=== PATIENT | female | born 1960 | race Caucasian/White ===

== ENCOUNTER 2017-01-04 15:40 | Inpatient (IN) | payer OTHER ==
[~2017-01-04] VITALS: Ht 157.5 cm; Wt 102.5 kg
[~2017-01-04 15:40] MED LIST: AMLO5TAB4 PO; ASPI-535 PO; CEPH500C PO; CHLO25TA13 PO; DESL5TAB20 PO; FAMO20TA18 PO; FER325 PO; HYDR-3498 PO; INSU100C SC; LANT3I SC; METF500T4 PO; METO-448 PO; SENN-53 PO; SERT50TA6 PO; SIMV40TA2 PO; SYN112 PO; TRAZ50TA18 PO
--- NOTE | 2017-01-04 17:43 | ERA ---
ER Documentation Chief Complaint Date/Time DATE: 01/04/17 TIME: 17:43 Chief Complaint SENT BY PMD FOR ADMISSION FOR LEFT FOOT CELLULITIS. S/P ANKLE SURGERY HPI The patient is a 56-year-old female, presenting to the ER because of left ankle , left foot pain and swollen for 1 day. She was seen by the protective service specialist Dr. Abdalla who took left ankle and left foot x-ray and sent her to the ER. She complains of subjective fever, denies chills, neck pain, chest pain, dyspnea, abdominal pain, vomiting, dysuria, diarrhea. She does not smoke nor drink Past medical history: Diabetes mellitus, peripheral artery disease, peripheral neuropathy, hypertension, left Charcot foot, CKD Past surgical history: Cholecystectomy, left foot/ ankle reconstruction in August 19, 2017 ROS All systems reviewed and are negative except as per history of present illness. Medications Home Meds Active Scripts Metoprolol Tartrate* (Lopressor*) 25 Mg Tab, 25 MG PO BID for 30 Days, TAB 1 Refill Prov:RILEY CUTLER MD 06/22/16 Reported Medications Lovastatin* (Lovastatin*) Unknown Strength Tablet, MG PO HS, TAB 01/04/17 Chlorthalidone* (Chlorthalidone*) 25 Mg Tablet, 25 MG PO DAILY, TAB 08/19/16 Insulin Lispro (Humalog) 100 U/Ml Cartridge, 16 UNITS SC WITH MEALS, EA 06/12/16 Trazodone Hcl* (Trazodone Hcl*) 50 Mg Tablet, 50 MG PO QHS, #30 TAB 05/11/16 Levothyroxine Sodium* (Levothyroxine Sodium*) 112 Mcg Tablet, 112 MCG PO AC BREAKFAST, TAB 05/09/15 Insulin Glargine* (Lantus*) 100 Unit/Ml Soln, 44 UNIT SC HS, EA 05/09/15 Metformin* (Glucophage*) 500 Mg Tab, 500 MG PO BID 03/25/11 Discontinued Reported Medications Sertraline Hcl* (Sertraline Hcl*) 50 Mg Tablet, 50 MG PO DAILY, #30 TAB 08/19/16 Famotidine* (Famotidine*) 20 Mg Tablet, 20 MG PO DAILY, #30 TAB 08/19/16 Sertraline Hcl* (Sertraline Hcl*) 50 Mg Tablet, 50 MG PO DAILY, #30 TAB 05/11/16 Simvastatin* (Zocor*) 40 Mg Tablet, 40 MG PO QHS, #30 TAB 05/11/16 Chlorthalidone* (Chlorthalidone*) 25 Mg Tablet, 25 MG PO DAILY, TAB 11/26/15 Discontinued Scripts Hydrocodone Bit-Acetaminophen (Hydrocodone Bit-APAP) 5-325MG Tablet, 1 TAB PO Q4 Y for MODERATE PAIN LEVEL 4-6, #30 TAB Prov:ALICE STAPLES 08/20/16 Sennosides* (Senna Lax*) 8.6 Mg Tablet, 1 TAB PO Q12H Y for CONSTIPATION, #30 TAB Prov:REGIDORALICE 08/20/16 Cephalexin* (Cephalexin*) 500 Mg Capsule, 500 MG PO Q8, #21 CAP Prov:ALICE STAPLES 08/20/16 Amlodipine Besylate* (Norvasc*) 5 Mg Tablet, 5 MG PO DAILY for 30 Days, TAB 1 Refill Prov:RILEY CUTLER MD 06/22/16 Aspirin Ec (Aspir 81) 81 Mg Tablet.dr, 81 MG PO DAILY, #30 TAB Prov:ALICE STAPLES 05/13/16 Desloratadine (Clarinex) 5 Mg Tablet, 5 MG PO DAILY, #30 TAB Prov:PARTH PERSAUD 02/20/16 Ferrous Sulfate* (Ferrous Sulfate*) 325 Mg Tabec, 325 MG PO BID, #30 TAB Prov:GEORGI SOLORIO 10/10/15 Allergies Allergies: Coded Allergies: No Known Drug Allergy (Verified Allergy, Mild, 01/04/17) PMhx/Soc History of Surgery: Yes (LEFT ANKLE) Anesthesia Reaction: No Hx Neurological Disorder: No Hx Respiratory Disorders: No Hx Cardiac Disorders: Yes (HYPERLIPIDEMIA, HYPERTENSION) Hx Psychiatric Problems: Yes (DEPRESSION) Hx Miscellaneous Medical Probl: No Hx Alcohol Use: No Hx Substance Use: No Hx Tobacco Use: No Physical Exam Vitals Vital Signs Date Time Temp Pulse Resp B/P Pulse Ox O2 Delivery O2 Flow Rate FiO2 01/04/17 19:31 98.4 83 19 161/75 100 Room Air 01/04/17 16:32 97.9 80 20 124/58 97 Physical Exam Const: No acute distress. Head: Atraumatic. Eyes: Normal Conjunctiva. ENT: Normal External Ears, Nose and Mouth. Neck: Full range of motion. No meningismus. Resp: Clear to auscultation bilaterally. Cardio: Regular rate and rhythm, no murmurs. Abd: Soft, non distended, normal bowel sounds, non tender. Skin: No petechiae or rashes. Back: No midline or flank tenderness. Ext: Left ankle and left foot edematous, warm to touch, no calf tenderness Neur: Awake and alert. No focal deficit Psych: Normal Mood and Affect. Result Diagram: 01/04/17182001/04/171820 Results 24 hrs Laboratory Tests Test 01/04/17 18:21 White Blood Count 12.610^3/ul Red Blood Count 4.2510^6/ul Hemoglobin 11.1g/dl Hematocrit 35.1% Mean Corpuscular Volume 82.6fl Mean Corpuscular Hemoglobin 26.1pg Mean Corpuscular Hemoglobin Concent 31.6g/dl Red Cell Distribution Width 14.6% Platelet Count 31766^3/UL Mean Platelet Volume 9.2fl Neutrophils % 65.4% Lymphocytes % 19.3% Monocytes % 9.5% Eosinophils % 4.8% Basophils % 0.6% Nucleated Red Blood Cells % 0.0/100WBC Neutrophils # 8.210^3/ul Lymphocytes # 2.410^3/ul Monocytes # 1.210^3/ul Eosinophils # 0.610^3/ul Basophils # 0.110^3/ul Nucleated Red Blood Cells # 0.010^3/ul Erythrocyte Sedimentation Rate 123mm/Hr Prothrombin Time 13.4Sec Prothrombin Time Ratio 1.0 INR International Normalized Ratio 1.02 Activated Partial Thromboplast Time 35.2Sec Sodium Level 137mmol/L Potassium Level 4.4mmol/L Chloride Level 99mmol/L Carbon Dioxide Level 23mmol/L Anion Gap 19 Blood Urea Nitrogen 39mg/dl Creatinine 1.64mg/dl Glucose Level 216mg/dl Lactic Acid Level 1.8mmol/L Calcium Level 9.2mg/dl Total Bilirubin 0.1mg/dl Direct Bilirubin 0.00mg/dl Indirect Bilirubin 0.1mg/dl Aspartate Amino Transf (AST/SGOT) 14IU/L Alanine Aminotransferase (ALT/SGPT) 19IU/L Alkaline Phosphatase 173IU/L Troponin I < 0.012ng/ml Total Protein 7.6g/dl Albumin 3.4g/dl Globulin 4.20g/dl Albumin/Globulin Ratio 0.80 Current Medications Medications (Trade) Dose Ordered Sig/Nafisa Route PRN Reason Start Time Stop Time Status Last Admin Dose Admin Vancomycin HCl 250 ml @ 125 mls/hr ONCE IVPB 01/04/17 19:00 01/04/17 20:59 Piperacillin Sod/ Tazobactam Sod (Zosyn 3.375gm/ 100 ml (Pmx)) 100 ml @ 200 mls/hr ONCE ONCE IVPB 01/04/17 19:00 01/04/17 19:29 DC 01/04/17 19:19 Morphine Sulfate (morphine) 2 mg ONCE ONCE IV 01/04/17 19:30 01/04/17 19:31 DC 01/04/17 19:28 Ondansetron HCl 4 mg 4 mg ONCE STAT IV 01/04/17 19:08 01/04/17 19:11 DC 01/04/17 19:27 Piperacillin Sod/ Tazobactam Sod (Zosyn 2.25gm/ 50ml (Pmx)) 50 ml @ 100 mls/hr ONCE ONCE IVPB 01/04/17 19:30 01/04/17 19:59 Procedures/[place] [id number] Radiology Main Line: [phone] DIAGNOSTIC IMAGING REPORT Patient: TOR MCGRATH : 1960 Age: 56 Sex: F MR #: [id number] DOS: 01/04/17 [facility] Ordering MD: JOSE ARMANDO ELLISON MD Location: E/R Room/Bed: PROCEDURE: CT of the left ankle without contrast CLINICAL INDICATION: Lower extremity pain TECHNIQUE: CT scan of the left ankle was performed. No IV contrast was administered. Coronal and sagittal reformatted images were obtained from the axial source images. images. The calculated radiation dose measures 1594.63 mGy centimeters. The CTDI measures 63.33 mGy. Images were reviewed on a high- resolution PACS workstation. One or more of the following dose reduction techniques were used: - Automated exposure control. - Adjustment of the mA and/or kV according to patient size . - Use of iterative reconstruction technique. Images were reviewed on a high-resolution PACS workstation COMPARISON: Interval priors most recent radiograph from 01/04/2017 FINDINGS: Osseous structures: The patient has undergone attempted tibiotalar and subtalar joint arthrodesis with an intramedullary distal tibia erma extending to the calcaneus and through the talus. There has been prior distal fibular resection as well. There are two proximal in a distal interlocking screw with an additional oblique cannulated screw of the talus and calcaneus from anterior-posterior direction. There is no evidence for solid osseous bridging across the arthrodesis site. There is marked sclerosis and small foci of air noted at the lateral talar fragment, suspicious for necrosis. The distal end of the tibial erma extends beyond the plantar cortex of the calcaneus. There are is either neuropathic changes or post-traumatic changes at the midfoot chronic widening of the Lisfranc joint. There is partial fusion between the first metatarsal and middle cuneiform. Soft tissues: There is distension of the tibiotalar joint capsule and a small foci of air seen on the axial series image 55. IMPRESSION: 1. No evidence for solid osseous bridging at the tibiotalar or subtalar joints. 2. Marked sclerosis and fragmentation of the talar remnant with small foci of air. 3. Distension of the hind foot joint capsule. Infection cannot be entirely excluded on the basis of CT alone. 4. Advanced neuropathic changes at the midfoot. RPTAT: PP .Nate Warner MD, MD Date Time Electronically viewed and signed by .Nate Warner MD, MD on 01/04/2017 19:25 .d/ CC: JOSE ARMANDO ELLISON MD [place] [id number] Radiology Main Line: [phone] DIAGNOSTIC IMAGING REPORT Patient: OTR MCGRATH : 1960 Age: 56 Sex: F [id number]: 01/04/17 1752 Ordering MD: JOSE ARMANDO ELLISON MD Location: E/R Room/Bed: PROCEDURE: XR Chest. CLINICAL INDICATION: Chest pain. TECHNIQUE: Single frontal chest x-ray. COMPARISON: 05/11/2016 FINDINGS: The cardiomediastinal silhouette is unremarkable. There is no congestive heart failure.. No focal infiltrate is seen. There is no pleural effusion. There is no pneumothorax. The osseous structures are unremarkable. IMPRESSION: 1. No active disease. RPTAT: HMVK .Jose Armando Valdes MD, Date Time Electronically viewed and signed by .Jose Armando Valdes MD, on 01/04/2017 19:03 .K/ CC: JOSE ARMANDO ELLISON MD :EKG: Read by emergency physician Rate/Rhythm: Normal Sinus Rhythm 77 beats/min QRS, ST, T-waves: No ST elevation, no T inversion Impression: Normal EKG MEDICAL MAKING DECISION: The patient is a 56-year-old female, presenting to the ER because of acute left foot and left ankle cellulitis. The differential diagnoses considered include but are not limited to cellulitis, abscess, internal derangement, osteomyelitis. She was treated with vancomycin IV, Zosyn IV, morphine 2 mg IV for pain, Zofran 4 mg IV for nausea with good response Departure Diagnosis: Primary Impression: Cellulitis of foot, left Additional Impression: Cellulitis of left ankle Condition: Stable Comments I discussed the findings with the patient. I discussed the patient with the on- call hospitalist Dr. Cutler who was made aware of the lab, the treatment, the patient condition. The patient is admitted to medical surgery bed at 7pm JOSE ARMANDO ELLISON MD January 04, 2017 17:43
[2017-01-04] MEDS ORDERED: LOVA20TA PO (18:08)
[2017-01-04 18:33] LABS: ADD SCAN DIFF NO
[2017-01-04 18:38] LABS: BASOPHIL # 0.1 10^3/ul (0.0-0.1); BASOPHILS % 0.6 % (0.0-2.0); EOSINOPHILS # 0.6 10^3/ul (0.0-0.5); EOSINOPHILS % 4.8 % (0.0-7.0); HEMATOCRIT 35.1 % (37.0-47.0); HEMOGLOBIN 11.1 g/dl (12.0-16.0); LYMPHOCYTES # 2.4 10^3/ul (0.8-2.9); LYMPHOCYTES % 19.3 % (15.0-51.0); MEAN CORPUSCULAR HEMOGLOBIN 26.1 pg (29.0-33.0); MEAN CORPUSCULAR HGB CONC 31.6 g/dl (32.0-37.0); MEAN CORPUSCULAR VOLUME 82.6 fl (82.0-101.0); MEAN PLATELET VOLUME 9.2 fl (7.4-10.4); MONOCYTE # 1.2 10^3/ul (0.3-0.9); MONOCYTES % 9.5 % (0.0-11.0); NEUTROPHIL # 8.2 10^3/ul (1.6-7.5); NEUTROPHILS % 65.4 % (39.0-77.0); PLATELET COUNT 591 10^3/UL (140-415); RED BLOOD COUNT 4.25 10^6/ul (4.20-5.40); RED CELL DISTRIBUTION WIDTH 14.6 % (11.5-14.5); WHITE BLOOD COUNT 12.6 10^3/ul (4.8-10.8)
[2017-01-04] MEDS ORDERED: PIPER-TAZO 3.375 GM IV (PMX) 100 ML IVPB ONE (19:00)
[2017-01-04] MEDS ORDERED: VANCOMYCIN 1 GM (PMX) 250 ML IVPB SCH (19:00)
[2017-01-04 19:02] LABS: INR 1.02; PROTIME 13.4 Sec (12.2-14.2)
[2017-01-04 19:03] LABS: PARTIAL THROMBOPLASTIN TIME 35.2 Sec (25.0-35.0)
--- NOTE | 2017-01-04 19:03 | RADRPT ---
PROCEDURE: XR Chest. CLINICAL INDICATION: Chest pain. TECHNIQUE: Single frontal chest x-ray. COMPARISON: 05/11/2016 FINDINGS: The cardiomediastinal silhouette is unremarkable. There is no congestive heart failure.. No focal i nfiltrate is seen. There is no pleural effusion. There is no pneumothorax. The osseous structures are unremarkable. IMPRESSION: 1. No active disease. RPTAT: HMVK .Jose Armando Valdes MD, MD Date Time Electronically viewed and signed by .Jose Armando Valdes MD, on 01/04/2017 19:03 .K/
[2017-01-04 19:06] LABS: ALBUMIN 3.4 g/dl (3.3-4.9); CHLORIDE 99 mmol/L (97-110); POTASSIUM 4.4 mmol/L (3.5-5.1); SODIUM 137 mmol/L (135-144)
[2017-01-04 19:08] LABS: ANION GAP 19 (8-16); ASPARTATE AMINO TRANSFERASE 14 IU/L (15-46); BILIRUBIN,INDIRECT 0.1 mg/dl (0-1.1); BILIRUBIN,TOTAL 0.1 mg/dl (0.2-1.3); CARBON DIOXIDE 23 mmol/L (21-31); CREATININE 1.64 mg/dl (0.44-1.00)
[2017-01-04] MEDS ORDERED: ONDANSETRON 4 MG INJ IV STA ×2 (19:08→20:22)
[2017-01-04 19:09] LABS: ALANINE AMINOTRANSFERASE 19 IU/L (13-69); ALKALINE PHOSPHATASE 173 IU/L (42-121); BLOOD UREA NITROGEN 39 mg/dl (7-20); GLUCOSE 216 mg/dl (70-220); TOTAL PROTEIN 7.6 g/dl (6.1-8.1)
[2017-01-04 19:10] LABS: CALCIUM 9.2 mg/dl (8.4-10.2)
[2017-01-04 19:20] LABS: TROPONIN-I < 0.012 ng/ml (0.00-0.12)
--- NOTE | 2017-01-04 19:26 | RADRPT ---
PROCEDURE: CT of the left ankle without contrast CLINICAL INDICATION: Lower extremity pain TECHNIQUE: CT scan of the left ankle was performed. No IV contrast was administered. Coronal and sagittal reformatted images were obtained from the axial source images. images. The calculated radi ation dose measures 1594.63 mGy centimeters. The CTDI measures 63.33 mGy. Images were reviewed on a high-resolution PACS workstation. One or more of the following dose reduction techniques were used: - Automated exposure control. - Adjustment of the mA and/or kV according to patient size . - Use of iterative reconstruction technique. Images were reviewed on a high-resolution PACS workstation COMPARISON: Interval priors most recent radiograph from 01/04/2017 FINDINGS: Osseous structures: The patient has undergone attempted tibiotalar and subtalar joint arthrodesis with an intramedullary distal tibia erma extending to the calcaneus and through the talus. There has been prior distal fib ular resection as well. There are two proximal in a distal interlocking screw with an additional ob lique cannulated screw of the talus and calcaneus from anterior-posterior direction. There is no carrie dence for solid osseous bridging across the arthrodesis site. There is marked sclerosis and small f oci of air noted at the lateral talar fragment, suspicious for necrosis. The distal end of the tibi al erma extends beyond the plantar cortex of the calcaneus. There are is either neuropathic changes or post-traumatic changes at the midfoot chronic widening of the Lisfranc joint. There is partial f usion between the first metatarsal and middle cuneiform. Soft tissues: There is distension of the tibiotalar joint capsule and a small foci of air seen on the axial series image 55. IMPRESSION: 1. No evidence for solid osseous bridging at the tibiotalar or subtalar joints. 2. Marked sclerosis and fragmentation of the talar remnant with small foci of air. 3. Distension of the hind foot joint capsule. Infection cannot be entirely excluded on the basis o f CT alone. 4. Advanced neuropathic changes at the midfoot. RPTAT: PP .Nate Warner MD, MD Date Time Electronically viewed and signed by .Nate Warner MD, MD on 01/04/2017 19:25 .d/
[2017-01-04] MEDS ORDERED: PIPER-TAZO 2.25 GM (PMX) 50 ML IVPB ONE (19:30)
[2017-01-04] MEDS ORDERED: morphine 2 MG INJ IV ONE (19:30)
[2017-01-04 19:31] VITALS: TEMP 98.4
[2017-01-04] MEDS ORDERED: morphine 4 MG/ML VIAL IV STA (20:22)
[2017-01-04 21:34] VITALS: BP 131/63; RESP 18
[2017-01-04 21:47] VITALS: Ht 157.5 cm; Wt 102.5 kg
[2017-01-04] MEDS ORDERED: ONDANSETRON 4 MG INJ IV PRN (23:00)
[2017-01-04] MEDS ORDERED: GLUCOSE GEL 15 GRAM TUBE BUCCAL PRN (23:45)
[2017-01-04] MEDS ORDERED: GLUCAGON 1 MG INJ IM PRN (23:45)
[2017-01-04] MEDS ORDERED: GLUCOSE GEL 15 GRAM TUBE PO PRN ×2 (23:45)
[2017-01-04] MEDS ORDERED: DEXTROSE 50% 50 ML SYRINGE IV PRN ×2 (23:45)
[2017-01-05] MEDS ORDERED: ACCU-CHEK XX SCH (02:00)
[2017-01-05] MEDS: ACCU-CHEK XX SCH (02:00)
[2017-01-05] MEDS: LEVOTHYROXINE 112 MCG TAB PO SCH (05:28)
[2017-01-05 05:48] LABS: ADD SCAN DIFF NO
[2017-01-05 05:52] LABS: BASOPHIL # 0.1 10^3/ul (0.0-0.1); BASOPHILS % 0.5 % (0.0-2.0); EOSINOPHILS # 0.5 10^3/ul (0.0-0.5); EOSINOPHILS % 4.8 % (0.0-7.0); HEMOGLOBIN 10.3 g/dl (12.0-16.0); LYMPHOCYTES # 0.8 10^3/ul (0.8-2.9); LYMPHOCYTES % 7.3 % (15.0-51.0); MEAN CORPUSCULAR HEMOGLOBIN 25.8 pg (29.0-33.0); MEAN CORPUSCULAR HGB CONC 31.2 g/dl (32.0-37.0); MEAN CORPUSCULAR VOLUME 82.7 fl (82.0-101.0); MEAN PLATELET VOLUME 9.6 fl (7.4-10.4); MONOCYTES % 9.7 % (0.0-11.0); NEUTROPHIL # 8.1 10^3/ul (1.6-7.5); NEUTROPHILS % 77.3 % (39.0-77.0); PLATELET COUNT 531 10^3/UL (140-415); RED BLOOD COUNT 3.99 10^6/ul (4.20-5.40); RED CELL DISTRIBUTION WIDTH 14.6 % (11.5-14.5); WHITE BLOOD COUNT 10.5 10^3/ul (4.8-10.8)
[2017-01-05] MEDS ORDERED: CLINDAMYCIN 600 MG/D5W (PMX) 50 ML IVPB SCH (06:00)
[2017-01-05 06:29] LABS: ALBUMIN 3.1 g/dl (3.3-4.9); ALBUMIN/GLOBULIN RATIO 0.77; BILIRUBIN,INDIRECT 0.1 mg/dl (0-1.1); BILIRUBIN,TOTAL 0.1 mg/dl (0.2-1.3); CALCIUM 8.8 mg/dl (8.4-10.2); CHOL/HDL RATIO 4.6 RATIO; CREATININE 1.55 mg/dl (0.44-1.00); PHOSPHORUS 4.3 mg/dl (2.5-4.9); POTASSIUM 5.2 mmol/L (3.5-5.1); TOTAL PROTEIN 7.1 g/dl (6.1-8.1)
[2017-01-05] MEDS ORDERED: VANCOMYCIN IV PER PHARMACY XX SCH (06:30)
[2017-01-05 06:54] LABS: THYROID STIMULATING HORMONE 4.13 MIU/L (0.465-4.680)
--- NOTE | 2017-01-05 07:54 | HP ---
DATE OF ADMISSION: 01/04/2017 TIME SEEN: 2300 CHIEF COMPLAINT: Left foot/ankle pain. HISTORY OF PRESENT ILLNESS: The patient is a 56-year-old female with a history of hypertension, juan betes, dyslipidemia, chronic kidney disease, depression, and left Charcot ankle status post fusion u sing allograft. The patient presented to the ER with left ankle/foot pain. The patient had the eff usion of the left ankle using a bone allograft in July of last year. She had been placed on the cast which she said was removed a week ago. She had been experiencing pain over the past 3 days, a nd also noted swelling and redness in her left ankle and foot. The patient was seen by her podiatri st, Dr. Peacock, who sent the patient to the ER. The patient denied any chest pain, shortness of segundo ath, nausea, vomiting, fever, chills. In the ER, a left ankle CT without contrast was done which sh owed marked sclerosis and fragmentation of the color remnant with a small foci of air as well as dis tention of the hindfoot joint capsule, infection, not being able to be entirely exclude. Her initia l vitals were within normal limits, and her laboratory value shows a WBC of 12.6, hemoglobin 11.1, p latelet count 591, 100, BUN of 39, creatinine 1.64, and alkaline phosphatase 173, otherwise the rest of CBC and CMP are within acceptable range. REVIEW OF SYSTEMS: A 12-point review was performed, negative except as mentioned in HPI. PAST MEDICAL HISTORY: As per HPI. PAST SURGICAL HISTORY: As mentioned in HPI as well as cholecystectomy. SOCIAL HISTORY: Denies history of tobacco, alcohol, or illicit drug use. ALLERGIES: NO KNOWN DRUG ALLERGIES. HOME MEDICATIONS: 1. Lovastatin. 2. Lopressor. 3. Trazodone. 4. Chlorthalidone. 5. Insulin. 6. Synthroid. 7. Metformin. PHYSICAL EXAMINATION: VITAL SIGNS: Stable. GENERAL: The patient in mild distress due to pain on her left foot. HEENT: No obvious head deformity. Pupils react to light. Extraocular muscles intact. CARDIOVASCULAR: Regular rate and rhythm with no extra sounds. LUNGS: Clear. ABDOMEN: Soft, nontender, nondistended. Positive bowel sounds. EXTREMITIES: There is swelling of the left foot and left ankle with some erythema. The area is ten armin to palpation. LABORATORY: Pertinent positive results as mentioned in the HPI. IMAGING: CT of the left ankle/foot with results as mentioned in the HPI. Chest x-ray shows no acut e disease. IMPRESSION: 1. Left ankle cellulitis. 2. History of left Charcot ankle status post fusion using a bone allograft in July 2016. 3. History of hypertension. 4. History of diabetes. 5. History of dyslipidemia. 6. History of depression. 7. Chronic kidney disease. 8. Leukocytosis, likely secondary to cellulitis. PLAN: She will be placed on antibiotics. We will provide pain medication as needed. We will place an ID consult, and she will be seen in house by her non clinical advisor. We will continue her home medicati ons including her insulin with adjustments. Further workup and management per clinical course. Dictated By: RILEY MARTIN/COURTNEY Conf#: [id number] DID#: [id number]
[2017-01-05 07:56] VITALS: BP 152/65; RESP 20
[2017-01-05] MEDS: morphine 2 MG INJ IV PRN ×3 (07:57→19:47)
[2017-01-05] MEDS: INSULIN ASPART [NOVOLOG] 3 ML PEN SC SCH ×7 (08:05→20:55)
[2017-01-05] MEDS: CEFEPIME 1GM/50 ML (PMX) 50 ML IVPB SCH ×2 (08:38→20:35)
[2017-01-05] MEDS: METOPROLOL 25 MG TAB PO SCH ×2 (08:39→20:34)
[2017-01-05] MEDS: ENOXAPARIN 40 MG/0.4 ML SYG SC SCH (08:39)
[2017-01-05] MEDS ORDERED: INSULIN GLARGINE [LANtus] 3 ML PEN SC SCH ×2 (11:00→21:00)
[2017-01-05] MEDS ORDERED: VANCOMYCIN 1.5 GM in SOD CHLORIDE 0.9% 250 ML IVPB SCH (12:00)
--- NOTE | 2017-01-05 12:22 | PN ---
Date/Time of Note Date/Time of Note DATE: 01/05/17 TIME: 12:08 Assessment/Plan VTE Prophylaxis VTE Prophylaxis Intervention: LMWH Lines/Catheters IV [facility]ter [facility] (from [facility]): Peripheral IV Urinary Cath still in place: No Assessment/Plan Chief Complaint/Hosp Course Assessment and plan 1. Left ankle cellulitis. Continue on antibiotics. Podiatry to follow. ID consulted. 2. History of left Charcot ankle status post fusion using bone allograft in July 2016. Podiatry to follow. 3. Uncontrolled diabetes. A1c at 13. Will get upholsterer outside to follow. Will get pie filling mixer. Will adjust insulin regimen as needed 4. Essential hypertension. Continue antihypertensives and adjust as needed 5. Hyperlipidemia. stable at present. Will monitor. 6. Acute kidney injury. Start on IV hydration. Appears to be improving. Will monitor for now. Will get aircraft instrument repairer pending clinical course 7. Anemia. Will follow up on iron panel Disposition and plan: Podiatry/ID/upholsterer outside to follow. Insulin to be adjusted. Monitor glucose levels. Continue in-house monitoring. Continue antibiotics Discussed plan of care with Dr. Perez Problems: Subjective 24 Hr Interval Summary Free Text/Dictation Resting at this time he does report having some left foot pain. Exam/Review of Systems Vital Signs Vitals Vital Signs Date Time Temp Pulse Resp B/P Pulse Ox O2 Delivery O2 Flow Rate FiO2 01/05/17 07:56 99.2 90 20 152/65 95 01/04/17 21:00 Room Air Intake and Output 01/04/17 01/04/17 01/05/17 15:00 23:00 07:00 Intake Total 290 ml Balance 290 ml Exam Constitutional: alert, obese, oriented Head: normocephalic Eyes: nl conjunctiva Neck: supple Respiratory: normal air movement Cardiovascular: regular rate and rhythm Gastrointestinal: non-tender, soft Musculoskeletal: swelling (Edema seen left lower extremity around ankle and foot) Neurological: POWDER LINE REPAIRER II-XII intact, nl mental status Skin: other (Erythema seen lateral portion of left ankle) Results Result Diagram: 01/05/17 0455 01/05/17 0455 Results 24 hrs Laboratory Tests Test 01/04/17 18:21 01/04/17 19:55 01/05/17 04:55 01/05/17 07:52 White Blood Count 12.6 H 10.5 Red Blood Count 4.25 3.99 L Hemoglobin 11.1 L 10.3 L Hematocrit 35.1 L 33.0 L Mean Corpuscular Volume 82.6 82.7 Mean Corpuscular Hemoglobin 26.1 L 25.8 L Mean Corpuscular Hemoglobin Concent 31.6 L 31.2 L Red Cell Distribution Width 14.6 #H 14.6 H Platelet Count 591 H 531 H Mean Platelet Volume 9.2 9.6 Neutrophils % 65.4 77.3 H Lymphocytes % 19.3 7.3 L Monocytes % 9.5 9.7 Eosinophils % 4.8 4.8 Basophils % 0.6 0.5 Nucleated Red Blood Cells % 0.0 0.0 Neutrophils # 8.2 H 8.1 H Lymphocytes # 2.4 0.8 Monocytes # 1.2 H 1.0 H Eosinophils # 0.6 H 0.5 Basophils # 0.1 0.1 Nucleated Red Blood Cells # 0.0 0.0 Erythrocyte Sedimentation Rate 123 H Prothrombin Time 13.4 Prothrombin Time Ratio 1.0 INR International Normalized Ratio 1.02 Activated Partial Thromboplast Time 35.2 H Sodium Level 137 134 L Potassium Level 4.4 5.2 H Chloride Level 99 103 Carbon Dioxide Level 23 25 Anion Gap 19 H 11 # Blood Urea Nitrogen 39 H 38 H Creatinine 1.64 H 1.55 H Glucose Level 216 486 #*H Lactic Acid Level 1.8 0.8 Calcium Level 9.2 8.8 Total Bilirubin 0.1 L 0.1 L Direct Bilirubin 0.00 0.00 Indirect Bilirubin 0.1 0.1 Aspartate Amino Transf (AST/SGOT) 14 L 70 H Alanine Aminotransferase (ALT/SGPT) 19 63 Alkaline Phosphatase 173 H 437 #H Troponin I < 0.012 Total Protein 7.6 7.1 Albumin 3.4 3.1 L Globulin 4.20 H 4.00 H Albumin/Globulin Ratio 0.80 0.77 Hemoglobin A1c 13.0 H Phosphorus Level 4.3 Magnesium Level 2.0 Triglycerides Level 148 Cholesterol Level 139 LDL Cholesterol, Calculated 79 HDL Cholesterol 30 L Cholesterol/HDL Ratio 4.6 Thyroid Stimulating Hormone (TSH) 4.130 Bedside Glucose 432 *H Medications Medications Current Medications Acetaminophen (Tylenol Tab) 650 mg Q6H PRN PO PAIN AND OR ELEVATED TEMP; Start 01/04/17 at 23:00 Ondansetron HCl (Zofran Inj) 4 mg Q6H PRN IV NAUSEA AND/OR VOMITING; Start 01/04 at 23:00 Morphine Sulfate (morphine) 2 mg Q4H PRN IV PAIN Last administered on 07:57; Admin Dose 2 MG; Start 01/04/17 at 23:00 Enoxaparin Sodium (Lovenox) 40 mg DAILY SC Last administered on 01/05/17 08:39 ; Admin Dose 40 MG; Start 01/05/17 at 09:00 Metoprolol Tartrate (Lopressor) 25 mg BID PO Last administered on 01/05/17 08: 39; Admin Dose 25 MG; Start 01/05/17 at 09:00 Levothyroxine Sodium (Synthroid) 112 mcg DAILY@06 PO Last administered on 05:28; Admin Dose 112 MCG; Start 01/05/17 at 06:00 Trazodone HCl (Desyrel) 50 mg HS PO ; Start 01/05/17 at 21:00 Diagnostic Test (Pha) (Accu-Chek) 1 ea 02 XX ; Start 01/05/17 at 02:00 Miscellaneous Information 1 ea NOTE XX ; Start 01/04/17 at 23:45 Glucose (Glutose) 15 gm Q15M PRN PO DECREASED GLUCOSE; Start 01/04/17 at 23:45 Glucose (Glutose) 22.5 gm Q15M PRN PO DECREASED GLUCOSE; Start 01/04/17 at 23:45 Dextrose (D50w Syringe) 25 ml Q15M PRN IV DECREASED GLUCOSE; Start 01/04/17 at 23:45 Dextrose (D50w Syringe) 50 ml Q15M PRN IV DECREASED GLUCOSE; Start 01/04/17 at 23:45 Glucagon (Glucagen) 1 mg Q15M PRN IM DECREASED GLUCOSE; Start 01/04/17 at 23:45 Glucose 15 gm 15 gm Q15M PRN BUCCAL DECREASED GLUCOSE; Start 01/04/17 at 23:45 Cefepime HCl 50 ml @ 100 mls/hr Q12 IVPB Last administered on 01/05/17 08:38 ; Admin Dose 100 MLS/HR; Start 01/05/17 at 09:00 Vancomycin HCl/ Sodium Chloride (Vancocin/NS) 250 ml @ 83.333 mls/ hr Q24H IVPB Last administered on 01/05/17 12:05; Admin Dose 83.333 MLS/HR; Start 06/14 at 12:00 Insulin Glargine (Lantus) 44 unit QAM SC Last administered on 01/05/17 12:03; Admin Dose 44 UNIT; Start 01/05/17 at 11:00 ALICE STAPLES January 05, 2017 12:21
[2017-01-05] MEDS: SOD CHLORIDE 0.9% 1,000 ML IV SCH (15:21)
--- NOTE | 2017-01-05 16:42 | CONS ---
DATE OF ADMISSION: 01/04/2017 DATE OF CONSULTATION: 01/05/2017 INFECTIOUS DISEASE CONSULTATION REASON FOR CONSULTATION: Antibiotic management. HISTORY OF PRESENT ILLNESS: Penelope Huerta is a pleasant 56-year-old female followed by Dr. Peacock in the [facility]. Her past problems include: 1. Hypertension. 2. Diabetes. 3. Dyslipidemia. 4. Chronic renal disease. 5. Depression. 6. Left Charcot ankle status post fusion using allograft. Acutely, the patient presented to the emergency room with left ankle and foot pain. She had fusion of the left ankle using a bone allograft in July of last year. She had been placed into the benita t which she said was removed at least 5 days ago. She then experienced pain over the last 3 days pr ior to admission as well as significant swelling and redness of the left ankle and foot. She was se nt by Dr. Peacock to the emergency room. A CT scan without contrast showed marked sclerosis and frag mentation with a small foci of air as well as distention of the hindfoot joint capsule, infection no t being able to be entirely excluded. On admission, her white count was 12.6, H and H 11.1 and 35.1 , platelet count 591,000. On 01/05/2017, white count of 10.5. BUN and creatinine are 13 and 1.55. Blood sugar is 486, markedly elevated. Her AST is elevated at 70, alkaline phosphatase 437, BUN an d creatinine 7.1/3.1. Chest x-ray: No active disease. Lower extremity CT: No evidence of solid o sseous bridging at the tibiotalar or subtalar joints, marked sclerosis and fragmentation of the derrek r remnant with small foci of air, distention of the hindfoot capsule. Infection cannot be entirely excluded on the basis of CT alone. Advanced neuropathic changes at the mid foot. The patient was b egun on vancomycin and cefepime. Left ankle cellulitis status post fusion in July 2016. PAST MEDICAL HISTORY: Operations as outlined. FAMILY HISTORY: Noncontributory. SOCIAL HISTORY: She does not smoke, drink, or abuse drugs. ALLERGIES: NONE TO PENICILLIN, SULFA, OR FOODS. MEDICATIONS: Per chart. REVIEW OF SYSTEMS: As per HPI. PHYSICAL EXAMINATION: GENERAL: The patient is a well-developed, well-nourished, somewhat obese female who is alert, respo nsive, in no acute distress. VITAL SIGNS: Stable. She is afebrile. SKIN: Without generalized rash. HEENT: Within normal limits. NECK: Supple. LYMPH NODES: None palpable. LUNGS: Clear to P and A. HEART: Without murmur or gallop. ABDOMEN: Soft, nontender, without organosplenomegaly or masses. EXTREMITIES: Swelling of the left foot and left ankle with some erythema. There is also tenderness to palpation. RECTAL AND GENITAL: Deferred. NEUROLOGIC: No focal neurological abnormalities. IMPRESSION AND PLAN: The patient has left ankle cellulitis with Charcot joint. She may have osteom yelitis at this point. We will await Dr. Peacock for evaluation. I will dictate my findings to the hospitalist and to him. We will continue her on vancomycin and cefepime. Dictated By: HAN TURCIOS MD, JD/COURTNEY Conf#: [id number] DID#: [id number]
--- NOTE | 2017-01-05 19:11 | CONS ---
Date/Time of Note Date/Time of Note DATE: 01/05/17 TIME: 19:03 Assessment/Plan Assessment/Plan Problems: (1) Hyporeninemic hypoaldosteronism Status: Chronic Comment: This is interfered with some of her therapeutics in the past. As noted in prior admission the appropriate treatment here would be low-dose fludrocortisone in combination with JANE inhibitors so he may use the JANE inhibitors to protect her kidneys over the long haul. Therefore low-dose fludrocortisone with jane inhibitors 2. Protect the kidneys and keep the potassium normal. (2) Diabetes type 2, uncontrolled Status: Chronic Comment: Her diabetic control has been poor. Whether this is a reflection of the smoldering infection or the care she was receiving is not entirely clear. She had done well on a combination therapy and she can tolerate low-dose metformin in the setting. I will reinitiate that will use her insulin. Please note as infection is treated it is a extremely strong possibility that her dosages of insulin will be able to be reduced. As such watch for hypoglycemia Qualifiers: Qualified Code: E11.29 - Uncontrolled type 2 diabetes mellitus with microalbuminuria, with long-term current use of insulin (3) Charcot foot due to diabetes mellitus Status: Chronic Comment: As per [facility] Dr. Peacock (4) Diabetes mellitus with neuropathy Status: Chronic Comment: This is noted in the cause of the Charcot joint Qualifiers: Qualified Code: E11.40 - Type 2 diabetes mellitus with diabetic neuropathy, with long-term current use of insulin (5) Hypertension Status: Chronic Comment: Resume JANE inhibitor in this patient. Given that she also has diastolic dysfunction low-dose beta-tristian is appropriate Qualifiers: Qualified Code: I10 - Essential hypertension (6) Morbid obesity Status: Chronic Comment: Calorie restriction diet Qualifiers: Qualified Code: E66.01 - Morbid obesity due to excess calories (7) Hypothyroidism Status: Chronic Comment: Continue replacement dosage therapy Qualifiers: Qualified Code: E03.9 - Acquired hypothyroidism (8) Iron deficiency anemia Status: Chronic Comment: Recheck iron levels. Qualifiers: Qualified Code: D50.9 - Iron deficiency anemia, unspecified iron deficiency anemia type Consultation Date/Type/Reason Admit Date/Time January 04, 2017 at 19:32 Date of Consultation: January 05, 2017 Type of Consultation: Endocrinology Reason for Consultation Diabetes mellitus type 2 with poor control; hyporeninemic hypoaldosteronism; diabetic nephropathy stage II Referring Provider: YIN SALOMON Hx of Present Illness 56-year-old female with a history of a Charcot joint status post fixation and surgery last year with fusion. Her blood sugar control has not been ideal and she has been being managed by a family practitioner in the community. Patient reports she did complain about her sugar control however we are where we are. Constitutional: chills, febrile Eyes: no complaints ENT: no complaints Respiratory: no complaints Cardiovascular: no complaints Gastrointestinal: no complaints Genitourinary: no complaints Musculoskeletal: no complaints Skin: no complaints Neurologic: no complaints Past Medical History Diabetes mellitus type 2; diabetic nephropathy; hyporeninemic hypoaldosteronism ; hypertension; hyperlipidemia; diabetic peripheral neuropathy; Charcot joint; hypothyroidism; morbid obesity; history of iron deficiency anemia:; Dysthymia. Past Surgical History Status post fusion of the ankle Past Surgical Hx: cholecystectomy Family History Significant Family History: diabetes, hypertension Social History Alcohol Use: none Smoking Status: Never smoker Drug Use: none Exam/Review of Systems Vital Signs Vitals Vital Signs Date Time Temp Pulse Resp B/P Pulse Ox O2 Delivery O2 Flow Rate FiO2 01/05/17 07:56 99.2 90 20 152/65 95 01/04/17 21:00 Room Air Intake and Output 01/04/17 01/04/17 01/05/17 15:00 23:00 07:00 Intake Total 290 ml Balance 290 ml Exam Constitutional: alert, oriented Neck: non-tender, supple Respiratory: clear to auscultation, normal air movement Cardiovascular: nl pulses, regular rate and rhythm Gastrointestinal: nl liver, spleen, non-tender, soft Results Result Diagram: 01/05/17 0455 01/05/17 0455 Results 24 hrs Laboratory Tests Test 01/04/17 19:55 01/05/17 04:55 01/05/17 07:52 01/05/17 11:52 Lactic Acid Level 0.8 White Blood Count 10.5 Red Blood Count 3.99 L Hemoglobin 10.3 L Hematocrit 33.0 L Mean Corpuscular Volume 82.7 Mean Corpuscular Hemoglobin 25.8 L Mean Corpuscular Hemoglobin Concent 31.2 L Red Cell Distribution Width 14.6 H Platelet Count 531 H Mean Platelet Volume 9.6 Neutrophils % 77.3 H Lymphocytes % 7.3 L Monocytes % 9.7 Eosinophils % 4.8 Basophils % 0.5 Nucleated Red Blood Cells % 0.0 Neutrophils # 8.1 H Lymphocytes # 0.8 Monocytes # 1.0 H Eosinophils # 0.5 Basophils # 0.1 Nucleated Red Blood Cells # 0.0 Sodium Level 134 L Potassium Level 5.2 H Chloride Level 103 Carbon Dioxide Level 25 Anion Gap 11 # Blood Urea Nitrogen 38 H Creatinine 1.55 H Glucose Level 486 #*H Hemoglobin A1c 13.0 H Calcium Level 8.8 Phosphorus Level 4.3 Magnesium Level 2.0 Total Bilirubin 0.1 L Direct Bilirubin 0.00 Indirect Bilirubin 0.1 Aspartate Amino Transf (AST/SGOT) 70 H Alanine Aminotransferase (ALT/SGPT) 63 Alkaline Phosphatase 437 #H Total Protein 7.1 Albumin 3.1 L Globulin 4.00 H Albumin/Globulin Ratio 0.77 Triglycerides Level 148 Cholesterol Level 139 LDL Cholesterol, Calculated 79 HDL Cholesterol 30 L Cholesterol/HDL Ratio 4.6 Thyroid Stimulating Hormone (TSH) 4.130 Bedside Glucose 432 *H 332 H Test 01/05/17 17:23 Bedside Glucose 169 Medications Medications Current Medications Acetaminophen (Tylenol Tab) 650 mg Q6H PRN PO PAIN AND OR ELEVATED TEMP; Start 01/04/17 at 23:00 Ondansetron HCl (Zofran Inj) 4 mg Q6H PRN IV NAUSEA AND/OR VOMITING; Start 01/04 at 23:00 Morphine Sulfate (morphine) 2 mg Q4H PRN IV PAIN Last administered on 15:19; Admin Dose 2 MG; Start 01/04/17 at 23:00 Enoxaparin Sodium (Lovenox) 40 mg DAILY SC Last administered on 01/05/17 08:39 ; Admin Dose 40 MG; Start 01/05/17 at 09:00 Metoprolol Tartrate (Lopressor) 25 mg BID PO Last administered on 01/05/17 08: 39; Admin Dose 25 MG; Start 01/05/17 at 09:00 Levothyroxine Sodium (Synthroid) 112 mcg DAILY@06 PO Last administered on 05:28; Admin Dose 112 MCG; Start 01/05/17 at 06:00 Trazodone HCl (Desyrel) 50 mg HS PO ; Start 01/05/17 at 21:00 Diagnostic Test (Pha) (Accu-Chek) 1 ea 02 XX ; Start 01/05/17 at 02:00 Miscellaneous Information 1 ea NOTE XX ; Start 01/04/17 at 23:45 Glucose (Glutose) 15 gm Q15M PRN PO DECREASED GLUCOSE; Start 01/04/17 at 23:45 Glucose (Glutose) 22.5 gm Q15M PRN PO DECREASED GLUCOSE; Start 01/04/17 at 23:45 Dextrose (D50w Syringe) 25 ml Q15M PRN IV DECREASED GLUCOSE; Start 01/04/17 at 23:45 Dextrose (D50w Syringe) 50 ml Q15M PRN IV DECREASED GLUCOSE; Start 01/04/17 at 23:45 Glucagon (Glucagen) 1 mg Q15M PRN IM DECREASED GLUCOSE; Start 01/04/17 at 23:45 Glucose 15 gm 15 gm Q15M PRN BUCCAL DECREASED GLUCOSE; Start 01/04/17 at 23:45 Cefepime HCl 50 ml @ 100 mls/hr Q12 IVPB Last administered on 01/05/17 08:38 ; Admin Dose 100 MLS/HR; Start 01/05/17 at 09:00 Vancomycin HCl/ Sodium Chloride (Vancocin/NS) 250 ml @ 83.333 mls/ hr Q24H IVPB Last administered on 01/05/17 12:05; Admin Dose 83.333 MLS/HR; Start 06/14 at 12:00 Insulin Glargine 44 unit 44 unit QAM SC Last administered on 01/05/17 12:03; Admin Dose 44 UNIT; Start 01/05/17 at 11:00 Sodium Chloride (NS) 1,000 ml @ 75 mls/hr [id number] IV Last administered on 01/05 15:21; Admin Dose 75 MLS/HR; Start 01/05/17 at 12:30 JACE TURNER MD January 05, 2017 19:11
[2017-01-05 19:35] VITALS: BP 130/60; RESP 18
[2017-01-05 20:11] LABS: IRON 12 ug/dl (35-150)
[2017-01-05 20:21] LABS: TOTAL IRON BINDING CAPACITY 193 ug/dl (241-421)
[2017-01-05] MEDS: traZODone 50 MG TAB PO SCH (20:33)
[2017-01-05] MEDS: metFORMIN 500 MG TAB PO SCH (20:33)
[2017-01-05] MEDS: LISINOPRIL 10 MG TAB PO SCH (20:34)
[2017-01-05] MEDS: FLUDROCORTISONE 0.1 MG TAB PO SCH (20:35)
--- NOTE | 2017-01-05 23:06 | CONS ---
Date/Time of Note Date/Time of Note DATE: 01/05/17 TIME: 23:06 Assessment/Plan Assessment/Plan Problems: (1) Cellulitis of left ankle Status: Acute (2) Cellulitis of foot, left Status: Acute (3) Morbid obesity Status: Chronic Qualifiers: Qualified Code: E66.01 - Morbid obesity due to excess calories (4) Diabetes mellitus with neuropathy Status: Chronic Qualifiers: Qualified Code: E11.40 - Type 2 diabetes mellitus with diabetic neuropathy, with long-term current use of insulin (5) Charcot foot due to diabetes mellitus Status: Chronic Additional Assessment/Plan Continue IVAbx. No surgery recommended at this time. Will follow in house. Thank you again for involving me in the care of this patient. If you have any questions regarding this case, please feel free to contact me at pager: or reach me at mobile: [phone]. Consultation Date/Type/Reason Admit Date/Time January 04, 2017 at 19:32 Date of Consultation: January 05, 2017 Type of Consultation: Foot and ankle surgery Reason for Consultation Left lower extremity cellulitis Hx of Present Illness This is a 56-year-old female patient with multiple medical problems including diabetes mellitus, dyslipidemia, chronic kidney disease, depression, hypertension, left lower extremity Charcot including the left foot and ankle, status post left ankle Charcot reconstruction and fusion using intramedullary nailing and allogenic bone graft placement. Patient was seen in the outpatient prevention center for regular postoperative follow-up. She was found to have significant edema and erythema of the left ankle and lower leg. Decision was made to admit the patient to the hospital for IV antibiotics and further exploration of her ankle. Patient reports also increase in pain for the past few days. Patient denies fever, chills, nausea or vomiting. Denies trauma and reports no chest pain or shortness of breath. Constitutional: chills, febrile, No diaphoresis, No disoriented, No improved, No no complaints, No other, No poor po, No requiring IVF, No requiring O2 Eyes: no complaints, No discharge, No other, No pain, No redness, No visual change ENT: no complaints, No bleeding, No congestion, No discharge, No dysphagia, No other, No pain, No sore throat Respiratory: no complaints Cardiovascular: no complaints Gastrointestinal: no complaints, No blood, No constipation, No decreased appetite, No diarrhea, No flatus, No nausea, No other, No pain, No passing stool, No vomiting Genitourinary: no complaints, No bleeding, No discharge, No dysuria, No flank pain, No hematuria, No other Musculoskeletal: no complaints Skin: no complaints Neurologic: no complaints Lymphatic: No adenopathy, No lymphadema, No no complaints, No other, No tender nodes Past Medical History As per history of present illness. Past Surgical History As per history of present illness. Past Surgical Hx: cholecystectomy Social History As per history of present illness. Alcohol Use: none Smoking Status: Never smoker Drug Use: none Exam/Review of Systems Vital Signs Vitals Vital Signs Date Time Temp Pulse Resp B/P Pulse Ox O2 Delivery O2 Flow Rate FiO2 01/05/17 19:35 99.7 84 18 130/60 95 01/04/17 21:00 Room Air Intake and Output 01/04/17 01/04/17 01/05/17 15:00 23:00 07:00 Intake Total 290 ml Balance 290 ml Exam GENERAL APPEARANCE: This is a morbidly obese female patient in no acute distress laying supine in bed. Patient is on IV antibiotics currently VASCULAR EXAM: Dorsalis pedis and posterior tibial pulse not palpable on the left and weakly palpable on the right lower extremity. Delayed capillary filling time noted on exam. Improved temperature gradient noted on exam. Improved edema of the left lower leg noted since her admission to the hospital. No varicose veins noted on examination NEUROLOGICAL EXAM: Protective sensation is diminished to sharp, dull, vibratory and temperature stimuli bilaterally. Normal deep tendon reflexes noted. Negative Tinel sign on examination of bilateral lower extremity DERMATOLOGICAL EXAM: No open wound noted on both lower extremities. The erythema on the left ankle is decreasing since I saw her in the amputation prevention center and there is wrinkling sign noted in the left lower extremity MUSCULOSKELETAL EXAM: Charcot changes left ankle with possibly failed fusion of the ankle joint. There is significant motion present both in the sagittal and the transverse planes of the ankle on examination IMAGING: Reviewed in chart LABS: Reviewed in chart Results Result Diagram: 01/05/17 0455 01/05/17 0455 Results 24 hrs Laboratory Tests Test 01/05/17 04:55 01/05/17 07:52 01/05/17 11:52 01/05/17 17:23 White Blood Count 10.5 Red Blood Count 3.99 L Hemoglobin 10.3 L Hematocrit 33.0 L Mean Corpuscular Volume 82.7 Mean Corpuscular Hemoglobin 25.8 L Mean Corpuscular Hemoglobin Concent 31.2 L Red Cell Distribution Width 14.6 H Platelet Count 531 H Mean Platelet Volume 9.6 Neutrophils % 77.3 H Lymphocytes % 7.3 L Monocytes % 9.7 Eosinophils % 4.8 Basophils % 0.5 Nucleated Red Blood Cells % 0.0 Neutrophils # 8.1 H Lymphocytes # 0.8 Monocytes # 1.0 H Eosinophils # 0.5 Basophils # 0.1 Nucleated Red Blood Cells # 0.0 Sodium Level 134 L Potassium Level 5.2 H Chloride Level 103 Carbon Dioxide Level 25 Anion Gap 11 # Blood Urea Nitrogen 38 H Creatinine 1.55 H Glucose Level 486 #*H Hemoglobin A1c 13.0 H Calcium Level 8.8 Phosphorus Level 4.3 Magnesium Level 2.0 Total Bilirubin 0.1 L Direct Bilirubin 0.00 Indirect Bilirubin 0.1 Aspartate Amino Transf (AST/SGOT) 70 H Alanine Aminotransferase (ALT/SGPT) 63 Alkaline Phosphatase 437 #H Total Protein 7.1 Albumin 3.1 L Globulin 4.00 H Albumin/Globulin Ratio 0.77 Triglycerides Level 148 Cholesterol Level 139 LDL Cholesterol, Calculated 79 HDL Cholesterol 30 L Cholesterol/HDL Ratio 4.6 Thyroid Stimulating Hormone (TSH) 4.130 Bedside Glucose 432 *H 332 H 169 Test 01/05/17 19:35 01/05/17 20:36 Iron Level 12 L Total Iron Binding Capacity 193 L Percent Iron Saturation 6 L Ferritin 170.0 Bedside Glucose 181 Medications Medications Current Medications Acetaminophen (Tylenol Tab) 650 mg Q6H PRN PO PAIN AND OR ELEVATED TEMP; Start 01/04/17 at 23:00 Ondansetron HCl (Zofran Inj) 4 mg Q6H PRN IV NAUSEA AND/OR VOMITING; Start 01/04 at 23:00 Morphine Sulfate (morphine) 2 mg Q4H PRN IV PAIN Last administered on 19:47; Admin Dose 2 MG; Start 01/04/17 at 23:00 Enoxaparin Sodium (Lovenox) 40 mg DAILY SC Last administered on 01/05/17 08:39 ; Admin Dose 40 MG; Start 01/05/17 at 09:00 Metoprolol Tartrate (Lopressor) 25 mg BID PO Last administered on 01/05/17 20: 34; Admin Dose 25 MG; Start 01/05/17 at 09:00 Levothyroxine Sodium (Synthroid) 112 mcg DAILY@06 PO Last administered on 05:28; Admin Dose 112 MCG; Start 01/05/17 at 06:00 Trazodone HCl (Desyrel) 50 mg HS PO Last administered on 01/05/17 20:33; Admin Dose 50 MG; Start 01/05/17 at 21:00 Diagnostic Test (Pha) (Accu-Chek) 1 ea 02 XX ; Start 01/05/17 at 02:00 Miscellaneous Information 1 ea NOTE XX ; Start 01/04/17 at 23:45 Glucose (Glutose) 15 gm Q15M PRN PO DECREASED GLUCOSE; Start 01/04/17 at 23:45 Glucose (Glutose) 22.5 gm Q15M PRN PO DECREASED GLUCOSE; Start 01/04/17 at 23:45 Dextrose (D50w Syringe) 25 ml Q15M PRN IV DECREASED GLUCOSE; Start 01/04/17 at 23:45 Dextrose (D50w Syringe) 50 ml Q15M PRN IV DECREASED GLUCOSE; Start 01/04/17 at 23:45 Glucagon (Glucagen) 1 mg Q15M PRN IM DECREASED GLUCOSE; Start 01/04/17 at 23:45 Glucose 15 gm 15 gm Q15M PRN BUCCAL DECREASED GLUCOSE; Start 01/04/17 at 23:45 Cefepime HCl 50 ml @ 100 mls/hr Q12 IVPB Last administered on 01/05/17 20:35 ; Admin Dose 100 MLS/HR; Start 01/05/17 at 09:00 Vancomycin HCl 1.5 gm/Sodium Chloride 250 ml @ 83.333 mls/ hr Q24H IVPB Last administered on 01/05/17 12:05; Admin Dose 83.333 MLS/HR; Start 01/05/17 at 12: 00 Sodium Chloride (NS) 1,000 ml @ 75 mls/hr [id number] IV Last administered on 01/05 15:21; Admin Dose 75 MLS/HR; Start 01/05/17 at 12:30 Fludrocortisone Acetate (Florinef) 0.05 mg DAILY PO Last administered on 20:35; Admin Dose 0.05 MG; Start 01/05/17 at 21:00 Lisinopril (Zestril) 10 mg DAILY PO Last administered on 01/05/17 20:34; Admin Dose 10 MG; Start 01/05/17 at 19:00 Insulin Glargine (Lantus) 40 unit QAM SC ; Start 01/06/17 at 09:00 ELLA ORTIZ DPM January 05, 2017 23:06
[2017-01-06] MEDS: SOD CHLORIDE 0.9% 1,000 ML IV SCH ×2 (01:50→07:26)
[2017-01-06] MEDS: ACCU-CHEK XX SCH (02:00)
[2017-01-06] MEDS: LEVOTHYROXINE 112 MCG TAB PO SCH (05:50)
[2017-01-06] MEDS: morphine 2 MG INJ IV PRN ×3 (05:50→21:50)
[2017-01-06 06:10] LABS: ADD SCAN DIFF NO
[2017-01-06 06:14] LABS: BASOPHIL # 0.1 10^3/ul (0.0-0.1); BASOPHILS % 0.6 % (0.0-2.0); EOSINOPHILS # 0.5 10^3/ul (0.0-0.5); EOSINOPHILS % 5.3 % (0.0-7.0); HEMATOCRIT 29.6 % (37.0-47.0); HEMOGLOBIN 9.3 g/dl (12.0-16.0); LYMPHOCYTES # 1.2 10^3/ul (0.8-2.9); LYMPHOCYTES % 12.3 % (15.0-51.0); MEAN CORPUSCULAR HEMOGLOBIN 26.3 pg (29.0-33.0); MEAN CORPUSCULAR HGB CONC 31.4 g/dl (32.0-37.0); MEAN CORPUSCULAR VOLUME 83.6 fl (82.0-101.0); MEAN PLATELET VOLUME 9.5 fl (7.4-10.4); MONOCYTE # 1.4 10^3/ul (0.3-0.9); MONOCYTES % 13.9 % (0.0-11.0); NEUTROPHIL # 6.7 10^3/ul (1.6-7.5); NEUTROPHILS % 67.3 % (39.0-77.0); PLATELET COUNT 497 10^3/UL (140-415); RED BLOOD COUNT 3.54 10^6/ul (4.20-5.40); RED CELL DISTRIBUTION WIDTH 14.7 % (11.5-14.5); WHITE BLOOD COUNT 9.9 10^3/ul (4.8-10.8)
[2017-01-06 06:41] LABS: IRON 14 ug/dl (35-150)
[2017-01-06 06:48] LABS: POTASSIUM 4.7 mmol/L (3.5-5.1)
[2017-01-06 06:50] LABS: TOTAL IRON BINDING CAPACITY 193 ug/dl (241-421)
[2017-01-06 06:51] LABS: CREATININE 1.8 mg/dl (0.44-1.00)
[2017-01-06 06:52] LABS: CALCIUM 8.5 mg/dl (8.4-10.2)
[2017-01-06] MEDS: ACETAMINOPHEN 325 MG TAB PO PRN ×2 (07:26→21:06)
[2017-01-06 07:30] VITALS: BP 105/49; PULSE 78; RESP 15
[2017-01-06] MEDS: metFORMIN 500 MG TAB PO SCH (08:20)
[2017-01-06] MEDS: ENOXAPARIN 40 MG/0.4 ML SYG SC SCH (08:20)
[2017-01-06] MEDS: CEFEPIME 1GM/50 ML (PMX) 50 ML IVPB SCH ×2 (08:21→21:00)
[2017-01-06] MEDS: INSULIN ASPART [NOVOLOG] 3 ML PEN SC SCH ×7 (08:22→21:00)
[2017-01-06] MEDS: FLUDROCORTISONE 0.1 MG TAB PO SCH (10:21)
[2017-01-06] MEDS: INSULIN GLARGINE [LANtus] 3 ML PEN SC SCH (10:59)
[2017-01-06] MEDS: LISINOPRIL 10 MG TAB PO SCH (11:06)
[2017-01-06] MEDS: METOPROLOL 25 MG TAB PO SCH ×2 (11:06→21:02)
[2017-01-06] MEDS: FERROUS SULFATE (EC) 325 MG TAB PO SCH ×2 (12:20→21:02)
[2017-01-06] MEDS: VANCOMYCIN 1 GM in NS 250 ML IVPB SCH (12:20)
--- NOTE | 2017-01-06 13:57 | RADRPT ---
PROCEDURE: CT Brain without. CLINICAL INDICATION: Severe headache. TECHNIQUE: A CT of the brain was performed on multidetector high-resolution CT scanner utilizing a xial sections from the skull base through the vertex without contrast. The scan was reviewed in sof t tissue brain and high frequency resolution bone algorithm windows. Images were reviewed on a high -resolution PACS workstation. One or more the following does reduction techniques were utilized: Aut omated exposure control, adjustment of the mA/ or kV according to patient's size, or use of iterativ e reconstruction technique. The exam CTDI = 44.58 mGy and the DLP = 630.20 mGy-cm. COMPARISON: None available. FINDINGS: The ventricles and sulci are minimally prominent indicative of volume loss. There is no intracranial hemorrhage, mass effect or midline shift. No abnormal intra-axial or extra-axial fluid collections are seen. The leblanc/white matter differentiation is preserved. There are minimal scattered foci of hypoattenuation in the white matter, which are nonspecific in et iology but likely reflect chronic small vessel ischemic changes. There are minimal intracranial vas cular calcifications consistent with atherosclerosis. The visualized paranasal sinuses are essential ly clear. IMPRESSION: 1. No acute intracranial hemorrhage, transcortical infarction or mass effect. 2. Minimal intracranial atherosclerosis and chronic small vessel ischemic changes. 3. Minimal generalized cerebral volume loss. RPTAT: HH .Nelson Aleman MD, MD Date Time Electronically viewed and signed by .Nelson Aleman MD, MD on 01/06/2017 13:57 .N/
--- NOTE | 2017-01-06 13:59 | PN ---
DATE: 01/06/2017 INFECTIOUS DISEASE PROGRESS NOTE SUBJECTIVE: Patient is alert, feels good, looks comfortable, no fevers. Vital signs stable. VITAL SIGNS: T-max yesterday was 99.7. WBC 9.9, platelets 497, no shift, no bands. BUN 40, creati nine 1.80. MICROBIOLOGY: Blood culture growing gram-negative rods. ANTIMICROBIALS: The patient is on 1. IV vancomycin. 2. Cefepime. PHYSICAL EXAMINATION: GENERAL: Obese, well-developed, middle-aged woman who is alert, in no distress. HEENT: Head atraumatic, normocephalic. Sclerae anicteric. Buccal mucosa dry. NECK: Obese. CHEST: Rise symmetrical. Breath sounds clear. HEART: S1, S2. ABDOMEN: Soft, bowel tones present. EXTREMITIES: Left lower extremity swelling, deformity and edema. The patient has an ulcer wound on the back of the foot. ASSESSMENT: 1. Systemic inflammatory response syndrome. 2. Gram-negative erma bacteremia, likely secondary to left lower extremity decubitus. 3. Diabetes. 4. Left Charcot ankle status post fusion using allograft, rule out septic arthritis versus osteomye litis. 5. Obesity. PLAN: The patient remains stable. Podiatry on case. We will continue her on current antimicrobial s. Consider MRI of the foot unless there is contraindications, and await for final cultures. Dictated By: NUBIA MONTANEZ RADIO PROGRAM DIRECTOR for HAN PETERSEN/NTS Conf#: [id number] DID#: [id number]
--- NOTE | 2017-01-06 15:49 | PN ---
Date/Time of Note Date/Time of Note DATE: 01/06/17 TIME: 15:42 Assessment/Plan VTE Prophylaxis VTE Prophylaxis Intervention: LMWH Lines/Catheters IV C[facility]ter Type (from [facility]): Peripheral IV Urinary Cath still in place: No Assessment/Plan Chief Complaint/Hosp Course Assessment and plan 1. Left ankle cellulitis. Continue on antibiotics. Continue with ID recommendations. No plan for surgery at this time per podiatry. Await final cultures 2. History of left Charcot ankle status post fusion using bone allograft in July 2016. Podiatry following 3. Uncontrolled diabetes. A1c at 13. Continue insulin regimen per motor winder 4. Essential hypertension. Continue antihypertensives and adjust as needed 5. Hyperlipidemia. stable at present. Will monitor. 6. Acute kidney injury. Continue IV hydration. We'll get nephrology consultation 7. Anemia. With iron deficiency anemia. We'll provide with iron supplement 8. Reported cephalgia with right upper extremity weakness. CT scan of the head was negative for any acute intracranial findings. OT consulted Disposition and plan: Continue with antibiotics. Nephrology to follow for renal insufficiency. Continue inpatient monitoring Discussed plan of care with Dr. Perez Problems: Subjective 24 Hr Interval Summary Free Text/Dictation Reported having some right hand weakness. Denies any pain on left foot at this time. Still noted to be swollen Exam/Review of Systems Vital Signs Vitals Vital Signs Date Time Temp Pulse Resp B/P Pulse Ox O2 Delivery O2 Flow Rate FiO2 01/06/17 07:30 98.3 78 15 105/49 94 Room Air Intake and Output 01/05/17 01/05/17 01/06/17 15:00 23:00 07:00 Intake Total 50 ml 1980 ml 1100 ml Balance 50 ml 1980 ml 1100 ml Exam Constitutional: alert, obese, oriented Psych: nl mood/affect Head: normocephalic Neck: No jvd Respiratory: normal air movement Cardiovascular: regular rate and rhythm Gastrointestinal: non-tender, soft Extremities: edema (left lower extremity) Neurological: nl mental status, nl speech Skin: other (some erythema seen on the left lateral ankle) Results Result Diagram: 01/06/17 0525 01/06/17 0525 Results 24 hrs Laboratory Tests Test 01/05/17 17:23 01/05/17 19:35 01/05/17 20:36 01/06/17 02:49 Bedside Glucose 169 181 193 Iron Level 12 L Total Iron Binding Capacity 193 L Percent Iron Saturation 6 L Ferritin 170.0 Test 01/06/17 05:25 01/06/17 07:54 01/06/17 09:27 01/06/17 11:58 White Blood Count 9.9 Red Blood Count 3.54 L Hemoglobin 9.3 L Hematocrit 29.6 L Mean Corpuscular Volume 83.6 Mean Corpuscular Hemoglobin 26.3 L Mean Corpuscular Hemoglobin Concent 31.4 L Red Cell Distribution Width 14.7 H Platelet Count 497 H Mean Platelet Volume 9.5 Neutrophils % 67.3 Lymphocytes % 12.3 L Monocytes % 13.9 H Eosinophils % 5.3 Basophils % 0.6 Nucleated Red Blood Cells % 0.0 Neutrophils # 6.7 Lymphocytes # 1.2 Monocytes # 1.4 H Eosinophils # 0.5 Basophils # 0.1 Nucleated Red Blood Cells # 0.0 Sodium Level 134 L Potassium Level 4.7 Chloride Level 103 Carbon Dioxide Level 22 Anion Gap 14 Blood Urea Nitrogen 40 H Creatinine 1.80 H Glucose Level 217 # Calcium Level 8.5 Iron Level 14 L Total Iron Binding Capacity 193 L Percent Iron Saturation 7 L Bedside Glucose 269 H 298 H 205 Medications Medications Current Medications Acetaminophen (Tylenol Tab) 650 mg Q6H PRN PO PAIN AND OR ELEVATED TEMP Last administered on 01/06/17 07:26; Admin Dose 650 MG; Start 01/04/17 at 23:00 Ondansetron HCl (Zofran Inj) 4 mg Q6H PRN IV NAUSEA AND/OR VOMITING; Start 01/04 at 23:00 Morphine Sulfate (morphine) 2 mg Q4H PRN IV PAIN Last administered on 05:50; Admin Dose 2 MG; Start 01/04/17 at 23:00 Metoprolol Tartrate (Lopressor) 25 mg BID PO Last administered on 01/06/17 11: 06; Admin Dose 25 MG; Start 01/05/17 at 09:00 Levothyroxine Sodium (Synthroid) 112 mcg DAILY@06 PO Last administered on 05:50; Admin Dose 112 MCG; Start 01/05/17 at 06:00 Trazodone HCl (Desyrel) 50 mg HS PO Last administered on 01/05/17 20:33; Admin Dose 50 MG; Start 01/05/17 at 21:00 Diagnostic Test (Pha) (Accu-Chek) 1 ea 02 XX Last administered on 01/06/17 02: 00; Admin Dose 1 EA; Start 01/05/17 at 02:00 Miscellaneous Information 1 ea NOTE XX ; Start 01/04/17 at 23:45 Glucose (Glutose) 15 gm Q15M PRN PO DECREASED GLUCOSE; Start 01/04/17 at 23:45 Glucose (Glutose) 22.5 gm Q15M PRN PO DECREASED GLUCOSE; Start 01/04/17 at 23:45 Dextrose (D50w Syringe) 25 ml Q15M PRN IV DECREASED GLUCOSE; Start 01/04/17 at 23:45 Dextrose (D50w Syringe) 50 ml Q15M PRN IV DECREASED GLUCOSE; Start 01/04/17 at 23:45 Glucagon (Glucagen) 1 mg Q15M PRN IM DECREASED GLUCOSE; Start 01/04/17 at 23:45 Glucose 15 gm 15 gm Q15M PRN BUCCAL DECREASED GLUCOSE; Start 01/04/17 at 23:45 Cefepime HCl 50 ml @ 100 mls/hr Q12 IVPB Last administered on 01/06/17 08:21 ; Admin Dose 100 MLS/HR; Start 01/05/17 at 09:00 Sodium Chloride (NS) 1,000 ml @ 75 mls/hr [id number] IV Last administered on 01/06 07:26; Admin Dose 75 MLS/HR; Start 01/05/17 at 12:30 Fludrocortisone Acetate (Florinef) 0.05 mg DAILY PO Last administered on 10:21; Admin Dose 0.05 MG; Start 01/05/17 at 21:00 Lisinopril (Zestril) 10 mg DAILY PO Last administered on 01/06/17 11:06; Admin Dose 10 MG; Start 01/05/17 at 19:00 Insulin Glargine (Lantus) 40 unit QAM SC Last administered on 01/06/17 10:59; Admin Dose 40 UNIT; Start 01/06/17 at 09:00 Ferrous Sulfate (Ferrous Sulfate (Ec)) 325 mg TID PO Last administered on 12:20; Admin Dose 325 MG; Start 01/06/17 at 13:00 Docusate Sodium (Colace) 100 mg BID PO ; Start 01/06/17 at 21:00 Enoxaparin Sodium 30 mg 30 mg DAILY SC ; Start 01/07/17 at 09:00 Vancomycin HCl (Vancocin) 250 ml @ 125 mls/hr Q24H IVPB Last administered on t 12:20; Admin Dose 125 MLS/HR; Start 01/06/17 at 12:00 Miscellaneous Information (*Rx Drug Level Order Reminder*) 1 ONCE ONCE XX ; Start 01/07/17 at 11:00; Stop 01/07/17 at 11:01 ALICE STAPLES January 06, 2017 15:49
[2017-01-06 17:34] VITALS: BP 178/76; PULSE 83; RESP 18
--- NOTE | 2017-01-06 18:11 | CONS ---
Date/Time of Note Date/Time of Note DATE: 01/06/17 TIME: 18:07 Assessment/Plan Assessment/Plan Additional Assessment/Plan 56yo male with 1. Left ankle cellulitis. 2. Left Charcot ankle status post fusion using bone allograft in July 2016. 3. Diabetes Mellitus with Renal complication , CKD Stage III 4. Essential hypertension. 5. Hyperlipidemia. 6. Anemia.OLGA Consultation Date/Type/Reason Admit Date/Time January 04, 2017 at 19:32 Date of Consultation: January 06, 2017 Type of Consultation: Renal Reason for Consultation JOS, CKD Referring Provider: ALICE STAPLES Constitutional: chills, febrile Eyes: no complaints ENT: no complaints Respiratory: no complaints Cardiovascular: no complaints Gastrointestinal: no complaints Genitourinary: no complaints Musculoskeletal: no complaints Skin: no complaints Neurologic: no complaints Psychological: nl mood/affect Past Surgical History Past Surgical Hx: cholecystectomy Social History Alcohol Use: none Smoking Status: Never smoker Drug Use: none Exam/Review of Systems Vital Signs Vitals Vital Signs Date Time Temp Pulse Resp B/P Pulse Ox O2 Delivery O2 Flow Rate FiO2 01/06/17 17:34 99.3 83 18 178/76 96 01/06/17 07:30 Room Air Intake and Output 01/05/17 01/05/17 01/06/17 15:00 23:00 07:00 Intake Total 50 ml 1980 ml 1100 ml Balance 50 ml 1980 ml 1100 ml Results Result Diagram: 01/06/17 0525 01/06/17 0525 Results 24 hrs Laboratory Tests Test 01/05/17 19:35 01/05/17 20:36 01/06/17 02:49 01/06/17 05:25 Iron Level 12 L 14 L Total Iron Binding Capacity 193 L 193 L Percent Iron Saturation 6 L 7 L Ferritin 170.0 Bedside Glucose 181 193 White Blood Count 9.9 Red Blood Count 3.54 L Hemoglobin 9.3 L Hematocrit 29.6 L Mean Corpuscular Volume 83.6 Mean Corpuscular Hemoglobin 26.3 L Mean Corpuscular Hemoglobin Concent 31.4 L Red Cell Distribution Width 14.7 H Platelet Count 497 H Mean Platelet Volume 9.5 Neutrophils % 67.3 Lymphocytes % 12.3 L Monocytes % 13.9 H Eosinophils % 5.3 Basophils % 0.6 Nucleated Red Blood Cells % 0.0 Neutrophils # 6.7 Lymphocytes # 1.2 Monocytes # 1.4 H Eosinophils # 0.5 Basophils # 0.1 Nucleated Red Blood Cells # 0.0 Sodium Level 134 L Potassium Level 4.7 Chloride Level 103 Carbon Dioxide Level 22 Anion Gap 14 Blood Urea Nitrogen 40 H Creatinine 1.80 H Glucose Level 217 # Calcium Level 8.5 Test 01/06/17 07:54 01/06/17 09:27 01/06/17 11:58 01/06/17 16:51 Bedside Glucose 269 H 298 H 205 113 Medications Medications Current Medications Acetaminophen (Tylenol Tab) 650 mg Q6H PRN PO PAIN AND OR ELEVATED TEMP Last administered on 01/06/17 07:26; Admin Dose 650 MG; Start 01/04/17 at 23:00 Ondansetron HCl (Zofran Inj) 4 mg Q6H PRN IV NAUSEA AND/OR VOMITING; Start 01/04 at 23:00 Morphine Sulfate (morphine) 2 mg Q4H PRN IV PAIN Last administered on 17:47; Admin Dose 2 MG; Start 01/04/17 at 23:00 Metoprolol Tartrate (Lopressor) 25 mg BID PO Last administered on 01/06/17 11: 06; Admin Dose 25 MG; Start 01/05/17 at 09:00 Levothyroxine Sodium (Synthroid) 112 mcg DAILY@06 PO Last administered on 05:50; Admin Dose 112 MCG; Start 01/05/17 at 06:00 Trazodone HCl (Desyrel) 50 mg HS PO Last administered on 01/05/17 20:33; Admin Dose 50 MG; Start 01/05/17 at 21:00 Diagnostic Test (Pha) (Accu-Chek) 1 ea 02 XX Last administered on 01/06/17 02: 00; Admin Dose 1 EA; Start 01/05/17 at 02:00 Miscellaneous Information 1 ea NOTE XX ; Start 01/04/17 at 23:45 Glucose (Glutose) 15 gm Q15M PRN PO DECREASED GLUCOSE; Start 01/04/17 at 23:45 Glucose (Glutose) 22.5 gm Q15M PRN PO DECREASED GLUCOSE; Start 01/04/17 at 23:45 Dextrose (D50w Syringe) 25 ml Q15M PRN IV DECREASED GLUCOSE; Start 01/04/17 at 23:45 Dextrose (D50w Syringe) 50 ml Q15M PRN IV DECREASED GLUCOSE; Start 01/04/17 at 23:45 Glucagon (Glucagen) 1 mg Q15M PRN IM DECREASED GLUCOSE; Start 01/04/17 at 23:45 Glucose 15 gm 15 gm Q15M PRN BUCCAL DECREASED GLUCOSE; Start 01/04/17 at 23:45 Cefepime HCl 50 ml @ 100 mls/hr Q12 IVPB Last administered on 01/06/17 08:21 ; Admin Dose 100 MLS/HR; Start 01/05/17 at 09:00 Sodium Chloride (NS) 1,000 ml @ 75 mls/hr [id number] IV Last administered on 01/06 07:26; Admin Dose 75 MLS/HR; Start 01/05/17 at 12:30 Fludrocortisone Acetate (Florinef) 0.05 mg DAILY PO Last administered on 10:21; Admin Dose 0.05 MG; Start 01/05/17 at 21:00 Lisinopril (Zestril) 10 mg DAILY PO Last administered on 01/06/17 11:06; Admin Dose 10 MG; Start 01/05/17 at 19:00 Insulin Glargine (Lantus) 40 unit QAM SC Last administered on 01/06/17 10:59; Admin Dose 40 UNIT; Start 01/06/17 at 09:00 Ferrous Sulfate (Ferrous Sulfate (Ec)) 325 mg TID PO Last administered on 12:20; Admin Dose 325 MG; Start 01/06/17 at 13:00 Docusate Sodium (Colace) 100 mg BID PO ; Start 01/06/17 at 21:00 Enoxaparin Sodium 30 mg 30 mg DAILY SC ; Start 01/07/17 at 09:00 Vancomycin HCl (Vancocin) 250 ml @ 125 mls/hr Q24H IVPB Last administered on 12:20; Admin Dose 125 MLS/HR; Start 01/06/17 at 12:00 Miscellaneous Information (*Rx Drug Level Order Reminder*) 1 ONCE ONCE XX ; Start 01/07/17 at 11:00; Stop 01/07/17 at 11:01 Procedures Procedures PROCEDURE: XR Chest. CLINICAL INDICATION: Chest pain. TECHNIQUE: Single frontal chest x-ray. COMPARISON: 05/11/2016 FINDINGS: The cardiomediastinal silhouette is unremarkable. There is no congestive heart failure.. No focal infiltrate is seen. There is no pleural effusion. There is no pneumothorax. The osseous structures are unremarkable. IMPRESSION: 1. No active disease. RPTAT: HMVK .Jose Armando Valdes MD, Date Time Electronically viewed and signed by .Jose Armando Valdes MD, on 01/04/2017 19:03 PROCEDURE: Renal US. CLINICAL INDICATION: Acute kidney injury. TECHNIQUE: Multiple sonographic images of the kidneys and urinary bladder were obtained. The images were reviewed on a PACS workstation. COMPARISON: No prior studies are available for comparison. FINDINGS: The right kidney measures 11.1 x 5.2 x 4.8 cm. The left kidney measures 11.4 x 5.3 x 4.3 cm. There is no renal mass. There is no right hydronephrosis. There is mild left hydronephrosis. No obstructing lesion is visualized. There is no renal calculus. Renal parenchymal thickness is normal bilaterally. Echogenicity is normal bilaterally. The perirenal regions are normal with no fluid collection or mass. The urinary bladder is unremarkable. IMPRESSION: 1. Mild left hydronephrosis. 2. Otherwise normal renal ultrasound. RPTAT: QQ .Everett Turpin MD, Date Time Electronically viewed and signed by .Everett Turpin MD, on 01/06/2017 22:07 COLIN VELEZ MD January 06, 2017 18:11
[2017-01-06 20:39] VITALS: BP 179/81; RESP 18
[2017-01-06] MEDS: DOCUSATE SODIUM 100 MG CAP PO SCH (21:01)
[2017-01-06] MEDS: traZODone 50 MG TAB PO SCH (21:06)
[2017-01-06 21:44] VITALS: BP 129/63; PULSE 87; RESP 18
--- NOTE | 2017-01-06 22:07 | RADRPT ---
PROCEDURE: Renal US. CLINICAL INDICATION: Acute kidney injury. TECHNIQUE: Multiple sonographic images of the kidneys and urinary bladder were obtained. The imag es were reviewed on a PACS workstation. COMPARISON: No prior studies are available for comparison. FINDINGS: The right kidney measures 11.1 x 5.2 x 4.8 cm. The left kidney measures 11.4 x 5.3 x 4.3 cm. There is no renal mass. There is no right hydronephrosis. There is mild left hydronephrosis. No obstructing lesion is visu alized. There is no renal calculus. Renal parenchymal thickness is normal bilaterally. Echogenicity is normal bilaterally. The perirenal regions are normal with no fluid collection or mass. The urinary bladder is unremarkable. IMPRESSION: 1. Mild left hydronephrosis. 2. Otherwise normal renal ultrasound. RPTAT: QQ .Everett Turpin MD, Date Time Electronically viewed and signed by .Everett Turpin MD, on 01/06/2017 22:07 .R/
[2017-01-07] MEDS: ACCU-CHEK XX SCH (02:00)
[2017-01-07 03:38] LABS: ADD UMIC YES; URINE BILIRUBIN (Dip) NEGATIVE (NEGATIVE); URINE BLOOD (Dip) TRACE (NEGATIVE); URINE COLOR LT. YELLOW (YELLOW); URINE GLUCOSE (Dip) NEGATIVE (NEGATIVE); URINE KETONES (Dip) NEGATIVE (NEGATIVE); URINE LEUKOCYTE ESTERASE (Dip) NEGATIVE (NEGATIVE); URINE NITRITE (Dip) NEGATIVE (NEGATIVE); URINE TOTAL PROTEIN (Dip) 4+ (NEGATIVE); URINE UROBILINOGEN (Dip) 0.2 E.U./dL (0.1-1.0)
[2017-01-07 03:52] LABS: BACTERIA,URINE MODERATE; URINE RBCS 0-2 /HPF (0)
[2017-01-07 03:53] LABS: SQUAMOUS EPITHELIAL CELL,UR MODERATE
[2017-01-07] MEDS: LEVOTHYROXINE 112 MCG TAB PO SCH (05:43)
[2017-01-07 06:23] LABS: ADD SCAN DIFF NO
[2017-01-07 06:33] LABS: BASOPHIL # 0.1 10^3/ul (0.0-0.1); BASOPHILS % 0.6 % (0.0-2.0); EOSINOPHILS # 0.5 10^3/ul (0.0-0.5); HEMATOCRIT 29.2 % (37.0-47.0); HEMOGLOBIN 9.3 g/dl (12.0-16.0); LYMPHOCYTES # 1.4 10^3/ul (0.8-2.9); LYMPHOCYTES % 14.8 % (15.0-51.0); MEAN CORPUSCULAR HEMOGLOBIN 26.5 pg (29.0-33.0); MEAN CORPUSCULAR HGB CONC 31.8 g/dl (32.0-37.0); MEAN CORPUSCULAR VOLUME 83.2 fl (82.0-101.0); MEAN PLATELET VOLUME 9.5 fl (7.4-10.4); MONOCYTE # 1.4 10^3/ul (0.3-0.9); MONOCYTES % 14.4 % (0.0-11.0); NEUTROPHIL # 6.1 10^3/ul (1.6-7.5); NEUTROPHILS % 64.6 % (39.0-77.0); PLATELET COUNT 534 10^3/UL (140-415); RED BLOOD COUNT 3.51 10^6/ul (4.20-5.40); RED CELL DISTRIBUTION WIDTH 14.6 % (11.5-14.5); WHITE BLOOD COUNT 9.4 10^3/ul (4.8-10.8)
[2017-01-07 06:54] LABS: POTASSIUM 4.4 mmol/L (3.5-5.1)
[2017-01-07 06:57] LABS: CREATININE 1.56 mg/dl (0.44-1.00)
[2017-01-07 06:58] LABS: CALCIUM 8.8 mg/dl (8.4-10.2)
[2017-01-07 07:18] VITALS: BP 166/73; RESP 20
[2017-01-07] MEDS: INSULIN ASPART [NOVOLOG] 3 ML PEN SC SCH ×7 (08:15→20:29)
[2017-01-07 08:38] VITALS: BP 115/58; PULSE 81
[2017-01-07 08:58] VITALS: BP 118/56; PULSE 79; RESP 16
[2017-01-07] MEDS: DOCUSATE SODIUM 100 MG CAP PO SCH ×2 (08:59→20:17)
[2017-01-07] MEDS: FERROUS SULFATE (EC) 325 MG TAB PO SCH ×3 (08:59→20:16)
[2017-01-07] MEDS ORDERED: ENOXAPARIN 30 MG/0.3 ML SYG SC SCH (09:00)
[2017-01-07] MEDS: METOPROLOL 25 MG TAB PO SCH ×2 (09:00→20:16)
[2017-01-07] MEDS: FLUDROCORTISONE 0.1 MG TAB PO SCH (09:01)
--- NOTE | 2017-01-07 09:10 | CONS ---
DATE OF ADMISSION: 01/04/2017 DATE OF CONSULTATION: 01/06/2017 TYPE OF CONSULTATION: Vascular surgery consultation. Dear Doctors: HISTORY OF PRESENT ILLNESS: Ms. Huerta is a 56-year-old female known to our vascular surgery serv ice secondary to bilateral lower extremity atherosclerosis and longstanding history of left lower ex tremity Charcot foot in which she has undergone debridements and reconstruction secondary to her Celia rcot deformity. The patient has been recently admitted secondary to having a left lower extremity d iabetic foot infection and cellulitis and currently is on antibiotics. The patient has been seen by our vascular surgery service for vascular surveillance and has denied any recent lower extremity re st pain. The patient has gained weight secondary to her ambulatory limitations from her surgery and currently being managed with our medical colleagues. The patient, of note, has had a lower extremi ty angiogram in which we had identified patient having 1 tibial vessel that provides a runoff to her foot. She does have an anomaly where her peroneal artery becomes a dominant vessel toward her foot giving what seems to be identified as the dorsalis pedis artery. It seems that this is a dominant anterior communicating branch providing adequate perfusion to her foot. REVIEW OF SYSTEMS: A 12-point review performed and negative except what is mentioned in the HPI. PAST MEDICAL HISTORY: Entails morbid obesity, hypertension, diabetes, dyslipidemia, chronic kidney disease, stage III, depression, bilateral lower extremity peripheral neuropathy, left Charcot foot, bilateral lower extremity atherosclerosis, iron deficiency anemia, and hypothyroidism. PAST SURGICAL HISTORY: Cholecystectomy, multiple left lower extremity debridements, left lower extr emity ankle reconstruction for her Charcot foot. ALLERGIES: NO KNOWN DRUG ALLERGIES. PHYSICAL EXAMINATION: GENERAL: Alert and oriented x3, no apparent distress. HEENT: Normocephalic, atraumatic. PERRLA, EOMI. Mucosa moist. NECK: Supple. No carotid bruit. PULMONARY: Clear to auscultation bilaterally. No crackles. CARDIOVASCULAR: S1, S2 present. No murmurs. ABDOMEN: Soft, nontender, nondistended. Bowel sounds positive. Truncal obesity. RIGHT LOWER EXTREMITY: Palpable femoral pulse, faint pedal pulse. Motor, sensory intact. Capillar y refill 2 to 3 seconds. No surgical ulcers. LEFT LOWER EXTREMITY: Nonpalpable pedal pulse secondary to edema. Surgical scar is well healed. M otor, sensory intact. Cap refill 2 to 3 seconds. There is erythema extending from her forefoot all the way to her ankle area. She does have edema of about 2+. FAMILY HISTORY: Diabetes, hypertension, coronary artery disease. SOCIAL HISTORY: Denies tobacco, alcohol, or illicit drug use. ASSESSMENT AND PLAN: Bilateral lower extremity atherosclerosis with left lower extremity Charcot fo ot and diabetic foot infection. It seems that the patient has developed cellulitis of her left lowe r extremity. There may be some concern as the patient has had reconstruction of this segment of her ankle; however, from a vascular surgery standpoint, the patient has perfusion to her foot. She vidal s have 1 dominant vessel that is continuous from her peroneal artery in an anomaly to her foot throu gh a dominant anterior communicating branch. From our standpoint, we will continue with our vascula r surveillance and her progress through this process. We will plan to obtain lower extremity arterial studies to evaluate her progression of her infraingu inal disease. Vascular optimization (BP meds, diet, nutrition, exercise, sugar control, antiplatelet, and weight l oss). Discussed findings, plan, and management with the patient. She understands. Thank you for allowing us to partake in the care of your patient. Please call with any questions. Dictated By: SAUL REYNOSO/COURTNEY Conf#: [id number] DID#: [id number]
[2017-01-07] MEDS: INSULIN GLARGINE [LANtus] 3 ML PEN SC SCH (09:39)
[2017-01-07] MEDS: CEFEPIME 1GM/50 ML (PMX) 50 ML IVPB SCH (09:47)
[2017-01-07 10:29] VITALS: BP 131/66; PULSE 80
[2017-01-07] MEDS: VANCOMYCIN 1 GM in NS 250 ML IVPB SCH (13:31)
--- NOTE | 2017-01-07 14:08 | CONS ---
Date/Time of Note Date/Time of Note DATE: 01/07/17 TIME: 14:06 Assessment/Plan Assessment/Plan Chief Complaint/Hosp Course SUBJECTIVE: No acute events, no fevers MICROBIOLOGY: Blood culture growing PSA. ANTIMICROBIALS: The patient is on 1. IV vancomycin. 2. Cefepime. PHYSICAL EXAMINATION: GENERAL: Obese, well-developed, middle-aged woman who is alert, in no distress. HEENT: Head atraumatic, normocephalic. Sclerae anicteric. Buccal mucosa dry. NECK: Obese. CHEST: Rise symmetrical. Breath sounds clear. HEART: S1, S2. ABDOMEN: Soft, bowel tones present. EXTREMITIES: Left lower extremity swelling, deformity and edema. The patient has an ulcer wound on the back of the foot. ASSESSMENT: 1. Systemic inflammatory response syndrome. 2. Gram-negative erma bacteremia, likely secondary to left lower extremity decubitus. 3. Diabetes. 4. Left Charcot ankle status post fusion using allograft, rule out septic arthritis versus osteomyelitis. 5. Obesity. PLAN: Remains stable, will change Cefepime to Cipro, repeat bld cx, f/u podiatry and vascular rec-s [facility] staff Problems: Consultation Date/Type/Reason Admit Date/Time January 04, 2017 at 19:32 Initial Consult Date 01/06/17 Type of Consultation: ID Referring Provider: ALICE STAPLES Exam/Review of Systems Vital Signs Vitals Vital Signs Date Time Temp Pulse Resp B/P Pulse Ox O2 Delivery O2 Flow Rate FiO2 01/07/17 10:29 80 131/66 01/07/17 08:58 16 97 Room Air 01/07/17 07:18 98.5 Intake and Output 01/06/17 01/06/17 01/07/17 15:00 23:00 07:00 Intake Total 150 ml 2330 ml 440 ml Balance 150 ml 2330 ml 440 ml Results Result Diagram: 01/07/17 0518 01/07/17 0510 Results 24 hrs Laboratory Tests Test 01/06/17 16:51 01/06/17 21:08 01/07/17 02:10 01/07/17 05:10 Bedside Glucose 113 111 Urine Color LT. YELLOW Urine Clarity SL HAZY Urine pH 6.0 Urine Specific [place] 1.025 Urine Ketones NEGATIVE Urine Nitrite NEGATIVE Urine Bilirubin NEGATIVE Urine Urobilinogen 0.2 E.U./dL Urine Leukocyte Esterase NEGATIVE Urine Microscopic RBC 0-2 Urine Microscopic WBC 0-2 Urine Squamous Epithelial Cells MODERATE Urine Bacteria MODERATE Urine Granular Casts OCCASIONAL Urine Yeast FEW Urine Hemoglobin TRACE Urine Random Creatinine 86.15 Urine Random Sodium 65 Urine Glucose NEGATIVE Urine Total Protein 4+ H Sodium Level 135 Potassium Level 4.4 Chloride Level 104 Carbon Dioxide Level 22 Anion Gap 13 Blood Urea Nitrogen 37 H Creatinine 1.56 H Glucose Level 122 # Calcium Level 8.8 Test 01/07/17 05:18 01/07/17 07:54 01/07/17 09:17 01/07/17 11:20 White Blood Count 9.4 Red Blood Count 3.51 L Hemoglobin 9.3 L Hematocrit 29.2 L Mean Corpuscular Volume 83.2 Mean Corpuscular Hemoglobin 26.5 L Mean Corpuscular Hemoglobin Concent 31.8 L Red Cell Distribution Width 14.6 H Platelet Count 534 H Mean Platelet Volume 9.5 Neutrophils % 64.6 Lymphocytes % 14.8 L Monocytes % 14.4 H Eosinophils % 5.0 Basophils % 0.6 Nucleated Red Blood Cells % 0.0 Neutrophils # 6.1 Lymphocytes # 1.4 Monocytes # 1.4 H Eosinophils # 0.5 Basophils # 0.1 Nucleated Red Blood Cells # 0.0 Bedside Glucose 138 249 H Vancomycin Level Trough 13.7 Test 01/07/17 13:10 Bedside Glucose 178 Medications Medications Current Medications Acetaminophen (Tylenol Tab) 650 mg Q6H PRN PO PAIN AND OR ELEVATED TEMP Last administered on 01/06/17 21:06; Admin Dose 650 MG; Start 01/04/17 at 23:00 Ondansetron HCl (Zofran Inj) 4 mg Q6H PRN IV NAUSEA AND/OR VOMITING; Start 01/04 at 23:00 Morphine Sulfate (morphine) 2 mg Q4H PRN IV PAIN Last administered on 21:50; Admin Dose 2 MG; Start 01/04/17 at 23:00 Metoprolol Tartrate (Lopressor) 25 mg BID PO Last administered on 01/07/17 09: 00; Admin Dose 25 MG; Start 01/05/17 at 09:00 Levothyroxine Sodium (Synthroid) 112 mcg DAILY@06 PO Last administered on 05:43; Admin Dose 112 MCG; Start 01/05/17 at 06:00 Trazodone HCl (Desyrel) 50 mg HS PO Last administered on 01/06/17 21:06; Admin Dose 50 MG; Start 01/05/17 at 21:00 Diagnostic Test (Pha) (Accu-Chek) 1 ea 02 XX Last administered on 01/06/17 02: 00; Admin Dose 1 EA; Start 01/05/17 at 02:00 Miscellaneous Information 1 ea NOTE XX ; Start 01/04/17 at 23:45 Glucose (Glutose) 15 gm Q15M PRN PO DECREASED GLUCOSE; Start 01/04/17 at 23:45 Glucose (Glutose) 22.5 gm Q15M PRN PO DECREASED GLUCOSE; Start 01/04/17 at 23:45 Dextrose (D50w Syringe) 25 ml Q15M PRN IV DECREASED GLUCOSE; Start 01/04/17 at 23:45 Dextrose (D50w Syringe) 50 ml Q15M PRN IV DECREASED GLUCOSE; Start 01/04/17 at 23:45 Glucagon (Glucagen) 1 mg Q15M PRN IM DECREASED GLUCOSE; Start 01/04/17 at 23:45 Glucose 15 gm 15 gm Q15M PRN BUCCAL DECREASED GLUCOSE; Start 01/04/17 at 23:45 Cefepime HCl (Maxipime 1gm/50 ml (Pmx)) 50 ml @ 100 mls/hr Q12 IVPB Last administered on 01/07/17 09:47; Admin Dose 100 MLS/HR; Start 01/05/17 at 09:00 Fludrocortisone Acetate (Florinef) 0.05 mg DAILY PO Last administered on 09:01; Admin Dose 0.05 MG; Start 01/05/17 at 21:00 Insulin Glargine (Lantus) 40 unit QAM SC Last administered on 01/07/17 09:39; Admin Dose 40 UNIT; Start 01/06/17 at 09:00 Ferrous Sulfate (Ferrous Sulfate (Ec)) 325 mg TID PO Last administered on 13:28; Admin Dose 325 MG; Start 01/06/17 at 13:00 Docusate Sodium 100 mg 100 mg BID PO Last administered on 01/07/17 08:59; Admin Dose 100 MG; Start 01/06/17 at 21:00 Vancomycin HCl (Vancocin) 250 ml @ 125 mls/hr Q24H IVPB Last administered on 13:31; Admin Dose 125 MLS/HR; Start 01/06/17 at 12:00 Hydralazine HCl (Apresoline) 25 mg TID PO Last administered on 01/07/17 13:28 ; Admin Dose 25 MG; Start 01/06/17 at 21:00 Enoxaparin Sodium (Lovenox) 40 mg DAILY SC ; Start 01/08/17 at 09:00 NUBIA MONTANEZ NP January 07, 2017 14:08
--- NOTE | 2017-01-07 14:37 | RADRPT ---
PROCEDURE: US bilateral lower extremity arteries. CLINICAL INDICATION: Bilateral leg pain. Claudication that interferes significantly with the jennifer ent's lifestyle. TECHNIQUE: Multiple longitudinal and transverse images of the bilateral lower extremity arteries w ere obtained with leblanc scale, pulsed Doppler, and color Doppler imaging. COMPARISON: No prior studies are available for comparison. FINDINGS: Right VULCANIZING MACHINE OPERATOR:125 cm/sec PSFA:123 cm/sec MSFA:129 cm/sec DSFA:125 cm/sec POP:126 cm/sec DICTAPHONE TECHNICIAN:145 cm/sec DPA:87 cm/sec Left VULCANIZING MACHINE OPERATOR:131 cm/sec PSFA:143 cm/sec MSFA:162 cm/sec DSFA:148 cm/sec POP:204 cm/sec DICTAPHONE TECHNICIAN:144 cm/sec DPA:111 cm/sec The ankle-brachial indices are unobtainable due to calcified vessels. On the right side, there is normal triphasic flow throughout. On the left side, there is normal triphasic flow in the common femoral artery. Abnormal monophasic flow is present in the left superficial femoral artery and popliteal artery. There is monophasic f low in the left calf arteries. IMPRESSION: 1. Abnormal flow in the left superficial femoral artery, popliteal artery, and calf arteries which may indicate significant stenosis. 2. Unobtainable ankle brachial indices. 3. Otherwise unremarkable study. RPTAT: QQ .Everett Turpin MD, Date Time Electronically viewed and signed by .Everett Turpin MD, on 01/07/2017 14:37 .R/
--- NOTE | 2017-01-07 15:30 | CONS ---
Date/Time of Note Date/Time of Note DATE: 01/07/17 TIME: 15:29 Assessment/Plan Assessment/Plan Additional Assessment/Plan 56yo male with 1. Left ankle cellulitis. 2. Left Charcot ankle status post fusion using bone allograft in July 2016. 3. Diabetes Mellitus with Renal complication , CKD Stage III- stable 4. Essential hypertension. 5. Hyperlipidemia. 6. Anemia.OLGA Vanco level within normal Stable renal function, Non oliguric Cont to monitor electrolytes, volume status and renal function Cont to monitor Vanco levels. Consultation Date/Type/Reason Admit Date/Time January 04, 2017 at 19:32 Initial Consult Date 01/06/17 Type of Consultation: Renal Referring Provider: ALICE STAPLES Exam/Review of Systems Vital Signs Vitals Vital Signs Date Time Temp Pulse Resp B/P Pulse Ox O2 Delivery O2 Flow Rate FiO2 01/07/17 10:29 80 131/66 01/07/17 08:58 16 97 Room Air 01/07/17 07:18 98.5 Intake and Output 01/06/17 01/06/17 01/07/17 15:00 23:00 07:00 Intake Total 150 ml 2330 ml 440 ml Balance 150 ml 2330 ml 440 ml Exam Constitutional: No distress ENMT: mucosa pink and moist Neck: No jvd Respiratory: No diminished breath sounds, No labored breathing Cardiovascular: No regular rate and rhythm Gastrointestinal: non-tender, soft Neurological: No lethargic Skin: No diaphoresis Results Result Diagram: 01/07/17 0518 01/07/17 0510 Results 24 hrs Laboratory Tests Test 01/06/17 16:51 01/06/17 21:08 01/07/17 02:10 01/07/17 05:10 Bedside Glucose 113 111 Urine Color LT. YELLOW Urine Clarity SL HAZY Urine pH 6.0 Urine Specific [place] 1.025 Urine Ketones NEGATIVE Urine Nitrite NEGATIVE Urine Bilirubin NEGATIVE Urine Urobilinogen 0.2 E.U./dL Urine Leukocyte Esterase NEGATIVE Urine Microscopic RBC 0-2 Urine Microscopic WBC 0-2 Urine Squamous Epithelial Cells MODERATE Urine Bacteria MODERATE Urine Granular Casts OCCASIONAL Urine Yeast FEW Urine Hemoglobin TRACE Urine Random Creatinine 86.15 Urine Random Sodium 65 Urine Glucose NEGATIVE Urine Total Protein 4+ H Sodium Level 135 Potassium Level 4.4 Chloride Level 104 Carbon Dioxide Level 22 Anion Gap 13 Blood Urea Nitrogen 37 H Creatinine 1.56 H Glucose Level 122 # Calcium Level 8.8 Test 01/07/17 05:18 01/07/17 07:54 01/07/17 09:17 01/07/17 11:20 White Blood Count 9.4 Red Blood Count 3.51 L Hemoglobin 9.3 L Hematocrit 29.2 L Mean Corpuscular Volume 83.2 Mean Corpuscular Hemoglobin 26.5 L Mean Corpuscular Hemoglobin Concent 31.8 L Red Cell Distribution Width 14.6 H Platelet Count 534 H Mean Platelet Volume 9.5 Neutrophils % 64.6 Lymphocytes % 14.8 L Monocytes % 14.4 H Eosinophils % 5.0 Basophils % 0.6 Nucleated Red Blood Cells % 0.0 Neutrophils # 6.1 Lymphocytes # 1.4 Monocytes # 1.4 H Eosinophils # 0.5 Basophils # 0.1 Nucleated Red Blood Cells # 0.0 Bedside Glucose 138 249 H Vancomycin Level Trough 13.7 Test 01/07/17 13:10 Bedside Glucose 178 Medications Medications Current Medications Acetaminophen (Tylenol Tab) 650 mg Q6H PRN PO PAIN AND OR ELEVATED TEMP Last administered on 01/06/17 21:06; Admin Dose 650 MG; Start 01/04/17 at 23:00 Ondansetron HCl (Zofran Inj) 4 mg Q6H PRN IV NAUSEA AND/OR VOMITING; Start 01/04 at 23:00 Morphine Sulfate (morphine) 2 mg Q4H PRN IV PAIN Last administered on 21:50; Admin Dose 2 MG; Start 01/04/17 at 23:00 Metoprolol Tartrate (Lopressor) 25 mg BID PO Last administered on 01/07/17 09: 00; Admin Dose 25 MG; Start 01/05/17 at 09:00 Levothyroxine Sodium (Synthroid) 112 mcg DAILY@06 PO Last administered on 05:43; Admin Dose 112 MCG; Start 01/05/17 at 06:00 Trazodone HCl (Desyrel) 50 mg HS PO Last administered on 01/06/17 21:06; Admin Dose 50 MG; Start 01/05/17 at 21:00 Diagnostic Test (Pha) (Accu-Chek) 1 ea 02 XX Last administered on 01/06/17 02: 00; Admin Dose 1 EA; Start 01/05/17 at 02:00 Miscellaneous Information 1 ea NOTE XX ; Start 01/04/17 at 23:45 Glucose (Glutose) 15 gm Q15M PRN PO DECREASED GLUCOSE; Start 01/04/17 at 23:45 Glucose (Glutose) 22.5 gm Q15M PRN PO DECREASED GLUCOSE; Start 01/04/17 at 23:45 Dextrose (D50w Syringe) 25 ml Q15M PRN IV DECREASED GLUCOSE; Start 01/04/17 at 23:45 Dextrose (D50w Syringe) 50 ml Q15M PRN IV DECREASED GLUCOSE; Start 01/04/17 at 23:45 Glucagon (Glucagen) 1 mg Q15M PRN IM DECREASED GLUCOSE; Start 01/04/17 at 23:45 Glucose (Glutose) 15 gm Q15M PRN BUCCAL DECREASED GLUCOSE; Start 01/04/17 at 23: 45 Fludrocortisone Acetate (Florinef) 0.05 mg DAILY PO Last administered on 09:01; Admin Dose 0.05 MG; Start 01/05/17 at 21:00 Insulin Glargine (Lantus) 40 unit QAM SC Last administered on 01/07/17 09:39; Admin Dose 40 UNIT; Start 01/06/17 at 09:00 Ferrous Sulfate (Ferrous Sulfate (Ec)) 325 mg TID PO Last administered on 13:28; Admin Dose 325 MG; Start 01/06/17 at 13:00 Docusate Sodium 100 mg 100 mg BID PO Last administered on 01/07/17 08:59; Admin Dose 100 MG; Start 01/06/17 at 21:00 Vancomycin HCl (Vancocin) 250 ml @ 125 mls/hr Q24H IVPB Last administered on 13:31; Admin Dose 125 MLS/HR; Start 01/06/17 at 12:00 Hydralazine HCl (Apresoline) 25 mg TID PO Last administered on 01/07/17 13:28 ; Admin Dose 25 MG; Start 01/06/17 at 21:00 Enoxaparin Sodium (Lovenox) 40 mg DAILY SC ; Start 01/08/17 at 09:00 Ciprofloxacin (Cipro) 500 mg BID@06,18 PO ; Start 01/07/17 at 18:00 COLIN VELEZ MD January 07, 2017 15:30
--- NOTE | 2017-01-07 16:14 | PN ---
Date/Time of Note Date/Time of Note DATE: 01/07/17 TIME: 16:10 Assessment/Plan VTE Prophylaxis VTE Prophylaxis Intervention: LMWH Lines/Catheters IV [facility]ter Type (from [facility]): Peripheral IV Urinary Cath still in place: No Assessment/Plan Chief Complaint/Hosp Course Assessment and plan 1. Left ankle cellulitis. Continue on antibiotics. Continue with ID recommendations. No plan for surgery at this time per podiatry. blood cultures showed pseudomonas 2. History of left Charcot ankle status post fusion using bone allograft in July 2016. Podiatry following 3. Uncontrolled diabetes. A1c at 13. Continue insulin regimen per language interpreter. stable 4. Essential hypertension. Continue antihypertensives and adjust as needed 5. Hyperlipidemia. stable at present. Will monitor. 6. Acute kidney injury. Continue IV hydration. continue with nephro recs 7. Anemia. With iron deficiency anemia. continue iron supplement 8. Reported cephalgia with right upper extremity weakness. CT scan of the head was negative for any acute intracranial findings. Resolved at present 9.Bilateral lower extremity atherosclerosis. Patient did have arterial study done that showed normal flow in the left superficial femoral artery, popliteal artery home and Arteries which may indicate significant stenosis. Continue anticoagulation. Follow-up with vascular surgeon recommendations Disposition and plan: Continue with antibiotics. continue physical therapy. Follow-up with surgeon for bilateral lower extremity atherosclerosis Discussed plan of care with Dr. Perez Problems: Subjective 24 Hr Interval Summary Free Text/Dictation Still has pain on left foot. Denies any weakness and right upper extremity Exam/Review of Systems Vital Signs Vitals Vital Signs Date Time Temp Pulse Resp B/P Pulse Ox O2 Delivery O2 Flow Rate FiO2 01/07/17 10:29 80 131/66 01/07/17 08:58 16 97 Room Air 01/07/17 07:18 98.5 Intake and Output 01/06/17 01/06/17 01/07/17 15:00 23:00 07:00 Intake Total 150 ml 2330 ml 440 ml Balance 150 ml 2330 ml 440 ml Exam Constitutional: alert, obese, oriented Head: normocephalic Neck: non-tender, No jvd Respiratory: normal air movement Cardiovascular: regular rate and rhythm Gastrointestinal: non-tender, soft Musculoskeletal: swelling (left ankle) Neurological: nl mental status, nl speech Results Result Diagram: 01/07/17 0518 01/07/17 0510 Results 24 hrs Laboratory Tests Test 01/06/17 16:51 01/06/17 21:08 01/07/17 02:10 01/07/17 05:10 Bedside Glucose 113 111 Urine Color LT. YELLOW Urine Clarity SL HAZY Urine pH 6.0 Urine Specific [place] 1.025 Urine Ketones NEGATIVE Urine Nitrite NEGATIVE Urine Bilirubin NEGATIVE Urine Urobilinogen 0.2 E.U./dL Urine Leukocyte Esterase NEGATIVE Urine Microscopic RBC 0-2 Urine Microscopic WBC 0-2 Urine Squamous Epithelial Cells MODERATE Urine Bacteria MODERATE Urine Granular Casts OCCASIONAL Urine Yeast FEW Urine Hemoglobin TRACE Urine Random Creatinine 86.15 Urine Random Sodium 65 Urine Glucose NEGATIVE Urine Total Protein 4+ H Sodium Level 135 Potassium Level 4.4 Chloride Level 104 Carbon Dioxide Level 22 Anion Gap 13 Blood Urea Nitrogen 37 H Creatinine 1.56 H Glucose Level 122 # Calcium Level 8.8 Test 01/07/17 05:18 01/07/17 07:54 01/07/17 09:17 01/07/17 11:20 White Blood Count 9.4 Red Blood Count 3.51 L Hemoglobin 9.3 L Hematocrit 29.2 L Mean Corpuscular Volume 83.2 Mean Corpuscular Hemoglobin 26.5 L Mean Corpuscular Hemoglobin Concent 31.8 L Red Cell Distribution Width 14.6 H Platelet Count 534 H Mean Platelet Volume 9.5 Neutrophils % 64.6 Lymphocytes % 14.8 L Monocytes % 14.4 H Eosinophils % 5.0 Basophils % 0.6 Nucleated Red Blood Cells % 0.0 Neutrophils # 6.1 Lymphocytes # 1.4 Monocytes # 1.4 H Eosinophils # 0.5 Basophils # 0.1 Nucleated Red Blood Cells # 0.0 Bedside Glucose 138 249 H Vancomycin Level Trough 13.7 Test 01/07/17 13:10 Bedside Glucose 178 Medications Medications Current Medications Acetaminophen (Tylenol Tab) 650 mg Q6H PRN PO PAIN AND OR ELEVATED TEMP Last administered on 01/06/17 21:06; Admin Dose 650 MG; Start 01/04/17 at 23:00 Ondansetron HCl (Zofran Inj) 4 mg Q6H PRN IV NAUSEA AND/OR VOMITING; Start 01/04 at 23:00 Morphine Sulfate (morphine) 2 mg Q4H PRN IV PAIN Last administered on 21:50; Admin Dose 2 MG; Start 01/04/17 at 23:00 Metoprolol Tartrate (Lopressor) 25 mg BID PO Last administered on 01/07/17 09: 00; Admin Dose 25 MG; Start 01/05/17 at 09:00 Levothyroxine Sodium (Synthroid) 112 mcg DAILY@06 PO Last administered on 05:43; Admin Dose 112 MCG; Start 01/05/17 at 06:00 Trazodone HCl (Desyrel) 50 mg HS PO Last administered on 01/06/17 21:06; Admin Dose 50 MG; Start 01/05/17 at 21:00 Diagnostic Test (Pha) (Accu-Chek) 1 ea 02 XX Last administered on 01/06/17 02: 00; Admin Dose 1 EA; Start 01/05/17 at 02:00 Miscellaneous Information 1 ea NOTE XX ; Start 01/04/17 at 23:45 Glucose (Glutose) 15 gm Q15M PRN PO DECREASED GLUCOSE; Start 01/04/17 at 23:45 Glucose (Glutose) 22.5 gm Q15M PRN PO DECREASED GLUCOSE; Start 01/04/17 at 23:45 Dextrose (D50w Syringe) 25 ml Q15M PRN IV DECREASED GLUCOSE; Start 01/04/17 at 23:45 Dextrose (D50w Syringe) 50 ml Q15M PRN IV DECREASED GLUCOSE; Start 01/04/17 at 23:45 Glucagon (Glucagen) 1 mg Q15M PRN IM DECREASED GLUCOSE; Start 01/04/17 at 23:45 Glucose (Glutose) 15 gm Q15M PRN BUCCAL DECREASED GLUCOSE; Start 01/04/17 at 23: 45 Fludrocortisone Acetate (Florinef) 0.05 mg DAILY PO Last administered on 09:01; Admin Dose 0.05 MG; Start 01/05/17 at 21:00 Insulin Glargine (Lantus) 40 unit QAM SC Last administered on 01/07/17 09:39; Admin Dose 40 UNIT; Start 01/06/17 at 09:00 Ferrous Sulfate (Ferrous Sulfate (Ec)) 325 mg TID PO Last administered on 13:28; Admin Dose 325 MG; Start 01/06/17 at 13:00 Docusate Sodium 100 mg 100 mg BID PO Last administered on 01/07/17 08:59; Admin Dose 100 MG; Start 01/06/17 at 21:00 Vancomycin HCl (Vancocin) 250 ml @ 125 mls/hr Q24H IVPB Last administered on 13:31; Admin Dose 125 MLS/HR; Start 01/06/17 at 12:00 Hydralazine HCl (Apresoline) 25 mg TID PO Last administered on 01/07/17 13:28 ; Admin Dose 25 MG; Start 01/06/17 at 21:00 Enoxaparin Sodium (Lovenox) 40 mg DAILY SC ; Start 01/08/17 at 09:00 Ciprofloxacin (Cipro) 500 mg BID@06,18 PO ; Start 01/07/17 at 18:00 ALICE STAPLES January 07, 2017 16:14 ALICE STAPLES January 07, 2017 16:14
--- NOTE | 2017-01-07 17:35 | CONS ---
Date/Time of Note Date/Time of Note DATE: 01/07/17 TIME: 17:30 Assessment/Plan Assessment/Plan Problems: (1) Diabetes type 2, uncontrolled Status: Chronic Comment: Glucose levels improved on new insulin doses of lantus 40 units qhs and Novolog 13 qac. This is a 1:1 or 50:50 ratio of basal:bolus. Pt. w/ episode of post-prandial hyperglycemia this am. If this persists would move pt. more to bolus heavy regimen, decreasing lantus to 32 and increasing novolog to 16 but would only do that if glucose levels continue to be high post- prandially. Qualifiers: Diabetes mellitus complication status: with kidney complications Diabetes mellitus complication detail: with microalbuminuria Diabetes mellitus alf insulin use: with alf use Qualified Code: E11.29 - Uncontrolled type 2 diabetes mellitus with microalbuminuria, with long-term current use of insulin Consultation Date/Type/Reason Admit Date/Time January 04, 2017 at 19:32 Initial Consult Date 01/06/17 Type of Consultation: Endocrinology Reason for Consultation T2DM management Referring Provider: ALICE STAPLES 24 HR Interval Summary Constitutional: improved, no complaints Detailed Summary Respiratory: no complaints Cardiovascular: no complaints Gastrointestinal: no complaints Genitourinary: no complaints Musculoskeletal: no complaints Neurologic: no complaints Exam/Review of Systems Vital Signs Vitals VS - Last 72 Hours, by Label Date Time Temp Pulse Resp B/P Pulse Ox O2 Delivery O2 Flow Rate FiO2 01/07/17 10:29 80 131/66 01/07/17 08:58 79 16 118/56 97 Room Air 01/07/17 08:38 81 115/58 97 01/07/17 07:18 98.5 74 20 166/73 91 01/06/17 21:44 99.0 87 18 129/63 99 Room Air 01/06/17 20:39 99.4 101 18 179/81 99 01/06/17 17:34 99.3 83 18 178/76 96 01/06/17 07:30 98.3 78 15 105/49 94 Room Air 01/05/17 19:35 99.7 84 18 130/60 95 01/05/17 07:56 99.2 90 20 152/65 95 01/04/17 21:34 97.8 79 18 131/63 95 01/04/17 21:00 82 18 137/66 97 Room Air 01/04/17 19:31 98.4 83 19 161/75 100 Room Air Vital Signs Date Time Temp Pulse Resp B/P Pulse Ox O2 Delivery O2 Flow Rate FiO2 01/07/17 10:29 80 131/66 01/07/17 08:58 16 97 Room Air 01/07/17 07:18 98.5 Intake and Output 01/06/17 01/06/17 01/07/17 15:00 23:00 07:00 Intake Total 150 ml 2330 ml 440 ml Balance 150 ml 2330 ml 440 ml Exam Constitutional: alert, obese, oriented Psych: nl mood/affect, no complaints Respiratory: clear to auscultation, normal air movement Cardiovascular: regular rate and rhythm, No edema, No murmurs/extra sounds, No rub Gastrointestinal: bowel sounds, nl liver, spleen, non-tender, soft, No mass, No rebound or guarding Musculoskeletal: No nl extremities to inspection (L foot Charcot w/ redness and swelling lateral inferior portion) Extremities: No clubbing, No cyanosis, No edema Neurological: AIRLINE OPERATIONS AGENT II-XII intact, nl mental status, nl speech, nl strength Additional Comments Bedside Glucose - 72 Hours Test 01/05/17 07:52 01/05/17 11:52 01/05/17 17:23 01/05/17 20:36 Bedside Glucose 432mg/dL (70-220) *H 332mg/dL (70-220) H 169mg/dL (70-220) 181mg/dL (70-220) Test 01/06/17 02:49 01/06/17 07:54 01/06/17 09:27 01/06/17 11:58 Bedside Glucose 193mg/dL (70-220) 269mg/dL (70-220) H 298mg/dL (70-220) H 205mg/dL (70-220) Test 01/06/17 16:51 01/06/17 21:08 01/07/17 07:54 01/07/17 09:17 Bedside Glucose 113mg/dL (70-220) 111mg/dL (70-220) 138mg/dL (70-220) 249mg/dL (70-220) H Test 01/07/17 13:10 01/07/17 17:27 Bedside Glucose 178mg/dL (70-220) 168mg/dL (70-220) Results Result Diagram: 01/07/17 0518 01/07/17 0510 Results 24 hrs Laboratory Tests Test 01/06/17 21:08 01/07/17 02:10 01/07/17 05:10 01/07/17 05:18 Bedside Glucose 111 Urine Color LT. YELLOW Urine Clarity SL HAZY Urine pH 6.0 Urine Specific [place] 1.025 Urine Ketones NEGATIVE Urine Nitrite NEGATIVE Urine Bilirubin NEGATIVE Urine Urobilinogen 0.2 E.U./dL Urine Leukocyte Esterase NEGATIVE Urine Microscopic RBC 0-2 Urine Microscopic WBC 0-2 Urine Squamous Epithelial Cells MODERATE Urine Bacteria MODERATE Urine Granular Casts OCCASIONAL Urine Yeast FEW Urine Hemoglobin TRACE Urine Random Creatinine 86.15 Urine Random Sodium 65 Urine Glucose NEGATIVE Urine Total Protein 4+ H Sodium Level 135 Potassium Level 4.4 Chloride Level 104 Carbon Dioxide Level 22 Anion Gap 13 Blood Urea Nitrogen 37 H Creatinine 1.56 H Glucose Level 122 # Calcium Level 8.8 White Blood Count 9.4 Red Blood Count 3.51 L Hemoglobin 9.3 L Hematocrit 29.2 L Mean Corpuscular Volume 83.2 Mean Corpuscular Hemoglobin 26.5 L Mean Corpuscular Hemoglobin Concent 31.8 L Red Cell Distribution Width 14.6 H Platelet Count 534 H Mean Platelet Volume 9.5 Neutrophils % 64.6 Lymphocytes % 14.8 L Monocytes % 14.4 H Eosinophils % 5.0 Basophils % 0.6 Nucleated Red Blood Cells % 0.0 Neutrophils # 6.1 Lymphocytes # 1.4 Monocytes # 1.4 H Eosinophils # 0.5 Basophils # 0.1 Nucleated Red Blood Cells # 0.0 Test 01/07/17 07:54 01/07/17 09:17 01/07/17 11:20 01/07/17 13:10 Bedside Glucose 138 249 H 178 Vancomycin Level Trough 13.7 Test 01/07/17 17:27 Bedside Glucose 168 Medications Medications Current Medications Acetaminophen (Tylenol Tab) 650 mg Q6H PRN PO PAIN AND OR ELEVATED TEMP Last administered on 01/06/17t 21:06; Admin Dose 650 MG; Start 01/04/17 at 23:00 Ondansetron HCl (Zofran Inj) 4 mg Q6H PRN IV NAUSEA AND/OR VOMITING; Start 01/04 at 23:00 Morphine Sulfate (morphine) 2 mg Q4H PRN IV PAIN Last administered on 21:50; Admin Dose 2 MG; Start 01/04/17 at 23:00 Metoprolol Tartrate (Lopressor) 25 mg BID PO Last administered on 01/07/17 09: 00; Admin Dose 25 MG; Start 01/05/17 at 09:00 Levothyroxine Sodium (Synthroid) 112 mcg DAILY@06 PO Last administered on 05:43; Admin Dose 112 MCG; Start 01/05/17 at 06:00 Trazodone HCl (Desyrel) 50 mg HS PO Last administered on 01/06/17 21:06; Admin Dose 50 MG; Start 01/05/17 at 21:00 Diagnostic Test (Pha) (Accu-Chek) 1 ea 02 XX Last administered on 01/06/17 02: 00; Admin Dose 1 EA; Start 01/05/17 at 02:00 Miscellaneous Information 1 ea NOTE XX ; Start 01/04/17 at 23:45 Glucose (Glutose) 15 gm Q15M PRN PO DECREASED GLUCOSE; Start 01/04/17 at 23:45 Glucose (Glutose) 22.5 gm Q15M PRN PO DECREASED GLUCOSE; Start 01/04/17 at 23:45 Dextrose (D50w Syringe) 25 ml Q15M PRN IV DECREASED GLUCOSE; Start 01/04/17 at 23:45 Dextrose (D50w Syringe) 50 ml Q15M PRN IV DECREASED GLUCOSE; Start 01/04/17 at 23:45 Glucagon (Glucagen) 1 mg Q15M PRN IM DECREASED GLUCOSE; Start 01/04/17 at 23:45 Glucose (Glutose) 15 gm Q15M PRN BUCCAL DECREASED GLUCOSE; Start 01/04/17 at 23: 45 Fludrocortisone Acetate (Florinef) 0.05 mg DAILY PO Last administered on 09:01; Admin Dose 0.05 MG; Start 01/05/17 at 21:00 Insulin Glargine (Lantus) 40 unit QAM SC Last administered on 01/07/17 09:39; Admin Dose 40 UNIT; Start 01/06/17 at 09:00 Ferrous Sulfate (Ferrous Sulfate (Ec)) 325 mg TID PO Last administered on 13:28; Admin Dose 325 MG; Start 01/06/17 at 13:00 Docusate Sodium 100 mg 100 mg BID PO Last administered on 01/07/17 08:59; Admin Dose 100 MG; Start 01/06/17 at 21:00 Vancomycin HCl (Vancocin) 250 ml @ 125 mls/hr Q24H IVPB Last administered on 13:31; Admin Dose 125 MLS/HR; Start 01/06/17 at 12:00 Hydralazine HCl (Apresoline) 25 mg TID PO Last administered on 01/07/17 13:28 ; Admin Dose 25 MG; Start 01/06/17 at 21:00 Enoxaparin Sodium (Lovenox) 40 mg DAILY SC ; Start 01/08/17 at 09:00 Ciprofloxacin (Cipro) 500 mg BID@06,18 PO ; Start 01/07/17 at 18:00 GONZALO ARNOLD MD January 07, 2017 17:35
[2017-01-07] MEDS: metFORMIN 500 MG TAB PO SCH (17:52)
[2017-01-07] MEDS: CIPROFLOXACIN 500 MG TAB PO SCH (17:52)
[2017-01-07] MEDS: morphine 2 MG INJ IV PRN (20:10)
[2017-01-07] MEDS: traZODone 50 MG TAB PO SCH (20:16)
[2017-01-07 21:26] VITALS: BP 176/77; RESP 18
[2017-01-07 22:05] VITALS: BP 133/62; PULSE 84
[2017-01-08] MEDS: ACCU-CHEK XX SCH (02:21)
[2017-01-08 04:18] LABS: SCRET 1.56 mg/dl (0.44-1.00)
[2017-01-08] MEDS: LEVOTHYROXINE 112 MCG TAB PO SCH (05:43)
[2017-01-08] MEDS: CIPROFLOXACIN 500 MG TAB PO SCH ×2 (05:43→17:10)
[2017-01-08 06:35] LABS: ADD SCAN DIFF NO
[2017-01-08 06:49] LABS: BASOPHIL # 0.1 10^3/ul (0.0-0.1); BASOPHILS % 0.6 % (0.0-2.0); EOSINOPHILS # 0.4 10^3/ul (0.0-0.5); EOSINOPHILS % 4.3 % (0.0-7.0); HEMATOCRIT 28.7 % (37.0-47.0); HEMOGLOBIN 9.1 g/dl (12.0-16.0); LYMPHOCYTES # 1.9 10^3/ul (0.8-2.9); LYMPHOCYTES % 20.1 % (15.0-51.0); MEAN CORPUSCULAR HEMOGLOBIN 26.1 pg (29.0-33.0); MEAN CORPUSCULAR HGB CONC 31.7 g/dl (32.0-37.0); MEAN CORPUSCULAR VOLUME 82.5 fl (82.0-101.0); MEAN PLATELET VOLUME 9.6 fl (7.4-10.4); MONOCYTE # 1.4 10^3/ul (0.3-0.9); MONOCYTES % 14.7 % (0.0-11.0); NEUTROPHIL # 5.5 10^3/ul (1.6-7.5); NEUTROPHILS % 59.9 % (39.0-77.0); PLATELET COUNT 556 10^3/UL (140-415); RED BLOOD COUNT 3.48 10^6/ul (4.20-5.40); RED CELL DISTRIBUTION WIDTH 14.9 % (11.5-14.5); WHITE BLOOD COUNT 9.3 10^3/ul (4.8-10.8)
--- NOTE | 2017-01-08 06:56 | PN ---
Date/Time of Note Date/Time of Note DATE: 01/08/17 TIME: 06:51 Assessment/Plan Lines/Catheters IV Catheter Type (from [facility]): Peripheral IV Ramos in Place (from [facility]): No Assessment/Plan Problems: (1) Cellulitis of left ankle Status: Acute (2) Cellulitis of foot, left Status: Acute (3) Morbid obesity Status: Chronic Qualifiers: Obesity type: due to excess calories Qualified Code: E66.01 - Morbid obesity due to excess calories (4) Charcot foot due to diabetes mellitus Status: Chronic (5) Diabetes type 2, uncontrolled Status: Chronic Qualifiers: Diabetes mellitus complication status: with kidney complications Diabetes mellitus complication detail: with microalbuminuria Diabetes mellitus jail insulin use: with jail use Qualified Code: E11.29 - Uncontrolled type 2 diabetes mellitus with microalbuminuria, with long-term current use of insulin Assessment/Plan Continue IV antibiotics. Patient continues to have increased in warmth around the left ankle joint but it has improved since I saw her last. Patient will require surgical management in the near future which would be more reconstructive but not during this admission. Patient will be followed in- house. My recommendation is a PICC line with home IV antibiotics for the next 3 -6 weeks. Nonweightbearing left ankle. Subjective 24 Hr Interval Summary Patient was seen at bedside. Patient is in no acute distress. Patient reports no new adverse events. Patient denies fever, chills, nausea or vomiting. Patient reports minimum pain in the left ankle. Patient denies recent trauma. Patient does not report any new problems. Constitutional: no complaints Pain Control: well controlled Exam/Review of Systems Vital Signs Vitals Vital Signs Date Time Temp Pulse Resp B/P Pulse Ox O2 Delivery O2 Flow Rate FiO2 01/07/17 22:05 84 133/62 01/07/17 21:26 18 95 01/07/17 08:58 Room Air 01/07/17 07:18 98.5 Intake and Output 01/07/17 01/07/17 01/08/17 15:00 23:00 07:00 Intake Total 50 ml 1510 ml 120 ml Output Total 1500 ml 400 ml Balance 50 ml 10 ml -280 ml Exam Free Text/Dictation GENERAL APPEARANCE: This is a morbidly obese female patient in no acute distress laying supine in bed; patient is on IV antibiotics VASCULAR EXAM: Patient has a weakly palpable dorsalis pedis pulse on the left foot and +2 palpable dorsalis pedis and posterior tibial pulse of the right foot. Delayed capillary filling time noted on exam. Decreased temperature gradient noted on exam of the left lower extremity and normal temperature gradient on the right lower extremity. Edema continues in the left ankle area but reduced since yesterday. No varicose veins noted on examination NEUROLOGICAL EXAM: Protective sensation is diminished to sharp, dull, vibratory and temperature stimuli bilaterally. Normal deep tendon reflexes noted. Negative Tinel sign on examination of bilateral lower extremity DERMATOLOGICAL EXAM: No open wound noted on bilateral lower legs. Cellulitis is significantly decreased on the left lower extremity MUSCULOSKELETAL EXAM: Continues to have Charcot changes to the left foot and ankle with tenderness to deep palpation. Continues to have motion in the ankle joint; status post attempted fusion with bone graft and intramedullary nailing IMAGING: Reviewed in chart LABS: Reviewed in chart Results Result Diagram: 01/07/17 0518 01/07/17 0510 ELLA ORTIZ DPM January 08, 2017 06:56
[2017-01-08 07:15] LABS: CALCIUM 8.9 mg/dl (8.4-10.2); CREATININE 1.26 mg/dl (0.44-1.00); POTASSIUM 4.6 mmol/L (3.5-5.1)
[2017-01-08 07:43] VITALS: BP 124/65; RESP 18
[2017-01-08] MEDS: INSULIN GLARGINE [LANtus] 3 ML PEN SC SCH (08:16)
[2017-01-08] MEDS: INSULIN ASPART [NOVOLOG] 3 ML PEN SC SCH ×7 (08:17→21:20)
[2017-01-08] MEDS: DOCUSATE SODIUM 100 MG CAP PO SCH ×2 (08:18→21:00)
[2017-01-08] MEDS: ENOXAPARIN 40 MG/0.4 ML SYG SC SCH (08:18)
[2017-01-08] MEDS: FERROUS SULFATE (EC) 325 MG TAB PO SCH ×3 (08:18→21:13)
[2017-01-08] MEDS: metFORMIN 500 MG TAB PO SCH ×2 (08:19→17:10)
[2017-01-08] MEDS: METOPROLOL 25 MG TAB PO SCH ×2 (08:20→21:14)
[2017-01-08] MEDS: FLUDROCORTISONE 0.1 MG TAB PO SCH (08:28)
[2017-01-08] MEDS: morphine 2 MG INJ IV PRN ×2 (08:29→18:07)
[2017-01-08] MEDS: VANCOMYCIN 1 GM in NS 250 ML IVPB SCH (12:18)
[2017-01-08 12:21] VITALS: BP 106/55; PULSE 68
[2017-01-08] MEDS: LINAGLIPTIN 5 MG TABLET PO SCH (15:14)
--- NOTE | 2017-01-08 15:30 | PN ---
Date/Time of Note Date/Time of Note DATE: 01/08/17 TIME: 15:27 Assessment/Plan VTE Prophylaxis VTE Prophylaxis Intervention: LMWH Lines/Catheters IV C[facility]ter Type (from [facility] Urinary Cath still in place: No Assessment/Plan Chief Complaint/Hosp Course Assessment and plan 1. Left ankle cellulitis. Continue on antibiotics. Continue with ID recommendations. No plan for surgery at this time per podiatry. blood cultures showed pseudomonas. cont current tx 2. History of left Charcot ankle status post fusion using bone allograft in July 2016. Podiatry following 3. Uncontrolled diabetes. A1c at 13. Continue insulin regimen per landfill attendant. stable 4. Essential hypertension. Continue antihypertensives and adjust as needed 5. Hyperlipidemia. stable at present. Will monitor. 6. Acute kidney injury. Continue IV hydration. continue with nephro recs . stable 7. Anemia. With iron deficiency anemia. continue iron supplement 8. Reported cephalgia with right upper extremity weakness. CT scan of the head was negative for any acute intracranial findings. Resolved at present 9.Bilateral lower extremity atherosclerosis. Patient did have arterial study done that showed normal flow in the left superficial femoral artery, popliteal artery home and Arteries which may indicate significant stenosis. Continue anticoagulation. Disposition and plan: Continue with antibiotics. continue physical therapy. abx regimen per ID consult. d/c when cleared by consultants and medically stable Discussed plan of care with Dr. Perez Problems: Subjective 24 Hr Interval Summary Free Text/Dictation comfortable at present. no reports of pain Exam/Review of Systems Vital Signs Vitals Vital Signs Date Time Temp Pulse Resp B/P Pulse Ox O2 Delivery O2 Flow Rate FiO2 01/08/17 12:21 68 106/55 01/08/17 07:43 98.6 18 98 01/07/17 08:58 Room Air Intake and Output 01/07/17 01/07/17 01/08/17 15:00 23:00 07:00 Intake Total 50 ml 1510 ml 120 ml Output Total 1500 ml 400 ml Balance 50 ml 10 ml -280 ml Exam Constitutional: alert, oriented Head: normocephalic Neck: No jvd Respiratory: clear to auscultation Cardiovascular: regular rate and rhythm Gastrointestinal: non-tender, soft Musculoskeletal: nl extremities to inspection Extremities: normal pulses Neurological: nl mental status, nl speech Results Result Diagram: 01/08/1743 01/08/1743 Results 24 hrs Laboratory Tests Test 01/07/17 17:27 01/07/17 20:19 01/08/17 02:00 01/08/17 02:20 Bedside Glucose 168 191 195 Urine Random Creatinine 37.25 Urine Total Volume 24 Hours 1500 Urine Creatinine Timed 24 Creatinine Clearance 24.9 L Test 01/08/17 05:43 01/08/17 07:55 01/08/17 12:01 White Blood Count 9.3 Red Blood Count 3.48 L Hemoglobin 9.1 L Hematocrit 28.7 L Mean Corpuscular Volume 82.5 Mean Corpuscular Hemoglobin 26.1 L Mean Corpuscular Hemoglobin Concent 31.7 L Red Cell Distribution Width 14.9 H Platelet Count 556 H Mean Platelet Volume 9.6 Neutrophils % 59.9 Lymphocytes % 20.1 Monocytes % 14.7 H Eosinophils % 4.3 Basophils % 0.6 Nucleated Red Blood Cells % 0.0 Neutrophils # 5.5 Lymphocytes # 1.9 Monocytes # 1.4 H Eosinophils # 0.4 Basophils # 0.1 Nucleated Red Blood Cells # 0.0 Sodium Level 135 Potassium Level 4.6 Chloride Level 106 Carbon Dioxide Level 23 Anion Gap 11 Blood Urea Nitrogen 30 H Creatinine 1.26 H Glucose Level 211 Calcium Level 8.9 Bedside Glucose 198 223 H Medications Medications Current Medications Acetaminophen (Tylenol Tab) 650 mg Q6H PRN PO PAIN AND OR ELEVATED TEMP Last administered on 01/06/17 21:06; Admin Dose 650 MG; Start 01/04/17 at 23:00 Ondansetron HCl (Zofran Inj) 4 mg Q6H PRN IV NAUSEA AND/OR VOMITING; Start 01/04 at 23:00 Morphine Sulfate (morphine) 2 mg Q4H PRN IV PAIN Last administered on 08:29; Admin Dose 2 MG; Start 01/04/17 at 23:00 Metoprolol Tartrate (Lopressor) 25 mg BID PO Last administered on 01/08/17 08: 20; Admin Dose 25 MG; Start 01/05/17 at 09:00 Levothyroxine Sodium (Synthroid) 112 mcg DAILY@06 PO Last administered on 05:43; Admin Dose 112 MCG; Start 01/05/17 at 06:00 Trazodone HCl (Desyrel) 50 mg HS PO Last administered on 01/07/17 20:16; Admin Dose 50 MG; Start 01/05/17 at 21:00 Diagnostic Test (Pha) (Accu-Chek) 1 ea 02 XX Last administered on 01/08/17 02: 21; Admin Dose 1 EA; Start 01/05/17 at 02:00 Miscellaneous Information 1 ea NOTE XX ; Start 01/04/17 at 23:45 Glucose (Glutose) 15 gm Q15M PRN PO DECREASED GLUCOSE; Start 01/04/17 at 23:45 Glucose (Glutose) 22.5 gm Q15M PRN PO DECREASED GLUCOSE; Start 01/04/17 at 23:45 Dextrose (D50w Syringe) 25 ml Q15M PRN IV DECREASED GLUCOSE; Start 01/04/17 at 23:45 Dextrose (D50w Syringe) 50 ml Q15M PRN IV DECREASED GLUCOSE; Start 01/04/17 at 23:45 Glucagon (Glucagen) 1 mg Q15M PRN IM DECREASED GLUCOSE; Start 01/04/17 at 23:45 Glucose (Glutose) 15 gm Q15M PRN BUCCAL DECREASED GLUCOSE; Start 01/04/17 at 23: 45 Fludrocortisone Acetate (Florinef) 0.05 mg DAILY PO Last administered on 08:28; Admin Dose 0.05 MG; Start 01/05/17 at 21:00 Ferrous Sulfate (Ferrous Sulfate (Ec)) 325 mg TID PO Last administered on 12:18; Admin Dose 325 MG; Start 01/06/17 at 13:00 Docusate Sodium 100 mg 100 mg BID PO Last administered on 01/08/17 08:18; Admin Dose 100 MG; Start 01/06/17 at 21:00 Vancomycin HCl (Vancocin) 250 ml @ 125 mls/hr Q24H IVPB Last administered on 12:18; Admin Dose 125 MLS/HR; Start 01/06/17 at 12:00 Hydralazine HCl (Apresoline) 25 mg TID PO Last administered on 01/08/17 08:20 ; Admin Dose 25 MG; Start 01/06/17 at 21:00 Enoxaparin Sodium (Lovenox) 40 mg DAILY SC Last administered on 01/08/17 08:18 ; Admin Dose 40 MG; Start 01/08/17 at 09:00 Ciprofloxacin (Cipro) 500 mg BID@,18 PO Last administered on 01/08/17 05:43 ; Admin Dose 500 MG; Start 01/07/17 at 18:00 Insulin Glargine (Lantus) 44 unit QAM SC ; Start 01/09/17 at 09:00 Linagliptin (Tradjenta) 5 mg DAILY PO Last administered on 01/08/17 15:14; Admin Dose 5 MG; Start 01/08/17 at 14:30 ALICE STAPLES January 08, 2017 15:30
--- NOTE | 2017-01-08 15:41 | CONS ---
Date/Time of Note Date/Time of Note DATE: 01/08/17 TIME: 15:41 Assessment/Plan Assessment/Plan Additional Assessment/Plan 56yo male with 1. Left ankle cellulitis. 2. Left Charcot ankle status post fusion using bone allograft in July 2016. 3. Diabetes Mellitus with Renal complication , CKD Stage III- stable 4. Essential hypertension. 5. Hyperlipidemia. 6. Anemia.OLGA Vanco level within normal Stable and improved renal function, Non oliguric Cont to monitor electrolytes, volume status and renal function Cont to monitor Vanco levels. Consultation Date/Type/Reason Admit Date/Time January 04, 2017 at 19:32 Initial Consult Date 01/06/17 Type of Consultation: Renal Referring Provider: ALICE STAPLES 24 HR Interval Summary Constitutional: No requiring O2 Exam/Review of Systems Vital Signs Vitals Vital Signs Date Time Temp Pulse Resp B/P Pulse Ox O2 Delivery O2 Flow Rate FiO2 01/08/17 12:21 68 106/55 01/08/17 07:43 98.6 18 98 01/07/17 08:58 Room Air Intake and Output 01/07/17 01/07/17 01/08/17 15:00 23:00 07:00 Intake Total 50 ml 1510 ml 120 ml Output Total 1500 ml 400 ml Balance 50 ml 10 ml -280 ml Exam Constitutional: No distress ENMT: mucosa pink and moist Respiratory: clear to auscultation Cardiovascular: edema (LLE), regular rate and rhythm Gastrointestinal: non-tender, soft Skin: No diaphoresis Results Result Diagram: 01/08/17 0543 01/08/17 0543 Results 24 hrs Laboratory Tests Test 01/07/17 17:27 01/07/17 20:19 01/08/17 02:00 01/08/17 02:20 Bedside Glucose 168 191 195 Urine Random Creatinine 37.25 Urine Total Volume 24 Hours 1500 Urine Creatinine Timed 24 Creatinine Clearance 24.9 L Test 01/08/17 05:43 01/08/17 07:55 01/08/17 12:01 White Blood Count 9.3 Red Blood Count 3.48 L Hemoglobin 9.1 L Hematocrit 28.7 L Mean Corpuscular Volume 82.5 Mean Corpuscular Hemoglobin 26.1 L Mean Corpuscular Hemoglobin Concent 31.7 L Red Cell Distribution Width 14.9 H Platelet Count 556 H Mean Platelet Volume 9.6 Neutrophils % 59.9 Lymphocytes % 20.1 Monocytes % 14.7 H Eosinophils % 4.3 Basophils % 0.6 Nucleated Red Blood Cells % 0.0 Neutrophils # 5.5 Lymphocytes # 1.9 Monocytes # 1.4 H Eosinophils # 0.4 Basophils # 0.1 Nucleated Red Blood Cells # 0.0 Sodium Level 135 Potassium Level 4.6 Chloride Level 106 Carbon Dioxide Level 23 Anion Gap 11 Blood Urea Nitrogen 30 H Creatinine 1.26 H Glucose Level 211 Calcium Level 8.9 Bedside Glucose 198 223 H Medications Medications Current Medications Acetaminophen (Tylenol Tab) 650 mg Q6H PRN PO PAIN AND OR ELEVATED TEMP Last administered on 01/06/17 21:06; Admin Dose 650 MG; Start 01/04/17 at 23:00 Ondansetron HCl (Zofran Inj) 4 mg Q6H PRN IV NAUSEA AND/OR VOMITING; Start 01/04 at 23:00 Morphine Sulfate (morphine) 2 mg Q4H PRN IV PAIN Last administered on 08:29; Admin Dose 2 MG; Start 01/04/17 at 23:00 Metoprolol Tartrate (Lopressor) 25 mg BID PO Last administered on 01/08/17 08: 20; Admin Dose 25 MG; Start 01/05/17 at 09:00 Levothyroxine Sodium (Synthroid) 112 mcg DAILY@06 PO Last administered on 05:43; Admin Dose 112 MCG; Start 01/05/17 at 06:00 Trazodone HCl (Desyrel) 50 mg HS PO Last administered on 01/07/17 20:16; Admin Dose 50 MG; Start 01/05/17 at 21:00 Diagnostic Test (Pha) (Accu-Chek) 1 ea 02 XX Last administered on 01/08/17 02: 21; Admin Dose 1 EA; Start 01/05/17 at 02:00 Miscellaneous Information 1 ea NOTE XX ; Start 01/04/17 at 23:45 Glucose (Glutose) 15 gm Q15M PRN PO DECREASED GLUCOSE; Start 01/04/17 at 23:45 Glucose (Glutose) 22.5 gm Q15M PRN PO DECREASED GLUCOSE; Start 01/04/17 at 23:45 Dextrose (D50w Syringe) 25 ml Q15M PRN IV DECREASED GLUCOSE; Start 01/04/17 at 23:45 Dextrose (D50w Syringe) 50 ml Q15M PRN IV DECREASED GLUCOSE; Start 01/04/17 at 23:45 Glucagon (Glucagen) 1 mg Q15M PRN IM DECREASED GLUCOSE; Start 01/04/17 at 23:45 Glucose (Glutose) 15 gm Q15M PRN BUCCAL DECREASED GLUCOSE; Start 01/04/17 at 23: 45 Fludrocortisone Acetate (Florinef) 0.05 mg DAILY PO Last administered on 08:28; Admin Dose 0.05 MG; Start 01/05/17 at 21:00 Ferrous Sulfate (Ferrous Sulfate (Ec)) 325 mg TID PO Last administered on 12:18; Admin Dose 325 MG; Start 01/06/17 at 13:00 Docusate Sodium 100 mg 100 mg BID PO Last administered on 01/08/17 08:18; Admin Dose 100 MG; Start 01/06/17 at 21:00 Vancomycin HCl (Vancocin) 250 ml @ 125 mls/hr Q24H IVPB Last administered on 12:18; Admin Dose 125 MLS/HR; Start 01/06/17 at 12:00 Hydralazine HCl (Apresoline) 25 mg TID PO Last administered on 01/08/17 08:20 ; Admin Dose 25 MG; Start 01/06/17 at 21:00 Enoxaparin Sodium (Lovenox) 40 mg DAILY SC Last administered on 01/08/17 08:18 ; Admin Dose 40 MG; Start 01/08/17 at 09:00 Ciprofloxacin (Cipro) 500 mg BID@06,18 PO Last administered on 01/08/17 05:43 ; Admin Dose 500 MG; Start 01/07/17 at 18:00 Insulin Glargine (Lantus) 44 unit QAM SC ; Start 01/09/17 at 09:00 Linagliptin (Tradjenta) 5 mg DAILY PO Last administered on 01/08/17 15:14; Admin Dose 5 MG; Start 01/08/17 at 14:30 COLIN VELEZ MD January 08, 2017 15:41
--- NOTE | 2017-01-08 16:02 | CONS ---
Date/Time of Note Date/Time of Note DATE: 01/08/17 TIME: 15:56 Consult Date/Type/Reason Admit Date/Time January 04, 2017 at 19:32 Initial Consult Date 01/05/17 Type of Consultation: Renal Ordering Provider: ALICE STAPLES Subjective NO complaints at this time. Objective Vital Signs Date Time Temp Pulse Resp B/P Pulse Ox O2 Delivery O2 Flow Rate FiO2 01/08/17 12:21 68 106/55 01/08/17 07:43 98.6 18 98 01/07/17 08:58 Room Air Intake and Output 01/07/17 01/07/17 01/08/17 15:00 23:00 07:00 Intake Total 50 ml 1510 ml 120 ml Output Total 1500 ml 400 ml Balance 50 ml 10 ml -280 ml Exam POC glucose reviewed. AA+Ox4 Neck Supple Cor RRR Chest CTA Abd Soft Ext Left foot deformity with swelling and erythema of the ankle Results/Medications Result Diagram: 01/08/17 0543 01/08/17 0543 Results 24 hrs Laboratory Tests Test 01/07/17 17:27 01/07/17 20:19 01/08/17 02:00 01/08/17 02:20 Bedside Glucose 168 191 195 Urine Random Creatinine 37.25 Urine Total Volume 24 Hours 1500 Urine Creatinine Timed 24 Creatinine Clearance 24.9 L Test 01/08/17 05:43 01/08/17 07:55 01/08/17 12:01 White Blood Count 9.3 Red Blood Count 3.48 L Hemoglobin 9.1 L Hematocrit 28.7 L Mean Corpuscular Volume 82.5 Mean Corpuscular Hemoglobin 26.1 L Mean Corpuscular Hemoglobin Concent 31.7 L Red Cell Distribution Width 14.9 H Platelet Count 556 H Mean Platelet Volume 9.6 Neutrophils % 59.9 Lymphocytes % 20.1 Monocytes % 14.7 H Eosinophils % 4.3 Basophils % 0.6 Nucleated Red Blood Cells % 0.0 Neutrophils # 5.5 Lymphocytes # 1.9 Monocytes # 1.4 H Eosinophils # 0.4 Basophils # 0.1 Nucleated Red Blood Cells # 0.0 Sodium Level 135 Potassium Level 4.6 Chloride Level 106 Carbon Dioxide Level 23 Anion Gap 11 Blood Urea Nitrogen 30 H Creatinine 1.26 H Glucose Level 211 Calcium Level 8.9 Bedside Glucose 198 223 H Medications Current Medications Acetaminophen (Tylenol Tab) 650 mg Q6H PRN PO PAIN AND OR ELEVATED TEMP Last administered on 01/06/17 21:06; Admin Dose 650 MG; Start 01/04/17 at 23:00 Ondansetron HCl (Zofran Inj) 4 mg Q6H PRN IV NAUSEA AND/OR VOMITING; Start 01/04 at 23:00 Morphine Sulfate (morphine) 2 mg Q4H PRN IV PAIN Last administered on 08:29; Admin Dose 2 MG; Start 01/04/17 at 23:00 Metoprolol Tartrate (Lopressor) 25 mg BID PO Last administered on 01/08/17 08: 20; Admin Dose 25 MG; Start 01/05/17 at 09:00 Levothyroxine Sodium (Synthroid) 112 mcg DAILY@06 PO Last administered on 05:43; Admin Dose 112 MCG; Start 01/05/17 at 06:00 Trazodone HCl (Desyrel) 50 mg HS PO Last administered on 01/07/17 20:16; Admin Dose 50 MG; Start 01/05/17 at 21:00 Diagnostic Test (Pha) (Accu-Chek) 1 ea 02 XX Last administered on 01/08/17 02: 21; Admin Dose 1 EA; Start 01/05/17 at 02:00 Miscellaneous Information 1 ea NOTE XX ; Start 01/04/17 at 23:45 Glucose (Glutose) 15 gm Q15M PRN PO DECREASED GLUCOSE; Start 01/04/17 at 23:45 Glucose (Glutose) 22.5 gm Q15M PRN PO DECREASED GLUCOSE; Start 01/04/17 at 23:45 Dextrose (D50w Syringe) 25 ml Q15M PRN IV DECREASED GLUCOSE; Start 01/04/17 at 23:45 Dextrose (D50w Syringe) 50 ml Q15M PRN IV DECREASED GLUCOSE; Start 01/04/17 at 23:45 Glucagon (Glucagen) 1 mg Q15M PRN IM DECREASED GLUCOSE; Start 01/04/17 at 23:45 Glucose (Glutose) 15 gm Q15M PRN BUCCAL DECREASED GLUCOSE; Start 01/04/17 at 23: 45 Fludrocortisone Acetate (Florinef) 0.05 mg DAILY PO Last administered on 08:28; Admin Dose 0.05 MG; Start 01/05/17 at 21:00 Ferrous Sulfate (Ferrous Sulfate (Ec)) 325 mg TID PO Last administered on 12:18; Admin Dose 325 MG; Start 01/06/17 at 13:00 Docusate Sodium 100 mg 100 mg BID PO Last administered on 01/08/17 08:18; Admin Dose 100 MG; Start 01/06/17 at 21:00 Vancomycin HCl (Vancocin) 250 ml @ 125 mls/hr Q24H IVPB Last administered on 12:18; Admin Dose 125 MLS/HR; Start 01/06/17 at 12:00 Hydralazine HCl (Apresoline) 25 mg TID PO Last administered on 01/08/17 08:20 ; Admin Dose 25 MG; Start 01/06/17 at 21:00 Enoxaparin Sodium (Lovenox) 40 mg DAILY SC Last administered on 01/08/17 08:18 ; Admin Dose 40 MG; Start 01/08/17 at 09:00 Ciprofloxacin (Cipro) 500 mg BID@06,18 PO Last administered on 01/08/17 05:43 ; Admin Dose 500 MG; Start 01/07/17 at 18:00 Insulin Glargine (Lantus) 44 unit QAM SC ; Start 01/09/17 at 09:00 Linagliptin (Tradjenta) 5 mg DAILY PO Last administered on 01/08/17 15:14; Admin Dose 5 MG; Start 01/08/17 at 14:30 Assessment/Plan Problems: (1) Diabetes type 2, uncontrolled (2) Charcot foot due to diabetes mellitus Additional Assessment/Plan Suboptimal glycemic control. Will increase both basal and prandial insulin doses and add ZANDER Babb MD January 08, 2017 16:02
--- NOTE | 2017-01-08 19:01 | CONS ---
Date/Time of Note Date/Time of Note DATE: 01/08/17 TIME: 18:57 Assessment/Plan Assessment/Plan Chief Complaint/Hosp Course SUBJECTIVE: No acute events, alert, feels good, no fevers MICROBIOLOGY: Blood culture growing PSA. ANTIMICROBIALS: The patient is on 1. IV vancomycin. 2. Cipro. PHYSICAL EXAMINATION: GENERAL: Obese, well-developed, middle-aged woman who is alert, in no distress. HEENT: Head atraumatic, normocephalic. Sclerae anicteric. Buccal mucosa dry. NECK: Obese. CHEST: Rise symmetrical. Breath sounds clear. HEART: S1, S2. ABDOMEN: Soft, bowel tones present. EXTREMITIES: Left lower extremity swelling, deformity and edema. The patient has an ulcer wound on the back of the foot. ASSESSMENT: 1. Systemic inflammatory response syndrome. 2. Gram-negative erma bacteremia, likely secondary to left lower extremity decubitus. 3. Diabetes. 4. Left Charcot ankle status post fusion using allograft, rule out septic arthritis versus osteomyelitis. 5. Obesity. PLAN: Remains stable, repeat bld cx negative, continue abx, consider MRI, f/u podiatry and vascular rec-s DW staff Problems: Consultation Date/Type/Reason Admit Date/Time January 04, 2017 at 19:32 Initial Consult Date 01/06/17 Type of Consultation: ID Referring Provider: ALICE STAPLES Exam/Review of Systems Vital Signs Vitals Vital Signs Date Time Temp Pulse Resp B/P Pulse Ox O2 Delivery O2 Flow Rate FiO2 01/08/17 12:21 68 106/55 01/08/17 07:43 98.6 18 98 01/07/17 08:58 Room Air Intake and Output 01/07/17 01/07/17 01/08/17 15:00 23:00 07:00 Intake Total 50 ml 1510 ml 120 ml Output Total 1500 ml 400 ml Balance 50 ml 10 ml -280 ml Results Result Diagram: 01/08/17 0543 01/08/17 0543 Results 24 hrs Laboratory Tests Test 01/07/17 20:19 01/08/17 02:00 01/08/17 02:20 01/08/17 05:43 Bedside Glucose 191 195 Urine Random Creatinine 37.25 Urine Total Volume 24 Hours 1500 Urine Creatinine Timed 24 Creatinine Clearance 24.9 L White Blood Count 9.3 Red Blood Count 3.48 L Hemoglobin 9.1 L Hematocrit 28.7 L Mean Corpuscular Volume 82.5 Mean Corpuscular Hemoglobin 26.1 L Mean Corpuscular Hemoglobin Concent 31.7 L Red Cell Distribution Width 14.9 H Platelet Count 556 H Mean Platelet Volume 9.6 Neutrophils % 59.9 Lymphocytes % 20.1 Monocytes % 14.7 H Eosinophils % 4.3 Basophils % 0.6 Nucleated Red Blood Cells % 0.0 Neutrophils # 5.5 Lymphocytes # 1.9 Monocytes # 1.4 H Eosinophils # 0.4 Basophils # 0.1 Nucleated Red Blood Cells # 0.0 Sodium Level 135 Potassium Level 4.6 Chloride Level 106 Carbon Dioxide Level 23 Anion Gap 11 Blood Urea Nitrogen 30 H Creatinine 1.26 H Glucose Level 211 Calcium Level 8.9 Test 01/08/17 07:55 01/08/17 12:01 01/08/17 17:07 Bedside Glucose 198 223 H 248 H Medications Medications Current Medications Acetaminophen (Tylenol Tab) 650 mg Q6H PRN PO PAIN AND OR ELEVATED TEMP Last administered on 01/06/17 21:06; Admin Dose 650 MG; Start 01/04/17 at 23:00 Ondansetron HCl (Zofran Inj) 4 mg Q6H PRN IV NAUSEA AND/OR VOMITING; Start 01/04 at 23:00 Morphine Sulfate (morphine) 2 mg Q4H PRN IV PAIN Last administered on 18:07; Admin Dose 2 MG; Start 01/04/17 at 23:00 Metoprolol Tartrate (Lopressor) 25 mg BID PO Last administered on 01/08/17 08: 20; Admin Dose 25 MG; Start 01/05/17 at 09:00 Levothyroxine Sodium (Synthroid) 112 mcg DAILY@06 PO Last administered on 05:43; Admin Dose 112 MCG; Start 01/05/17 at 06:00 Trazodone HCl (Desyrel) 50 mg HS PO Last administered on 01/07/17 20:16; Admin Dose 50 MG; Start 01/05/17 at 21:00 Diagnostic Test (Pha) (Accu-Chek) 1 ea 02 XX Last administered on 01/08/17 02: 21; Admin Dose 1 EA; Start 01/05/17 at 02:00 Miscellaneous Information 1 ea NOTE XX ; Start 01/04/17 at 23:45 Glucose (Glutose) 15 gm Q15M PRN PO DECREASED GLUCOSE; Start 01/04/17 at 23:45 Glucose (Glutose) 22.5 gm Q15M PRN PO DECREASED GLUCOSE; Start 01/04/17 at 23:45 Dextrose (D50w Syringe) 25 ml Q15M PRN IV DECREASED GLUCOSE; Start 01/04/17 at 23:45 Dextrose (D50w Syringe) 50 ml Q15M PRN IV DECREASED GLUCOSE; Start 01/04/17 at 23:45 Glucagon (Glucagen) 1 mg Q15M PRN IM DECREASED GLUCOSE; Start 01/04/17 at 23:45 Glucose (Glutose) 15 gm Q15M PRN BUCCAL DECREASED GLUCOSE; Start 01/04/17 at 23: 45 Fludrocortisone Acetate (Florinef) 0.05 mg DAILY PO Last administered on 08:28; Admin Dose 0.05 MG; Start 01/05/17 at 21:00 Ferrous Sulfate (Ferrous Sulfate (Ec)) 325 mg TID PO Last administered on 12:18; Admin Dose 325 MG; Start 01/06/17 at 13:00 Docusate Sodium 100 mg 100 mg BID PO Last administered on 01/08/17 08:18; Admin Dose 100 MG; Start 01/06/17 at 21:00 Vancomycin HCl (Vancocin) 250 ml @ 125 mls/hr Q24H IVPB Last administered on 12:18; Admin Dose 125 MLS/HR; Start 01/06/17 at 12:00 Hydralazine HCl (Apresoline) 25 mg TID PO Last administered on 01/08/17 08:20 ; Admin Dose 25 MG; Start 01/06/17 at 21:00 Enoxaparin Sodium (Lovenox) 40 mg DAILY SC Last administered on 01/08/17 08:18 ; Admin Dose 40 MG; Start 01/08/17 at 09:00 Ciprofloxacin (Cipro) 500 mg BID@,18 PO Last administered on 01/08/17 17:10 ; Admin Dose 500 MG; Start 01/07/17 at 18:00 Insulin Glargine (Lantus) 44 unit QAM SC ; Start 01/09/17 at 09:00 Linagliptin (Tradjenta) 5 mg DAILY PO Last administered on 01/08/17t 15:14; Admin Dose 5 MG; Start 01/08/17 at 14:30 NUBIA MONTANEZ NP January 08, 2017 19:01
[2017-01-08 20:00] VITALS: BP 175/79; PULSE 89; RESP 18
[2017-01-08] MEDS: traZODone 50 MG TAB PO SCH (21:13)
[2017-01-08 22:00] VITALS: BP 136/62; PULSE 88
[2017-01-08 23:41] VITALS: BP 135/66; PULSE 78
[2017-01-09] MEDS: ACCU-CHEK XX SCH (02:00)
[2017-01-09 05:29] LABS: ADD SCAN DIFF NO
[2017-01-09] MEDS: morphine 2 MG INJ IV PRN ×3 (05:38→20:43)
[2017-01-09] MEDS: LEVOTHYROXINE 112 MCG TAB PO SCH (05:38)
[2017-01-09] MEDS: CIPROFLOXACIN 500 MG TAB PO SCH ×2 (05:38→16:57)
[2017-01-09 05:46] LABS: BASOPHIL # 0.1 10^3/ul (0.0-0.1); BASOPHILS % 0.6 % (0.0-2.0); EOSINOPHILS # 0.5 10^3/ul (0.0-0.5); EOSINOPHILS % 5.3 % (0.0-7.0); HEMATOCRIT 28.8 % (37.0-47.0); HEMOGLOBIN 9.1 g/dl (12.0-16.0); LYMPHOCYTES % 19.4 % (15.0-51.0); MEAN CORPUSCULAR HEMOGLOBIN 26.1 pg (29.0-33.0); MEAN CORPUSCULAR HGB CONC 31.6 g/dl (32.0-37.0); MEAN CORPUSCULAR VOLUME 82.5 fl (82.0-101.0); MEAN PLATELET VOLUME 9.3 fl (7.4-10.4); MONOCYTE # 1.1 10^3/ul (0.3-0.9); MONOCYTES % 11.1 % (0.0-11.0); NEUTROPHIL # 6.4 10^3/ul (1.6-7.5); NEUTROPHILS % 63.1 % (39.0-77.0); PLATELET COUNT 579 10^3/UL (140-415); RED BLOOD COUNT 3.49 10^6/ul (4.20-5.40); RED CELL DISTRIBUTION WIDTH 14.9 % (11.5-14.5); WHITE BLOOD COUNT 10.1 10^3/ul (4.8-10.8)
[2017-01-09 06:13] LABS: POTASSIUM 4.9 mmol/L (3.5-5.1)
[2017-01-09 06:16] LABS: CREATININE 1.48 mg/dl (0.44-1.00)
[2017-01-09 06:17] LABS: CALCIUM 8.8 mg/dl (8.4-10.2)
[2017-01-09 07:40] VITALS: BP 138/63; RESP 16
[2017-01-09] MEDS: INSULIN ASPART [NOVOLOG] 3 ML PEN SC SCH ×7 (08:04→20:45)
[2017-01-09] MEDS: ENOXAPARIN 40 MG/0.4 ML SYG SC SCH (08:04)
[2017-01-09] MEDS: FERROUS SULFATE (EC) 325 MG TAB PO SCH ×3 (08:07→20:45)
[2017-01-09] MEDS: FLUDROCORTISONE 0.1 MG TAB PO SCH (08:07)
[2017-01-09] MEDS: DOCUSATE SODIUM 100 MG CAP PO SCH ×2 (08:08→20:43)
[2017-01-09] MEDS: METOPROLOL 25 MG TAB PO SCH ×2 (08:08→20:44)
[2017-01-09] MEDS: LINAGLIPTIN 5 MG TABLET PO SCH (08:08)
[2017-01-09] MEDS: metFORMIN 500 MG TAB PO SCH ×2 (08:08→16:57)
[2017-01-09] MEDS ORDERED: INSULIN GLARGINE [LANtus] 3 ML PEN SC SCH (09:00)
--- NOTE | 2017-01-09 09:25 | CONS ---
Date/Time of Note Date/Time of Note DATE: 01/09/17 TIME: 09:24 Assessment/Plan Assessment/Plan Additional Assessment/Plan 56yo male with 1. Left ankle cellulitis. 2. Left Charcot ankle status post fusion using bone allograft in July 2016. 3. Diabetes Mellitus with Renal complication , CKD Stage III- stable 4. Essential hypertension. 5. Hyperlipidemia. 6. Anemia.OLGA Overall renal function stable. Non oliguric Cont to monitor electrolytes, volume status and renal function Cont to monitor Vanco levels. BP well controlled. Consultation Date/Type/Reason Admit Date/Time January 04, 2017 at 19:32 Initial Consult Date 01/06/17 Type of Consultation: Renal Referring Provider: ALICE STAPLES 24 HR Interval Summary Constitutional: No requiring O2 Exam/Review of Systems Vital Signs Vitals Vital Signs Date Time Temp Pulse Resp B/P Pulse Ox O2 Delivery O2 Flow Rate FiO2 01/09/17 07:40 98.2 74 16 138/63 96 01/08/17 20:00 Room Air Intake and Output 01/08/17 01/08/17 01/09/17 15:00 23:00 07:00 Intake Total 720 ml 1130 ml 120 ml Output Total 500 ml 700 ml Balance 220 ml 430 ml 120 ml Exam Constitutional: No distress ENMT: mucosa pink and moist Neck: No jvd Respiratory: clear to auscultation Cardiovascular: edema, regular rate and rhythm Gastrointestinal: non-tender, soft Neurological: COMMISSIONS MANAGER II-XII intact, nl mental status Results Result Diagram: 01/09/17 0511 01/09/17 0511 Results 24 hrs Laboratory Tests Test 01/08/17 12:01 01/08/17 17:07 01/08/17 21:16 01/09/17 02:02 Bedside Glucose 223 H 248 H 186 179 Test 01/09/17 05:11 01/09/17 07:58 White Blood Count 10.1 Red Blood Count 3.49 L Hemoglobin 9.1 L Hematocrit 28.8 L Mean Corpuscular Volume 82.5 Mean Corpuscular Hemoglobin 26.1 L Mean Corpuscular Hemoglobin Concent 31.6 L Red Cell Distribution Width 14.9 H Platelet Count 579 H Mean Platelet Volume 9.3 Neutrophils % 63.1 Lymphocytes % 19.4 Monocytes % 11.1 H Eosinophils % 5.3 Basophils % 0.6 Nucleated Red Blood Cells % 0.0 Neutrophils # 6.4 Lymphocytes # 2.0 Monocytes # 1.1 H Eosinophils # 0.5 Basophils # 0.1 Nucleated Red Blood Cells # 0.0 Sodium Level 135 Potassium Level 4.9 Chloride Level 101 Carbon Dioxide Level 24 Anion Gap 15 Blood Urea Nitrogen 30 H Creatinine 1.48 H Glucose Level 203 Calcium Level 8.8 Bedside Glucose 238 H Medications Medications Current Medications Acetaminophen (Tylenol Tab) 650 mg Q6H PRN PO PAIN AND OR ELEVATED TEMP Last administered on 01/06/17 21:06; Admin Dose 650 MG; Start 01/04/17 at 23:00 Ondansetron HCl (Zofran Inj) 4 mg Q6H PRN IV NAUSEA AND/OR VOMITING; Start 01/04 at 23:00 Morphine Sulfate (morphine) 2 mg Q4H PRN IV PAIN Last administered on 05:38; Admin Dose 2 MG; Start 01/04/17 at 23:00 Metoprolol Tartrate (Lopressor) 25 mg BID PO Last administered on 01/09/17 08: 08; Admin Dose 25 MG; Start 01/05/17 at 09:00 Levothyroxine Sodium (Synthroid) 112 mcg DAILY@06 PO Last administered on 05:38; Admin Dose 112 MCG; Start 01/05/17 at 06:00 Trazodone HCl (Desyrel) 50 mg HS PO Last administered on 01/08/17 21:13; Admin Dose 50 MG; Start 01/05/17 at 21:00 Diagnostic Test (Pha) (Accu-Chek) 1 ea 02 XX Last administered on 01/09/17 02: 00; Admin Dose 1 EA; Start 01/05/17 at 02:00 Miscellaneous Information 1 ea NOTE XX ; Start 01/04/17 at 23:45 Glucose (Glutose) 15 gm Q15M PRN PO DECREASED GLUCOSE; Start 01/04/17 at 23:45 Glucose (Glutose) 22.5 gm Q15M PRN PO DECREASED GLUCOSE; Start 01/04/17 at 23:45 Dextrose (D50w Syringe) 25 ml Q15M PRN IV DECREASED GLUCOSE; Start 01/04/17 at 23:45 Dextrose (D50w Syringe) 50 ml Q15M PRN IV DECREASED GLUCOSE; Start 01/04/17 at 23:45 Glucagon (Glucagen) 1 mg Q15M PRN IM DECREASED GLUCOSE; Start 01/04/17 at 23:45 Glucose (Glutose) 15 gm Q15M PRN BUCCAL DECREASED GLUCOSE; Start 01/04/17 at 23: 45 Fludrocortisone Acetate (Florinef) 0.05 mg DAILY PO Last administered on 08:07; Admin Dose 0.05 MG; Start 01/05/17 at 21:00 Ferrous Sulfate (Ferrous Sulfate (Ec)) 325 mg TID PO Last administered on 08:07; Admin Dose 325 MG; Start 01/06/17 at 13:00 Docusate Sodium 100 mg 100 mg BID PO Last administered on 01/09/17 08:08; Admin Dose 100 MG; Start 01/06/17 at 21:00 Vancomycin HCl (Vancocin) 250 ml @ 125 mls/hr Q24H IVPB Last administered on 12:18; Admin Dose 125 MLS/HR; Start 01/06/17 at 12:00 Hydralazine HCl (Apresoline) 25 mg TID PO Last administered on 01/09/17 08:08 ; Admin Dose 25 MG; Start 01/06/17 at 21:00 Enoxaparin Sodium (Lovenox) 40 mg DAILY SC Last administered on 01/09/17 08:04 ; Admin Dose 40 MG; Start 01/08/17 at 09:00 Ciprofloxacin (Cipro) 500 mg BID@06,18 PO Last administered on 01/09/17 05:38 ; Admin Dose 500 MG; Start 01/07/17 at 18:00 Insulin Glargine (Lantus) 44 unit QAM SC Last administered on 01/09/17 08:05; Admin Dose 44 UNIT; Start 01/09/17 at 09:00 Linagliptin (Tradjenta) 5 mg DAILY PO Last administered on 01/09/17 08:08; Admin Dose 5 MG; Start 01/08/17 at 14:30 Miscellaneous Information (*Rx Drug Level Order Reminder*) VANCOMYCIN TROUGH AT 1100 ONCE ONCE XX ; Start 01/10/17 at 11:00; Stop 01/10/17 at 11:01 COLIN VELEZ MD January 09, 2017 09:25
[2017-01-09] MEDS: VANCOMYCIN 1 GM in NS 250 ML IVPB SCH (11:56)
--- NOTE | 2017-01-09 12:25 | PN ---
Date/Time of Note Date/Time of Note DATE: 01/09/17 TIME: 12:19 Assessment/Plan VTE Prophylaxis VTE Prophylaxis Intervention: LMWH Lines/Catheters IV C[facility]ter Type (from [facility] Saline Lock Urinary Cath still in place: No Assessment/Plan Chief Complaint/Hosp Course Assessment and plan 1. Left ankle cellulitis. Continue on antibiotics. Continue with ID recommendations. No plan for surgery at this time per podiatry. blood cultures showed pseudomonas. Discussed with ID consult, will check MRI of the left foot/ ankle 2. History of left Charcot ankle status post fusion using bone allograft in July 2016. Podiatry following 3. Uncontrolled diabetes. A1c at 13. Continue insulin regimen per development technologist. stable 4. Essential hypertension. Continue antihypertensives and adjust as needed 5. Hyperlipidemia. stable at present. Will monitor. 6. Acute kidney injury. Continue IV hydration. continue with nephro recs . stable 7. Anemia. With iron deficiency anemia. continue iron supplement 8. Reported cephalgia with right upper extremity weakness. CT scan of the head was negative for any acute intracranial findings. Resolved at present. Will monitor 9.Bilateral lower extremity atherosclerosis. Patient did have arterial study done that showed normal flow in the left superficial femoral artery, popliteal artery home and Arteries which may indicate significant stenosis. Continue anticoagulation. Disposition and plan: PICC line placement and antibiotic regimen per ID. Discussed with ID. Will check MRI of the left ankle/foot Discussed plan of care with Dr. Perez Problems: Subjective 24 Hr Interval Summary Free Text/Dictation Still reports having some pain on left lower extremity. Reports some difficulty with ambulation Exam/Review of Systems Vital Signs Vitals Vital Signs Date Time Temp Pulse Resp B/P Pulse Ox O2 Delivery O2 Flow Rate FiO2 01/09/17 07:40 98.2 74 16 138/63 96 01/08/17 20:00 Room Air Intake and Output 01/08/17 01/08/17 01/09/17 15:00 23:00 07:00 Intake Total 720 ml 1130 ml 120 ml Output Total 500 ml 700 ml Balance 220 ml 430 ml 120 ml Exam Constitutional: alert, obese, oriented Psych: nl mood/affect Head: normocephalic Neck: supple Respiratory: normal air movement Cardiovascular: regular rate and rhythm Gastrointestinal: soft Extremities: edema (left lower extremity) Neurological: TUB MENDER II-XII intact, nl mental status, nl speech Results Result Diagram: 01/09/17 0511 01/09/17 0511 Results 24 hrs Laboratory Tests Test 01/08/17 17:07 01/08/17 21:16 01/09/17 02:02 01/09/17 05:11 Bedside Glucose 248 H 186 179 White Blood Count 10.1 Red Blood Count 3.49 L Hemoglobin 9.1 L Hematocrit 28.8 L Mean Corpuscular Volume 82.5 Mean Corpuscular Hemoglobin 26.1 L Mean Corpuscular Hemoglobin Concent 31.6 L Red Cell Distribution Width 14.9 H Platelet Count 579 H Mean Platelet Volume 9.3 Neutrophils % 63.1 Lymphocytes % 19.4 Monocytes % 11.1 H Eosinophils % 5.3 Basophils % 0.6 Nucleated Red Blood Cells % 0.0 Neutrophils # 6.4 Lymphocytes # 2.0 Monocytes # 1.1 H Eosinophils # 0.5 Basophils # 0.1 Nucleated Red Blood Cells # 0.0 Sodium Level 135 Potassium Level 4.9 Chloride Level 101 Carbon Dioxide Level 24 Anion Gap 15 Blood Urea Nitrogen 30 H Creatinine 1.48 H Glucose Level 203 Calcium Level 8.8 Test 01/09/17 07:58 01/09/17 11:53 Bedside Glucose 238 H 202 Medications Medications Current Medications Acetaminophen (Tylenol Tab) 650 mg Q6H PRN PO PAIN AND OR ELEVATED TEMP Last administered on 01/06/17 21:06; Admin Dose 650 MG; Start 01/04/17 at 23:00 Ondansetron HCl (Zofran Inj) 4 mg Q6H PRN IV NAUSEA AND/OR VOMITING; Start 01/04 at 23:00 Morphine Sulfate (morphine) 2 mg Q4H PRN IV PAIN Last administered on 05:38; Admin Dose 2 MG; Start 01/04/17 at 23:00 Metoprolol Tartrate (Lopressor) 25 mg BID PO Last administered on 01/09/17 08: 08; Admin Dose 25 MG; Start 01/05/17 at 09:00 Levothyroxine Sodium (Synthroid) 112 mcg DAILY@06 PO Last administered on 05:38; Admin Dose 112 MCG; Start 01/05/17 at 06:00 Trazodone HCl (Desyrel) 50 mg HS PO Last administered on 5/13/17at 21:13; Admin Dose 50 MG; Start 01/05/17 at 21:00 Diagnostic Test (Pha) (Accu-Chek) 1 ea 02 XX Last administered on 01/09/17 02: 00; Admin Dose 1 EA; Start 01/05/17 at 02:00 Miscellaneous Information 1 ea NOTE XX ; Start 01/04/17 at 23:45 Glucose (Glutose) 15 gm Q15M PRN PO DECREASED GLUCOSE; Start 01/04/17 at 23:45 Glucose (Glutose) 22.5 gm Q15M PRN PO DECREASED GLUCOSE; Start 01/04/17 at 23:45 Dextrose (D50w Syringe) 25 ml Q15M PRN IV DECREASED GLUCOSE; Start 01/04/17 at 23:45 Dextrose (D50w Syringe) 50 ml Q15M PRN IV DECREASED GLUCOSE; Start 01/04/17 at 23:45 Glucagon (Glucagen) 1 mg Q15M PRN IM DECREASED GLUCOSE; Start 01/04/17 at 23:45 Glucose (Glutose) 15 gm Q15M PRN BUCCAL DECREASED GLUCOSE; Start 01/04/17 at 23: 45 Fludrocortisone Acetate (Florinef) 0.05 mg DAILY PO Last administered on 08:07; Admin Dose 0.05 MG; Start 01/05/17 at 21:00 Ferrous Sulfate (Ferrous Sulfate (Ec)) 325 mg TID PO Last administered on 11:59; Admin Dose 325 MG; Start 01/06/17 at 13:00 Docusate Sodium 100 mg 100 mg BID PO Last administered on 01/09/17 08:08; Admin Dose 100 MG; Start 01/06/17 at 21:00 Vancomycin HCl (Vancocin) 250 ml @ 125 mls/hr Q24H IVPB Last administered on 11:56; Admin Dose 125 MLS/HR; Start 01/06/17 at 12:00 Hydralazine HCl (Apresoline) 25 mg TID PO Last administered on 01/09/17 12:01 ; Admin Dose 25 MG; Start 01/06/17 at 21:00 Enoxaparin Sodium (Lovenox) 40 mg DAILY SC Last administered on 01/09/17 08:04 ; Admin Dose 40 MG; Start 01/08/17 at 09:00 Ciprofloxacin (Cipro) 500 mg BID@06,18 PO Last administered on 01/09/17 05:38 ; Admin Dose 500 MG; Start 01/07/17 at 18:00 Insulin Glargine (Lantus) 44 unit QAM SC Last administered on 01/09/17 08:05; Admin Dose 44 UNIT; Start 01/09/17 at 09:00 Linagliptin (Tradjenta) 5 mg DAILY PO Last administered on 01/09/17 08:08; Admin Dose 5 MG; Start 01/08/17 at 14:30 Miscellaneous Information (*Rx Drug Level Order Reminder*) VANCOMYCIN TROUGH AT 1100 ONCE ONCE XX ; Start 01/10/17 at 11:00; Stop 01/10/17 at 11:01 ALICE STAPLES January 09, 2017 12:25
--- NOTE | 2017-01-09 14:46 | PN ---
Date/Time of Note Date/Time of Note DATE: 01/09/17 TIME: 14:44 Assessment/Plan Lines/Catheters IV C[facility]ter Type (from [facility] Saline Lock Ramos in Place (from [facility]): No Assessment/Plan Chief Complaint/Hosp Course -Bilateral lower extremity atherosclerosis with left lower extremity Charcot foot and diabetic foot infection. It seems that the patient has developed cellulitis of her left lower extremity. There may be some concern as the patient has had reconstruction of this segment of her ankle; however, from a vascular surgery standpoint, the patient has perfusion to her foot. 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 From our standpoint, we will continue with our vascular surveillance and her progress through this process. She may need an angiogram should her infection not subside -Vascular optimization (BP meds, diet, nutrition, exercise, sugar control, antiplatelet, and weight loss). -Discussed findings, plan, and management with the patient. She understands. -Thank you for allowing us to partake in the care of your patient. Please call with any questions. Problems: Subjective 24 Hr Interval Summary no new vascular events overnight Exam/Review of Systems Vital Signs Vitals Vital Signs Date Time Temp Pulse Resp B/P Pulse Ox O2 Delivery O2 Flow Rate FiO2 01/09/17 07:40 98.2 74 16 138/63 96 01/08/17 20:00 Room Air Intake and Output 01/08/17 01/08/17 01/09/17 14:59 22:59 06:59 Intake Total 720 ml 1130 ml 120 ml Output Total 500 ml 700 ml Balance 220 ml 430 ml 120 ml Exam Free Text/Dictation GENERAL: Alert and oriented x3, PULMONARY: Clear to auscultation bilaterally. CARDIOVASCULAR: S1, S2 present. ABDOMEN: Soft, nontender, nondistended. Bowel sounds positive. Truncal obesity. RIGHT LOWER EXTREMITY: Palpable femoral pulse, faint pedal pulse. Motor, sensory intact. Capillary refill 2 to 3 seconds. No surgical ulcers. LEFT LOWER EXTREMITY: Palpable femoral pulse, Nonpalpable pedal pulse secondary to edema. Surgical scar is well healed. Motor, sensory intact. Cap refill 2 to 3 seconds. There is erythema extending from her forefoot all the way to her ankle area - improving Results Result Diagram: 01/09/17 0511 01/09/17 0511 SAUL HUNT MD January 09, 2017 14:46
--- NOTE | 2017-01-09 15:12 | CONS ---
Date/Time of Note Date/Time of Note DATE: 01/09/17 TIME: 15:11 Assessment/Plan Assessment/Plan Chief Complaint/Hosp Course SUBJECTIVE: No acute events, alert, feels good, no fevers MICROBIOLOGY: Blood culture growing PSA. ANTIMICROBIALS: The patient is on 1. IV vancomycin. 2. Cipro. PHYSICAL EXAMINATION: GENERAL: Obese, well-developed, middle-aged woman who is alert, in no distress. HEENT: Head atraumatic, normocephalic. Sclerae anicteric. Buccal mucosa dry. NECK: Obese. CHEST: Rise symmetrical. Breath sounds clear. HEART: S1, S2. ABDOMEN: Soft, bowel tones present. EXTREMITIES: Left lower extremity swelling, deformity and edema. The patient has an ulcer wound on the back of the foot. ASSESSMENT: 1. Systemic inflammatory response syndrome. 2. Gram-negative erma bacteremia, likely secondary to left lower extremity decubitus. 3. Diabetes. 4. Left Charcot ankle status post fusion using allograft, rule out septic arthritis versus osteomyelitis. 5. Obesity. PLAN: Remains stable, repeat bld cx negative, continue abx, pending MRI, f/u podiatry and vascular rec-s DW staff Problems: Consultation Date/Type/Reason Admit Date/Time January 04, 2017 at 19:32 Initial Consult Date 01/06/17 Type of Consultation: id Referring Provider: ALICE STAPLES Exam/Review of Systems Vital Signs Vitals Vital Signs Date Time Temp Pulse Resp B/P Pulse Ox O2 Delivery O2 Flow Rate FiO2 01/09/17 07:40 98.2 74 16 138/63 96 01/08/17 20:00 Room Air Intake and Output 01/08/17 01/08/17 01/09/17 15:00 23:00 07:00 Intake Total 720 ml 1130 ml 120 ml Output Total 500 ml 700 ml Balance 220 ml 430 ml 120 ml Results Result Diagram: 01/09/17 0511 01/09/17 0511 Results 24 hrs Laboratory Tests Test 01/08/17 17:07 01/08/17 21:16 01/09/17 02:02 01/09/17 05:11 Bedside Glucose 248 H 186 179 White Blood Count 10.1 Red Blood Count 3.49 L Hemoglobin 9.1 L Hematocrit 28.8 L Mean Corpuscular Volume 82.5 Mean Corpuscular Hemoglobin 26.1 L Mean Corpuscular Hemoglobin Concent 31.6 L Red Cell Distribution Width 14.9 H Platelet Count 579 H Mean Platelet Volume 9.3 Neutrophils % 63.1 Lymphocytes % 19.4 Monocytes % 11.1 H Eosinophils % 5.3 Basophils % 0.6 Nucleated Red Blood Cells % 0.0 Neutrophils # 6.4 Lymphocytes # 2.0 Monocytes # 1.1 H Eosinophils # 0.5 Basophils # 0.1 Nucleated Red Blood Cells # 0.0 Sodium Level 135 Potassium Level 4.9 Chloride Level 101 Carbon Dioxide Level 24 Anion Gap 15 Blood Urea Nitrogen 30 H Creatinine 1.48 H Glucose Level 203 Calcium Level 8.8 Test 01/09/17 07:58 01/09/17 11:53 Bedside Glucose 238 H 202 Medications Medications Current Medications Acetaminophen (Tylenol Tab) 650 mg Q6H PRN PO PAIN AND OR ELEVATED TEMP Last administered on 01/06/17 21:06; Admin Dose 650 MG; Start 01/04/17 at 23:00 Ondansetron HCl (Zofran Inj) 4 mg Q6H PRN IV NAUSEA AND/OR VOMITING; Start 01/04 at 23:00 Morphine Sulfate (morphine) 2 mg Q4H PRN IV PAIN Last administered on 05:38; Admin Dose 2 MG; Start 01/04/17 at 23:00 Metoprolol Tartrate (Lopressor) 25 mg BID PO Last administered on 01/09/17 08: 08; Admin Dose 25 MG; Start 01/05/17 at 09:00 Levothyroxine Sodium (Synthroid) 112 mcg DAILY@06 PO Last administered on 05:38; Admin Dose 112 MCG; Start 01/05/17 at 06:00 Trazodone HCl (Desyrel) 50 mg HS PO Last administered on 01/08/17 21:13; Admin Dose 50 MG; Start 01/05/17 at 21:00 Diagnostic Test (Pha) (Accu-Chek) 1 ea 02 XX Last administered on 01/09/17 02: 00; Admin Dose 1 EA; Start 01/05/17 at 02:00 Miscellaneous Information 1 ea NOTE XX ; Start 01/04/17 at 23:45 Glucose (Glutose) 15 gm Q15M PRN PO DECREASED GLUCOSE; Start 01/04/17 at 23:45 Glucose (Glutose) 22.5 gm Q15M PRN PO DECREASED GLUCOSE; Start 01/04/17 at 23:45 Dextrose (D50w Syringe) 25 ml Q15M PRN IV DECREASED GLUCOSE; Start 01/04/17 at 23:45 Dextrose (D50w Syringe) 50 ml Q15M PRN IV DECREASED GLUCOSE; Start 01/04/17 at 23:45 Glucagon (Glucagen) 1 mg Q15M PRN IM DECREASED GLUCOSE; Start 01/04/17 at 23:45 Glucose (Glutose) 15 gm Q15M PRN BUCCAL DECREASED GLUCOSE; Start 01/04/17 at 23: 45 Fludrocortisone Acetate (Florinef) 0.05 mg DAILY PO Last administered on 08:07; Admin Dose 0.05 MG; Start 01/05/17 at 21:00 Ferrous Sulfate (Ferrous Sulfate (Ec)) 325 mg TID PO Last administered on 11:59; Admin Dose 325 MG; Start 01/06/17 at 13:00 Docusate Sodium 100 mg 100 mg BID PO Last administered on 01/09/17 08:08; Admin Dose 100 MG; Start 01/06/17 at 21:00 Vancomycin HCl (Vancocin) 250 ml @ 125 mls/hr Q24H IVPB Last administered on 11:56; Admin Dose 125 MLS/HR; Start 01/06/17 at 12:00 Hydralazine HCl (Apresoline) 25 mg TID PO Last administered on 01/09/17 12:01 ; Admin Dose 25 MG; Start 01/06/17 at 21:00 Enoxaparin Sodium (Lovenox) 40 mg DAILY SC Last administered on 01/09/17 08:04 ; Admin Dose 40 MG; Start 01/08/17 at 09:00 Ciprofloxacin (Cipro) 500 mg BID@06,18 PO Last administered on 01/09/17 05:38 ; Admin Dose 500 MG; Start 01/07/17 at 18:00 Insulin Glargine (Lantus) 44 unit QAM SC Last administered on 01/09/17 08:05; Admin Dose 44 UNIT; Start 01/09/17 at 09:00 Linagliptin (Tradjenta) 5 mg DAILY PO Last administered on 01/09/17t 08:08; Admin Dose 5 MG; Start 01/08/17 at 14:30 Miscellaneous Information (*Rx Drug Level Order Reminder*) VANCOMYCIN TROUGH AT 1100 ONCE ONCE XX ; Start 01/10/17 at 11:00; Stop 01/10/17 at 11:01 NUBIA MONTANEZ NP January 09, 2017 15:12
--- NOTE | 2017-01-09 16:13 | CONS ---
Date/Time of Note Date/Time of Note DATE: 01/09/17 TIME: 16:12 Consult Date/Type/Reason Admit Date/Time January 04, 2017 at 19:32 Initial Consult Date 01/05/17 Type of Consultation: endocrine Ordering Provider: ALICE STAPLES Subjective Patient out of room for MRI scan Objective Vital Signs Date Time Temp Pulse Resp B/P Pulse Ox O2 Delivery O2 Flow Rate FiO2 01/09/17 07:40 98.2 74 16 138/63 96 01/08/17 20:00 Room Air Intake and Output 01/08/17 01/08/17 01/09/17 15:00 23:00 07:00 Intake Total 720 ml 1130 ml 120 ml Output Total 500 ml 700 ml Balance 220 ml 430 ml 120 ml Exam POC glucose reviewed Results/Medications Result Diagram: 01/09/17 0511 01/09/17 0511 Results 24 hrs Laboratory Tests Test 01/08/17 17:07 01/08/17 21:16 01/09/17 02:02 01/09/17 05:11 Bedside Glucose 248 H 186 179 White Blood Count 10.1 Red Blood Count 3.49 L Hemoglobin 9.1 L Hematocrit 28.8 L Mean Corpuscular Volume 82.5 Mean Corpuscular Hemoglobin 26.1 L Mean Corpuscular Hemoglobin Concent 31.6 L Red Cell Distribution Width 14.9 H Platelet Count 579 H Mean Platelet Volume 9.3 Neutrophils % 63.1 Lymphocytes % 19.4 Monocytes % 11.1 H Eosinophils % 5.3 Basophils % 0.6 Nucleated Red Blood Cells % 0.0 Neutrophils # 6.4 Lymphocytes # 2.0 Monocytes # 1.1 H Eosinophils # 0.5 Basophils # 0.1 Nucleated Red Blood Cells # 0.0 Sodium Level 135 Potassium Level 4.9 Chloride Level 101 Carbon Dioxide Level 24 Anion Gap 15 Blood Urea Nitrogen 30 H Creatinine 1.48 H Glucose Level 203 Calcium Level 8.8 Test 01/09/17 07:58 01/09/17 11:53 Bedside Glucose 238 H 202 Medications Current Medications Acetaminophen (Tylenol Tab) 650 mg Q6H PRN PO PAIN AND OR ELEVATED TEMP Last administered on 01/06/17t 21:06; Admin Dose 650 MG; Start 01/04/17 at 23:00 Ondansetron HCl (Zofran Inj) 4 mg Q6H PRN IV NAUSEA AND/OR VOMITING; Start 01/04 at 23:00 Morphine Sulfate (morphine) 2 mg Q4H PRN IV PAIN Last administered on 05:38; Admin Dose 2 MG; Start 01/04/17 at 23:00 Metoprolol Tartrate (Lopressor) 25 mg BID PO Last administered on 01/09/17 08: 08; Admin Dose 25 MG; Start 01/05/17 at 09:00 Levothyroxine Sodium (Synthroid) 112 mcg DAILY@06 PO Last administered on 05:38; Admin Dose 112 MCG; Start 01/05/17 at 06:00 Trazodone HCl (Desyrel) 50 mg HS PO Last administered on 01/08/17 21:13; Admin Dose 50 MG; Start 01/05/17 at 21:00 Diagnostic Test (Pha) (Accu-Chek) 1 ea 02 XX Last administered on 01/09/17 02: 00; Admin Dose 1 EA; Start 01/05/17 at 02:00 Miscellaneous Information 1 ea NOTE XX ; Start 01/04/17 at 23:45 Glucose (Glutose) 15 gm Q15M PRN PO DECREASED GLUCOSE; Start 01/04/17 at 23:45 Glucose (Glutose) 22.5 gm Q15M PRN PO DECREASED GLUCOSE; Start 01/04/17 at 23:45 Dextrose (D50w Syringe) 25 ml Q15M PRN IV DECREASED GLUCOSE; Start 01/04/17 at 23:45 Dextrose (D50w Syringe) 50 ml Q15M PRN IV DECREASED GLUCOSE; Start 01/04/17 at 23:45 Glucagon (Glucagen) 1 mg Q15M PRN IM DECREASED GLUCOSE; Start 01/04/17 at 23:45 Glucose (Glutose) 15 gm Q15M PRN BUCCAL DECREASED GLUCOSE; Start 01/04/17 at 23: 45 Fludrocortisone Acetate (Florinef) 0.05 mg DAILY PO Last administered on 08:07; Admin Dose 0.05 MG; Start 01/05/17 at 21:00 Ferrous Sulfate (Ferrous Sulfate (Ec)) 325 mg TID PO Last administered on 11:59; Admin Dose 325 MG; Start 01/06/17 at 13:00 Docusate Sodium 100 mg 100 mg BID PO Last administered on 01/09/17 08:08; Admin Dose 100 MG; Start 01/06/17 at 21:00 Vancomycin HCl (Vancocin) 250 ml @ 125 mls/hr Q24H IVPB Last administered on 11:56; Admin Dose 125 MLS/HR; Start 01/06/17 at 12:00 Hydralazine HCl (Apresoline) 25 mg TID PO Last administered on 01/09/17 12:01 ; Admin Dose 25 MG; Start 01/06/17 at 21:00 Enoxaparin Sodium (Lovenox) 40 mg DAILY SC Last administered on 01/09/17 08:04 ; Admin Dose 40 MG; Start 01/08/17 at 09:00 Ciprofloxacin (Cipro) 500 mg BID@06,18 PO Last administered on 01/09/17 05:38 ; Admin Dose 500 MG; Start 01/07/17 at 18:00 Linagliptin (Tradjenta) 5 mg DAILY PO Last administered on 01/09/17 08:08; Admin Dose 5 MG; Start 01/08/17 at 14:30 Miscellaneous Information (*Rx Drug Level Order Reminder*) VANCOMYCIN TROUGH AT 1100 ONCE ONCE XX ; Start 01/10/17 at 11:00; Stop 01/10/17 at 11:01 Insulin Glargine (Lantus) 48 unit QAM SC ; Start 01/10/17 at 09:00 Assessment/Plan Problems: (1) Diabetes type 2, uncontrolled (2) Charcot foot due to diabetes mellitus Additional Assessment/Plan Glucose still suboptimal. Will further increase basal insulin dose up to 48 units daily. ZANDER GODOY MD January 09, 2017 16:13
[2017-01-09] MEDS: traZODone 50 MG TAB PO SCH (20:43)
[2017-01-10] MEDS: ACCU-CHEK XX SCH (02:00)
[2017-01-10] MEDS: morphine 2 MG INJ IV PRN ×3 (02:38→20:15)
[2017-01-10] MEDS: ACETAMINOPHEN 325 MG TAB PO PRN (05:30)
[2017-01-10] MEDS: CIPROFLOXACIN 500 MG TAB PO SCH ×2 (05:30→17:49)
[2017-01-10] MEDS: LEVOTHYROXINE 112 MCG TAB PO SCH (05:30)
[2017-01-10 06:02] LABS: ADD SCAN DIFF NO
[2017-01-10 06:09] LABS: BASOPHIL # 0.1 10^3/ul (0.0-0.1); BASOPHILS % 0.6 % (0.0-2.0); EOSINOPHILS # 0.6 10^3/ul (0.0-0.5); EOSINOPHILS % 5.8 % (0.0-7.0); HEMATOCRIT 29.3 % (37.0-47.0); HEMOGLOBIN 9.4 g/dl (12.0-16.0); LYMPHOCYTES # 2.3 10^3/ul (0.8-2.9); LYMPHOCYTES % 22.6 % (15.0-51.0); MEAN CORPUSCULAR HEMOGLOBIN 26.6 pg (29.0-33.0); MEAN CORPUSCULAR HGB CONC 32.1 g/dl (32.0-37.0); MEAN PLATELET VOLUME 9.1 fl (7.4-10.4); MONOCYTES % 9.8 % (0.0-11.0); NEUTROPHIL # 6.1 10^3/ul (1.6-7.5); NEUTROPHILS % 60.5 % (39.0-77.0); PLATELET COUNT 650 10^3/UL (140-415); RED BLOOD COUNT 3.53 10^6/ul (4.20-5.40); RED CELL DISTRIBUTION WIDTH 14.9 % (11.5-14.5); WHITE BLOOD COUNT 10.1 10^3/ul (4.8-10.8)
[2017-01-10 06:40] LABS: POTASSIUM 4.7 mmol/L (3.5-5.1)
[2017-01-10 06:42] LABS: CREATININE 1.4 mg/dl (0.44-1.00)
[2017-01-10 06:43] LABS: CALCIUM 8.7 mg/dl (8.4-10.2)
[2017-01-10 07:45] VITALS: BP 98/57; RESP 16
[2017-01-10] MEDS: metFORMIN 500 MG TAB PO SCH ×2 (07:48→17:49)
[2017-01-10] MEDS: INSULIN ASPART [NOVOLOG] 3 ML PEN SC SCH ×6 (07:57→20:21)
[2017-01-10] MEDS: DOCUSATE SODIUM 100 MG CAP PO SCH ×2 (08:29→20:09)
[2017-01-10] MEDS: FERROUS SULFATE (EC) 325 MG TAB PO SCH ×3 (08:29→20:09)
[2017-01-10] MEDS: LINAGLIPTIN 5 MG TABLET PO SCH (08:30)
[2017-01-10] MEDS: FLUDROCORTISONE 0.1 MG TAB PO SCH (08:30)
[2017-01-10] MEDS: ENOXAPARIN 40 MG/0.4 ML SYG SC SCH (08:37)
[2017-01-10] MEDS: INSULIN GLARGINE [LANtus] 3 ML PEN SC SCH (08:37)
--- NOTE | 2017-01-10 08:41 | CONS ---
Date/Time of Note Date/Time of Note DATE: 01/10/17 TIME: 08:41 Assessment/Plan Assessment/Plan Additional Assessment/Plan 56yo male with 1. Left ankle cellulitis. 2. Left Charcot ankle status post fusion using bone allograft in July 2016. 3. Diabetes Mellitus with Renal complication , CKD Stage III- stable 4. Essential hypertension. 5. Hyperlipidemia. 6. Anemia.OLGA Overall renal function stable. Non oliguric Cont to monitor electrolytes, volume status and renal function Cont to monitor Vanco levels. BP well controlled. Consultation Date/Type/Reason Admit Date/Time January 04, 2017 at 19:32 Initial Consult Date 01/06/17 Type of Consultation: Renal Referring Provider: ALICE STAPLES 24 HR Interval Summary Free Text/Dictation NO new events reported Constitutional: No requiring O2 Exam/Review of Systems Vital Signs Vitals Vital Signs Date Time Temp Pulse Resp B/P Pulse Ox O2 Delivery O2 Flow Rate FiO2 01/10/17 07:45 98.1 72 16 98/57 96 01/08/17 20:00 Room Air Intake and Output 01/09/17 01/09/17 01/10/17 15:00 23:00 07:00 Intake Total 490 ml 2360 ml 360 ml Output Total 2900 ml Balance 490 ml -540 ml 360 ml Exam Constitutional: No distress ENMT: mucosa pink and moist Neck: No jvd Respiratory: clear to auscultation Cardiovascular: edema, regular rate and rhythm Gastrointestinal: non-tender, soft Neurological: GRADES 9 12 TUTOR II-XII intact, nl mental status, nl speech Results Result Diagram: 01/10/1752101/10/17 0522 Results 24 hrs Laboratory Tests Test 01/09/17 11:53 01/09/17 16:56 01/09/17 20:41 01/10/17 05:22 Bedside Glucose 202 105 111 White Blood Count 10.1 Red Blood Count 3.53 L Hemoglobin 9.4 L Hematocrit 29.3 L Mean Corpuscular Volume 83.0 Mean Corpuscular Hemoglobin 26.6 L Mean Corpuscular Hemoglobin Concent 32.1 Red Cell Distribution Width 14.9 H Platelet Count 650 H Mean Platelet Volume 9.1 Neutrophils % 60.5 Lymphocytes % 22.6 Monocytes % 9.8 Eosinophils % 5.8 Basophils % 0.6 Nucleated Red Blood Cells % 0.0 Neutrophils # 6.1 Lymphocytes # 2.3 Monocytes # 1.0 H Eosinophils # 0.6 H Basophils # 0.1 Nucleated Red Blood Cells # 0.0 Sodium Level 137 Potassium Level 4.7 Chloride Level 103 Carbon Dioxide Level 24 Anion Gap 15 Blood Urea Nitrogen 30 H Creatinine 1.40 H Glucose Level 114 # Calcium Level 8.7 Test 01/10/17 07:45 01/10/17 08:32 Bedside Glucose 170 169 Medications Medications Current Medications Acetaminophen (Tylenol Tab) 650 mg Q6H PRN PO PAIN AND OR ELEVATED TEMP Last administered on 01/10/17 05:30; Admin Dose 650 MG; Start 01/04/17 at 23:00 Ondansetron HCl (Zofran Inj) 4 mg Q6H PRN IV NAUSEA AND/OR VOMITING; Start 01/04 at 23:00 Morphine Sulfate (morphine) 2 mg Q4H PRN IV PAIN Last administered on 02:38; Admin Dose 2 MG; Start 01/04/17 at 23:00 Metoprolol Tartrate (Lopressor) 25 mg BID PO Last administered on 01/09/17 20: 44; Admin Dose 25 MG; Start 01/05/17 at 09:00 Levothyroxine Sodium (Synthroid) 112 mcg DAILY@06 PO Last administered on 05:30; Admin Dose 112 MCG; Start 01/05/17 at 06:00 Trazodone HCl (Desyrel) 50 mg HS PO Last administered on 01/09/17 20:43; Admin Dose 50 MG; Start 01/05/17 at 21:00 Diagnostic Test (Pha) (Accu-Chek) 1 ea 02 XX Last administered on 01/09/17 02: 00; Admin Dose 1 EA; Start 01/05/17 at 02:00 Miscellaneous Information 1 ea NOTE XX ; Start 01/04/17 at 23:45 Glucose (Glutose) 15 gm Q15M PRN PO DECREASED GLUCOSE; Start 01/04/17 at 23:45 Glucose (Glutose) 22.5 gm Q15M PRN PO DECREASED GLUCOSE; Start 01/04/17 at 23:45 Dextrose (D50w Syringe) 25 ml Q15M PRN IV DECREASED GLUCOSE; Start 01/04/17 at 23:45 Dextrose (D50w Syringe) 50 ml Q15M PRN IV DECREASED GLUCOSE; Start 01/04/17 at 23:45 Glucagon (Glucagen) 1 mg Q15M PRN IM DECREASED GLUCOSE; Start 01/04/17 at 23:45 Glucose (Glutose) 15 gm Q15M PRN BUCCAL DECREASED GLUCOSE; Start 01/04/17 at 23: 45 Fludrocortisone Acetate (Florinef) 0.05 mg DAILY PO Last administered on 08:30; Admin Dose 0.05 MG; Start 01/05/17 at 21:00 Ferrous Sulfate (Ferrous Sulfate (Ec)) 325 mg TID PO Last administered on 08:29; Admin Dose 325 MG; Start 01/06/17 at 13:00 Docusate Sodium 100 mg 100 mg BID PO Last administered on 01/10/17 08:29; Admin Dose 100 MG; Start 01/06/17 at 21:00 Vancomycin HCl (Vancocin) 250 ml @ 125 mls/hr Q24H IVPB Last administered on 11:56; Admin Dose 125 MLS/HR; Start 01/06/17 at 12:00 Hydralazine HCl (Apresoline) 25 mg TID PO Last administered on 01/10/17 08:30 ; Admin Dose 25 MG; Start 01/06/17 at 21:00 Enoxaparin Sodium (Lovenox) 40 mg DAILY SC Last administered on 01/10/17 08:37 ; Admin Dose 40 MG; Start 01/08/17 at 09:00 Ciprofloxacin (Cipro) 500 mg BID@06,18 PO Last administered on 01/10/17 05:30 ; Admin Dose 500 MG; Start 01/07/17 at 18:00 Linagliptin (Tradjenta) 5 mg DAILY PO Last administered on 01/10/17 08:30; Admin Dose 5 MG; Start 01/08/17 at 14:30 Miscellaneous Information (*Rx Drug Level Order Reminder*) VANCOMYCIN TROUGH AT 1100 ONCE ONCE XX ; Start 01/10/17 at 11:00; Stop 01/10/17 at 11:01 Insulin Glargine (Lantus) 48 unit QAM SC Last administered on 01/10/17 08:37; Admin Dose 48 UNIT; Start 01/10/17 at 09:00 COLIN VELEZ MD January 10, 2017 08:41
[2017-01-10] MEDS: METOPROLOL 25 MG TAB PO SCH ×2 (09:00→20:09)
--- NOTE | 2017-01-10 09:24 | RADRPT ---
PROCEDURE: MRI OF THE LEFT ANKLE. CLINICAL INDICATION: Possible osteomyelitis TECHNIQUE: Multiple MR pulse sequences in multiple planes were obtained. Images were interpreted on high-resolution PACS system. COMPARISON: CT from 01/04/2017 FINDINGS: There is fusion hardware noted at the hind foot across the tibiotalar and subtalar joints, with asso ciated susceptibility artifact. There is circumferential intermediate signal hyperintensity around t he tibial intramedullary erma, suspicious for loosening. There is a osseous fragment in the region of the talus seen on the axial sequence image 19 and sagit jeanette sequence image 8 demonstrating diffusely abnormal T1 bone marrow signal along with bone marrow e vern and small foci of low signal possibly air likely representing osteomyelitis versus necrotic bon e. There is distension of the tibiotalar and subtalar joint capsules with synovitis. Septic arthri tis is not excluded. There are extensive neuropathic changes seen at the visualized portions of the midfoot. There is fusion across the first metatarsal and middle cuneiform. Abnormal T1 bone marro w signal and edema is noted at the navicular bone, early osteomyelitis cannot be excluded. There is also evidence of prior distal fibular resection seen on the sagittal sequence image 7 with abnormal bone marrow edema and healing bone marrow signal infiltration suspicious for osteomyelitis. There is extensive subcutaneous edema noted about the hind foot. There is no evidence for tendon ru pture. IMPRESSION: 1. Status post tibiotalar and subtalar joint effusion with associated susceptibility artifact from the hardware. There is circumferential intermediate signal noted throughout the distal tibial intram edullary erma suggesting loosening. 2. Abnormal bone marrow signal noted at the medial talar fragment with foci of air along with all b one marrow signal at the distal resected fibula, most consistent with osteomyelitis. 3. Marked distension of the hind foot joint capsule, a septic arthritis cannot be excluded. RPTAT: PP .Nate Warner MD, MD Date Time Electronically viewed and signed by .Nate Warner MD, MD on 01/10/2017 09:23 .d/
--- NOTE | 2017-01-10 09:31 | RADRPT ---
PROCEDURE: MRI OF THE LEFT FOOT. CLINICAL INDICATION: Left foot and ankle surgery about 5 months ago. Possible infection TECHNIQUE: Multiple MR pulse sequences in multiple planes were obtained. Images were interpreted o n the high-resolution PACS system. COMPARISON: Multiple prior radiographs the most recent CT from 01/04/2017. FINDINGS: There are partially visualized, extensive neuropathic change is noted across the midfoot with fusion of the first metatarsal base and middle cuneiform. Healed post fracture deformity of the third met atarsal base. The bone marrow signal distal to the tarsal bones is otherwise normal without evidenc e of osteomyelitis at the forefoot. 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 The capsule distension of the midfoot is partially visualized. There is extensive plantar musculatu re edema and atrophy related to chronic denervation effect and likely neuropathic in nature. No evid ence for tendon rupture. Diffuse subcutaneous edema is noted at the dorsum of the foot. There is a subcutaneous defect over the fifth metatarsal versus skin fold seen on the coronal sequence image 2 1. No definite abnormal fluid collection is identified. IMPRESSION: 1. No evidence for osteomyelitis at the forefoot. 2. Partially visualized extensive neuropathic changes seen at the visualized tarsal bones and tarso metatarsal joints, as above. 3. Nonspecific diffuse subcutaneous edema at the forefoot without evidence of a drainable fluid col lection over the metatarsals or phalanges. RPTAT: VV .Nate Warner MD, MD Date Time Electronically viewed and signed by .Nate Warner MD, MD on 01/10/2017 09:30 .d/
--- NOTE | 2017-01-10 12:05 | PN ---
Date/Time of Note Date/Time of Note DATE: 01/10/17 TIME: 12:02 Assessment/Plan VTE Prophylaxis VTE Prophylaxis Intervention: LMWH Lines/Catheters IV C[facility]ter Type (from [facility] Saline [facility] Urinary Cath still in place: No Assessment/Plan Assessment/Plan 1. Left ankle cellulitis. Continue on antibiotics. Continue with ID recommendations. No plan for surgery at this time per podiatry. blood cultures showed pseudomonas. Discussed with ID consult, MRI showed changes c/w osteomyelitis 2. History of left Charcot ankle status post fusion using bone allograft in July 2016. Podiatry following 3. Uncontrolled diabetes. A1c at 13. Continue insulin regimen per invoice clerk. stable 4. Essential hypertension. Continue antihypertensives and adjust as needed 5. Hyperlipidemia. stable at present. Will monitor. 6. Acute kidney injury. Continue IV hydration. continue with nephro recs . stable 7. Anemia. With iron deficiency anemia. continue iron supplement 8. Reported cephalgia with right upper extremity weakness. CT scan of the head was negative for any acute intracranial findings. Resolved at present. Will monitor 9.Bilateral lower extremity atherosclerosis. Patient did have arterial study done that showed normal flow in the left superficial femoral artery, popliteal artery home and Arteries which may indicate significant stenosis. Continue anticoagulation. lovenox for DVT prophylaxis Disposition and plan: MRI foot showed OM but it showed loosening of intramedullary nail- will need Podiatry follow up Subjective 24 Hr Interval Summary Free Text/Dictation MRI c/w osteomyelitis but it showed loosening of intramedullary erma Exam/Review of Systems Vital Signs Vitals Vital Signs Date Time Temp Pulse Resp B/P Pulse Ox O2 Delivery O2 Flow Rate FiO2 01/10/17 07:45 98.1 72 16 98/57 96 01/08/17 20:00 Room Air Intake and Output 01/09/17 01/09/17 01/10/17 15:00 23:00 07:00 Intake Total 490 ml 2360 ml 360 ml Output Total 2900 ml Balance 490 ml -540 ml 360 ml Results Result Diagram: 01/10/1752101/10/17 05 Results 24 hrs Laboratory Tests Test 01/09/17 16:56 01/09/17 20:41 01/10/17 05:22 01/10/17 07:45 Bedside Glucose 105 111 170 White Blood Count 10.1 Red Blood Count 3.53 L Hemoglobin 9.4 L Hematocrit 29.3 L Mean Corpuscular Volume 83.0 Mean Corpuscular Hemoglobin 26.6 L Mean Corpuscular Hemoglobin Concent 32.1 Red Cell Distribution Width 14.9 H Platelet Count 650 H Mean Platelet Volume 9.1 Neutrophils % 60.5 Lymphocytes % 22.6 Monocytes % 9.8 Eosinophils % 5.8 Basophils % 0.6 Nucleated Red Blood Cells % 0.0 Neutrophils # 6.1 Lymphocytes # 2.3 Monocytes # 1.0 H Eosinophils # 0.6 H Basophils # 0.1 Nucleated Red Blood Cells # 0.0 Sodium Level 137 Potassium Level 4.7 Chloride Level 103 Carbon Dioxide Level 24 Anion Gap 15 Blood Urea Nitrogen 30 H Creatinine 1.40 H Glucose Level 114 # Calcium Level 8.7 Test 01/10/17 08:32 Bedside Glucose 169 Medications Medications Current Medications Acetaminophen (Tylenol Tab) 650 mg Q6H PRN PO PAIN AND OR ELEVATED TEMP Last administered on 01/10/17 05:30; Admin Dose 650 MG; Start 01/04/17 at 23:00 Ondansetron HCl (Zofran Inj) 4 mg Q6H PRN IV NAUSEA AND/OR VOMITING; Start 01/04 at 23:00 Morphine Sulfate (morphine) 2 mg Q4H PRN IV PAIN Last administered on 02:38; Admin Dose 2 MG; Start 01/04/17 at 23:00 Metoprolol Tartrate (Lopressor) 25 mg BID PO Last administered on 01/09/17 20: 44; Admin Dose 25 MG; Start 01/05/17 at 09:00 Levothyroxine Sodium (Synthroid) 112 mcg DAILY@06 PO Last administered on 05:30; Admin Dose 112 MCG; Start 01/05/17 at 06:00 Trazodone HCl (Desyrel) 50 mg HS PO Last administered on 01/09/17 20:43; Admin Dose 50 MG; Start 01/05/17 at 21:00 Diagnostic Test (Pha) (Accu-Chek) 1 ea 02 XX Last administered on 01/09/17 02: 00; Admin Dose 1 EA; Start 01/05/17 at 02:00 Miscellaneous Information 1 ea NOTE XX ; Start 01/04/17 at 23:45 Glucose (Glutose) 15 gm Q15M PRN PO DECREASED GLUCOSE; Start 01/04/17 at 23:45 Glucose (Glutose) 22.5 gm Q15M PRN PO DECREASED GLUCOSE; Start 01/04/17 at 23:45 Dextrose (D50w Syringe) 25 ml Q15M PRN IV DECREASED GLUCOSE; Start 01/04/17 at 23:45 Dextrose (D50w Syringe) 50 ml Q15M PRN IV DECREASED GLUCOSE; Start 01/04/17 at 23:45 Glucagon (Glucagen) 1 mg Q15M PRN IM DECREASED GLUCOSE; Start 01/04/17 at 23:45 Glucose (Glutose) 15 gm Q15M PRN BUCCAL DECREASED GLUCOSE; Start 01/04/17 at 23: 45 Fludrocortisone Acetate (Florinef) 0.05 mg DAILY PO Last administered on 08:30; Admin Dose 0.05 MG; Start 01/05/17 at 21:00 Ferrous Sulfate (Ferrous Sulfate (Ec)) 325 mg TID PO Last administered on 08:29; Admin Dose 325 MG; Start 01/06/17 at 13:00 Docusate Sodium 100 mg 100 mg BID PO Last administered on 01/10/17 08:29; Admin Dose 100 MG; Start 01/06/17 at 21:00 Vancomycin HCl (Vancocin) 250 ml @ 125 mls/hr Q24H IVPB Last administered on 11:56; Admin Dose 125 MLS/HR; Start 01/06/17 at 12:00 Hydralazine HCl (Apresoline) 25 mg TID PO Last administered on 01/10/17 08:30 ; Admin Dose 25 MG; Start 01/06/17 at 21:00 Enoxaparin Sodium (Lovenox) 40 mg DAILY SC Last administered on 01/10/17 08:37 ; Admin Dose 40 MG; Start 01/08/17 at 09:00 Ciprofloxacin (Cipro) 500 mg BID@06,18 PO Last administered on 01/10/17 05:30 ; Admin Dose 500 MG; Start 01/07/17 at 18:00 Linagliptin (Tradjenta) 5 mg DAILY PO Last administered on 01/10/17 08:30; Admin Dose 5 MG; Start 01/08/17 at 14:30 Insulin Glargine (Lantus) 48 unit QAM SC Last administered on 01/10/17t 08:37; Admin Dose 48 UNIT; Start 01/10/17 at 09:00 MARIANA KEENAN MD January 10, 2017 12:05
[2017-01-10] MEDS: VANCOMYCIN 1 GM in NS 250 ML IVPB SCH (12:13)
--- NOTE | 2017-01-10 13:14 | CONS ---
Date/Time of Note Date/Time of Note DATE: 01/10/17 TIME: 13:12 Assessment/Plan Assessment/Plan Chief Complaint/Hosp Course SUBJECTIVE: No acute events, alert, feels good, no fevers MICROBIOLOGY: Blood culture growing PSA. ANTIMICROBIALS: The patient is on 1. IV vancomycin. 2. Cipro. PHYSICAL EXAMINATION: GENERAL: Obese, well-developed, middle-aged woman who is alert, in no distress. HEENT: Head atraumatic, normocephalic. Sclerae anicteric. Buccal mucosa dry. NECK: Obese. CHEST: Rise symmetrical. Breath sounds clear. HEART: S1, S2. ABDOMEN: Soft, bowel tones present. EXTREMITIES: Left lower extremity swelling, deformity and edema. The patient has an ulcer wound on the back of the foot. ASSESSMENT: 1. Systemic inflammatory response syndrome. 2. Gram-negative erma bacteremia, likely secondary to infected left foot. 3. Diabetes. 4. Left Charcot ankle status post fusion using allograft, MRI + OM, ? septic arthritis, poss infected hardware 5. Obesity. 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 IV abx, f/u podiatry rec-s DW staff Problems: Consultation Date/Type/Reason Admit Date/Time January 04, 2017 at 19:32 Initial Consult Date 01/06/17 Type of Consultation: ID Referring Provider: ALICE STAPLES Exam/Review of Systems Vital Signs Vitals Vital Signs Date Time Temp Pulse Resp B/P Pulse Ox O2 Delivery O2 Flow Rate FiO2 01/10/17 07:45 98.1 72 16 98/57 96 01/08/17 20:00 Room Air Intake and Output 01/09/17 01/09/17 01/10/17 15:00 23:00 07:00 Intake Total 490 ml 2360 ml 360 ml Output Total 2900 ml Balance 490 ml -540 ml 360 ml Results Result Diagram: 01/10/17 0522 01/10/17521 Results 24 hrs Laboratory Tests Test 01/09/17 16:56 01/09/17 20:41 01/10/17 05:22 01/10/17 07:45 Bedside Glucose 105 111 170 White Blood Count 10.1 Red Blood Count 3.53 L Hemoglobin 9.4 L Hematocrit 29.3 L Mean Corpuscular Volume 83.0 Mean Corpuscular Hemoglobin 26.6 L Mean Corpuscular Hemoglobin Concent 32.1 Red Cell Distribution Width 14.9 H Platelet Count 650 H Mean Platelet Volume 9.1 Neutrophils % 60.5 Lymphocytes % 22.6 Monocytes % 9.8 Eosinophils % 5.8 Basophils % 0.6 Nucleated Red Blood Cells % 0.0 Neutrophils # 6.1 Lymphocytes # 2.3 Monocytes # 1.0 H Eosinophils # 0.6 H Basophils # 0.1 Nucleated Red Blood Cells # 0.0 Sodium Level 137 Potassium Level 4.7 Chloride Level 103 Carbon Dioxide Level 24 Anion Gap 15 Blood Urea Nitrogen 30 H Creatinine 1.40 H Glucose Level 114 # Calcium Level 8.7 Test 01/10/17 08:32 01/10/17 11:20 01/10/17 12:19 Bedside Glucose 169 131 Vancomycin Level Trough 12.7 Medications Medications Current Medications Acetaminophen (Tylenol Tab) 650 mg Q6H PRN PO PAIN AND OR ELEVATED TEMP Last administered on 01/10/17 05:30; Admin Dose 650 MG; Start 01/04/17 at 23:00 Ondansetron HCl (Zofran Inj) 4 mg Q6H PRN IV NAUSEA AND/OR VOMITING; Start 01/04 at 23:00 Morphine Sulfate (morphine) 2 mg Q4H PRN IV PAIN Last administered on 02:38; Admin Dose 2 MG; Start 01/04/17 at 23:00 Metoprolol Tartrate (Lopressor) 25 mg BID PO Last administered on 01/09/17 20: 44; Admin Dose 25 MG; Start 01/05/17 at 09:00 Levothyroxine Sodium (Synthroid) 112 mcg DAILY@06 PO Last administered on 05:30; Admin Dose 112 MCG; Start 01/05/17 at 06:00 Trazodone HCl (Desyrel) 50 mg HS PO Last administered on 01/09/17 20:43; Admin Dose 50 MG; Start 01/05/17 at 21:00 Diagnostic Test (Pha) (Accu-Chek) 1 ea 02 XX Last administered on 01/09/17 02: 00; Admin Dose 1 EA; Start 01/05/17 at 02:00 Miscellaneous Information 1 ea NOTE XX ; Start 01/04/17 at 23:45 Glucose (Glutose) 15 gm Q15M PRN PO DECREASED GLUCOSE; Start 01/04/17 at 23:45 Glucose (Glutose) 22.5 gm Q15M PRN PO DECREASED GLUCOSE; Start 01/04/17 at 23:45 Dextrose (D50w Syringe) 25 ml Q15M PRN IV DECREASED GLUCOSE; Start 01/04/17 at 23:45 Dextrose (D50w Syringe) 50 ml Q15M PRN IV DECREASED GLUCOSE; Start 01/04/17 at 23:45 Glucagon (Glucagen) 1 mg Q15M PRN IM DECREASED GLUCOSE; Start 01/04/17 at 23:45 Glucose (Glutose) 15 gm Q15M PRN BUCCAL DECREASED GLUCOSE; Start 01/04/17 at 23: 45 Fludrocortisone Acetate (Florinef) 0.05 mg DAILY PO Last administered on 08:30; Admin Dose 0.05 MG; Start 01/05/17 at 21:00 Ferrous Sulfate (Ferrous Sulfate (Ec)) 325 mg TID PO Last administered on 12:11; Admin Dose 325 MG; Start 01/06/17 at 13:00 Docusate Sodium 100 mg 100 mg BID PO Last administered on 01/10/17 08:29; Admin Dose 100 MG; Start 01/06/17 at 21:00 Vancomycin HCl (Vancocin) 250 ml @ 125 mls/hr Q24H IVPB Last administered on 12:13; Admin Dose 125 MLS/HR; Start 01/06/17 at 12:00; Stop 01/10/17 at 14:00 Hydralazine HCl (Apresoline) 25 mg TID PO Last administered on 01/10/17 12:12 ; Admin Dose 25 MG; Start 01/06/17 at 21:00 Enoxaparin Sodium (Lovenox) 40 mg DAILY SC Last administered on 01/10/17 08:37 ; Admin Dose 40 MG; Start 01/08/17 at 09:00 Ciprofloxacin (Cipro) 500 mg BID@06,18 PO Last administered on 01/10/17 05:30 ; Admin Dose 500 MG; Start 01/07/17 at 18:00 Linagliptin (Tradjenta) 5 mg DAILY PO Last administered on 01/10/17 08:30; Admin Dose 5 MG; Start 01/08/17 at 14:30 Insulin Glargine 48 unit 48 unit QAM SC Last administered on 01/10/17t 08:37; Admin Dose 48 UNIT; Start 01/10/17 at 09:00 Vancomycin HCl/ Sodium Chloride (Vancocin/NS) 250 ml @ 83.333 mls/ hr Q24H IVPB ; Start 01/11/17 at 12:00 NUBIA MONTANEZ NP January 10, 2017 13:14
--- NOTE | 2017-01-10 17:51 | CONS ---
Date/Time of Note Date/Time of Note DATE: 01/10/17 TIME: 17:45 Assessment/Plan Assessment/Plan Chief Complaint/Hosp Course 56-year-old female with a history of a Charcot joint status post fixation and surgery last year with fusion. Her blood sugar control has not been ideal and she has been being managed by a family practitioner in the community. Patient reports she did complain about her sugar control however we are where we are. Problems: (1) Hyporeninemic hypoaldosteronism Status: Chronic Comment: improved on treatment with low dose flourinef, continue (2) Diabetic nephropathy Status: Chronic Comment: stable, consider low dose JANE per renal Qualifiers: Diabetes mellitus type: type 2 Qualified Code: E11.21 - Diabetic nephropathy associated with type 2 diabetes mellitus (3) Diabetes type 2, uncontrolled Status: Chronic Comment: Much better control. Continue Qualifiers: Diabetes mellitus complication status: with kidney complications Diabetes mellitus complication detail: with microalbuminuria Diabetes mellitus half-way insulin use: with half-way use Qualified Code: E11.29 - Uncontrolled type 2 diabetes mellitus with microalbuminuria, with long-term current use of insulin Consultation Date/Type/Reason Admit Date/Time January 04, 2017 at 19:32 Initial Consult Date 01/05/17 Type of Consultation: Endocrinology Reason for Consultation DM2 with hyporeninemic hypoaldosteronism, CKD2, htn DPN Referring Provider: ALICE STAPLES 24 HR Interval Summary Constitutional: no complaints Exam/Review of Systems Vital Signs Vitals Vital Signs Date Time Temp Pulse Resp B/P Pulse Ox O2 Delivery O2 Flow Rate FiO2 01/10/17 07:45 98.1 72 16 98/57 96 01/08/17 20:00 Room Air Intake and Output 01/09/17 01/09/17 01/10/17 15:00 23:00 07:00 Intake Total 490 ml 2360 ml 360 ml Output Total 2900 ml Balance 490 ml -540 ml 360 ml Exam Constitutional: alert, oriented Respiratory: clear to auscultation, normal air movement Cardiovascular: nl pulses, regular rate and rhythm Results Result Diagram: 01/10/17 0522 01/10/17521 Results 24 hrs Laboratory Tests Test 01/09/17 20:41 01/10/17 05:22 01/10/17 07:45 01/10/17 08:32 Bedside Glucose 111 170 169 White Blood Count 10.1 Red Blood Count 3.53 L Hemoglobin 9.4 L Hematocrit 29.3 L Mean Corpuscular Volume 83.0 Mean Corpuscular Hemoglobin 26.6 L Mean Corpuscular Hemoglobin Concent 32.1 Red Cell Distribution Width 14.9 H Platelet Count 650 H Mean Platelet Volume 9.1 Neutrophils % 60.5 Lymphocytes % 22.6 Monocytes % 9.8 Eosinophils % 5.8 Basophils % 0.6 Nucleated Red Blood Cells % 0.0 Neutrophils # 6.1 Lymphocytes # 2.3 Monocytes # 1.0 H Eosinophils # 0.6 H Basophils # 0.1 Nucleated Red Blood Cells # 0.0 Sodium Level 137 Potassium Level 4.7 Chloride Level 103 Carbon Dioxide Level 24 Anion Gap 15 Blood Urea Nitrogen 30 H Creatinine 1.40 H Glucose Level 114 # Calcium Level 8.7 Test 01/10/17 11:20 01/10/17 12:19 01/10/17 16:49 01/10/17 17:05 Vancomycin Level Trough 12.7 Bedside Glucose 131 67 L 88 Medications Medications Current Medications Acetaminophen (Tylenol Tab) 650 mg Q6H PRN PO PAIN AND OR ELEVATED TEMP Last administered on 01/10/17 05:30; Admin Dose 650 MG; Start 01/04/17 at 23:00 Ondansetron HCl (Zofran Inj) 4 mg Q6H PRN IV NAUSEA AND/OR VOMITING; Start 01/04 at 23:00 Morphine Sulfate (morphine) 2 mg Q4H PRN IV PAIN Last administered on 16:01; Admin Dose 2 MG; Start 01/04/17 at 23:00 Metoprolol Tartrate (Lopressor) 25 mg BID PO Last administered on 01/09/17 20: 44; Admin Dose 25 MG; Start 01/05/17 at 09:00 Levothyroxine Sodium (Synthroid) 112 mcg DAILY@06 PO Last administered on 05:30; Admin Dose 112 MCG; Start 01/05/17 at 06:00 Trazodone HCl (Desyrel) 50 mg HS PO Last administered on 01/09/17 20:43; Admin Dose 50 MG; Start 01/05/17 at 21:00 Diagnostic Test (Pha) (Accu-Chek) 1 ea 02 XX Last administered on 01/09/17 02: 00; Admin Dose 1 EA; Start 01/05/17 at 02:00 Miscellaneous Information 1 ea NOTE XX ; Start 01/04/17 at 23:45 Glucose (Glutose) 15 gm Q15M PRN PO DECREASED GLUCOSE; Start 01/04/17 at 23:45 Glucose (Glutose) 22.5 gm Q15M PRN PO DECREASED GLUCOSE; Start 01/04/17 at 23:45 Dextrose (D50w Syringe) 25 ml Q15M PRN IV DECREASED GLUCOSE; Start 01/04/17 at 23:45 Dextrose (D50w Syringe) 50 ml Q15M PRN IV DECREASED GLUCOSE; Start 01/04/17 at 23:45 Glucagon (Glucagen) 1 mg Q15M PRN IM DECREASED GLUCOSE; Start 01/04/17 at 23:45 Glucose (Glutose) 15 gm Q15M PRN BUCCAL DECREASED GLUCOSE; Start 01/04/17 at 23: 45 Fludrocortisone Acetate (Florinef) 0.05 mg DAILY PO Last administered on 08:30; Admin Dose 0.05 MG; Start 01/05/17 at 21:00 Ferrous Sulfate (Ferrous Sulfate (Ec)) 325 mg TID PO Last administered on 12:11; Admin Dose 325 MG; Start 01/06/17 at 13:00 Docusate Sodium (Colace) 100 mg BID PO Last administered on 01/10/17 08:29; Admin Dose 100 MG; Start 01/06/17 at 21:00 Hydralazine HCl (Apresoline) 25 mg TID PO Last administered on 01/10/17 12:12 ; Admin Dose 25 MG; Start 01/06/17 at 21:00 Enoxaparin Sodium (Lovenox) 40 mg DAILY SC Last administered on 01/10/17 08:37 ; Admin Dose 40 MG; Start 01/08/17 at 09:00 Ciprofloxacin (Cipro) 500 mg BID@18 PO Last administered on 01/10/17 05:30 ; Admin Dose 500 MG; Start 01/07/17 at 18:00 Linagliptin (Tradjenta) 5 mg DAILY PO Last administered on 01/10/17 08:30; Admin Dose 5 MG; Start 01/08/17 at 14:30 Insulin Glargine 48 unit 48 unit QAM SC Last administered on 01/10/17t 08:37; Admin Dose 48 UNIT; Start 01/10/17 at 09:00 Vancomycin HCl/ Sodium Chloride (Vancocin/NS) 250 ml @ 83.333 mls/ hr Q24H IVPB ; Start 01/11/17 at 12:00 JACE TURNER MD January 10, 2017 17:51
[2017-01-10 19:24] VITALS: BP 177/66; RESP 20
[2017-01-10] MEDS: traZODone 50 MG TAB PO SCH (20:09)
[2017-01-10] MEDS ORDERED: hydrALAzine 20 MG INJ IV ONE (22:30)
[2017-01-10] MEDS: morphine 4 MG/ML VIAL IV PRN (22:55)
[2017-01-10 23:30] VITALS: BP 130/62; PULSE 85; RESP 16
[2017-01-11] MEDS: ACCU-CHEK XX SCH (02:08)
[2017-01-11] MEDS: LEVOTHYROXINE 112 MCG TAB PO SCH (06:16)
[2017-01-11] MEDS: CIPROFLOXACIN 500 MG TAB PO SCH ×2 (06:16→18:34)
[2017-01-11] MEDS: morphine 4 MG/ML VIAL IV PRN ×2 (06:17→16:33)
[2017-01-11 07:53] VITALS: BP 119/58; RESP 20
[2017-01-11] MEDS: DOCUSATE SODIUM 100 MG CAP PO SCH ×2 (08:21→20:51)
[2017-01-11] MEDS: FERROUS SULFATE (EC) 325 MG TAB PO SCH ×3 (08:22→20:51)
[2017-01-11] MEDS: metFORMIN 500 MG TAB PO SCH ×2 (08:22→18:34)
[2017-01-11] MEDS: LINAGLIPTIN 5 MG TABLET PO SCH (08:22)
[2017-01-11] MEDS: FLUDROCORTISONE 0.1 MG TAB PO SCH (08:22)
[2017-01-11] MEDS: METOPROLOL 25 MG TAB PO SCH ×2 (08:24→20:53)
[2017-01-11] MEDS: INSULIN ASPART [NOVOLOG] 3 ML PEN SC SCH ×7 (08:31→20:54)
[2017-01-11] MEDS: ENOXAPARIN 40 MG/0.4 ML SYG SC SCH (08:45)
[2017-01-11] MEDS: INSULIN GLARGINE [LANtus] 3 ML PEN SC SCH (08:46)
[2017-01-11] MEDS: VANCOMYCIN 1.25 GM in SOD CHLORIDE 0.9% 250 ML IVPB SCH (12:05)
--- NOTE | 2017-01-11 12:40 | CONS ---
Date/Time of Note Date/Time of Note DATE: 01/11/17 TIME: 12:39 Assessment/Plan Assessment/Plan Chief Complaint/Hosp Course SUBJECTIVE: No acute events, alert, feels good, no fevers MICROBIOLOGY: Blood culture growing PSA. ANTIMICROBIALS: The patient is on 1. IV vancomycin. 2. Cipro. PHYSICAL EXAMINATION: GENERAL: Obese, well-developed, middle-aged woman who is alert, in no distress. HEENT: Head atraumatic, normocephalic. Sclerae anicteric. Buccal mucosa dry. NECK: Obese. CHEST: Rise symmetrical. Breath sounds clear. HEART: S1, S2. ABDOMEN: Soft, bowel tones present. EXTREMITIES: Left lower extremity swelling, deformity and edema. The patient has an ulcer wound on the back of the foot. ASSESSMENT: 1. Systemic inflammatory response syndrome. 2. Gram-negative erma bacteremia, likely secondary to infected left foot. 3. Diabetes. 4. Left Charcot ankle status post fusion using allograft, MRI report + OM, ? septic arthritis, poss infected hardware 5. Obesity. PLAN: Remains stable, repeat bld cx negative, continue abx, will order PICC for halfway IV abx, f/u podiatry rec-s DW staff DW patient who agrees with the plan Problems: Consultation Date/Type/Reason Admit Date/Time January 04, 2017 at 19:32 Initial Consult Date 01/06/17 Type of Consultation: ID Referring Provider: ALICE STAPLES Exam/Review of Systems Vital Signs Vitals Vital Signs Date Time Temp Pulse Resp B/P Pulse Ox O2 Delivery O2 Flow Rate FiO2 01/11/17 07:53 97.6 75 20 119/58 99 01/10/17 23:30 Room Air Intake and Output 01/10/17 01/10/17 01/11/17 15:00 23:00 07:00 Intake Total 1650 ml 600 ml Balance 1650 ml 600 ml Results Result Diagram: 01/10/17 0522 01/10/17 0522 Results 24 hrs Laboratory Tests Test 01/10/17 16:49 01/10/17 17:05 01/10/17 17:47 01/10/17 18:19 Bedside Glucose 67 L 88 109 169 Test 01/10/17 20:07 01/11/17 02:03 01/11/17 08:13 01/11/17 12:03 Bedside Glucose 208 170 213 102 Medications Medications Current Medications Acetaminophen (Tylenol Tab) 650 mg Q6H PRN PO PAIN AND OR ELEVATED TEMP Last administered on 01/10/17 05:30; Admin Dose 650 MG; Start 01/04/17 at 23:00 Ondansetron HCl (Zofran Inj) 4 mg Q6H PRN IV NAUSEA AND/OR VOMITING; Start 01/04 at 23:00 Metoprolol Tartrate (Lopressor) 25 mg BID PO Last administered on 01/11/17 08: 24; Admin Dose 25 MG; Start 01/05/17 at 09:00 Levothyroxine Sodium (Synthroid) 112 mcg DAILY@06 PO Last administered on 06:16; Admin Dose 112 MCG; Start 01/05/17 at 06:00 Trazodone HCl (Desyrel) 50 mg HS PO Last administered on 01/10/17 20:09; Admin Dose 50 MG; Start 01/05/17 at 21:00 Diagnostic Test (Pha) (Accu-Chek) 1 ea 02 XX Last administered on 01/11/17 02: 08; Admin Dose 1 EA; Start 01/05/17 at 02:00 Miscellaneous Information 1 ea NOTE XX ; Start 01/04/17 at 23:45 Glucose (Glutose) 15 gm Q15M PRN PO DECREASED GLUCOSE; Start 01/04/17 at 23:45 Glucose (Glutose) 22.5 gm Q15M PRN PO DECREASED GLUCOSE; Start 01/04/17 at 23:45 Dextrose (D50w Syringe) 25 ml Q15M PRN IV DECREASED GLUCOSE; Start 01/04/17 at 23:45 Dextrose (D50w Syringe) 50 ml Q15M PRN IV DECREASED GLUCOSE; Start 01/04/17 at 23:45 Glucagon (Glucagen) 1 mg Q15M PRN IM DECREASED GLUCOSE; Start 01/04/17 at 23:45 Glucose (Glutose) 15 gm Q15M PRN BUCCAL DECREASED GLUCOSE; Start 01/04/17 at 23: 45 Fludrocortisone Acetate (Florinef) 0.05 mg DAILY PO Last administered on 08:22; Admin Dose 0.05 MG; Start 01/05/17 at 21:00 Ferrous Sulfate (Ferrous Sulfate (Ec)) 325 mg TID PO Last administered on 08:22; Admin Dose 325 MG; Start 01/06/17 at 13:00 Docusate Sodium (Colace) 100 mg BID PO Last administered on 01/11/17 08:21; Admin Dose 100 MG; Start 01/06/17 at 21:00 Hydralazine HCl (Apresoline) 25 mg TID PO Last administered on 01/11/17 08:24 ; Admin Dose 25 MG; Start 01/06/17 at 21:00 Enoxaparin Sodium (Lovenox) 40 mg DAILY SC Last administered on 01/11/17 08:45 ; Admin Dose 40 MG; Start 01/08/17 at 09:00 Ciprofloxacin (Cipro) 500 mg BID@06,18 PO Last administered on 01/11/17 06:16 ; Admin Dose 500 MG; Start 01/07/17 at 18:00 Linagliptin (Tradjenta) 5 mg DAILY PO Last administered on 01/11/17 08:22; Admin Dose 5 MG; Start 01/08/17 at 14:30 Insulin Glargine 48 unit 48 unit QAM SC Last administered on 01/11/17 08:46; Admin Dose 48 UNIT; Start 01/10/17 at 09:00 Vancomycin HCl/ Sodium Chloride (Vancocin/NS) 250 ml @ 83.333 mls/ hr Q24H IVPB Last administered on 01/11/17 12:05; Admin Dose 83.333 MLS/HR; Start at 12:00 Morphine Sulfate (morphine) 4 mg Q4H PRN IV PAIN Last administered on 06:17; Admin Dose 4 MG; Start 01/10/17 at 22:30 NUBIA MONTANEZ NP January 11, 2017 12:40
[2017-01-11] MEDS ORDERED: LIDOCAINE 1% (MPF) 5 ML VIAL SC ONE ×2 (13:00→17:30)
--- NOTE | 2017-01-11 13:10 | CONS ---
Date/Time of Note Date/Time of Note DATE: 01/11/17 TIME: 13:06 Assessment/Plan Assessment/Plan Chief Complaint/Hosp Course 56-year-old female with a history of a Charcot joint status post fixation and surgery last year with fusion. Her blood sugar control has not been ideal and she has been being managed by a family practitioner in the community. Patient reports she did complain about her sugar control however we are where we are. Problems: (1) Osteomyelitis of right ankle Status: Chronic Comment: Patient is on antibiotic therapy. Infectious disease and surgery are involved and will make determinations about the best course of treatment here. This chronic infection has had an effect on sugar control which were compensating for. Qualifiers: Osteomyelitis type: subacute Qualified Code: M86.271 - Subacute osteomyelitis of right ankle (2) Diabetes mellitus with neuropathy Status: Chronic Comment: Blood sugar control is doing well. Neuropathy has scars the Charcot foot. For now continue therapeutics as doing well. Qualifiers: Diabetes mellitus type: type 2 Diabetes mellitus residential insulin use: with middle or intermediate school principal use Qualified Code: E11.40 - Type 2 diabetes mellitus with diabetic neuropathy, with long-term current use of insulin (3) Iron deficiency anemia Status: Chronic Comment: Patient has a significant iron deficiency anemia we will give 1 more dose of IV iron. Qualifiers: Iron deficiency anemia type: unspecified iron deficiency Qualified Code: D50.9 - Iron deficiency anemia, unspecified iron deficiency anemia type (4) Hyporeninemic hypoaldosteronism Status: Chronic Comment: This density is led to some alterations in therapeutics. We will continue the fludrocortisone at 0.1 mg a day. This will avoid the hyperkalemia when using very low-dose JANE inhibitors which are necessary for renal protection. (5) Diabetic nephropathy Status: Chronic Comment: Resume very low-dose JANE inhibitors for renal protection. Follow potassium while on fludrocortisone to deal with the hyporeninemic hypoaldosteronism Qualifiers: Diabetes mellitus type: type 2 Qualified Code: E11.21 - Diabetic nephropathy associated with type 2 diabetes mellitus (6) Hypothyroidism Status: Chronic Comment: On replacement therapy and stable Qualifiers: Hypothyroidism type: acquired Qualified Code: E03.9 - Acquired hypothyroidism (7) Morbid obesity Status: Chronic Comment: Calorie restriction diet. With the duration of this admission she has lost weight Qualifiers: Obesity type: due to excess calories Qualified Code: E66.01 - Morbid obesity due to excess calories (8) Hypertension Status: Chronic Comment: Well-controlled on current regimen. Qualifiers: Hypertension type: essential hypertension Qualified Code: I10 - Essential hypertension (9) UTI (urinary tract infection) Status: Acute Comment: Treated Qualifiers: Urinary tract infection type: acute cystitis Hematuria presence: without hematuria Qualified Code: N30.00 - Acute cystitis without hematuria Consultation Date/Type/Reason Admit Date/Time January 04, 2017 at 19:32 Initial Consult Date 01/05/17 Type of Consultation: Endocrinology Reason for Consultation Diabetes mellitus type 2 on insulin-based regimen; chronic kidney disease stage II; hyporeninemic hypoaldosteronism; hypertension; hyperlipidemia; Charcot joint with osteomyelitis Referring Provider: ALICE STAPLES 24 HR Interval Summary Free Text/Dictation Patient reports that this time she is feeling relatively well. Constitutional: no complaints Detailed Summary Respiratory: no complaints Cardiovascular: no complaints Gastrointestinal: no complaints Exam/Review of Systems Vital Signs Vitals Vital Signs Date Time Temp Pulse Resp B/P Pulse Ox O2 Delivery O2 Flow Rate FiO2 01/11/17 07:53 97.6 75 20 119/58 99 01/10/17 23:30 Room Air Intake and Output 01/10/17 01/10/17 01/11/17 15:00 23:00 07:00 Intake Total 1650 ml 600 ml Balance 1650 ml 600 ml Exam Constitutional: alert, oriented Neck: non-tender, supple Respiratory: clear to auscultation, normal air movement Cardiovascular: nl pulses, regular rate and rhythm Gastrointestinal: nl liver, spleen, non-tender, soft Results Result Diagram: 01/10/17 0522 01/10/17 0522 Results 24 hrs Laboratory Tests Test 01/10/17 16:49 01/10/17 17:05 01/10/17 17:47 01/10/17 18:19 Bedside Glucose 67 L 88 109 169 Test 01/10/17 20:07 01/11/17 02:03 01/11/17 08:13 01/11/17 12:03 Bedside Glucose 208 170 213 102 Medications Medications Current Medications Acetaminophen (Tylenol Tab) 650 mg Q6H PRN PO PAIN AND OR ELEVATED TEMP Last administered on 01/10/17t 05:30; Admin Dose 650 MG; Start 01/04/17 at 23:00 Ondansetron HCl (Zofran Inj) 4 mg Q6H PRN IV NAUSEA AND/OR VOMITING; Start 01/04 at 23:00 Metoprolol Tartrate (Lopressor) 25 mg BID PO Last administered on 01/11/17 08: 24; Admin Dose 25 MG; Start 01/05/17 at 09:00 Levothyroxine Sodium (Synthroid) 112 mcg DAILY@06 PO Last administered on 06:16; Admin Dose 112 MCG; Start 01/05/17 at 06:00 Trazodone HCl (Desyrel) 50 mg HS PO Last administered on 01/10/17 20:09; Admin Dose 50 MG; Start 01/05/17 at 21:00 Diagnostic Test (Pha) (Accu-Chek) 1 ea 02 XX Last administered on 01/11/17 02: 08; Admin Dose 1 EA; Start 01/05/17 at 02:00 Miscellaneous Information 1 ea NOTE XX ; Start 01/04/17 at 23:45 Glucose (Glutose) 15 gm Q15M PRN PO DECREASED GLUCOSE; Start 01/04/17 at 23:45 Glucose (Glutose) 22.5 gm Q15M PRN PO DECREASED GLUCOSE; Start 01/04/17 at 23:45 Dextrose (D50w Syringe) 25 ml Q15M PRN IV DECREASED GLUCOSE; Start 01/04/17 at 23:45 Dextrose (D50w Syringe) 50 ml Q15M PRN IV DECREASED GLUCOSE; Start 01/04/17 at 23:45 Glucagon (Glucagen) 1 mg Q15M PRN IM DECREASED GLUCOSE; Start 01/04/17 at 23:45 Glucose (Glutose) 15 gm Q15M PRN BUCCAL DECREASED GLUCOSE; Start 01/04/17 at 23: 45 Ferrous Sulfate (Ferrous Sulfate (Ec)) 325 mg TID PO Last administered on 08:22; Admin Dose 325 MG; Start 01/06/17 at 13:00 Docusate Sodium (Colace) 100 mg BID PO Last administered on 01/11/17 08:21; Admin Dose 100 MG; Start 01/06/17 at 21:00 Enoxaparin Sodium (Lovenox) 40 mg DAILY SC Last administered on 01/11/17 08:45 ; Admin Dose 40 MG; Start 01/08/17 at 09:00 Ciprofloxacin (Cipro) 500 mg BID@06,18 PO Last administered on 01/11/17 06:16 ; Admin Dose 500 MG; Start 01/07/17 at 18:00 Linagliptin (Tradjenta) 5 mg DAILY PO Last administered on 01/11/17 08:22; Admin Dose 5 MG; Start 01/08/17 at 14:30 Insulin Glargine 48 unit 48 unit QAM SC Last administered on 01/11/17 08:46; Admin Dose 48 UNIT; Start 01/10/17 at 09:00 Vancomycin HCl/ Sodium Chloride (Vancocin/NS) 250 ml @ 83.333 mls/ hr Q24H IVPB Last administered on 01/11/17 12:05; Admin Dose 83.333 MLS/HR; Start at 12:00 Morphine Sulfate (morphine) 4 mg Q4H PRN IV PAIN Last administered on 06:17; Admin Dose 4 MG; Start 01/10/17 at 22:30 Fludrocortisone Acetate (Florinef) 0.1 mg DAILY PO ; Start 01/12/17 at 09:00; Status UNV Hydralazine HCl 25 mg 25 mg BID PO ; Start 01/11/17 at 21:00; Status UNV Ferric Sodium Gluconate Complex/ Sodium Chloride (Ferrlecit/NS) 110 ml @ 100 mls/hr ONCE ONCE IVPB ; Start 01/11/17 at 13:30; Stop 01/11/17 at 14:35; Status UNV Lisinopril 5 mg 5 mg DAILY PO ; Start 01/11/17 at 13:30; Status UNV Lactated Ringer's (Lr) 500 ml @ 500 mls/hr Q1H ONCE IV ; Start 01/11/17 at 13: 30; Stop 01/11/17 at 14:29; Status UNV JACE TURNER MD January 11, 2017 13:10
[2017-01-11] MEDS ORDERED: LACTATED RINGER'S 500 ML IV ONE (13:30)
[2017-01-11] MEDS ORDERED: SOD FERRIC GLUC COMPLX 125 MG in SOD CHLORIDE 0.9% 100 ML IVPB ONE (15:00)
--- NOTE | 2017-01-11 16:17 | CONS ---
Date/Time of Note Date/Time of Note DATE: 01/11/17 TIME: 16:16 Assessment/Plan Assessment/Plan Additional Assessment/Plan 56yo male with 1. Left ankle cellulitis. 2. Left Charcot ankle status post fusion using bone allograft in July 2016. 3. Diabetes Mellitus with Renal complication , CKD Stage III- stable 4. Essential hypertension. 5. Hyperlipidemia. 6. Anemia.OLGA Overall renal function stable. Non oliguric Cont to monitor electrolytes, volume status and renal function Cont to monitor Vanco levels. BP well controlled. Consultation Date/Type/Reason Admit Date/Time January 04, 2017 at 19:32 Initial Consult Date 01/06/17 Type of Consultation: Renal Referring Provider: ALICE STAPLES 24 HR Interval Summary Free Text/Dictation No new complaints Constitutional: No requiring O2 Exam/Review of Systems Vital Signs Vitals Vital Signs Date Time Temp Pulse Resp B/P Pulse Ox O2 Delivery O2 Flow Rate FiO2 01/11/17 07:53 97.6 75 20 119/58 99 01/10/17 23:30 Room Air Intake and Output 01/10/17 01/10/17 01/11/17 15:00 23:00 07:00 Intake Total 1650 ml 600 ml Balance 1650 ml 600 ml Exam Constitutional: No distress ENMT: mucosa pink and moist Respiratory: No diminished breath sounds, No labored breathing Gastrointestinal: soft Neurological: nl mental status, No lethargic Results Result Diagram: 01/10/1752101/10/17521 Results 24 hrs Laboratory Tests Test 01/10/17 16:49 01/10/17 17:05 01/10/17 17:47 01/10/17 18:19 Bedside Glucose 67 L 88 109 169 Test 01/10/17 20:07 01/11/17 02:03 01/11/17 08:13 01/11/17 12:03 Bedside Glucose 208 170 213 102 Medications Medications Current Medications Acetaminophen (Tylenol Tab) 650 mg Q6H PRN PO PAIN AND OR ELEVATED TEMP Last administered on 01/10/17t 05:30; Admin Dose 650 MG; Start 01/04/17 at 23:00 Ondansetron HCl (Zofran Inj) 4 mg Q6H PRN IV NAUSEA AND/OR VOMITING; Start 01/04 at 23:00 Metoprolol Tartrate (Lopressor) 25 mg BID PO Last administered on 01/11/17 08: 24; Admin Dose 25 MG; Start 01/05/17 at 09:00 Levothyroxine Sodium (Synthroid) 112 mcg DAILY@06 PO Last administered on 06:16; Admin Dose 112 MCG; Start 01/05/17 at 06:00 Trazodone HCl (Desyrel) 50 mg HS PO Last administered on 01/10/17 20:09; Admin Dose 50 MG; Start 01/05/17 at 21:00 Diagnostic Test (Pha) (Accu-Chek) 1 ea 02 XX Last administered on 01/11/17 02: 08; Admin Dose 1 EA; Start 01/05/17 at 02:00 Miscellaneous Information 1 ea NOTE XX ; Start 01/04/17 at 23:45 Glucose (Glutose) 15 gm Q15M PRN PO DECREASED GLUCOSE; Start 01/04/17 at 23:45 Glucose (Glutose) 22.5 gm Q15M PRN PO DECREASED GLUCOSE; Start 01/04/17 at 23:45 Dextrose (D50w Syringe) 25 ml Q15M PRN IV DECREASED GLUCOSE; Start 01/04/17 at 23:45 Dextrose (D50w Syringe) 50 ml Q15M PRN IV DECREASED GLUCOSE; Start 01/04/17 at 23:45 Glucagon (Glucagen) 1 mg Q15M PRN IM DECREASED GLUCOSE; Start 01/04/17 at 23:45 Glucose (Glutose) 15 gm Q15M PRN BUCCAL DECREASED GLUCOSE; Start 01/04/17 at 23: 45 Ferrous Sulfate (Ferrous Sulfate (Ec)) 325 mg TID PO Last administered on 08:22; Admin Dose 325 MG; Start 01/06/17 at 13:00 Docusate Sodium (Colace) 100 mg BID PO Last administered on 01/11/17 08:21; Admin Dose 100 MG; Start 01/06/17 at 21:00 Enoxaparin Sodium (Lovenox) 40 mg DAILY SC Last administered on 01/11/17 08:45 ; Admin Dose 40 MG; Start 01/08/17 at 09:00 Ciprofloxacin (Cipro) 500 mg BID@,18 PO Last administered on 01/11/17 06:16 ; Admin Dose 500 MG; Start 01/07/17 at 18:00 Linagliptin (Tradjenta) 5 mg DAILY PO Last administered on 01/11/17 08:22; Admin Dose 5 MG; Start 01/08/17 at 14:30 Insulin Glargine 48 unit 48 unit QAM SC Last administered on 01/11/17 08:46; Admin Dose 48 UNIT; Start 01/10/17 at 09:00 Vancomycin HCl/ Sodium Chloride (Vancocin/NS) 250 ml @ 83.333 mls/ hr Q24H IVPB Last administered on 01/11/17 12:05; Admin Dose 83.333 MLS/HR; Start at 12:00 Morphine Sulfate (morphine) 4 mg Q4H PRN IV PAIN Last administered on 06:17; Admin Dose 4 MG; Start 01/10/17 at 22:30 Fludrocortisone Acetate (Florinef) 0.1 mg DAILY PO ; Start 01/12/17 at 09:00 Hydralazine HCl (Apresoline) 25 mg BID PO ; Start 01/11/17 at 21:00 Lisinopril (Zestril) 5 mg DAILY PO ; Start 01/11/17 at 13:30 COLIN VELEZ MD January 11, 2017 16:17
[2017-01-11] MEDS: LISINOPRIL 5 MG TAB PO SCH (16:30)
--- NOTE | 2017-01-11 16:37 | PN ---
Date/Time of Note Date/Time of Note DATE: 01/11/17 TIME: 16:35 Assessment/Plan VTE Prophylaxis VTE Prophylaxis Intervention: LMWH Lines/Catheters IV [facility] Saline Lock Urinary Cath still in place: No Assessment/Plan Assessment/Plan 1. Left ankle cellulitis. Continue on antibiotics. Continue with ID recommendations. No plan for surgery at this time per podiatry. blood cultures showed pseudomonas. Discussed with ID consult, MRI showed changes c/w osteomyelitis 2. History of left Charcot ankle status post fusion using bone allograft in July 2016. Podiatry following 3. Uncontrolled diabetes. A1c at 13. Continue insulin regimen per assurance specialist. stable 4. Essential hypertension. Continue antihypertensives and adjust as needed 5. Hyperlipidemia. stable at present. Will monitor. 6. Acute kidney injury. Continue IV hydration. continue with nephro recs . stable 7. Anemia. With iron deficiency anemia. continue iron supplement 8. Reported cephalgia with right upper extremity weakness. CT scan of the head was negative for any acute intracranial findings. Resolved at present. Will monitor 9.Bilateral lower extremity atherosclerosis. Patient did have arterial study done that showed normal flow in the left superficial femoral artery, popliteal artery home and Arteries which may indicate significant stenosis. Continue anticoagulation. lovenox for DVT prophylaxis Disposition and plan: MRI foot showed OM but it showed loosening of intramedullary nail- will need Podiatry follow up, plan for home health with IV abx Subjective 24 Hr Interval Summary Free Text/Dictation no acute events, Bp stable Exam/Review of Systems Vital Signs Vitals Vital Signs Date Time Temp Pulse Resp B/P Pulse Ox O2 Delivery O2 Flow Rate FiO2 01/11/17 07:53 97.6 75 20 119/58 99 01/10/17 23:30 Room Air Intake and Output 01/10/17 01/10/17 01/11/17 15:00 23:00 07:00 Intake Total 1650 ml 600 ml Balance 1650 ml 600 ml Exam GENERAL: Obese, well-developed, middle-aged woman who is alert, in no distress. HEENT: Head atraumatic, normocephalic. Sclerae anicteric. Buccal mucosa dry. NECK: Obese. CHEST: Rise symmetrical. Breath sounds clear. HEART: S1, S2. ABDOMEN: Soft, bowel tones present. EXTREMITIES: Left lower extremity swelling, deformity and edema. The patient has an ulcer wound on the back of the foot. Results Result Diagram: 01/10/17 0501/10/17 05 Results 24 hrs Laboratory Tests Test 01/10/17 16:49 01/10/17 17:05 01/10/17 17:47 01/10/17 18:19 Bedside Glucose 67 L 88 109 169 Test 01/10/17 20:07 01/11/17 02:03 01/11/17 08:13 01/11/17 12:03 Bedside Glucose 208 170 213 102 Medications Medications Current Medications Acetaminophen (Tylenol Tab) 650 mg Q6H PRN PO PAIN AND OR ELEVATED TEMP Last administered on 01/10/17 05:30; Admin Dose 650 MG; Start 01/04/17 at 23:00 Ondansetron HCl (Zofran Inj) 4 mg Q6H PRN IV NAUSEA AND/OR VOMITING; Start 01/04 at 23:00 Metoprolol Tartrate (Lopressor) 25 mg BID PO Last administered on 01/11/17 08: 24; Admin Dose 25 MG; Start 01/05/17 at 09:00 Levothyroxine Sodium (Synthroid) 112 mcg DAILY@06 PO Last administered on 06:16; Admin Dose 112 MCG; Start 01/05/17 at 06:00 Trazodone HCl (Desyrel) 50 mg HS PO Last administered on 01/10/17 20:09; Admin Dose 50 MG; Start 01/05/17 at 21:00 Diagnostic Test (Pha) (Accu-Chek) 1 ea 02 XX Last administered on 01/11/17 02: 08; Admin Dose 1 EA; Start 01/05/17 at 02:00 Miscellaneous Information 1 ea NOTE XX ; Start 01/04/17 at 23:45 Glucose (Glutose) 15 gm Q15M PRN PO DECREASED GLUCOSE; Start 01/04/17 at 23:45 Glucose (Glutose) 22.5 gm Q15M PRN PO DECREASED GLUCOSE; Start 01/04/17 at 23:45 Dextrose (D50w Syringe) 25 ml Q15M PRN IV DECREASED GLUCOSE; Start 01/04/17 at 23:45 Dextrose (D50w Syringe) 50 ml Q15M PRN IV DECREASED GLUCOSE; Start 01/04/17 at 23:45 Glucagon (Glucagen) 1 mg Q15M PRN IM DECREASED GLUCOSE; Start 01/04/17 at 23:45 Glucose (Glutose) 15 gm Q15M PRN BUCCAL DECREASED GLUCOSE; Start 01/04/17 at 23: 45 Ferrous Sulfate (Ferrous Sulfate (Ec)) 325 mg TID PO Last administered on 16:29; Admin Dose 325 MG; Start 01/06/17 at 13:00 Docusate Sodium (Colace) 100 mg BID PO Last administered on 01/11/17 08:21; Admin Dose 100 MG; Start 01/06/17 at 21:00 Enoxaparin Sodium (Lovenox) 40 mg DAILY SC Last administered on 01/11/17 08:45 ; Admin Dose 40 MG; Start 01/08/17 at 09:00 Ciprofloxacin (Cipro) 500 mg BID@06,18 PO Last administered on 01/11/17 06:16 ; Admin Dose 500 MG; Start 01/07/17 at 18:00 Linagliptin (Tradjenta) 5 mg DAILY PO Last administered on 01/11/17 08:22; Admin Dose 5 MG; Start 01/08/17 at 14:30 Insulin Glargine 48 unit 48 unit QAM SC Last administered on 01/11/17 08:46; Admin Dose 48 UNIT; Start 01/10/17 at 09:00 Vancomycin HCl/ Sodium Chloride (Vancocin/NS) 250 ml @ 83.333 mls/ hr Q24H IVPB Last administered on 01/11/17 12:05; Admin Dose 83.333 MLS/HR; Start at 12:00 Morphine Sulfate (morphine) 4 mg Q4H PRN IV PAIN Last administered on 16:33; Admin Dose 4 MG; Start 01/10/17 at 22:30 Fludrocortisone Acetate (Florinef) 0.1 mg DAILY PO ; Start 01/12/17 at 09:00 Hydralazine HCl (Apresoline) 25 mg BID PO ; Start 01/11/17 at 21:00 Lisinopril (Zestril) 5 mg DAILY PO Last administered on 01/11/17 16:30; Admin Dose 5 MG; Start 01/11/17 at 13:30 MARIANA KEENAN MD January 11, 2017 16:37
[2017-01-11 16:40] VITALS: BP 187/78; RESP 18
--- NOTE | 2017-01-11 19:38 | RADRPT ---
PROCEDURE: US guidance for PICC line CLINICAL INDICATION: PICC line placement TECHNIQUE: Multiple real-time images were acquired of the patient's arm utilizing a high resolutio n transducer. This was performed by the PICC line nurse for venous access. COMPARISON: None FINDINGS: Ultrasound guidance for PICC line placement. IMPRESSION: Ultrasound guidance for PICC line placement. RPTAT: AA .Luiz Antony MD, MD Date Time Electronically viewed and signed by .Luiz Antony MD, on 01/11/2017 19:38 .S/
[2017-01-11 20:30] VITALS: BP 131/63; RESP 19
[2017-01-11] MEDS: traZODone 50 MG TAB PO SCH (20:52)
[2017-01-12] MEDS: ACCU-CHEK XX SCH (01:14)
--- NOTE | 2017-01-12 02:00 | RADRPT ---
PROCEDURE: Portable chest x-ray. CLINICAL INDICATION: PICC placement. TECHNIQUE: Portable AP view of the chest. COMPARISON: 05/11/2016. FINDINGS: A left upper extremity PICC terminates at the superior cavoatrial junction. No pulmonary edema or co nolidation is identified. The cardiac silhouette is magnified. No pleural effusion is seen. There is no pneumothorax. IMPRESSION: 1. Left PICC tip at the superior cavoatrial junction. RPTAT: HTAR .Isaiah Foss MD, MD Date Time Electronically viewed and signed by .Isaiah Foss MD, on 01/12/2017 02:00 .R/
[2017-01-12] MEDS: CIPROFLOXACIN 500 MG TAB PO SCH ×2 (05:35→17:39)
[2017-01-12] MEDS: LEVOTHYROXINE 112 MCG TAB PO SCH (05:35)
[2017-01-12 06:17] LABS: ADD SCAN DIFF NO
[2017-01-12 06:26] LABS: BASOPHIL # 0.1 10^3/ul (0.0-0.1); BASOPHILS % 0.6 % (0.0-2.0); EOSINOPHILS # 0.5 10^3/ul (0.0-0.5); HEMATOCRIT 29.1 % (37.0-47.0); HEMOGLOBIN 9.1 g/dl (12.0-16.0); LYMPHOCYTES % 18.4 % (15.0-51.0); MEAN CORPUSCULAR HEMOGLOBIN 26.2 pg (29.0-33.0); MEAN CORPUSCULAR HGB CONC 31.3 g/dl (32.0-37.0); MEAN CORPUSCULAR VOLUME 83.9 fl (82.0-101.0); MONOCYTE # 0.9 10^3/ul (0.3-0.9); MONOCYTES % 8.3 % (0.0-11.0); NEUTROPHIL # 7.1 10^3/ul (1.6-7.5); NEUTROPHILS % 66.8 % (39.0-77.0); PLATELET COUNT 740 10^3/UL (140-415); RED BLOOD COUNT 3.47 10^6/ul (4.20-5.40); RED CELL DISTRIBUTION WIDTH 15.1 % (11.5-14.5); WHITE BLOOD COUNT 10.6 10^3/ul (4.8-10.8)
[2017-01-12 06:51] LABS: ALBUMIN 2.7 g/dl (3.3-4.9); POTASSIUM 4.7 mmol/L (3.5-5.1)
[2017-01-12 06:54] LABS: ALBUMIN/GLOBULIN RATIO 0.64; CALCIUM 8.6 mg/dl (8.4-10.2); CREATININE 1.23 mg/dl (0.44-1.00); TOTAL PROTEIN 6.9 g/dl (6.1-8.1)
[2017-01-12 07:43] VITALS: BP 139/62; RESP 20
[2017-01-12] MEDS: metFORMIN 500 MG TAB PO SCH ×2 (08:08→17:39)
[2017-01-12] MEDS: FERROUS SULFATE (EC) 325 MG TAB PO SCH ×3 (08:11→21:18)
[2017-01-12] MEDS: DOCUSATE SODIUM 100 MG CAP PO SCH ×2 (08:11→21:18)
[2017-01-12] MEDS: FLUDROCORTISONE 0.1 MG TAB PO SCH (08:12)
[2017-01-12] MEDS: METOPROLOL 25 MG TAB PO SCH ×2 (08:13→21:18)
[2017-01-12] MEDS: INSULIN ASPART [NOVOLOG] 3 ML PEN SC SCH ×7 (08:15→21:00)
[2017-01-12] MEDS: ENOXAPARIN 40 MG/0.4 ML SYG SC SCH (08:18)
[2017-01-12] MEDS: LINAGLIPTIN 5 MG TABLET PO SCH (08:19)
[2017-01-12] MEDS: LISINOPRIL 5 MG TAB PO SCH (08:19)
[2017-01-12] MEDS: INSULIN GLARGINE [LANtus] 3 ML PEN SC SCH (08:23)
--- NOTE | 2017-01-12 08:48 | CONS ---
Date/Time of Note Date/Time of Note DATE: 01/12/17 TIME: 08:47 Assessment/Plan Assessment/Plan Additional Assessment/Plan 56yo male with 1. Left ankle cellulitis. 2. Left Charcot ankle status post fusion using bone allograft in July 2016. 3. Diabetes Mellitus with Renal complication , CKD Stage III- stable 4. Essential hypertension. 5. Hyperlipidemia. 6. Anemia.OLGA Overall renal function stable. Non oliguric Cont to monitor electrolytes, volume status and renal function Cont to monitor Vanco levels. S/p IV Iron, On oral Iron BP well controlled. No new recommendations at this time. Consultation Date/Type/Reason Admit Date/Time January 04, 2017 at 19:32 Initial Consult Date 01/06/17 Type of Consultation: Renal Referring Provider: ALICE STAPLES 24 HR Interval Summary Free Text/Dictation No new complaints Exam/Review of Systems Vital Signs Vitals Vital Signs Date Time Temp Pulse Resp B/P Pulse Ox O2 Delivery O2 Flow Rate FiO2 01/12/17 07:43 99.2 83 20 139/62 98 01/10/17 23:30 Room Air Intake and Output 01/11/17 01/11/17 01/12/17 15:00 23:00 07:00 Intake Total 250 ml 1930 ml 720 ml Output Total 0 ml Balance 250 ml 1930 ml 720 ml Exam Constitutional: No distress ENMT: mucosa pink and moist Cardiovascular: No jugular venous distention (JVD) Gastrointestinal: non-tender, soft, No rebound or guarding Neurological: SUPERVISOR FILM PROCESSING II-XII intact, nl mental status, No lethargic Results Result Diagram: 01/12/17 0525 01/12/17 0525 Results 24 hrs Laboratory Tests Test 01/11/17 12:03 01/11/17 18:28 01/11/17 20:47 01/12/17 05:25 Bedside Glucose 102 117 71 White Blood Count 10.6 Red Blood Count 3.47 L Hemoglobin 9.1 L Hematocrit 29.1 L Mean Corpuscular Volume 83.9 Mean Corpuscular Hemoglobin 26.2 L Mean Corpuscular Hemoglobin Concent 31.3 L Red Cell Distribution Width 15.1 H Platelet Count 740 H Mean Platelet Volume 9.0 Neutrophils % 66.8 Lymphocytes % 18.4 Monocytes % 8.3 Eosinophils % 5.0 Basophils % 0.6 Nucleated Red Blood Cells % 0.0 Neutrophils # 7.1 Lymphocytes # 2.0 Monocytes # 0.9 Eosinophils # 0.5 Basophils # 0.1 Nucleated Red Blood Cells # 0.0 Sodium Level 139 Potassium Level 4.7 Chloride Level 106 Carbon Dioxide Level 23 Anion Gap 15 Blood Urea Nitrogen 25 H Creatinine 1.23 H Glucose Level 138 Calcium Level 8.6 Total Bilirubin 0.0 L Direct Bilirubin 0.00 Indirect Bilirubin 0.0 Aspartate Amino Transf (AST/SGOT) 27 Alanine Aminotransferase (ALT/SGPT) 34 Alkaline Phosphatase 356 H Total Protein 6.9 Albumin 2.7 L Globulin 4.20 H Albumin/Globulin Ratio 0.64 Test 01/12/17 07:48 01/12/17 08:01 Lab Scanned Report REFERENCE LAB Bedside Glucose 163 Medications Medications Current Medications Acetaminophen (Tylenol Tab) 650 mg Q6H PRN PO PAIN AND OR ELEVATED TEMP Last administered on 01/10/17 05:30; Admin Dose 650 MG; Start 01/04/17 at 23:00 Ondansetron HCl (Zofran Inj) 4 mg Q6H PRN IV NAUSEA AND/OR VOMITING; Start 01/04 at 23:00 Metoprolol Tartrate (Lopressor) 25 mg BID PO Last administered on 01/12/17 08: 13; Admin Dose 25 MG; Start 01/05/17 at 09:00 Levothyroxine Sodium (Synthroid) 112 mcg DAILY@06 PO Last administered on 05:35; Admin Dose 112 MCG; Start 01/05/17 at 06:00 Trazodone HCl (Desyrel) 50 mg HS PO Last administered on 01/11/17 20:52; Admin Dose 50 MG; Start 01/05/17 at 21:00 Diagnostic Test (Pha) (Accu-Chek) 1 ea 02 XX Last administered on 01/11/17 02: 08; Admin Dose 1 EA; Start 01/05/17 at 02:00 Miscellaneous Information 1 ea NOTE XX ; Start 01/04/17 at 23:45 Glucose (Glutose) 15 gm Q15M PRN PO DECREASED GLUCOSE; Start 01/04/17 at 23:45 Glucose (Glutose) 22.5 gm Q15M PRN PO DECREASED GLUCOSE; Start 01/04/17 at 23:45 Dextrose (D50w Syringe) 25 ml Q15M PRN IV DECREASED GLUCOSE; Start 01/04/17 at 23:45 Dextrose (D50w Syringe) 50 ml Q15M PRN IV DECREASED GLUCOSE; Start 01/04/17 at 23:45 Glucagon (Glucagen) 1 mg Q15M PRN IM DECREASED GLUCOSE; Start 01/04/17 at 23:45 Glucose (Glutose) 15 gm Q15M PRN BUCCAL DECREASED GLUCOSE; Start 01/04/17 at 23: 45 Ferrous Sulfate (Ferrous Sulfate (Ec)) 325 mg TID PO Last administered on 08:11; Admin Dose 325 MG; Start 01/06/17 at 13:00 Docusate Sodium (Colace) 100 mg BID PO Last administered on 01/12/17 08:11; Admin Dose 100 MG; Start 01/06/17 at 21:00 Enoxaparin Sodium (Lovenox) 40 mg DAILY SC Last administered on 01/12/17 08:18 ; Admin Dose 40 MG; Start 01/08/17 at 09:00 Ciprofloxacin (Cipro) 500 mg BID@18 PO Last administered on 01/12/17 05:35 ; Admin Dose 500 MG; Start 01/07/17 at 18:00 Linagliptin (Tradjenta) 5 mg DAILY PO Last administered on 01/12/17 08:19; Admin Dose 5 MG; Start 01/08/17 at 14:30 Insulin Glargine 48 unit 48 unit QAM SC Last administered on 01/12/17 08:23; Admin Dose 48 UNIT; Start 01/10/17 at 09:00 Vancomycin HCl/ Sodium Chloride (Vancocin/NS) 250 ml @ 83.333 mls/ hr Q24H IVPB Last administered on 01/11/17 12:05; Admin Dose 83.333 MLS/HR; Start at 12:00 Morphine Sulfate (morphine) 4 mg Q4H PRN IV PAIN Last administered on 16:33; Admin Dose 4 MG; Start 01/10/17 at 22:30 Fludrocortisone Acetate (Florinef) 0.1 mg DAILY PO Last administered on 08:12; Admin Dose 0.1 MG; Start 01/12/17 at 09:00 Hydralazine HCl (Apresoline) 25 mg BID PO Last administered on 01/12/17 08:11 ; Admin Dose 25 MG; Start 01/11/17 at 21:00 Lisinopril (Zestril) 5 mg DAILY PO Last administered on 01/12/17 08:19; Admin Dose 5 MG; Start 01/11/17 at 13:30 IV Flush (NS 10 ml) 10 ml PRN PRN IV IV PROTOCOL; Start 01/11/17 at 18:30 COLIN VELEZ MD January 12, 2017 08:48
[2017-01-12] MEDS: VANCOMYCIN 1.25 GM in SOD CHLORIDE 0.9% 250 ML IVPB SCH (12:08)
--- NOTE | 2017-01-12 12:55 | CONS ---
Date/Time of Note Date/Time of Note DATE: 01/12/17 TIME: 12:52 Assessment/Plan Assessment/Plan Chief Complaint/Hosp Course 56-year-old female with a history of a Charcot joint status post fixation and surgery last year with fusion. Her blood sugar control has not been ideal and she has been being managed by a family practitioner in the community. Patient reports she did complain about her sugar control however we are where we are. Problems: (1) Hyporeninemic hypoaldosteronism Status: Chronic Comment: Well-controlled and compensated on fludrocortisone (2) Diabetes mellitus with neuropathy Status: Chronic Comment: Blood sugar control is excellent on the current regimen. Qualifiers: Diabetes mellitus type: type 2 Diabetes mellitus skilled nursing insulin use: with intermediate school teacher use Qualified Code: E11.40 - Type 2 diabetes mellitus with diabetic neuropathy, with long-term current use of insulin (3) Osteomyelitis of right ankle Status: Chronic Comment: Decisions regarding duration of treatment ultimate treatments as per infectious disease and Dr. Peacock Qualifiers: Osteomyelitis type: subacute Qualified Code: M86.271 - Subacute osteomyelitis of right ankle (4) Hypothyroidism Status: Chronic Comment: Stable on replacement therapy Qualifiers: Hypothyroidism type: acquired Qualified Code: E03.9 - Acquired hypothyroidism (5) Diabetic nephropathy Status: Chronic Comment: She is tolerating the usage of the JANE inhibitor in the setting. His lisinopril 10 mg with a fludrocortisone to avoid the hyperkalemia. This would allow decrease in dosage of the other medications. I would continue the metoprolol low-dose Qualifiers: Diabetes mellitus type: type 2 Qualified Code: E11.21 - Diabetic nephropathy associated with type 2 diabetes mellitus (6) Iron deficiency anemia Status: Chronic Comment: This is coming along nicely. The ultimate cause of this still needs to be investigated in this 56-year-old woman Qualifiers: Iron deficiency anemia type: unspecified iron deficiency Qualified Code: D50.9 - Iron deficiency anemia, unspecified iron deficiency anemia type (7) Charcot foot due to diabetes mellitus Status: Chronic Comment: As above and per APC (8) Hypertension Status: Chronic Comment: Well-controlled Qualifiers: Hypertension type: essential hypertension Qualified Code: I10 - Essential hypertension (9) Morbid obesity Status: Chronic Comment: Calorie restriction diet Qualifiers: Obesity type: due to excess calories Qualified Code: E66.01 - Morbid obesity due to excess calories Consultation Date/Type/Reason Admit Date/Time January 04, 2017 at 19:32 Initial Consult Date 01/05/17 Type of Consultation: Endocrinology Reason for Consultation Diabetes mellitus type 2 with complications of nephropathy and chronic kidney disease; acute kidney injury; iron deficiency anemia; hypertension; hyperlipidemia; peripheral neuropathy; Charcot joint with osteomyelitis Referring Provider: ALICE STAPLES 24 HR Interval Summary Constitutional: no complaints (No fevers chills or sweats) Exam/Review of Systems Vital Signs Vitals Vital Signs Date Time Temp Pulse Resp B/P Pulse Ox O2 Delivery O2 Flow Rate FiO2 01/12/17 07:43 99.2 83 20 139/62 98 01/10/17 23:30 Room Air Intake and Output 01/11/17 01/11/17 01/12/17 15:00 23:00 07:00 Intake Total 250 ml 1930 ml 720 ml Output Total 0 ml Balance 250 ml 1930 ml 720 ml Exam Constitutional: alert, oriented Neck: non-tender, supple Respiratory: clear to auscultation, normal air movement Cardiovascular: nl pulses, regular rate and rhythm Results Result Diagram: 01/12/17 0525 01/12/17 0525 Results 24 hrs Laboratory Tests Test 01/11/17 18:28 01/11/17 20:47 01/12/17 05:25 01/12/17 07:48 Bedside Glucose 117 71 White Blood Count 10.6 Red Blood Count 3.47 L Hemoglobin 9.1 L Hematocrit 29.1 L Mean Corpuscular Volume 83.9 Mean Corpuscular Hemoglobin 26.2 L Mean Corpuscular Hemoglobin Concent 31.3 L Red Cell Distribution Width 15.1 H Platelet Count 740 H Mean Platelet Volume 9.0 Neutrophils % 66.8 Lymphocytes % 18.4 Monocytes % 8.3 Eosinophils % 5.0 Basophils % 0.6 Nucleated Red Blood Cells % 0.0 Neutrophils # 7.1 Lymphocytes # 2.0 Monocytes # 0.9 Eosinophils # 0.5 Basophils # 0.1 Nucleated Red Blood Cells # 0.0 Erythrocyte Sedimentation Rate 135 H Sodium Level 139 Potassium Level 4.7 Chloride Level 106 Carbon Dioxide Level 23 Anion Gap 15 Blood Urea Nitrogen 25 H Creatinine 1.23 H Glucose Level 138 Calcium Level 8.6 Total Bilirubin 0.0 L Direct Bilirubin 0.00 Indirect Bilirubin 0.0 Aspartate Amino Transf (AST/SGOT) 27 Alanine Aminotransferase (ALT/SGPT) 34 Alkaline Phosphatase 356 H Total Protein 6.9 Albumin 2.7 L Globulin 4.20 H Albumin/Globulin Ratio 0.64 Lab Scanned Report REFERENCE LAB Test 01/12/17 08:01 01/12/17 12:12 Bedside Glucose 163 173 Medications Medications Current Medications Acetaminophen (Tylenol Tab) 650 mg Q6H PRN PO PAIN AND OR ELEVATED TEMP Last administered on 01/10/17 05:30; Admin Dose 650 MG; Start 01/04/17 at 23:00 Ondansetron HCl (Zofran Inj) 4 mg Q6H PRN IV NAUSEA AND/OR VOMITING; Start 01/04 at 23:00 Metoprolol Tartrate (Lopressor) 25 mg BID PO Last administered on 01/12/17 08: 13; Admin Dose 25 MG; Start 01/05/17 at 09:00 Levothyroxine Sodium (Synthroid) 112 mcg DAILY@06 PO Last administered on 05:35; Admin Dose 112 MCG; Start 01/05/17 at 06:00 Trazodone HCl (Desyrel) 50 mg HS PO Last administered on 01/11/17 20:52; Admin Dose 50 MG; Start 01/05/17 at 21:00 Diagnostic Test (Pha) (Accu-Chek) 1 ea 02 XX Last administered on 01/11/17 02: 08; Admin Dose 1 EA; Start 01/05/17 at 02:00 Miscellaneous Information 1 ea NOTE XX ; Start 01/04/17 at 23:45 Glucose (Glutose) 15 gm Q15M PRN PO DECREASED GLUCOSE; Start 01/04/17 at 23:45 Glucose (Glutose) 22.5 gm Q15M PRN PO DECREASED GLUCOSE; Start 01/04/17 at 23:45 Dextrose (D50w Syringe) 25 ml Q15M PRN IV DECREASED GLUCOSE; Start 01/04/17 at 23:45 Dextrose (D50w Syringe) 50 ml Q15M PRN IV DECREASED GLUCOSE; Start 01/04/17 at 23:45 Glucagon (Glucagen) 1 mg Q15M PRN IM DECREASED GLUCOSE; Start 01/04/17 at 23:45 Glucose (Glutose) 15 gm Q15M PRN BUCCAL DECREASED GLUCOSE; Start 01/04/17 at 23: 45 Ferrous Sulfate (Ferrous Sulfate (Ec)) 325 mg TID PO Last administered on 12:18; Admin Dose 325 MG; Start 01/06/17 at 13:00 Docusate Sodium (Colace) 100 mg BID PO Last administered on 01/12/17 08:11; Admin Dose 100 MG; Start 01/06/17 at 21:00 Enoxaparin Sodium (Lovenox) 40 mg DAILY SC Last administered on 01/12/17 08:18 ; Admin Dose 40 MG; Start 01/08/17 at 09:00 Ciprofloxacin (Cipro) 500 mg BID@,18 PO Last administered on 01/12/17 05:35 ; Admin Dose 500 MG; Start 01/07/17 at 18:00 Linagliptin (Tradjenta) 5 mg DAILY PO Last administered on 01/12/17 08:19; Admin Dose 5 MG; Start 01/08/17 at 14:30 Insulin Glargine 48 unit 48 unit QAM SC Last administered on 01/12/17 08:23; Admin Dose 48 UNIT; Start 01/10/17 at 09:00 Vancomycin HCl/ Sodium Chloride (Vancocin/NS) 250 ml @ 83.333 mls/ hr Q24H IVPB Last administered on 01/12/17 12:08; Admin Dose 83.333 MLS/HR; Start at 12:00 Morphine Sulfate (morphine) 4 mg Q4H PRN IV PAIN Last administered on 16:33; Admin Dose 4 MG; Start 01/10/17 at 22:30 Fludrocortisone Acetate (Florinef) 0.1 mg DAILY PO Last administered on 08:12; Admin Dose 0.1 MG; Start 01/12/17 at 09:00 Hydralazine HCl (Apresoline) 25 mg BID PO Last administered on 01/12/17 08:11 ; Admin Dose 25 MG; Start 01/11/17 at 21:00 Lisinopril (Zestril) 5 mg DAILY PO Last administered on 01/12/17 08:19; Admin Dose 5 MG; Start 01/11/17 at 13:30 IV Flush 10 ml 10 ml PRN PRN IV IV PROTOCOL; Start 01/11/17 at 18:30 Ferric Sodium Gluconate Complex/ Sodium Chloride (Ferrlecit/NS) 110 ml @ 100 mls/hr ONCE ONCE IVPB ; Start 01/12/17 at 14:30; Stop 01/12/17 at 15:35 JACE TURNER MD January 12, 2017 12:55
[2017-01-12] MEDS ORDERED: LACTATED RINGER'S 500 ML IV ONE (13:00)
[2017-01-12] MEDS: morphine 4 MG/ML VIAL IV PRN (13:46)
--- NOTE | 2017-01-12 14:08 | CONS ---
Date/Time of Note Date/Time of Note DATE: 01/12/17 TIME: 14:07 Assessment/Plan Assessment/Plan Chief Complaint/Hosp Course SUBJECTIVE: No acute events, alert, feels good, no fevers MICROBIOLOGY: Blood culture growing PSA. ANTIMICROBIALS: The patient is on 1. IV vancomycin. 2. Cipro. PHYSICAL EXAMINATION: GENERAL: Obese, well-developed, middle-aged woman who is alert, in no distress. HEENT: Head atraumatic, normocephalic. Sclerae anicteric. Buccal mucosa dry. NECK: Obese. CHEST: Rise symmetrical. Breath sounds clear. HEART: S1, S2. ABDOMEN: Soft, bowel tones present. EXTREMITIES: Left lower extremity swelling, deformity and edema. The patient has an ulcer wound on the back of the foot. ASSESSMENT: 1. Systemic inflammatory response syndrome. 2. Gram-negative erma bacteremia, likely secondary to infected left foot. 3. Diabetes. 4. Left Charcot ankle status post fusion using allograft, MRI report + OM, ? septic arthritis, poss infected hardware 5. Obesity. PLAN: Remains stable, pending PICC, will need to be on current abx for 6-8 weeks , f/u podiatry rec-s [facility] staff Problems: Consultation Date/Type/Reason Admit Date/Time January 04, 2017 at 19:32 Initial Consult Date 01/06/17 Type of Consultation: ID Referring Provider: [employer] Exam/Review of Systems Vital Signs Vitals Vital Signs Date Time Temp Pulse Resp B/P Pulse Ox O2 Delivery O2 Flow Rate FiO2 01/12/17 07:43 99.2 83 20 139/62 98 01/10/17 23:30 Room Air Intake and Output 01/11/17 01/11/17 01/12/17 14:59 22:59 06:59 Intake Total 2180 ml 720 ml Output Total 0 ml Balance 2180 ml 720 ml Results Result Diagram: 01/12/17 0525 01/12/17 0525 Results 24 hrs Laboratory Tests Test 01/11/17 18:28 01/11/17 20:47 01/12/17 05:25 01/12/17 07:48 Bedside Glucose 117 71 White Blood Count 10.6 Red Blood Count 3.47 L Hemoglobin 9.1 L Hematocrit 29.1 L Mean Corpuscular Volume 83.9 Mean Corpuscular Hemoglobin 26.2 L Mean Corpuscular Hemoglobin Concent 31.3 L Red Cell Distribution Width 15.1 H Platelet Count 740 H Mean Platelet Volume 9.0 Neutrophils % 66.8 Lymphocytes % 18.4 Monocytes % 8.3 Eosinophils % 5.0 Basophils % 0.6 Nucleated Red Blood Cells % 0.0 Neutrophils # 7.1 Lymphocytes # 2.0 Monocytes # 0.9 Eosinophils # 0.5 Basophils # 0.1 Nucleated Red Blood Cells # 0.0 Erythrocyte Sedimentation Rate 135 H Sodium Level 139 Potassium Level 4.7 Chloride Level 106 Carbon Dioxide Level 23 Anion Gap 15 Blood Urea Nitrogen 25 H Creatinine 1.23 H Glucose Level 138 Calcium Level 8.6 Total Bilirubin 0.0 L Direct Bilirubin 0.00 Indirect Bilirubin 0.0 Aspartate Amino Transf (AST/SGOT) 27 Alanine Aminotransferase (ALT/SGPT) 34 Alkaline Phosphatase 356 H Total Protein 6.9 Albumin 2.7 L Globulin 4.20 H Albumin/Globulin Ratio 0.64 Vitamin D 1,25-Dihydroxy < 12.8 L Lab Scanned Report REFERENCE LAB Test 01/12/17 08:01 01/12/17 12:12 Bedside Glucose 163 173 Medications Medications Current Medications Acetaminophen (Tylenol Tab) 650 mg Q6H PRN PO PAIN AND OR ELEVATED TEMP Last administered on 01/10/17 05:30; Admin Dose 650 MG; Start 01/04/17 at 23:00 Ondansetron HCl (Zofran Inj) 4 mg Q6H PRN IV NAUSEA AND/OR VOMITING; Start 01/04 at 23:00 Metoprolol Tartrate (Lopressor) 25 mg BID PO Last administered on 01/12/17 08: 13; Admin Dose 25 MG; Start 01/05/17 at 09:00 Levothyroxine Sodium (Synthroid) 112 mcg DAILY@06 PO Last administered on 05:35; Admin Dose 112 MCG; Start 01/05/17 at 06:00 Trazodone HCl (Desyrel) 50 mg HS PO Last administered on 01/11/17 20:52; Admin Dose 50 MG; Start 01/05/17 at 21:00 Diagnostic Test (Pha) (Accu-Chek) 1 ea 02 XX Last administered on 01/11/17 02: 08; Admin Dose 1 EA; Start 01/05/17 at 02:00 Miscellaneous Information 1 ea NOTE XX ; Start 01/04/17 at 23:45 Glucose (Glutose) 15 gm Q15M PRN PO DECREASED GLUCOSE; Start 01/04/17 at 23:45 Glucose (Glutose) 22.5 gm Q15M PRN PO DECREASED GLUCOSE; Start 01/04/17 at 23:45 Dextrose (D50w Syringe) 25 ml Q15M PRN IV DECREASED GLUCOSE; Start 01/04/17 at 23:45 Dextrose (D50w Syringe) 50 ml Q15M PRN IV DECREASED GLUCOSE; Start 01/04/17 at 23:45 Glucagon (Glucagen) 1 mg Q15M PRN IM DECREASED GLUCOSE; Start 01/04/17 at 23:45 Glucose (Glutose) 15 gm Q15M PRN BUCCAL DECREASED GLUCOSE; Start 01/04/17 at 23: 45 Ferrous Sulfate (Ferrous Sulfate (Ec)) 325 mg TID PO Last administered on 12:18; Admin Dose 325 MG; Start 01/06/17 at 13:00; Stop 02/20/17 at 12:59 Docusate Sodium (Colace) 100 mg BID PO Last administered on 01/12/17 08:11; Admin Dose 100 MG; Start 01/06/17 at 21:00 Enoxaparin Sodium (Lovenox) 40 mg DAILY SC Last administered on 01/12/17 08:18 ; Admin Dose 40 MG; Start 01/08/17 at 09:00 Ciprofloxacin (Cipro) 500 mg BID@06,18 PO Last administered on 01/12/17 05:35 ; Admin Dose 500 MG; Start 01/07/17 at 18:00 Linagliptin (Tradjenta) 5 mg DAILY PO Last administered on 01/12/17 08:19; Admin Dose 5 MG; Start 01/08/17 at 14:30 Insulin Glargine 48 unit 48 unit QAM SC Last administered on 01/12/17 08:23; Admin Dose 48 UNIT; Start 01/10/17 at 09:00 Vancomycin HCl/ Sodium Chloride (Vancocin/NS) 250 ml @ 83.333 mls/ hr Q24H IVPB Last administered on 01/12/17 12:08; Admin Dose 83.333 MLS/HR; Start at 12:00 Morphine Sulfate (morphine) 4 mg Q4H PRN IV PAIN Last administered on 13:46; Admin Dose 4 MG; Start 01/10/17 at 22:30 Fludrocortisone Acetate (Florinef) 0.1 mg DAILY PO Last administered on 08:12; Admin Dose 0.1 MG; Start 01/12/17 at 09:00 Hydralazine HCl (Apresoline) 25 mg BID PO Last administered on 01/12/17 08:11 ; Admin Dose 25 MG; Start 01/11/17 at 21:00 IV Flush 10 ml 10 ml PRN PRN IV IV PROTOCOL; Start 01/11/17 at 18:30 Ferric Sodium Gluconate Complex/ Sodium Chloride (Ferrlecit/NS) 110 ml @ 100 mls/hr ONCE ONCE IVPB ; Start 01/12/17 at 14:30; Stop 01/12/17 at 15:35 Lisinopril (Zestril) 10 mg DAILY PO ; Start 01/13/17 at 09:00 NUBIA MONTANEZ NP January 12, 2017 14:08
[2017-01-12] MEDS ORDERED: SOD FERRIC GLUC COMPLX 125 MG in SOD CHLORIDE 0.9% 100 ML IVPB ONE (14:30)
--- NOTE | 2017-01-12 19:57 | PN ---
Date/Time of Note Date/Time of Note DATE: 01/12/17 TIME: 19:55 Assessment/Plan VTE Prophylaxis VTE Prophylaxis Intervention: LMWH Lines/Catheters IV Catheter Type (from Nrs): PICC Line Central line still needed: Yes (IV abx for osteomyelitis ) Urinary Cath still in place: No Assessment/Plan Assessment/Plan 1. Left ankle cellulitis. Continue on antibiotics. Continue with ID recommendations. No plan for surgery at this time per podiatry. blood cultures showed pseudomonas. Discussed with ID consult, MRI showed changes c/w osteomyelitis 2. History of left Charcot ankle status post fusion using bone allograft in July 2016. Podiatry following 3. Uncontrolled diabetes. A1c at 13. Continue insulin regimen per tail trimmer. stable 4. Essential hypertension. Continue antihypertensives and adjust as needed 5. Hyperlipidemia. stable at present. Will monitor. 6. Acute kidney injury. Continue IV hydration. continue with nephro recs . stable 7. Anemia. With iron deficiency anemia. continue iron supplement 8. Reported cephalgia with right upper extremity weakness. CT scan of the head was negative for any acute intracranial findings. Resolved at present. Will monitor 9.Bilateral lower extremity atherosclerosis. Patient did have arterial study done that showed normal flow in the left superficial femoral artery, popliteal artery home and Arteries which may indicate significant stenosis. Continue anticoagulation. lovenox for DVT prophylaxis Disposition and plan: MRI foot showed OM but it showed loosening of intramedullary nail- as per podiatry non weightberaring and IV abx with home health on discharge Exam/Review of Systems Vital Signs Vitals Vital Signs Date Time Temp Pulse Resp B/P Pulse Ox O2 Delivery O2 Flow Rate FiO2 01/12/17 07:43 99.2 83 20 139/62 98 01/10/17 23:30 Room Air Intake and Output 01/11/17 01/11/17 01/12/17 14:59 22:59 06:59 Intake Total 2180 ml 720 ml Output Total 0 ml Balance 2180 ml 720 ml Exam GENERAL: Obese, well-developed, middle-aged woman who is alert, in no distress. HEENT: Head atraumatic, normocephalic. Sclerae anicteric. Buccal mucosa dry. NECK: Obese. CHEST: Rise symmetrical. Breath sounds clear. HEART: S1, S2. ABDOMEN: Soft, bowel tones present. EXTREMITIES: Left lower extremity swelling, deformity and edema. The patient has an ulcer wound on the back of the foot. Results Result Diagram: 01/12/1725 01/12/17 0525 Results 24 hrs Laboratory Tests Test 01/11/17 20:47 01/12/17 05:25 01/12/17 07:48 01/12/17 08:01 Bedside Glucose 71 163 White Blood Count 10.6 Red Blood Count 3.47 L Hemoglobin 9.1 L Hematocrit 29.1 L Mean Corpuscular Volume 83.9 Mean Corpuscular Hemoglobin 26.2 L Mean Corpuscular Hemoglobin Concent 31.3 L Red Cell Distribution Width 15.1 H Platelet Count 740 H Mean Platelet Volume 9.0 Neutrophils % 66.8 Lymphocytes % 18.4 Monocytes % 8.3 Eosinophils % 5.0 Basophils % 0.6 Nucleated Red Blood Cells % 0.0 Neutrophils # 7.1 Lymphocytes # 2.0 Monocytes # 0.9 Eosinophils # 0.5 Basophils # 0.1 Nucleated Red Blood Cells # 0.0 Erythrocyte Sedimentation Rate 135 H Sodium Level 139 Potassium Level 4.7 Chloride Level 106 Carbon Dioxide Level 23 Anion Gap 15 Blood Urea Nitrogen 25 H Creatinine 1.23 H Glucose Level 138 Calcium Level 8.6 Total Bilirubin 0.0 L Direct Bilirubin 0.00 Indirect Bilirubin 0.0 Aspartate Amino Transf (AST/SGOT) 27 Alanine Aminotransferase (ALT/SGPT) 34 Alkaline Phosphatase 356 H Total Protein 6.9 Albumin 2.7 L Globulin 4.20 H Albumin/Globulin Ratio 0.64 Vitamin D 1,25-Dihydroxy < 12.8 L Lab Scanned Report REFERENCE LAB Test 01/12/17 12:12 01/12/17 12:35 01/12/17 14:24 01/12/17 14:53 Bedside Glucose 173 61 L 100 Hepatitis B Surface Antigen NEGATIVE Hepatitis C Antibody NEGATIVE Test 01/12/17 15:33 01/12/17 17:38 Bedside Glucose 125 157 Medications Medications Current Medications Acetaminophen (Tylenol Tab) 650 mg Q6H PRN PO PAIN AND OR ELEVATED TEMP Last administered on 01/10/17t 05:30; Admin Dose 650 MG; Start 01/04/17 at 23:00 Ondansetron HCl (Zofran Inj) 4 mg Q6H PRN IV NAUSEA AND/OR VOMITING; Start 01/04 at 23:00 Metoprolol Tartrate (Lopressor) 25 mg BID PO Last administered on 01/12/17 08: 13; Admin Dose 25 MG; Start 01/05/17 at 09:00 Levothyroxine Sodium (Synthroid) 112 mcg DAILY@06 PO Last administered on 05:35; Admin Dose 112 MCG; Start 01/05/17 at 06:00 Trazodone HCl (Desyrel) 50 mg HS PO Last administered on 01/11/17 20:52; Admin Dose 50 MG; Start 01/05/17 at 21:00 Diagnostic Test (Pha) (Accu-Chek) 1 ea 02 XX Last administered on 01/11/17 02: 08; Admin Dose 1 EA; Start 01/05/17 at 02:00 Miscellaneous Information 1 ea NOTE XX ; Start 01/04/17 at 23:45 Glucose (Glutose) 15 gm Q15M PRN PO DECREASED GLUCOSE; Start 01/04/17 at 23:45 Glucose (Glutose) 22.5 gm Q15M PRN PO DECREASED GLUCOSE; Start 01/04/17 at 23:45 Dextrose (D50w Syringe) 25 ml Q15M PRN IV DECREASED GLUCOSE; Start 01/04/17 at 23:45 Dextrose (D50w Syringe) 50 ml Q15M PRN IV DECREASED GLUCOSE; Start 01/04/17 at 23:45 Glucagon (Glucagen) 1 mg Q15M PRN IM DECREASED GLUCOSE; Start 01/04/17 at 23:45 Glucose (Glutose) 15 gm Q15M PRN BUCCAL DECREASED GLUCOSE; Start 01/04/17 at 23: 45 Ferrous Sulfate (Ferrous Sulfate (Ec)) 325 mg TID PO Last administered on 12:18; Admin Dose 325 MG; Start 01/06/17 at 13:00; Stop 02/20/17 at 12:59 Docusate Sodium (Colace) 100 mg BID PO Last administered on 01/12/17 08:11; Admin Dose 100 MG; Start 01/06/17 at 21:00 Enoxaparin Sodium (Lovenox) 40 mg DAILY SC Last administered on 01/12/17 08:18 ; Admin Dose 40 MG; Start 01/08/17 at 09:00 Ciprofloxacin (Cipro) 500 mg BID@,18 PO Last administered on 5/17/17at 17:39 ; Admin Dose 500 MG; Start 01/07/17 at 18:00 Linagliptin (Tradjenta) 5 mg DAILY PO Last administered on 01/12/17 08:19; Admin Dose 5 MG; Start 01/08/17 at 14:30 Insulin Glargine 48 unit 48 unit QAM SC Last administered on 01/12/17 08:23; Admin Dose 48 UNIT; Start 01/10/17 at 09:00 Vancomycin HCl/ Sodium Chloride (Vancocin/NS) 250 ml @ 83.333 mls/ hr Q24H IVPB Last administered on 01/12/17 12:08; Admin Dose 83.333 MLS/HR; Start at 12:00 Morphine Sulfate (morphine) 4 mg Q4H PRN IV PAIN Last administered on 13:46; Admin Dose 4 MG; Start 01/10/17 at 22:30 Fludrocortisone Acetate (Florinef) 0.1 mg DAILY PO Last administered on 08:12; Admin Dose 0.1 MG; Start 01/12/17 at 09:00 Hydralazine HCl (Apresoline) 25 mg BID PO Last administered on 01/12/17 08:11 ; Admin Dose 25 MG; Start 01/11/17 at 21:00 IV Flush (NS 10 ml) 10 ml PRN PRN IV IV PROTOCOL; Start 01/11/17 at 18:30 Lisinopril (Zestril) 10 mg DAILY PO ; Start 01/13/17 at 09:00 MARIANA KEENAN MD January 12, 2017 19:57
[2017-01-12 20:13] VITALS: BP 150/68; RESP 18
[2017-01-12] MEDS: traZODone 50 MG TAB PO SCH (21:19)
--- NOTE | 2017-01-12 21:35 | PN ---
Date/Time of Note Date/Time of Note DATE: 01/12/17 TIME: 21:31 Assessment/Plan Lines/Catheters IV Catheter Type (from Nrs): PICC Line Ramos in Place (from Nrs): No Assessment/Plan Problems: (1) Charcot foot due to diabetes mellitus Status: Chronic (2) Cellulitis of left ankle Status: Acute (3) Cellulitis of foot, left Status: Acute (4) Diabetes mellitus with neuropathy Status: Chronic Qualifiers: Diabetes mellitus type: type 2 Diabetes mellitus fpc insulin use: with long term acute care registered nurse use Qualified Code: E11.40 - Type 2 diabetes mellitus with diabetic neuropathy, with long-term current use of insulin (5) Morbid obesity Status: Chronic Qualifiers: Obesity type: due to excess calories Qualified Code: E66.01 - Morbid obesity due to excess calories Assessment/Plan Although patient has been on IV antibiotics and is responding well to the erythema that was present around the ankle joint, she continues to have swelling of the ankle joint and nonunion of her left ankle fusion site. Patient 's peripheral vascular status on the left lower extremity is severely compromised with only 1 vessel runoff into the foot which is located anteriorly and dorsally on the foot. Patient's condition is severe and she most likely will require removal of hardware with application of external fixation device in order to facilitate healing of her ankle. If her ankle joint is not fused properly, she will require reconstructive surgery. If reconstructive surgery fails, she may require a below-knee amputation. I would like her to continue IV antibiotics for the next 4-6 weeks at home. Patient is to remain nonweightbearing on the left lower extremity. Patient may be discharged home as per foot and ankle surgery. Patient will be followed up at the clinic in [facility] (amputation prevention center). Prior authorization to be obtained for her follow-up visit. Subjective 24 Hr Interval Summary Patient was seen and examined at bedside. She has received her PICC line. Patient denies any pain in her left ankle. Reports she has received her IV antibiotics today. Denies chest pain and shortness of breath. Reports continued swelling of her left ankle. Constitutional: no complaints Pain Control: well controlled Exam/Review of Systems Vital Signs Vitals Vital Signs Date Time Temp Pulse Resp B/P Pulse Ox O2 Delivery O2 Flow Rate FiO2 01/12/17 20:13 98.2 96 18 150/68 98 01/10/17 23:30 Room Air Intake and Output 01/11/17 01/11/17 01/12/17 15:00 23:00 07:00 Intake Total 250 ml 1930 ml 720 ml Output Total 0 ml Balance 250 ml 1930 ml 720 ml Exam Free Text/Dictation Patient is morbidly obese laying supine in bed in no acute distress. PICC line is present on the left upper arm. Left lower leg swelling continues specially around the ankle joint. There is motion noted at the ankle joint with crepitus. The ankle is warm to touch but there is no more erythema noted. There is no active open wound and no drainage or malodor. Patient has a week perforating peroneal pulse at the anterior ankle with no palpable pulse of the posterior tibial artery or dorsalis pedis artery. Labs and imaging reviewed. Results Result Diagram: 01/12/17 0525 01/12/17 0525 ELLA ORTIZ DPM January 12, 2017 21:35
[2017-01-13] MEDS: ACCU-CHEK XX SCH (02:00)
[2017-01-13] MEDS: CIPROFLOXACIN 500 MG TAB PO SCH ×2 (05:17→17:47)
[2017-01-13] MEDS: LEVOTHYROXINE 112 MCG TAB PO SCH (05:17)
[2017-01-13 05:37] LABS: ADD SCAN DIFF NO
[2017-01-13 05:43] LABS: BASOPHIL # 0.1 10^3/ul (0.0-0.1); BASOPHILS % 0.5 % (0.0-2.0); EOSINOPHILS # 0.6 10^3/ul (0.0-0.5); HEMATOCRIT 28.7 % (37.0-47.0); HEMOGLOBIN 8.9 g/dl (12.0-16.0); LYMPHOCYTES # 1.8 10^3/ul (0.8-2.9); LYMPHOCYTES % 15.7 % (15.0-51.0); MEAN CORPUSCULAR HEMOGLOBIN 25.9 pg (29.0-33.0); MEAN CORPUSCULAR VOLUME 83.7 fl (82.0-101.0); MEAN PLATELET VOLUME 8.7 fl (7.4-10.4); MONOCYTES % 8.3 % (0.0-11.0); NEUTROPHIL # 8.1 10^3/ul (1.6-7.5); NEUTROPHILS % 69.4 % (39.0-77.0); RED BLOOD COUNT 3.43 10^6/ul (4.20-5.40); RED CELL DISTRIBUTION WIDTH 14.8 % (11.5-14.5); WHITE BLOOD COUNT 11.6 10^3/ul (4.8-10.8)
[2017-01-13 05:50] LABS: PLATELET COUNT 683 10^3/UL (140-415)
[2017-01-13 06:03] LABS: MAGNESIUM 1.7 mg/dl (1.7-2.5); PHOSPHORUS 4.4 mg/dl (2.5-4.9)
[2017-01-13 06:07] LABS: POTASSIUM 4.6 mmol/L (3.5-5.1)
[2017-01-13 06:09] LABS: CREATININE 1.22 mg/dl (0.44-1.00)
[2017-01-13 06:10] LABS: CALCIUM 8.5 mg/dl (8.4-10.2)
[2017-01-13 07:59] VITALS: BP 155/67; RESP 16
[2017-01-13] MEDS: LINAGLIPTIN 5 MG TABLET PO SCH (08:06)
[2017-01-13] MEDS: FERROUS SULFATE (EC) 325 MG TAB PO SCH ×2 (08:06→12:24)
[2017-01-13] MEDS: DOCUSATE SODIUM 100 MG CAP PO SCH (08:06)
[2017-01-13] MEDS: metFORMIN 500 MG TAB PO SCH ×2 (08:07→17:47)
[2017-01-13] MEDS: METOPROLOL 25 MG TAB PO SCH (08:07)
[2017-01-13] MEDS: FLUDROCORTISONE 0.1 MG TAB PO SCH (08:08)
[2017-01-13] MEDS: morphine 4 MG/ML VIAL IV PRN (08:10)
[2017-01-13] MEDS: INSULIN ASPART [NOVOLOG] 3 ML PEN SC SCH ×6 (08:18→17:44)
[2017-01-13] MEDS: ENOXAPARIN 40 MG/0.4 ML SYG SC SCH (08:18)
[2017-01-13] MEDS ORDERED: LISINOPRIL 10 MG TAB PO SCH (09:00)
[2017-01-13] MEDS: INSULIN GLARGINE [LANtus] 3 ML PEN SC SCH (09:10)
[2017-01-13] MEDS: ACETAMINOPHEN 325 MG TAB PO PRN (10:32)
--- NOTE | 2017-01-13 11:50 | PN ---
Date/Time of Note Date/Time of Note DATE: 01/13/17 TIME: 11:47 Assessment/Plan VTE Prophylaxis VTE Prophylaxis Intervention: LMWH Lines/Catheters IV Catheter Type (from Nrs): PICC Line Central line still needed: Yes (long term care social worker IV abx for osteomyelitis ) Urinary Cath still in place: No Assessment/Plan Assessment/Plan 1. Left ankle cellulitis. Continue on antibiotics. Continue with ID recommendations. No plan for surgery at this time per podiatry. blood cultures showed pseudomonas. Discussed with ID consult, MRI showed changes c/w osteomyelitis 2. History of left Charcot ankle status post fusion using bone allograft in July 2016. Podiatry following 3. Uncontrolled diabetes. A1c at 13. Continue insulin regimen per radio technician. stable 4. Essential hypertension. Continue antihypertensives and adjust as needed 5. Hyperlipidemia. stable at present. Will monitor. 6. Acute kidney injury. Continue IV hydration. continue with nephro recs . stable 7. Anemia. With iron deficiency anemia. continue iron supplement 8. Reported cephalgia with right upper extremity weakness. CT scan of the head was negative for any acute intracranial findings. Resolved at present. Will monitor 9.Bilateral lower extremity atherosclerosis. Patient did have arterial study done that showed normal flow in the left superficial femoral artery, popliteal artery home and Arteries which may indicate significant stenosis. Continue anticoagulation. lovenox for DVT prophylaxis Disposition and plan: MRI foot showed OM but it showed loosening of intramedullary nail- s/p Podiatry follow up, recommended to get 6-8 weeks of IV abx, Need [facility] follow up with then will decide about Surgical intervention or not Subjective 24 Hr Interval Summary Free Text/Dictation doing better, s/p Podiatry follow up, recommended to get 6-8 weeks of IV abx, Need [facility] follow up with Exam/Review of Systems Vital Signs Vitals Vital Signs Date Time Temp Pulse Resp B/P Pulse Ox O2 Delivery O2 Flow Rate FiO2 01/13/17 07:59 98.2 76 16 155/67 96 01/12/17 20:00 Room Air Intake and Output 01/12/17 01/12/17 01/13/17 15:00 23:00 07:00 Intake Total 2082 ml 460 ml Balance 2082 ml 460 ml Exam GENERAL: Obese, well-developed, middle-aged woman who is alert, in no distress. HEENT: Head atraumatic, normocephalic. Sclerae anicteric. Buccal mucosa dry. NECK: Obese. CHEST: Rise symmetrical. Breath sounds clear. HEART: S1, S2. ABDOMEN: Soft, bowel tones present. EXTREMITIES: Left lower extremity swelling, deformity and edema. The patient has an ulcer wound on the back of the foot. Results Result Diagram: 01/13/17 0515 01/13/17 0515 Results 24 hrs Laboratory Tests Test 01/12/17 12:12 01/12/17 12:35 01/12/17 14:24 01/12/17 14:53 Bedside Glucose 173 61 L 100 Hepatitis B Surface Antigen NEGATIVE Hepatitis C Antibody NEGATIVE Test 01/12/17 15:33 01/12/17 17:38 01/12/17 21:17 01/13/17 05:15 Bedside Glucose 125 157 141 White Blood Count 11.6 H Red Blood Count 3.43 L Hemoglobin 8.9 L Hematocrit 28.7 L Mean Corpuscular Volume 83.7 Mean Corpuscular Hemoglobin 25.9 L Mean Corpuscular Hemoglobin Concent 31.0 L Red Cell Distribution Width 14.8 H Platelet Count 683 H Mean Platelet Volume 8.7 Neutrophils % 69.4 Lymphocytes % 15.7 Monocytes % 8.3 Eosinophils % 5.0 Basophils % 0.5 Nucleated Red Blood Cells % 0.0 Neutrophils # 8.1 H Lymphocytes # 1.8 Monocytes # 1.0 H Eosinophils # 0.6 H Basophils # 0.1 Nucleated Red Blood Cells # 0.0 Sodium Level 138 Potassium Level 4.6 Chloride Level 105 Carbon Dioxide Level 24 Anion Gap 14 Blood Urea Nitrogen 22 H Creatinine 1.22 H Glucose Level 190 Calcium Level 8.5 Phosphorus Level 4.4 Magnesium Level 1.7 Test 01/13/17 08:04 01/13/17 09:08 Bedside Glucose 213 216 Medications Medications Current Medications Acetaminophen (Tylenol Tab) 650 mg Q6H PRN PO PAIN AND OR ELEVATED TEMP Last administered on 01/13/17t 10:32; Admin Dose 650 MG; Start 01/04/17 at 23:00 Ondansetron HCl (Zofran Inj) 4 mg Q6H PRN IV NAUSEA AND/OR VOMITING; Start 01/04 at 23:00 Metoprolol Tartrate (Lopressor) 25 mg BID PO Last administered on 01/13/17 08: 07; Admin Dose 25 MG; Start 01/05/17 at 09:00 Levothyroxine Sodium (Synthroid) 112 mcg DAILY@06 PO Last administered on 05:17; Admin Dose 112 MCG; Start 01/05/17 at 06:00 Trazodone HCl (Desyrel) 50 mg HS PO Last administered on 01/12/17 21:19; Admin Dose 50 MG; Start 01/05/17 at 21:00 Diagnostic Test (Pha) (Accu-Chek) 1 ea 02 XX Last administered on 01/11/17 02: 08; Admin Dose 1 EA; Start 01/05/17 at 02:00 Miscellaneous Information 1 ea NOTE XX ; Start 01/04/17 at 23:45 Glucose (Glutose) 15 gm Q15M PRN PO DECREASED GLUCOSE; Start 01/04/17 at 23:45 Glucose (Glutose) 22.5 gm Q15M PRN PO DECREASED GLUCOSE; Start 01/04/17 at 23:45 Dextrose (D50w Syringe) 25 ml Q15M PRN IV DECREASED GLUCOSE; Start 01/04/17 at 23:45 Dextrose (D50w Syringe) 50 ml Q15M PRN IV DECREASED GLUCOSE; Start 01/04/17 at 23:45 Glucagon (Glucagen) 1 mg Q15M PRN IM DECREASED GLUCOSE; Start 01/04/17 at 23:45 Glucose (Glutose) 15 gm Q15M PRN BUCCAL DECREASED GLUCOSE; Start 01/04/17 at 23: 45 Ferrous Sulfate (Ferrous Sulfate (Ec)) 325 mg TID PO Last administered on 08:06; Admin Dose 325 MG; Start 01/06/17 at 13:00; Stop 02/20/17 at 12:59 Docusate Sodium (Colace) 100 mg BID PO Last administered on 01/13/17 08:06; Admin Dose 100 MG; Start 01/06/17 at 21:00 Enoxaparin Sodium (Lovenox) 40 mg DAILY SC Last administered on 01/13/17 08:18 ; Admin Dose 40 MG; Start 01/08/17 at 09:00 Ciprofloxacin (Cipro) 500 mg BID@18 PO Last administered on 01/13/17 05:17 ; Admin Dose 500 MG; Start 01/07/17 at 18:00 Linagliptin (Tradjenta) 5 mg DAILY PO Last administered on 01/13/17 08:06; Admin Dose 5 MG; Start 01/08/17 at 14:30 Insulin Glargine 48 unit 48 unit QAM SC Last administered on 01/13/17 09:10; Admin Dose 48 UNIT; Start 01/10/17 at 09:00 Vancomycin HCl/ Sodium Chloride (Vancocin/NS) 250 ml @ 83.333 mls/ hr Q24H IVPB Last administered on 01/12/17 12:08; Admin Dose 83.333 MLS/HR; Start at 12:00 Morphine Sulfate (morphine) 4 mg Q4H PRN IV PAIN Last administered on 08:10; Admin Dose 4 MG; Start 01/10/17 at 22:30 Fludrocortisone Acetate (Florinef) 0.1 mg DAILY PO Last administered on 08:08; Admin Dose 0.1 MG; Start 01/12/17 at 09:00 Hydralazine HCl (Apresoline) 25 mg BID PO Last administered on 01/13/17 08:08 ; Admin Dose 25 MG; Start 01/11/17 at 21:00 IV Flush (NS 10 ml) 10 ml PRN PRN IV IV PROTOCOL; Start 01/11/17 at 18:30 Lisinopril (Zestril) 10 mg DAILY PO Last administered on 01/13/17 08:07; Admin Dose 10 MG; Start 01/13/17 at 09:00 MARIANA KEENAN MD January 13, 2017 11:50
--- NOTE | 2017-01-13 11:54 | PDOCDIS ---
Discharge Instructions CONDITION Patient Condition: Good HOME CARE INSTRUCTIONS: Special Diet: 1800 jackie ADA ACTIVITY: Activity Restrictions: Slowly Increase Activity Rest between Activity Avoid heavy lifting Avoid Heavy Housework Keep Limb Elevated Weight Bearing (non weightbearing on RLE until follow up with ) FOLLOW UP/APPOINTMENTS Appointments follow up with her own PMD through HMO insurance in 1-2 week after discharge. Follow up with ID in 4 weeks after discharge, follow up with Dr.Babak Peacock in [facility] as outpatient in 2-3 weeks after discahrge MARIANA KEENAN MD January 13, 2017 11:54
[2017-01-13] MEDS: VANCOMYCIN 1.25 GM in SOD CHLORIDE 0.9% 250 ML IVPB SCH (12:11)
[2017-01-13] MEDS ORDERED: LINA5TAB PO (12:15)
[2017-01-13] MEDS ORDERED: METF500T4 PO (12:15)
[2017-01-13] MEDS ORDERED: CIPR500T4 PO (12:15)
[2017-01-13] MEDS ORDERED: HYDR-906 PO (12:15)
--- NOTE | 2017-01-13 13:40 | CONS ---
Date/Time of Note Date/Time of Note DATE: 01/13/17 TIME: 13:40 Assessment/Plan Assessment/Plan Chief Complaint/Hosp Course SUBJECTIVE: No acute events, alert, feels good, no fevers MICROBIOLOGY: Blood culture growing PSA. ANTIMICROBIALS: The patient is on 1. IV vancomycin. 2. Cipro. PHYSICAL EXAMINATION: GENERAL: Obese, well-developed, middle-aged woman who is alert, in no distress. HEENT: Head atraumatic, normocephalic. Sclerae anicteric. Buccal mucosa dry. NECK: Obese. CHEST: Rise symmetrical. Breath sounds clear. HEART: S1, S2. ABDOMEN: Soft, bowel tones present. EXTREMITIES: Left lower extremity swelling, deformity and edema. The patient has an ulcer wound on the back of the foot. ASSESSMENT: 1. Systemic inflammatory response syndrome. 2. Gram-negative erma bacteremia, likely secondary to infected left foot. 3. Diabetes. 4. Left Charcot ankle status post fusion using allograft, MRI report + OM, ? septic arthritis, infected hardware 5. Obesity. PLAN: Remains stable, will need to be on current abx for 6-8 weeks, podiatry rec -s noted [facility] staff Problems: Consultation Date/Type/Reason Admit Date/Time January 04, 2017 at 19:32 Initial Consult Date 01/06/17 Type of Consultation: ID Referring Provider: ALICE STAPLES Exam/Review of Systems Vital Signs Vitals Vital Signs Date Time Temp Pulse Resp B/P Pulse Ox O2 Delivery O2 Flow Rate FiO2 01/13/17 07:59 98.2 76 16 155/67 96 01/12/17 20:00 Room Air Intake and Output 01/12/17 01/12/17 01/13/17 14:59 22:59 06:59 Intake Total 2082 ml 460 ml Balance 2082 ml 460 ml Results Result Diagram: 01/13/17 0515 01/13/17 0515 Results 24 hrs Laboratory Tests Test 01/12/17 14:24 01/12/17 14:53 01/12/17 15:33 01/12/17 17:38 Bedside Glucose 61 L 100 125 157 Test 01/12/17 21:17 01/13/17 05:15 01/13/17 08:04 01/13/17 09:08 Bedside Glucose 141 213 216 White Blood Count 11.6 H Red Blood Count 3.43 L Hemoglobin 8.9 L Hematocrit 28.7 L Mean Corpuscular Volume 83.7 Mean Corpuscular Hemoglobin 25.9 L Mean Corpuscular Hemoglobin Concent 31.0 L Red Cell Distribution Width 14.8 H Platelet Count 683 H Mean Platelet Volume 8.7 Neutrophils % 69.4 Lymphocytes % 15.7 Monocytes % 8.3 Eosinophils % 5.0 Basophils % 0.5 Nucleated Red Blood Cells % 0.0 Neutrophils # 8.1 H Lymphocytes # 1.8 Monocytes # 1.0 H Eosinophils # 0.6 H Basophils # 0.1 Nucleated Red Blood Cells # 0.0 Sodium Level 138 Potassium Level 4.6 Chloride Level 105 Carbon Dioxide Level 24 Anion Gap 14 Blood Urea Nitrogen 22 H Creatinine 1.22 H Glucose Level 190 Calcium Level 8.5 Phosphorus Level 4.4 Magnesium Level 1.7 Test 01/13/17 12:07 Bedside Glucose 189 Medications Medications Current Medications Acetaminophen (Tylenol Tab) 650 mg Q6H PRN PO PAIN AND OR ELEVATED TEMP Last administered on 01/13/17 10:32; Admin Dose 650 MG; Start 01/04/17 at 23:00 Ondansetron HCl (Zofran Inj) 4 mg Q6H PRN IV NAUSEA AND/OR VOMITING; Start 01/04 at 23:00 Metoprolol Tartrate (Lopressor) 25 mg BID PO Last administered on 01/13/17 08: 07; Admin Dose 25 MG; Start 01/05/17 at 09:00 Levothyroxine Sodium (Synthroid) 112 mcg DAILY@06 PO Last administered on 05:17; Admin Dose 112 MCG; Start 01/05/17 at 06:00 Trazodone HCl (Desyrel) 50 mg HS PO Last administered on 01/12/17 21:19; Admin Dose 50 MG; Start 01/05/17 at 21:00 Diagnostic Test (Pha) (Accu-Chek) 1 ea 02 XX Last administered on 01/11/17 02: 08; Admin Dose 1 EA; Start 01/05/17 at 02:00 Miscellaneous Information 1 ea NOTE XX ; Start 01/04/17 at 23:45 Glucose (Glutose) 15 gm Q15M PRN PO DECREASED GLUCOSE; Start 01/04/17 at 23:45 Glucose (Glutose) 22.5 gm Q15M PRN PO DECREASED GLUCOSE; Start 01/04/17 at 23:45 Dextrose (D50w Syringe) 25 ml Q15M PRN IV DECREASED GLUCOSE; Start 01/04/17 at 23:45 Dextrose (D50w Syringe) 50 ml Q15M PRN IV DECREASED GLUCOSE; Start 01/04/17 at 23:45 Glucagon (Glucagen) 1 mg Q15M PRN IM DECREASED GLUCOSE; Start 01/04/17 at 23:45 Glucose (Glutose) 15 gm Q15M PRN BUCCAL DECREASED GLUCOSE; Start 01/04/17 at 23: 45 Ferrous Sulfate (Ferrous Sulfate (Ec)) 325 mg TID PO Last administered on 12:24; Admin Dose 325 MG; Start 01/06/17 at 13:00; Stop 02/20/17 at 12:59 Docusate Sodium (Colace) 100 mg BID PO Last administered on 01/13/17 08:06; Admin Dose 100 MG; Start 01/06/17 at 21:00 Enoxaparin Sodium (Lovenox) 40 mg DAILY SC Last administered on 01/13/17 08:18 ; Admin Dose 40 MG; Start 01/08/17 at 09:00 Ciprofloxacin (Cipro) 500 mg BID@,18 PO Last administered on 01/13/17 05:17 ; Admin Dose 500 MG; Start 01/07/17 at 18:00 Linagliptin (Tradjenta) 5 mg DAILY PO Last administered on 01/13/17 08:06; Admin Dose 5 MG; Start 01/08/17 at 14:30 Insulin Glargine 48 unit 48 unit QAM SC Last administered on 01/13/17 09:10; Admin Dose 48 UNIT; Start 01/10/17 at 09:00 Vancomycin HCl/ Sodium Chloride (Vancocin/NS) 250 ml @ 83.333 mls/ hr Q24H IVPB Last administered on 01/13/17 12:11; Admin Dose 83.333 MLS/HR; Start at 12:00 Morphine Sulfate (morphine) 4 mg Q4H PRN IV PAIN Last administered on 08:10; Admin Dose 4 MG; Start 01/10/17 at 22:30 Fludrocortisone Acetate (Florinef) 0.1 mg DAILY PO Last administered on 08:08; Admin Dose 0.1 MG; Start 01/12/17 at 09:00 Hydralazine HCl (Apresoline) 25 mg BID PO Last administered on 01/13/17 08:08 ; Admin Dose 25 MG; Start 01/11/17 at 21:00 IV Flush (NS 10 ml) 10 ml PRN PRN IV IV PROTOCOL; Start 01/11/17 at 18:30 Lisinopril (Zestril) 10 mg DAILY PO Last administered on 01/13/17 08:07; Admin Dose 10 MG; Start 01/13/17 at 09:00 NUBIA MONTANEZ NP January 13, 2017 13:40
--- NOTE | 2017-01-13 17:28 | CONS ---
Date/Time of Note Date/Time of Note DATE: 01/13/17 TIME: 17:28 Consultation Date/Type/Reason Admit Date/Time January 04, 2017 at 19:32 Initial Consult Date 01/06/17 Type of Consultation: Renal Referring Provider: ALICE STAPLES Exam/Review of Systems Vital Signs Vitals Vital Signs Date Time Temp Pulse Resp B/P Pulse Ox O2 Delivery O2 Flow Rate FiO2 01/13/17 07:59 98.2 76 16 155/67 96 01/12/17 20:00 Room Air Intake and Output 01/12/17 01/12/17 01/13/17 15:00 23:00 07:00 Intake Total 2082 ml 460 ml Balance 2082 ml 460 ml Results Result Diagram: 01/13/1715 01/13/17 0515 Results 24 hrs Laboratory Tests Test 01/12/17 17:38 01/12/17 21:17 01/13/17 05:15 01/13/17 08:04 Bedside Glucose 157 141 213 White Blood Count 11.6 H Red Blood Count 3.43 L Hemoglobin 8.9 L Hematocrit 28.7 L Mean Corpuscular Volume 83.7 Mean Corpuscular Hemoglobin 25.9 L Mean Corpuscular Hemoglobin Concent 31.0 L Red Cell Distribution Width 14.8 H Platelet Count 683 H Mean Platelet Volume 8.7 Neutrophils % 69.4 Lymphocytes % 15.7 Monocytes % 8.3 Eosinophils % 5.0 Basophils % 0.5 Nucleated Red Blood Cells % 0.0 Neutrophils # 8.1 H Lymphocytes # 1.8 Monocytes # 1.0 H Eosinophils # 0.6 H Basophils # 0.1 Nucleated Red Blood Cells # 0.0 Sodium Level 138 Potassium Level 4.6 Chloride Level 105 Carbon Dioxide Level 24 Anion Gap 14 Blood Urea Nitrogen 22 H Creatinine 1.22 H Glucose Level 190 Calcium Level 8.5 Phosphorus Level 4.4 Magnesium Level 1.7 Test 01/13/17 09:08 01/13/17 12:07 01/13/17 14:35 01/13/17 14:58 Bedside Glucose 216 189 67 L 89 Test 01/13/17 15:31 01/13/17 15:58 Bedside Glucose 94 111 Medications Medications Current Medications Acetaminophen (Tylenol Tab) 650 mg Q6H PRN PO PAIN AND OR ELEVATED TEMP Last administered on 01/13/17t 10:32; Admin Dose 650 MG; Start 01/04/17 at 23:00 Ondansetron HCl (Zofran Inj) 4 mg Q6H PRN IV NAUSEA AND/OR VOMITING; Start 01/04 at 23:00 Metoprolol Tartrate (Lopressor) 25 mg BID PO Last administered on 01/13/17 08: 07; Admin Dose 25 MG; Start 01/05/17 at 09:00 Levothyroxine Sodium (Synthroid) 112 mcg DAILY@06 PO Last administered on 05:17; Admin Dose 112 MCG; Start 01/05/17 at 06:00 Trazodone HCl (Desyrel) 50 mg HS PO Last administered on 01/12/17 21:19; Admin Dose 50 MG; Start 01/05/17 at 21:00 Diagnostic Test (Pha) (Accu-Chek) 1 ea 02 XX Last administered on 01/11/17 02: 08; Admin Dose 1 EA; Start 01/05/17 at 02:00 Miscellaneous Information 1 ea NOTE XX ; Start 01/04/17 at 23:45 Glucose (Glutose) 15 gm Q15M PRN PO DECREASED GLUCOSE; Start 01/04/17 at 23:45 Glucose (Glutose) 22.5 gm Q15M PRN PO DECREASED GLUCOSE; Start 01/04/17 at 23:45 Dextrose (D50w Syringe) 25 ml Q15M PRN IV DECREASED GLUCOSE; Start 01/04/17 at 23:45 Dextrose (D50w Syringe) 50 ml Q15M PRN IV DECREASED GLUCOSE; Start 01/04/17 at 23:45 Glucagon (Glucagen) 1 mg Q15M PRN IM DECREASED GLUCOSE; Start 01/04/17 at 23:45 Glucose (Glutose) 15 gm Q15M PRN BUCCAL DECREASED GLUCOSE; Start 01/04/17 at 23: 45 Ferrous Sulfate (Ferrous Sulfate (Ec)) 325 mg TID PO Last administered on 12:24; Admin Dose 325 MG; Start 01/06/17 at 13:00; Stop 02/20/17 at 12:59 Docusate Sodium (Colace) 100 mg BID PO Last administered on 01/13/17 08:06; Admin Dose 100 MG; Start 01/06/17 at 21:00 Enoxaparin Sodium (Lovenox) 40 mg DAILY SC Last administered on 01/13/17 08:18 ; Admin Dose 40 MG; Start 01/08/17 at 09:00 Ciprofloxacin (Cipro) 500 mg BID@18 PO Last administered on 01/13/17 05:17 ; Admin Dose 500 MG; Start 01/07/17 at 18:00 Linagliptin (Tradjenta) 5 mg DAILY PO Last administered on 01/13/17 08:06; Admin Dose 5 MG; Start 01/08/17 at 14:30 Insulin Glargine 48 unit 48 unit QAM SC Last administered on 01/13/17 09:10; Admin Dose 48 UNIT; Start 01/10/17 at 09:00 Vancomycin HCl/ Sodium Chloride (Vancocin/NS) 250 ml @ 83.333 mls/ hr Q24H IVPB Last administered on 01/13/17 12:11; Admin Dose 83.333 MLS/HR; Start at 12:00 Morphine Sulfate (morphine) 4 mg Q4H PRN IV PAIN Last administered on 08:10; Admin Dose 4 MG; Start 01/10/17 at 22:30 Fludrocortisone Acetate (Florinef) 0.1 mg DAILY PO Last administered on 08:08; Admin Dose 0.1 MG; Start 01/12/17 at 09:00 Hydralazine HCl (Apresoline) 25 mg BID PO Last administered on 01/13/17 08:08 ; Admin Dose 25 MG; Start 01/11/17 at 21:00 IV Flush (NS 10 ml) 10 ml PRN PRN IV IV PROTOCOL; Start 01/11/17 at 18:30 Lisinopril (Zestril) 10 mg DAILY PO Last administered on 01/13/17 08:07; Admin Dose 10 MG; Start 01/13/17 at 09:00 COLIN VELEZ MD January 13, 2017 17:28
--- NOTE | 2017-01-13 17:47 | CONS ---
Date/Time of Note Date/Time of Note DATE: 01/13/17 TIME: 17:44 Assessment/Plan Assessment/Plan Chief Complaint/Hosp Course 56-year-old female with a history of a Charcot joint status post fixation and surgery last year with fusion. Her blood sugar control has not been ideal and she has been being managed by a family practitioner in the community. Patient reports she did complain about her sugar control however we are where we are. Problems: (1) Hyporeninemic hypoaldosteronism Status: Chronic Comment: It is my considered opinion is important this patient to be maintained on Florinef so we can use an JANE inhibitor to protect her kidneys. With this combination she is doing well and this is actually known and establish therapeutic protocol (2) Iron deficiency anemia Status: Chronic Comment: She is received iron and should continue for another 6 weeks. Her counts are improving nicely with therapy Qualifiers: Iron deficiency anemia type: unspecified iron deficiency Qualified Code: D50.9 - Iron deficiency anemia, unspecified iron deficiency anemia type (3) Diabetic nephropathy Status: Chronic Comment: She is tolerating the usage of the JANE inhibitor with control. Please note that her serum creatinine and BUN has steadily decreased over the course of the hospitalization Qualifiers: Diabetes mellitus type: type 2 Qualified Code: E11.21 - Diabetic nephropathy associated with type 2 diabetes mellitus (4) Hypothyroidism Status: Chronic Comment: Stable on replacement dosages Qualifiers: Hypothyroidism type: acquired Qualified Code: E03.9 - Acquired hypothyroidism (5) Morbid obesity Status: Chronic Comment: Calorie restriction diet has been effective. Please note that her medication needs have decreased significantly since admission she is essentially on slightly less insulin and enjoys very tight control as compared to the time of admission Qualifiers: Obesity type: due to excess calories Qualified Code: E66.01 - Morbid obesity due to excess calories (6) Hypertension Status: Chronic Comment: Adequate control Qualifiers: Hypertension type: essential hypertension Qualified Code: I10 - Essential hypertension (7) Diabetes mellitus with neuropathy Status: Chronic Comment: Her peripheral neuropathy with a Charcot joint remaining issues for with the infection. This is being managed by her primary team Qualifiers: Diabetes mellitus type: type 2 Diabetes mellitus fci insulin use: with fci use Qualified Code: E11.40 - Type 2 diabetes mellitus with diabetic neuropathy, with long-term current use of insulin Consultation Date/Type/Reason Admit Date/Time January 04, 2017 at 19:32 Initial Consult Date 01/05/17 Type of Consultation: Endocrinology Reason for Consultation Diabetes mellitus type 2 on combination therapy with oral agents and basal bolus insulin; chronic kidney disease stage II; hyporeninemic hypoaldosteronism ; peripheral neuropathy with Charcot foot; osteomyelitis of the ankle; Referring Provider: ALICE STAPLES 24 HR Interval Summary Constitutional: no complaints Exam/Review of Systems Vital Signs Vitals Vital Signs Date Time Temp Pulse Resp B/P Pulse Ox O2 Delivery O2 Flow Rate FiO2 01/13/17 07:59 98.2 76 16 155/67 96 01/12/17 20:00 Room Air Intake and Output 01/12/17 01/12/17 01/13/17 15:00 23:00 07:00 Intake Total 2082 ml 460 ml Balance 2082 ml 460 ml Exam Constitutional: alert, oriented Neck: non-tender, supple Respiratory: clear to auscultation, normal air movement Results Result Diagram: 01/13/17 0515 01/13/17 0515 Results 24 hrs Laboratory Tests Test 01/12/17 21:17 01/13/17 05:15 01/13/17 08:04 01/13/17 09:08 Bedside Glucose 141 213 216 White Blood Count 11.6 H Red Blood Count 3.43 L Hemoglobin 8.9 L Hematocrit 28.7 L Mean Corpuscular Volume 83.7 Mean Corpuscular Hemoglobin 25.9 L Mean Corpuscular Hemoglobin Concent 31.0 L Red Cell Distribution Width 14.8 H Platelet Count 683 H Mean Platelet Volume 8.7 Neutrophils % 69.4 Lymphocytes % 15.7 Monocytes % 8.3 Eosinophils % 5.0 Basophils % 0.5 Nucleated Red Blood Cells % 0.0 Neutrophils # 8.1 H Lymphocytes # 1.8 Monocytes # 1.0 H Eosinophils # 0.6 H Basophils # 0.1 Nucleated Red Blood Cells # 0.0 Sodium Level 138 Potassium Level 4.6 Chloride Level 105 Carbon Dioxide Level 24 Anion Gap 14 Blood Urea Nitrogen 22 H Creatinine 1.22 H Glucose Level 190 Calcium Level 8.5 Phosphorus Level 4.4 Magnesium Level 1.7 Test 01/13/17 12:07 01/13/17 14:35 01/13/17 14:58 01/13/17 15:31 Bedside Glucose 189 67 L 89 94 Test 01/13/17 15:58 01/13/17 17:29 Bedside Glucose 111 179 Medications Medications Current Medications Acetaminophen (Tylenol Tab) 650 mg Q6H PRN PO PAIN AND OR ELEVATED TEMP Last administered on 01/13/17 10:32; Admin Dose 650 MG; Start 01/04/17 at 23:00 Ondansetron HCl (Zofran Inj) 4 mg Q6H PRN IV NAUSEA AND/OR VOMITING; Start 01/04 at 23:00 Metoprolol Tartrate (Lopressor) 25 mg BID PO Last administered on 01/13/17 08: 07; Admin Dose 25 MG; Start 01/05/17 at 09:00 Levothyroxine Sodium (Synthroid) 112 mcg DAILY@06 PO Last administered on 05:17; Admin Dose 112 MCG; Start 01/05/17 at 06:00 Trazodone HCl (Desyrel) 50 mg HS PO Last administered on 01/12/17 21:19; Admin Dose 50 MG; Start 01/05/17 at 21:00 Diagnostic Test (Pha) (Accu-Chek) 1 ea 02 XX Last administered on 01/11/17 02: 08; Admin Dose 1 EA; Start 01/05/17 at 02:00 Miscellaneous Information 1 ea NOTE XX ; Start 01/04/17 at 23:45 Glucose (Glutose) 15 gm Q15M PRN PO DECREASED GLUCOSE; Start 01/04/17 at 23:45 Glucose (Glutose) 22.5 gm Q15M PRN PO DECREASED GLUCOSE; Start 01/04/17 at 23:45 Dextrose (D50w Syringe) 25 ml Q15M PRN IV DECREASED GLUCOSE; Start 01/04/17 at 23:45 Dextrose (D50w Syringe) 50 ml Q15M PRN IV DECREASED GLUCOSE; Start 01/04/17 at 23:45 Glucagon (Glucagen) 1 mg Q15M PRN IM DECREASED GLUCOSE; Start 01/04/17 at 23:45 Glucose (Glutose) 15 gm Q15M PRN BUCCAL DECREASED GLUCOSE; Start 01/04/17 at 23: 45 Ferrous Sulfate (Ferrous Sulfate (Ec)) 325 mg TID PO Last administered on 12:24; Admin Dose 325 MG; Start 01/06/17 at 13:00; Stop 02/20/17 at 12:59 Docusate Sodium (Colace) 100 mg BID PO Last administered on 01/13/17 08:06; Admin Dose 100 MG; Start 01/06/17 at 21:00 Enoxaparin Sodium (Lovenox) 40 mg DAILY SC Last administered on 01/13/17 08:18 ; Admin Dose 40 MG; Start 01/08/17 at 09:00 Ciprofloxacin (Cipro) 500 mg BID@18 PO Last administered on 01/13/17 05:17 ; Admin Dose 500 MG; Start 01/07/17 at 18:00 Linagliptin (Tradjenta) 5 mg DAILY PO Last administered on 01/13/17 08:06; Admin Dose 5 MG; Start 01/08/17 at 14:30 Insulin Glargine 48 unit 48 unit QAM SC Last administered on 01/13/17 09:10; Admin Dose 48 UNIT; Start 01/10/17 at 09:00 Vancomycin HCl/ Sodium Chloride (Vancocin/NS) 250 ml @ 83.333 mls/ hr Q24H IVPB Last administered on 01/13/17 12:11; Admin Dose 83.333 MLS/HR; Start at 12:00 Morphine Sulfate (morphine) 4 mg Q4H PRN IV PAIN Last administered on 08:10; Admin Dose 4 MG; Start 01/10/17 at 22:30 Fludrocortisone Acetate (Florinef) 0.1 mg DAILY PO Last administered on 08:08; Admin Dose 0.1 MG; Start 01/12/17 at 09:00 Hydralazine HCl (Apresoline) 25 mg BID PO Last administered on 01/13/17 08:08 ; Admin Dose 25 MG; Start 01/11/17 at 21:00 IV Flush (NS 10 ml) 10 ml PRN PRN IV IV PROTOCOL; Start 01/11/17 at 18:30 Lisinopril (Zestril) 10 mg DAILY PO Last administered on 01/13/17 08:07; Admin Dose 10 MG; Start 01/13/17 at 09:00 JACE TURNER MD January 13, 2017 17:47
== END 2017-01-13 18:45 | disposition home health service (06) | DRG 638 ==
LOC: E/R 15:40 → MS2 19:32
PROVIDERS: ADMIT Internal Medicine; ATTEND Internal Medicine
PROC: 02HV33Z Insertion of Infusion Device into Superior Vena Cava, Percutaneous Approach (ICD-10-PCS; principal; 2017-01-11)
DX: E11.628 Type 2 diabetes mellitus with other skin complications (principal); I12.0 Hypertensive chronic kidney disease with stage 5 chronic kidney disease or end stage renal disease; M86.172 Other acute osteomyelitis, left ankle and foot; N17.9 Acute kidney failure, unspecified; E11.29 Type 2 diabetes mellitus with other diabetic kidney complication; E27.49 Other adrenocortical insufficiency; L03.116 Cellulitis of left lower limb; N18.6 End stage renal disease; Z68.41 Body mass index [BMI] 40.0-44.9, adult; N30.00 Acute cystitis without hematuria; E11.69 Type 2 diabetes mellitus with other specified complication; L89.629 Pressure ulcer of left heel, unspecified stage; E11.51 Type 2 diabetes mellitus with diabetic peripheral angiopathy without gangrene; E11.65 Type 2 diabetes mellitus with hyperglycemia; Z99.2 Dependence on renal dialysis; F32.9 Major depressive disorder, single episode, unspecified; Z79.4 Long term (current) use of insulin; E66.01 Morbid (severe) obesity due to excess calories; D50.9 Iron deficiency anemia, unspecified; B96.5 Pseudomonas (aeruginosa) (mallei) (pseudomallei) as the cause of diseases classified elsewhere; E11.610 Type 2 diabetes mellitus with diabetic neuropathic arthropathy; R51 Headache; R53.1 Weakness
CPT/HCPCS: 36415; 36569; 70450; 71010; 73700; 73718; 73721; 76775; 76937; 80048; 80053; 80061; 80202; 81001; 81003; 82306; 82575; 82652; 82728; 82962; 83036; 83540; 83605; 83735; 84100; 84155; 84300; 84443; 84484; 85025; 85610; 85651; 85730; 86803; 87040; 87340; 93005; 93922; 96374; 96375; 96376; 97162; 97164; C1769; J0360; J0692; J1650; J1815; J2270; J2405; J2543; J2916; J3370; J7030; J7050; J7120

== ENCOUNTER 2017-02-01 20:40 | Inpatient (IN) | payer OTHER ==
[~2017-02-01] VITALS: Ht 154.9 cm; Wt 105.5 kg
[~2017-02-01 20:40] MED LIST changes: -AMLO5TAB4 PO; -ASPI-535 PO; -CEPH500C PO; +CIPR500T4 PO; -DESL5TAB20 PO; -FAMO20TA18 PO; -FER325 PO; -HYDR-3498 PO; +HYDR-906 PO; -INSU100C SC; +LINA5TAB PO; +LOVA20TA PO; -SENN-53 PO; -SERT50TA6 PO; -SIMV40TA2 PO
[2017-02-01 21:12] VITALS: Ht 154.9 cm; Wt 105.5 kg
[2017-02-01] MEDS ORDERED: morphine 4 MG/ML VIAL IV STA (23:08)
[2017-02-01] MEDS ORDERED: ONDANSETRON 4 MG INJ IV STA (23:08)
--- NOTE | 2017-02-01 23:27 | ERD ---
ER Documentation Chief Complaint Date/Time DATE: 02/01/17 TIME: 23:18 Chief Complaint Leet foot pain s/p joint replacement and infection HPI 66-year-old female presents here in emergency department for complaints of left ankle pain left foot pain, chronic pain, has history of joint replacement, and infection cellulitis of affected area which she is taking IV vancomycin. Patient sees Dr. Peacock, patient is supposed to see him again for another surgery for possible rejection of implant placed on the left ankle. She is here today since her pain is uncontrolled, throbbing pain 8/10 scale, is worse upon movement also noted some swelling of the area. She denies any numbness or tingling. Patient denies any fever or chills. ROS All systems reviewed and are negative except as per history of present illness. Medications Home Meds Active Scripts Hydrocodone/Acetaminophen ([place] 5-325 Tablet) 1 Each Tablet, 1 EACH PO Q6 Y for SEVERE PAIN LEVEL 7-10 for 30 Days, TAB Prov:MARIANA KEENAN MD 01/13/17 Linagliptin (TRADJENTA) 5 Mg Tablet, 5 MG PO DAILY, #90 TAB Prov:MARIANA KEENAN MD 01/13/17 Ciprofloxacin Hcl* (Ciprofloxacin Hcl*) 500 Mg Tablet, 500 MG PO BID@ for acute RLE osteomyelitis, #120 TAB Prov:MARIANA KEENAN MD 01/13/17 Metformin* (Glucophage*) 500 Mg Tab, 500 MG PO BID, #180 Prov:MARIANA KEENAN MD 01/13/17 Metoprolol Tartrate* (Lopressor*) 25 Mg Tab, 25 MG PO BID for 30 Days, TAB 1 Refill Prov:RILEY CUTLER MD 06/22/16 Reported Medications Lovastatin* (Lovastatin*) Unknown Strength Tablet, MG PO HS, TAB 01/04/17 Chlorthalidone* (Chlorthalidone*) 25 Mg Tablet, 25 MG PO DAILY, TAB 08/19/16 Trazodone Hcl* (Trazodone Hcl*) 50 Mg Tablet, 50 MG PO QHS, #30 TAB 05/11/16 Levothyroxine Sodium* (Levothyroxine Sodium*) 112 Mcg Tablet, 112 MCG PO AC BREAKFAST, TAB 05/09/15 Insulin Glargine* (Lantus*) 100 Unit/Ml Soln, 44 UNIT SC HS, EA 05/09/15 Allergies Allergies: Coded Allergies: No Known Drug Allergy (Verified Allergy, Mild, 01/04/17) PMhx/Soc Medical and Surgical Hx: pt denies Medical Hx, pt denies Surgical Hx History of Surgery: Yes (GALL BLADDER AND RIGHT FOOT SURGERY) Anesthesia Reaction: No Hx Neurological Disorder: No Hx Respiratory Disorders: No Hx Cardiac Disorders: No Hx Psychiatric Problems: No Hx Miscellaneous Medical Probl: Yes (DM, Charcot foot, s/p L ankle fusion, HTN) Hx Alcohol Use: No Hx Substance Use: No Hx Tobacco Use: No Smoking Status: Never smoker FmHx Family History: No coronary disease, No diabetes, No other Physical Exam Vitals Vital Signs Date Time Temp Pulse Resp B/P Pulse Ox O2 Delivery O2 Flow Rate FiO2 02/01/17 21:12 96.8 86 20 198/84 97 Physical Exam GENERAL: The patient is well developed and appropriate for usual state of health, in no apparent distress. CHEST: Clear to auscultation bilaterally. There are no rales, wheezes or rhonchi. HEART: Regular rate and rhythm. No murmurs, clicks, rubs or gallops. No S3 or S4. ABDOMEN: Soft, nontender and nondistended. Good bowel sounds. No rebound or guarding. No gross peritonitis. No gross organomegaly or masses. No Littlejohn sign or McBurney point tenderness. BACK: No midline or flank tenderness. EXTREMITIES: Noted swelling of the left ankle, lateral malleolus, with mild tenderness on palpation and erythema surrounding the area. Equal pulses bilaterally. Full range of motion of other joints of the body. Grossly neurovascularly intact. NEURO: Alert and oriented. Cranial nerves 2-12 intact. Motor strength in all 4 extremities with 5/5 strength. Sensation grossly intact. Normal speech and gait. SKIN: There is no apparent rash or petechia. The skin is warm and dry. HEMATOLOGIC AND LYMPHATIC: There is no evidence of excessive bruising or lymphedema. No gross cervical, axillary, or inguinal lymphadenopathy. Result Diagram: 02/01/17 6946 02/01/17 4296 Results 24 hrs Laboratory Tests Test 02/01/17 23:55 White Blood Count 8.710^3/ul Red Blood Count 3.6710^6/ul Hemoglobin 9.7g/dl Hematocrit 29.5% Mean Corpuscular Volume 80.4fl Mean Corpuscular Hemoglobin 26.4pg Mean Corpuscular Hemoglobin Concent 32.9g/dl Red Cell Distribution Width 14.8% Platelet Count 53923^3/UL Mean Platelet Volume 9.0fl Neutrophils % 57.4% Lymphocytes % 23.3% Monocytes % 11.9% Eosinophils % 6.1% Basophils % 0.8% Nucleated Red Blood Cells % 0.0/100WBC Neutrophils # 5.010^3/ul Lymphocytes # 2.010^3/ul Monocytes # 1.010^3/ul Eosinophils # 0.510^3/ul Basophils # 0.110^3/ul Nucleated Red Blood Cells # 0.010^3/ul Sodium Level 137mmol/L Potassium Level 4.5mmol/L Chloride Level 105mmol/L Carbon Dioxide Level 25mmol/L Anion Gap 12 Blood Urea Nitrogen 29mg/dl Creatinine 1.51mg/dl Glucose Level 153mg/dl Lactic Acid Level 1.2mmol/L Calcium Level 9.0mg/dl Total Bilirubin 0.0mg/dl Direct Bilirubin 0.00mg/dl Indirect Bilirubin 0.0mg/dl Aspartate Amino Transf (AST/SGOT) 20IU/L Alanine Aminotransferase (ALT/SGPT) 24IU/L Alkaline Phosphatase 163IU/L Total Protein 7.8g/dl Albumin 3.9g/dl Globulin 3.90g/dl Albumin/Globulin Ratio 1.00 Current Medications Medications (Trade) Dose Ordered Sig/Nafisa Route PRN Reason Start Time Stop Time Status Last Admin Dose Admin Morphine Sulfate (morphine) 4 mg ONCE STAT IV 02/01/17 23:08 02/01/17 23:10 DC 02/01/17 23:48 Ondansetron HCl (Zofran Inj) 4 mg ONCE STAT IV 02/01/17 23:08 02/01/17 23:10 DC 02/01/17 23:48 Patient was given medication for pain here in emergency department, after treatment, patient verbalized feeling much better. Patient's pain is improved. PROCEDURE: XR Left Ankle. CLINICAL INDICATION: Left ankle pain. TECHNIQUE: 3 views. Frontal, lateral, and oblique. COMPARISON: 01/04/2017. FINDINGS: As seen previously, there is a erma extending through the distal tibia, talus, calcaneus. Locking screws are present in the tibia, talus, calcaneus. Alignment is satisfactory and unchanged. There is no acute fracture. There is increased diffuse soft tissue swelling. There is diffuse osteopenia. There are extensive destructive changes throughout the hindfoot and midfoot consistent with Charcot foot. IMPRESSION: 1. Increased diffuse soft tissue swelling suggesting a cellulitis. 2. Postoperative changes. 3. Charcot foot. 4. Otherwise no significant change from 01/04/2017. RPTAT: HMVK .Jose Armando Valdes MD, MD Date Time Electronically viewed and signed by .Jose Armando Valdes MD, on 02/02/2017 01:28 .K/ CC: LINDA SORTO [employer] Procedures/MDM Patient continues to have cellulitis, failed outpatient IV treatment, and is to be further evaluation and admitted to the hospital. Discussed this case with attending physician, Dr. Vazquez, will facilitate patient's admission to the hospital. Patient is stable at this time, I discussed this case with the patient agrees with plan. Departure Diagnosis: Primary Impression: Cellulitis Site of cellulitis: extremity Site of cellulitis of extremity: lower extremity Laterality: left Qualified Code: L03.116 - Cellulitis of left lower extremity Condition: Fair LINDA SORTO NP Feb 01, 2017 23:27
[2017-02-02 00:14] LABS: ADD SCAN DIFF NO
[2017-02-02 00:16] LABS: BASOPHIL # 0.1 10^3/ul (0.0-0.1); BASOPHILS % 0.8 % (0.0-2.0); EOSINOPHILS # 0.5 10^3/ul (0.0-0.5); EOSINOPHILS % 6.1 % (0.0-7.0); HEMATOCRIT 29.5 % (37.0-47.0); HEMOGLOBIN 9.7 g/dl (12.0-16.0); LYMPHOCYTES % 23.3 % (15.0-51.0); MEAN CORPUSCULAR HEMOGLOBIN 26.4 pg (29.0-33.0); MEAN CORPUSCULAR HGB CONC 32.9 g/dl (32.0-37.0); MEAN CORPUSCULAR VOLUME 80.4 fl (82.0-101.0); MONOCYTES % 11.9 % (0.0-11.0); NEUTROPHILS % 57.4 % (39.0-77.0); PLATELET COUNT 509 10^3/UL (140-415); RED BLOOD COUNT 3.67 10^6/ul (4.20-5.40); RED CELL DISTRIBUTION WIDTH 14.8 % (11.5-14.5); WHITE BLOOD COUNT 8.7 10^3/ul (4.8-10.8)
[2017-02-02 00:45] LABS: ALBUMIN 3.9 g/dl (3.3-4.9); CREATININE 1.51 mg/dl (0.44-1.00); POTASSIUM 4.5 mmol/L (3.5-5.1); TOTAL PROTEIN 7.8 g/dl (6.1-8.1)
--- NOTE | 2017-02-02 01:28 | RADRPT ---
PROCEDURE: XR Left Ankle. CLINICAL INDICATION: Left ankle pain. TECHNIQUE: 3 views. Frontal, lateral, and oblique. COMPARISON: 01/04/2017. FINDINGS: As seen previously, there is a erma extending through the distal tibia, talus, calcaneus. Locking scr ews are present in the tibia, talus, calcaneus. Alignment is satisfactory and unchanged. There is no acute fracture. There is increased diffuse soft tissue swelling. There is diffuse osteopenia. There are extensive destructive changes throughout the hindfoot and mid foot consistent with Charcot foot. IMPRESSION: 1. Increased diffuse soft tissue swelling suggesting a cellulitis. 2. Postoperative changes. 3. Charcot foot. 4. Otherwise no significant change from 01/04/2017. RPTAT: HMVK .Jose Armando Valdes MD, Date Time Electronically viewed and signed by .Jose Armando Valdes MD, on 02/02/2017 01:28 .K/
[2017-02-02] MEDS ORDERED: ACETAMINOPHEN 325 MG TAB PO PRN (06:30)
[2017-02-02] MEDS ORDERED: NACL 0.9% 3 ML SYG IV SCH (06:30)
[2017-02-02] MEDS ORDERED: VANCOMYCIN IV PER PHARMACY XX SCH (06:30)
[2017-02-02] MEDS ORDERED: ONDANSETRON 4 MG INJ IV PRN (06:30)
[2017-02-02] MEDS ORDERED: hydrALAzine 20 MG INJ IV PRN (06:30)
[2017-02-02] MEDS ORDERED: HYDROCODONE/APAP (5/325) TAB PO PRN (06:30)
[2017-02-02] MEDS ORDERED: ALBUTEROL/IPRATROPIUM (NEB) 3 ML AMP HHN PRN (06:30)
--- NOTE | 2017-02-02 06:34 | HP ---
Date/Time of Note Date/Time of Note DATE: 02/02/17 TIME: 06:27 Assessment/Plan VTE Prophylaxis VTE Prophylaxis Intervention: heparin Assessment/Plan Assessment/Plan IMPRESSION 1. Left lower ext osteomyelitis. 2. History of left Charcot ankle status post fusion using bone allograft in July 2016. 3. Diabetes mellitus, poorly controlled. 4. Hypertensive Urgency 5. History of hyperlipidemia. 6. CKD 7. Iron deficiency anemia. 8. Bilateral lower extremity atherosclerosis. PLAN Pain mgmt cont vancomycin and cipro Cont home meds with adjustment as needed Notify previous consultants about pt's re-admission HPI/ROS Admit Date/Time Admit Date/Time Hx of Present Illness This is a 56-year-old female who has a past medical history of type 2 diabetes mellitus, history of Charcot foot, status post left ankle fusion, hypertension, history of cholecystectomy, and right foot surgery. The patient presented with left ankle pain. She was admitted here recently and was discharged on 01/19/17 for a left ankle cellulitis, was treated with broad spectrum antibiotic of Zosyn and vancomycin. She was evaluated by infectious disease service, Dr. Murdock, and patient had a workup done including the blood cultures, which grew pseudomonas. The patient also had MRI of her left ankle, which shows the changes consistent with osteomyelitis. Due to her previous history of left Charcot status post bone fusion using the bone allograft in July 2016, there was some concern about possible loosening of the hardware, so she had evaluation done by podiatry, Dr. Oren Peacock. Dr. Oren Peacock followed up the patient for a few times and recommended to continue the IV antibiotics. Her cellulitis was getting better, but there was concern about some infections of that bone allograft. As per Dr. Peacock, he recommended to continue 4 to 6 weeks of IV antibiotics and, if there is no improvement in the cellulitis and the wound, then he will consider as a future surgery plan. During this admission, she also had acute kidney injury secondary to prerenal azotemia for which she was evaluated by nephrology, Dr. Meyer, and also evaluated by endocrine consultation, Dr. Galvan, for her uncontrolled diabetes mellitus. She remained hemodynamically stable. She was set up for home health with IV antibiotics for which she had a PICC line placement during this hospitalization. She was discharged to home with home health for IV vancomycin and p.o. ciprofloxacin for a 2 month course. ER Course: Initial BP 198/84. Ankle xray showed the following 1. Increased diffuse soft tissue swelling suggesting a cellulitis. 2. Postoperative changes. 3. Charcot foot. 4. Otherwise no significant change from 01/04/2017. PMH/Family/Social Past Medical History 1. Left ankle cellulitis with MRI consistent with left foot osteomyelitis. 2. History of left Charcot ankle status post fusion using bone allograft in July 2016. 3. Diabetes mellitus, poorly controlled. 4. History of hypertension. 5. History of hyperlipidemia. 6. Acute kidney injury secondary to prerenal azotemia. 7. Iron deficiency anemia. 8. Bilateral lower extremity atherosclerosis. . Past Surgical History Past Surgical Hx: cholecystectomy Social History Smoking Status: Never smoker Exam/Review of Systems Vital Signs Vitals Vital Signs Date Time Temp Pulse Resp B/P Pulse Ox O2 Delivery O2 Flow Rate FiO2 02/02/17 04:27 97.9 84 18 155/61 99 Room Air Exam Constitutional: alert, oriented Head: atraumatic, normocephalic Eyes: EOMI, PERRL Neck: supple Respiratory: clear to auscultation, normal air movement Cardiovascular: nl pulses, regular rate and rhythm Gastrointestinal: non-tender, soft Musculoskeletal: other (left lateral maleolar swelling and tenderness) Labs Result Diagram: 02/01/17 2355 02/01/17 2355 Medications Medications Current Medications Ondansetron HCl (Zofran Inj) 4 mg Q6H PRN IV NAUSEA AND/OR VOMITING; Start 02/02 at 06:30; Status UNV Acetaminophen (Tylenol Tab) 650 mg Q6H PRN PO PAIN LEVEL 1-3 OR FEVER; Start at 06:30; Status UNV Morphine Sulfate (morphine) 5 mg Q4H PRN IV SEVERE PAIN LEVEL 7-10; Start at 06:30; Status UNV Enoxaparin Sodium (Lovenox) 40 mg DAILY SC ; Start 02/02/17 at 09:00; Status UNV Chlorthalidone (Hygroton) 25 mg DAILY PO ; Start 02/02/17 at 09:00; Status UNV Ciprofloxacin (Cipro) 500 mg BID@18 PO ; Start 02/02/17 at 18:00; Status UNV Acetaminophen/ Hydrocodone Bitart ([place] (5/325)) 1 tab Q6 PRN PO SEVERE PAIN LEVEL 7-10; Start 02/02/17 at 06:30; Status UNV Insulin Glargine (Lantus) 44 unit HS SC ; Start 02/02/17 at 21:00; Status UNV Linagliptin (Tradjenta) 5 mg DAILY PO ; Start 02/02/17 at 09:00; Status UNV Metformin HCl (Glucophage) 500 mg BID PO ; Start 02/02/17 at 09:00; Status UNV Metoprolol Tartrate (Lopressor) 25 mg BID PO ; Start 02/02/17 at 09:00; Status UNV Trazodone HCl (Desyrel) 50 mg QHS PO ; Start 02/02/17 at 21:00; Status UNV Hydralazine HCl (Apresoline) 10 mg Q4H PRN IV SBP > 160; Start 02/02/17 at 06:30 ; Status UNV RILEY CUTLER MD Feb 02, 2017 06:34
[2017-02-02] MEDS: CIPROFLOXACIN 500 MG TAB PO SCH ×2 (09:10→19:04)
[2017-02-02] MEDS: metFORMIN 500 MG TAB PO SCH ×2 (09:10→19:04)
[2017-02-02] MEDS: LEVOTHYROXINE 112 MCG TAB PO SCH (09:10)
[2017-02-02] MEDS: CHLORTHALIDONE 25 MG TAB PO SCH (09:11)
[2017-02-02] MEDS: ENOXAPARIN 40 MG/0.4 ML SYG SC SCH (09:11)
[2017-02-02] MEDS: LINAGLIPTIN 5 MG TABLET PO SCH (09:11)
[2017-02-02] MEDS: METOPROLOL 25 MG TAB PO SCH ×2 (09:11→20:05)
[2017-02-02] MEDS: VANCOMYCIN 1 GM in NS 250 ML IVPB SCH (12:12)
[2017-02-02 17:00] VITALS: TEMP 98.4
[2017-02-02] MEDS ORDERED: ALTEPLASE (CATHFLO) 2 MG INJ CATHETER ONE (17:30)
[2017-02-02 19:07] VITALS: BP 147/70; PULSE 78; RESP 20
[2017-02-02] MEDS: traZODone 50 MG TAB PO SCH (20:04)
[2017-02-02] MEDS: morphine 4 MG/ML VIAL IV PRN (20:04)
[2017-02-02] MEDS: INSULIN GLARGINE [LANtus] 3 ML PEN SC SCH (20:55)
[2017-02-02] MEDS ORDERED: GLUCOSE GEL 15 GRAM TUBE PO PRN ×2 (22:00)
[2017-02-02] MEDS ORDERED: GLUCAGON 1 MG INJ IM PRN (22:00)
[2017-02-02] MEDS ORDERED: GLUCOSE GEL 15 GRAM TUBE BUCCAL PRN (22:00)
[2017-02-02] MEDS ORDERED: INSULIN ASPART [NOVOLOG] 3 ML PEN SC SCH (22:00)
[2017-02-02] MEDS ORDERED: DEXTROSE 50% 50 ML SYRINGE IV PRN ×2 (22:00)
[2017-02-03] VITALS: BP 132/60; PULSE 71; RESP 20
[2017-02-03] MEDS: morphine 4 MG/ML VIAL IV PRN ×3 (01:42→22:59)
[2017-02-03] MEDS: ACCU-CHEK XX SCH (01:55)
[2017-02-03] MEDS ORDERED: ACCU-CHEK XX SCH (02:00)
[2017-02-03] MEDS: CIPROFLOXACIN 500 MG TAB PO SCH (04:57)
[2017-02-03 05:30] LABS: ADD SCAN DIFF NO
[2017-02-03 06:03] LABS: BASOPHILS % 0.4 % (0.0-2.0); EOSINOPHILS # 0.4 10^3/ul (0.0-0.5); EOSINOPHILS % 6.6 % (0.0-7.0); HEMATOCRIT 29.2 % (37.0-47.0); HEMOGLOBIN 9.3 g/dl (12.0-16.0); LYMPHOCYTES # 1.8 10^3/ul (0.8-2.9); LYMPHOCYTES % 27.1 % (15.0-51.0); MEAN CORPUSCULAR HEMOGLOBIN 26.3 pg (29.0-33.0); MEAN CORPUSCULAR HGB CONC 31.8 g/dl (32.0-37.0); MEAN CORPUSCULAR VOLUME 82.7 fl (82.0-101.0); MEAN PLATELET VOLUME 9.4 fl (7.4-10.4); MONOCYTE # 0.8 10^3/ul (0.3-0.9); MONOCYTES % 12.6 % (0.0-11.0); NEUTROPHIL # 3.5 10^3/ul (1.6-7.5); PLATELET COUNT 459 10^3/UL (140-415); RED BLOOD COUNT 3.53 10^6/ul (4.20-5.40); RED CELL DISTRIBUTION WIDTH 15.2 % (11.5-14.5); WHITE BLOOD COUNT 6.7 10^3/ul (4.8-10.8)
[2017-02-03 06:31] LABS: ALBUMIN 3.7 g/dl (3.3-4.9); ALBUMIN/GLOBULIN RATIO 1.12; CALCIUM 8.8 mg/dl (8.4-10.2); CREATININE 1.69 mg/dl (0.44-1.00); PHOSPHORUS 5.6 mg/dl (2.5-4.9)
[2017-02-03 07:47] VITALS: BP 138/63; RESP 16
[2017-02-03] MEDS: LINAGLIPTIN 5 MG TABLET PO SCH (08:05)
[2017-02-03] MEDS: LEVOTHYROXINE 112 MCG TAB PO SCH (08:05)
[2017-02-03] MEDS: metFORMIN 500 MG TAB PO SCH (08:05)
[2017-02-03] MEDS: METOPROLOL 25 MG TAB PO SCH ×2 (08:06→20:32)
[2017-02-03] MEDS: CHLORTHALIDONE 25 MG TAB PO SCH (08:06)
[2017-02-03] MEDS: INSULIN ASPART [NOVOLOG] 3 ML PEN SC SCH ×6 (08:09→20:38)
[2017-02-03] MEDS: ENOXAPARIN 40 MG/0.4 ML SYG SC SCH (08:11)
[2017-02-03] MEDS: VANCOMYCIN 1 GM in NS 250 ML IVPB SCH (12:15)
--- NOTE | 2017-02-03 13:54 | PN ---
Date/Time of Note Date/Time of Note DATE: 02/03/17 TIME: 13:41 Assessment/Plan VTE Prophylaxis VTE Prophylaxis Intervention: LMWH Lines/Catheters Urinary Cath still in place: No Assessment/Plan Chief Complaint/Hosp Course 1. Left lower ext osteomyelitis physical therapist center manager consult to arrange for continuation of IV antibiotics, per patient home health has stopped giving her antibiotics Continue vancomycin IV and Cipro p.o. Reconsult ID 2. History of left Charcot ankle status post fusion using bone allograft in July 2016 Reconsult podiatry 3. Diabetes mellitus, poorly controlled Start NovoLog with meals, continue Lantus Diabetes education consult appreciated 4. Hypertensive Urgency-resolved Continue beta-tristian, if patient's creatinine stable consider starting JANE 5. History of hyperlipidemia Started on statin 6. CKD Monitor 7. Anemia of chronic disease Monitor 8. Bilateral lower extremity atherosclerosis. Prophylaxis: Lovenox Problems: Subjective 24 Hr Interval Summary Musculoskeletal: bone/joint pain Exam/Review of Systems Vital Signs Vitals Vital Signs Date Time Temp Pulse Resp B/P Pulse Ox O2 Delivery O2 Flow Rate FiO2 02/03/17 07:47 97.5 75 16 138/63 98 02/03/17 00:00 Room Air Intake and Output 02/02/17 02/02/17 02/03/17 15:00 23:00 07:00 Intake Total 400 ml Balance 400 ml Exam Constitutional: alert, oriented Respiratory: clear to auscultation Cardiovascular: regular rate and rhythm Gastrointestinal: soft, No distended Musculoskeletal: No nl extremities to inspection Results Result Diagram: 02/03/17 0505 02/03/17 0505 Results 24 hrs Laboratory Tests Test 02/02/17 20:33 02/02/17 21:34 02/03/17 01:52 02/03/17 05:05 Bedside Glucose 352 H 338 H 369 H White Blood Count 6.7 # Red Blood Count 3.53 L Hemoglobin 9.3 L Hematocrit 29.2 L Mean Corpuscular Volume 82.7 Mean Corpuscular Hemoglobin 26.3 L Mean Corpuscular Hemoglobin Concent 31.8 L Red Cell Distribution Width 15.2 H Platelet Count 459 H Mean Platelet Volume 9.4 Neutrophils % 53.0 Lymphocytes % 27.1 Monocytes % 12.6 H Eosinophils % 6.6 Basophils % 0.4 Nucleated Red Blood Cells % 0.0 Neutrophils # 3.5 Lymphocytes # 1.8 Monocytes # 0.8 Eosinophils # 0.4 Basophils # 0.0 Nucleated Red Blood Cells # 0.0 Sodium Level 140 Potassium Level 5.0 Chloride Level 108 Carbon Dioxide Level 24 Anion Gap 13 Blood Urea Nitrogen 36 H Creatinine 1.69 H Glucose Level 243 H Calcium Level 8.8 Phosphorus Level 5.6 H Magnesium Level 2.0 Total Bilirubin 0.0 L Direct Bilirubin 0.00 Indirect Bilirubin 0.0 Aspartate Amino Transf (AST/SGOT) 18 Alanine Aminotransferase (ALT/SGPT) 26 Alkaline Phosphatase 135 H Total Protein 7.0 Albumin 3.7 Globulin 3.30 H Albumin/Globulin Ratio 1.12 Test 02/03/17 08:03 02/03/17 12:10 Bedside Glucose 286 H 269 H Medications Medications Current Medications Ondansetron HCl (Zofran Inj) 4 mg Q6H PRN IV NAUSEA AND/OR VOMITING; Start 02/02 at 06:30 Acetaminophen (Tylenol Tab) 650 mg Q6H PRN PO PAIN LEVEL 1-3 OR FEVER; Start at 06:30 Morphine Sulfate (morphine) 5 mg Q4H PRN IV SEVERE PAIN LEVEL 7-10 Last administered on 02/03/17 01:42; Admin Dose 5 MG; Start 02/02/17 at 06:30 Enoxaparin Sodium (Lovenox) 40 mg DAILY SC Last administered on 02/03/17 08:11 ; Admin Dose 40 MG; Start 02/02/17 at 09:00 Chlorthalidone (Hygroton) 25 mg DAILY PO Last administered on 02/03/17 08:06; Admin Dose 25 MG; Start 02/02/17 at 09:00 Acetaminophen/ Hydrocodone Bitart ([place] (5/325)) 1 tab Q6 PRN PO SEVERE PAIN LEVEL 7-10 Last administered on 02/02/17 21:38; Admin Dose 1 TAB; Start 02/02/17 at 06:30 Insulin Glargine (Lantus) 44 unit HS SC Last administered on 02/02/17 20:55; Admin Dose 44 UNIT; Start 02/02/17 at 21:00 Linagliptin (Tradjenta) 5 mg DAILY PO Last administered on 02/03/17 08:05; Admin Dose 5 MG; Start 02/02/17 at 09:00 Metoprolol Tartrate (Lopressor) 25 mg BID PO Last administered on 02/03/17 08: 06; Admin Dose 25 MG; Start 02/02/17 at 09:00 Trazodone HCl (Desyrel) 50 mg QHS PO Last administered on 02/02/17 20:04; Admin Dose 50 MG; Start 02/02/17 at 21:00 Hydralazine HCl 10 mg 10 mg Q4H PRN IV SBP > 160; Start 02/02/17 at 06:30 Vancomycin HCl (Vancocin) 250 ml @ 125 mls/hr Q24H IVPB Last administered on 12:15; Admin Dose 125 MLS/HR; Start 02/02/17 at 12:00 Diagnostic Test (Pha) (Accu-Chek) 1 ea 02 XX ; Start 02/03/17 at 02:00 Miscellaneous Information 1 ea NOTE XX ; Start 02/02/17 at 22:00 Glucose (Glutose) 15 gm Q15M PRN PO DECREASED GLUCOSE; Start 02/02/17 at 22:00 Glucose (Glutose) 22.5 gm Q15M PRN PO DECREASED GLUCOSE; Start 02/02/17 at 22:00 Dextrose (D50w Syringe) 25 ml Q15M PRN IV DECREASED GLUCOSE; Start 02/02/17 at 22:00 Dextrose (D50w Syringe) 50 ml Q15M PRN IV DECREASED GLUCOSE; Start 02/02/17 at 22:00 Glucagon (Glucagen) 1 mg Q15M PRN IM DECREASED GLUCOSE; Start 02/02/17 at 22:00 Glucose (Glutose) 15 gm Q15M PRN BUCCAL DECREASED GLUCOSE; Start 02/02/17 at 22: 00 Ciprofloxacin (Cipro) 500 mg DAILY@06 PO ; Start 02/04/17 at 06:00 YIN SALOMON Feb 03, 2017 13:53
[2017-02-03] MEDS ORDERED: CEFEPIME 1GM/50 ML (PMX) 50 ML IVPB SCH (18:00)
--- NOTE | 2017-02-03 18:29 | CONS ---
DATE OF ADMISSION: 02/02/2017 DATE OF CONSULTATION: 02/03/2017 TYPE OF CONSULTATION: Infectious Disease REASON FOR CONSULTATION: Antibiotic management. HISTORY OF PRESENT ILLNESS: Penelope Huerta is a 56-year-old female with numerous problem s who comes in with left lower extremity osteomyelitis. Her past problems include: 1. Adult-onset diabetes mellitus. 2. Charcot foot. 3. Status post left ankle fusion. 4. Hypertension. 5. History of cholecystectomy and right foot surgery. The patient presented with left ankle pain. She was admitted recently and discharged 01/19/2017 for left ankle cellulitis, which was treated with broad-spectrum antibiotics with vancomycin and Zosyn. She was seen by myself and the patient had a workup including blood cultures, which grew out Pseud omonas. She also had an MRI of her left ankle, which shows changes consistent with osteomyelitis. Due to her previous history of left Charcot ankle, status post fusion using bone allograft in 5 with some concern about possible loosening of the hardware, so she had evaluation done by Dr. Baba jacobo Peacock in podiatry. He recommended continuing IV antibiotics. There was some concern for infecti on of the bone allograft. Dr. Peacock recommending continuing 4 to 6 weeks of IV antibiotics and if there is no improvement in the cellulitis and wound, then he would consider future surgical plans. She also had acute kidney injury secondary to prerenal azotemia during that admission, was seen by Ander Meyer. She was also seen by Dr. Galvan for uncontrolled diabetes mellitus. She was set up for home health for IV antibiotics, for which she had a PICC line placed during this hospitalization. She w as discharged home with home health with IV vancomycin and oral Cipro for a 2-month course. An ankl e x-ray done in the emergency room showed increased diffuse soft tissue swelling suggesting cellulit is, postoperative changes of Charcot foot, otherwise no significant changes from 01/04/2017. PAST MEDICAL HISTORY: Left ankle cellulitis with MRI consistent with left foot osteomyelitis, histo ry of left Charcot ankle status post fusion, adult-onset diabetes mellitus, hypertension, renal insu fficiency, iron deficiency, bilateral lower extremity atherosclerosis, status post cholecystectomy. SOCIAL HISTORY: She does not smoke, drink or abuse drugs. ALLERGIES: NONE TO PENICILLIN, SULFA OR FOODS. MEDICATIONS: Per chart. REVIEW OF SYSTEMS: As per HPI. PHYSICAL EXAMINATION: GENERAL: The patient is a well-developed, well-nourished female, alert, responsive, in no acute dis tress. VITAL SIGNS: Stable. She is afebrile. SKIN: Without generalized rash. HEENT: Within normal limits. NECK: Supple. LYMPH NODES: None palpable. CHEST: Decreased breath sounds at the bases. HEART: Without murmur or gallop. ABDOMEN: Soft, nontender, without organosplenomegaly or masses. EXTREMITIES: Left lateral malleolar swelling and tenderness. RECTAL AND GENITAL: Deferred. NEUROLOGIC: No focal neurological abnormalities. ANCILLARY LABORATORY DATA: White count 8.7, H and H 9.7 and 29.5, platelet count 509,000. BUN and creatinine 29/1.5. IMPRESSION AND PLAN: Blood cultures are negative from 02/01/2017. She is currently on Cipro and va ncomycin which she was on, I believe at home. She should be reevaluated. The x-ray shows increased diffuse soft tissue swelling suggesting cellulitis, postoperative changes. I am going to switch he r from Cipro to cefepime. Her Pseudomonas aeruginosa was sensitive to everything, so I am going to put her on ertapenem or maybe meropenem. I will dictate my findings to the hospitalist. Dictated By: HAN TURCIOS MD, JD/COURTNEY Conf#: [id number] DID#: [id number]
[2017-02-03 19:25] VITALS: BP 169/72; RESP 18
[2017-02-03 20:30] VITALS: BP 132/61; PULSE 81; RESP 16
[2017-02-03] MEDS: traZODone 50 MG TAB PO SCH (20:33)
[2017-02-03] MEDS: INSULIN GLARGINE [LANtus] 3 ML PEN SC SCH (20:37)
[2017-02-03] MEDS ORDERED: ATORVASTATIN 20 MG TAB PO SCH (21:00)
--- NOTE | 2017-02-03 23:32 | CONS ---
Date/Time of Note Date/Time of Note DATE: 02/03/17 TIME: 23:26 Assessment/Plan Assessment/Plan Problems: (1) Peripheral vascular disease (2) Morbid obesity (3) Charcot's joint, left ankle and foot (4) Diabetes, polyneuropathy (5) Charcot foot due to diabetes mellitus Status: Chronic Additional Assessment/Plan Patient is scheduled for removal of IM nail and hardware of the left foot and ankle on Tuesday02-12-2017. No surgery is planned for this admission. Patient may continue IVAbx. Non weight bearing on the left foot and ankle to continue. Patient has compromised circulation of her left ankle and foot and has failed primary ankle fusion using allograft bone. Plan is for tibio- calcaneal fusion using external fixation. Her condition is severe and her prognosis is guarded. May d/c home and follow up as outpatient at [facility] clinic. Thank you again for involving me in the care of this patient. If you have any questions regarding this case, please feel free to contact me at pager: or reach me at mobile: [phone]. Consultation Date/Type/Reason Admit Date/Time Musculoskeletal: bone/joint pain Past Surgical History Past Surgical Hx: cholecystectomy Social History Smoking Status: Never smoker Exam/Review of Systems Vital Signs Vitals Vital Signs Date Time Temp Pulse Resp B/P Pulse Ox O2 Delivery O2 Flow Rate FiO2 02/03/17 20:30 98.2 81 16 132/61 98 Room Air Intake and Output 02/02/17 02/02/17 02/03/17 15:00 23:00 07:00 Intake Total 400 ml Balance 400 ml Results Result Diagram: 02/03/17 0505 02/03/17 0505 Results 24 hrs Laboratory Tests Test 02/03/17 01:52 02/03/17 05:05 02/03/17 08:03 02/03/17 12:10 Bedside Glucose 369 H 286 H 269 H White Blood Count 6.7 # Red Blood Count 3.53 L Hemoglobin 9.3 L Hematocrit 29.2 L Mean Corpuscular Volume 82.7 Mean Corpuscular Hemoglobin 26.3 L Mean Corpuscular Hemoglobin Concent 31.8 L Red Cell Distribution Width 15.2 H Platelet Count 459 H Mean Platelet Volume 9.4 Neutrophils % 53.0 Lymphocytes % 27.1 Monocytes % 12.6 H Eosinophils % 6.6 Basophils % 0.4 Nucleated Red Blood Cells % 0.0 Neutrophils # 3.5 Lymphocytes # 1.8 Monocytes # 0.8 Eosinophils # 0.4 Basophils # 0.0 Nucleated Red Blood Cells # 0.0 Sodium Level 140 Potassium Level 5.0 Chloride Level 108 Carbon Dioxide Level 24 Anion Gap 13 Blood Urea Nitrogen 36 H Creatinine 1.69 H Glucose Level 243 H Calcium Level 8.8 Phosphorus Level 5.6 H Magnesium Level 2.0 Total Bilirubin 0.0 L Direct Bilirubin 0.00 Indirect Bilirubin 0.0 Aspartate Amino Transf (AST/SGOT) 18 Alanine Aminotransferase (ALT/SGPT) 26 Alkaline Phosphatase 135 H Total Protein 7.0 Albumin 3.7 Globulin 3.30 H Albumin/Globulin Ratio 1.12 Test 02/03/17 17:21 02/03/17 20:34 Bedside Glucose 188 193 Medications Medications Current Medications Ondansetron HCl (Zofran Inj) 4 mg Q6H PRN IV NAUSEA AND/OR VOMITING; Start 02/02 at 06:30 Acetaminophen (Tylenol Tab) 650 mg Q6H PRN PO PAIN LEVEL 1-3 OR FEVER; Start at 06:30 Morphine Sulfate (morphine) 5 mg Q4H PRN IV SEVERE PAIN LEVEL 7-10 Last administered on 02/03/17 22:59; Admin Dose 5 MG; Start 02/02/17 at 06:30 Enoxaparin Sodium (Lovenox) 40 mg DAILY SC Last administered on 02/03/17 08:11 ; Admin Dose 40 MG; Start 02/02/17 at 09:00 Chlorthalidone (Hygroton) 25 mg DAILY PO Last administered on 02/03/17 08:06; Admin Dose 25 MG; Start 02/02/17 at 09:00 Acetaminophen/ Hydrocodone Bitart ([place] (5/325)) 1 tab Q6 PRN PO SEVERE PAIN LEVEL 7-10 Last administered on 02/02/17 21:38; Admin Dose 1 TAB; Start 02/02/17 at 06:30 Insulin Glargine (Lantus) 44 unit HS SC Last administered on 02/03/17 20:37; Admin Dose 44 UNIT; Start 02/02/17 at 21:00 Linagliptin (Tradjenta) 5 mg DAILY PO Last administered on 02/03/17 08:05; Admin Dose 5 MG; Start 02/02/17 at 09:00 Metoprolol Tartrate (Lopressor) 25 mg BID PO Last administered on 02/03/17 20: 32; Admin Dose 25 MG; Start 02/02/17 at 09:00 Trazodone HCl (Desyrel) 50 mg QHS PO Last administered on 02/03/17 20:33; Admin Dose 50 MG; Start 02/02/17 at 21:00 Hydralazine HCl 10 mg 10 mg Q4H PRN IV SBP > 160; Start 02/02/17 at 06:30 Vancomycin HCl (Vancocin) 250 ml @ 125 mls/hr Q24H IVPB Last administered on 12:15; Admin Dose 125 MLS/HR; Start 02/02/17 at 12:00 Diagnostic Test (Pha) (Accu-Chek) 1 ea 02 XX ; Start 02/03/17 at 02:00 Miscellaneous Information 1 ea NOTE XX ; Start 02/02/17 at 22:00 Glucose (Glutose) 15 gm Q15M PRN PO DECREASED GLUCOSE; Start 02/02/17 at 22:00 Glucose (Glutose) 22.5 gm Q15M PRN PO DECREASED GLUCOSE; Start 02/02/17 at 22:00 Dextrose (D50w Syringe) 25 ml Q15M PRN IV DECREASED GLUCOSE; Start 02/02/17 at 22:00 Dextrose (D50w Syringe) 50 ml Q15M PRN IV DECREASED GLUCOSE; Start 02/02/17 at 22:00 Glucagon (Glucagen) 1 mg Q15M PRN IM DECREASED GLUCOSE; Start 02/02/17 at 22:00 Glucose (Glutose) 15 gm Q15M PRN BUCCAL DECREASED GLUCOSE; Start 02/02/17 at 22: 00 Atorvastatin Calcium 20 mg 20 mg HS PO Last administered on 02/03/17 20:33; Admin Dose 20 MG; Start 02/03/17 at 21:00 Cefepime HCl (Maxipime 1gm/50 ml (Pmx)) 50 ml @ 100 mls/hr Q24H IVPB Last administered on 02/03/17 18:20; Admin Dose 100 MLS/HR; Start 02/03/17 at 18:00 Miscellaneous Information (*Rx Drug Level Order Reminder*) VANCO TROUGH @ 1, 100 ON... ONCE ONCE XX ; Start 02/04/17 at 11:00; Stop 02/04/17 at 11:01 ELLA ORTIZ DPM Feb 03, 2017 23:32
[2017-02-04] MEDS: ACCU-CHEK XX SCH (02:19)
[2017-02-04] MEDS ORDERED: CIPROFLOXACIN 500 MG TAB PO SCH (06:00)
[2017-02-04 06:03] LABS: ADD SCAN DIFF NO
[2017-02-04 06:17] LABS: BASOPHIL # 0.1 10^3/ul (0.0-0.1); BASOPHILS % 0.7 % (0.0-2.0); EOSINOPHILS # 0.5 10^3/ul (0.0-0.5); EOSINOPHILS % 5.6 % (0.0-7.0); HEMATOCRIT 28.9 % (37.0-47.0); HEMOGLOBIN 9.1 g/dl (12.0-16.0); LYMPHOCYTES # 1.6 10^3/ul (0.8-2.9); LYMPHOCYTES % 18.6 % (15.0-51.0); MEAN CORPUSCULAR HGB CONC 31.5 g/dl (32.0-37.0); MEAN CORPUSCULAR VOLUME 82.6 fl (82.0-101.0); MEAN PLATELET VOLUME 9.2 fl (7.4-10.4); MONOCYTES % 11.1 % (0.0-11.0); NEUTROPHIL # 5.6 10^3/ul (1.6-7.5); NEUTROPHILS % 63.7 % (39.0-77.0); PLATELET COUNT 464 10^3/UL (140-415); RED CELL DISTRIBUTION WIDTH 15.3 % (11.5-14.5); WHITE BLOOD COUNT 8.7 10^3/ul (4.8-10.8)
[2017-02-04 06:25] LABS: CALCIUM 9.2 mg/dl (8.4-10.2); CREATININE 1.5 mg/dl (0.44-1.00); POTASSIUM 5.3 mmol/L (3.5-5.1)
[2017-02-04 07:40] VITALS: BP 125/64; RESP 18
[2017-02-04] MEDS: INSULIN ASPART [NOVOLOG] 3 ML PEN SC SCH ×4 (08:19→12:26)
[2017-02-04] MEDS: LEVOTHYROXINE 112 MCG TAB PO SCH (08:30)
[2017-02-04] MEDS: metFORMIN 500 MG TAB PO SCH (08:31)
[2017-02-04] MEDS: METOPROLOL 25 MG TAB PO SCH (08:32)
[2017-02-04] MEDS: CHLORTHALIDONE 25 MG TAB PO SCH (08:32)
[2017-02-04] MEDS: LINAGLIPTIN 5 MG TABLET PO SCH (08:32)
[2017-02-04] MEDS: ENOXAPARIN 40 MG/0.4 ML SYG SC SCH (08:37)
[2017-02-04] MEDS ORDERED: NOVO3I SC (10:24)
--- NOTE | 2017-02-04 10:25 | PDOCDIS ---
Discharge Instructions CONDITION Patient Condition: Good HOME CARE INSTRUCTIONS: Special Diet: CARB CONTROLLED DIET ACTIVITY: Activity Restrictions: No Restrictions FOLLOW UP/APPOINTMENTS Appointments F/U WITH DR ORTIZ AT [facility] AND WITH YOUR HH AGENCY AND WITH YOUR PCP IN 1-2 WEEKS YIN SALOMON Feb 04, 2017 10:25
[2017-02-04] MEDS ORDERED: ALTEPLASE (CATHFLO) 2 MG INJ CATHETER PRN (12:00)
--- NOTE | 2017-02-04 13:37 | CONS ---
Date/Time of Note Date/Time of Note DATE: 02/04/17 TIME: 13:34 Assessment/Plan Assessment/Plan Chief Complaint/Hosp Course SUBJECTIVE: No acute events, alert, feels good, no fevers ANTIMICROBIALS: The patient is on 1. IV vancomycin. 2. Cefepime PHYSICAL EXAMINATION: GENERAL: Obese, well-developed, middle-aged woman who is alert, in no distress. HEENT: Head atraumatic, normocephalic. Sclerae anicteric. Buccal mucosa dry. NECK: Obese. CHEST: Rise symmetrical. Breath sounds clear. HEART: S1, S2. ABDOMEN: Soft, bowel tones present. EXTREMITIES: Left lower extremity swelling, deformity and edema. The patient has an ulcer wound on the back of the foot. ASSESSMENT: 1. Left Charcot deformity, infected hardware 2. Diabetes 3. Obesity. PLAN: Remains stable, continue on current abx, pending hardware removal on per podiatry, will keep on abx for 6 weeks after hardware removed, possibly longer. DW staff Problems: Consultation Date/Type/Reason Admit Date/Time Feb 02, 2017 at 03:18 Initial Consult Date Type of Consultation: id Exam/Review of Systems Vital Signs Vitals Vital Signs Date Time Temp Pulse Resp B/P Pulse Ox O2 Delivery O2 Flow Rate FiO2 02/04/17 07:40 98.4 73 18 125/64 99 02/03/17 20:30 Room Air Intake and Output 02/03/17 02/03/17 02/04/17 15:00 23:00 07:00 Intake Total 250 ml 1250 ml 400 ml Balance 250 ml 1250 ml 400 ml Results Result Diagram: 02/04/17 0542 02/04/17 0542 Results 24 hrs Laboratory Tests Test 02/03/17 17:21 02/03/17 20:34 02/04/17 02:18 02/04/17 05:42 Bedside Glucose 188 193 206 White Blood Count 8.7 # Red Blood Count 3.50 L Hemoglobin 9.1 L Hematocrit 28.9 L Mean Corpuscular Volume 82.6 Mean Corpuscular Hemoglobin 26.0 L Mean Corpuscular Hemoglobin Concent 31.5 L Red Cell Distribution Width 15.3 H Platelet Count 464 H Mean Platelet Volume 9.2 Neutrophils % 63.7 Lymphocytes % 18.6 Monocytes % 11.1 H Eosinophils % 5.6 Basophils % 0.7 Nucleated Red Blood Cells % 0.0 Neutrophils # 5.6 Lymphocytes # 1.6 Monocytes # 1.0 H Eosinophils # 0.5 Basophils # 0.1 Nucleated Red Blood Cells # 0.0 Sodium Level 138 Potassium Level 5.3 H Chloride Level 107 Carbon Dioxide Level 22 Anion Gap 14 Blood Urea Nitrogen 34 H Creatinine 1.50 H Glucose Level 228 H Calcium Level 9.2 Test 02/04/17 08:04 02/04/17 11:20 02/04/17 12:08 Bedside Glucose 243 H 241 H Vancomycin Level Trough 22.9 *H Medications Medications Current Medications Ondansetron HCl (Zofran Inj) 4 mg Q6H PRN IV NAUSEA AND/OR VOMITING; Start 02/02 at 06:30 Acetaminophen (Tylenol Tab) 650 mg Q6H PRN PO PAIN LEVEL 1-3 OR FEVER; Start at 06:30 Morphine Sulfate (morphine) 5 mg Q4H PRN IV SEVERE PAIN LEVEL 7-10 Last administered on 02/03/17 22:59; Admin Dose 5 MG; Start 02/02/17 at 06:30 Enoxaparin Sodium (Lovenox) 40 mg DAILY SC Last administered on 02/04/17 08:37 ; Admin Dose 40 MG; Start 02/02/17 at 09:00 Chlorthalidone (Hygroton) 25 mg DAILY PO Last administered on 02/04/17 08:32; Admin Dose 25 MG; Start 02/02/17 at 09:00 Acetaminophen/ Hydrocodone Bitart ([place] (5/325)) 1 tab Q6 PRN PO SEVERE PAIN LEVEL 7-10 Last administered on 02/02/17 21:38; Admin Dose 1 TAB; Start 02/02/17 at 06:30 Insulin Glargine (Lantus) 44 unit HS SC Last administered on 02/03/17 20:37; Admin Dose 44 UNIT; Start 02/02/17 at 21:00 Linagliptin (Tradjenta) 5 mg DAILY PO Last administered on 02/04/17 08:32; Admin Dose 5 MG; Start 02/02/17 at 09:00 Metoprolol Tartrate (Lopressor) 25 mg BID PO Last administered on 02/04/17 08: 32; Admin Dose 25 MG; Start 02/02/17 at 09:00 Trazodone HCl (Desyrel) 50 mg QHS PO Last administered on 02/03/17 20:33; Admin Dose 50 MG; Start 02/02/17 at 21:00 Hydralazine HCl (Apresoline) 10 mg Q4H PRN IV SBP > 160; Start 02/02/17 at 06:30 Diagnostic Test (Pha) (Accu-Chek) 1 ea 02 XX Last administered on 02/04/17 02: 19; Admin Dose 1 EA; Start 02/03/17 at 02:00 Miscellaneous Information 1 ea NOTE XX ; Start 02/02/17 at 22:00 Glucose (Glutose) 15 gm Q15M PRN PO DECREASED GLUCOSE; Start 02/02/17 at 22:00 Glucose (Glutose) 22.5 gm Q15M PRN PO DECREASED GLUCOSE; Start 02/02/17 at 22:00 Dextrose (D50w Syringe) 25 ml Q15M PRN IV DECREASED GLUCOSE; Start 02/02/17 at 22:00 Dextrose (D50w Syringe) 50 ml Q15M PRN IV DECREASED GLUCOSE; Start 02/02/17 at 22:00 Glucagon (Glucagen) 1 mg Q15M PRN IM DECREASED GLUCOSE; Start 02/02/17 at 22:00 Glucose (Glutose) 15 gm Q15M PRN BUCCAL DECREASED GLUCOSE; Start 02/02/17 at 22: 00 Atorvastatin Calcium 20 mg 20 mg HS PO Last administered on 02/03/17 20:33; Admin Dose 20 MG; Start 02/03/17 at 21:00 Cefepime HCl 50 ml @ 100 mls/hr Q24H IVPB Last administered on 02/03/17 18:20 ; Admin Dose 100 MLS/HR; Start 02/03/17 at 18:00 Vancomycin HCl/ Sodium Chloride (Vancocin/NS) 150 ml @ 75 mls/hr Q24H IVPB ; Start 02/05/17 at 01:00 NUBIA MONTANEZ NP Feb 04, 2017 13:37
[2017-02-04] MEDS: morphine 4 MG/ML VIAL IV PRN (14:17)
--- NOTE | 2017-02-04 16:59 | DS ---
DATE OF ADMISSION: 02/02/2017 DATE OF DISCHARGE: 02/04/2017 DISCHARGE DIAGNOSES: 1. Left lower extremity osteomyelitis. The patient to continue IV antibiotics via home health. Th is was arranged during recent hospitalization. 2. History of left foot Charcot ankle status post fusion. The patient is to follow up with podiatr y at [facility]. 3. Diabetes, poorly controlled. The patient advised the importance of compliance. 4. Hypertensive urgency, resolved. 5. History of dyslipidemia. 6. Chronic kidney disease, stable. 7. Anemia of chronic disease. 8. Bilateral lower extremity atherosclerosis, no inpatient interventions per vascular surgery. The patient to follow up with [facility]. HOSPITAL COURSE: The patient is a 56-year-old female with a history of poorly controlled diabetes, hypertension, dyslipidemia, history of Charcot foot, status post left ankle fusion. The patient has a history of left foot osteomyelitis. The patient was set up for IV antibiotics via home health [facility] approximately 2 weeks prior to this hospitalization. Patient comes in with a chief complaint of left ankle pain. The patient was seen by podiatry as well as ID so that patient can follow up with [facility] as an outpatient. Home health was told the patient is to continue antibiotics upon discharge. The patient was reportedly on vancomycin IV and Cipro p.o., which was arranged once again during [facility] hospitalization. Vascular surgery also stated that there are no requirements for any inpatient i nterventions. The patient is to follow up with [facility] as an outpatient. On the day of discharge, the patient's vitals, labs and exam were stable. She had no acute complaints and questions answered. CONDITION ON DISCHARGE: Stable. DISPOSITION: To home with home health for IV antibiotics. MEDICATIONS: Patient continue usual home medications. FOLLOWUP: The patient is to follow up with her PCP in 1 to 2 weeks and with [facility] and ____ follow u p with home health. Greater than 30 minutes was spent coordinating discharge of this patient. Dictated By: YIN SALOMON MD BS/NTS Conf#: [id number] DID#: [id number]
[2017-02-05] MEDS ORDERED: VANCOMYCIN 750 MG in SOD CHLORIDE 0.9% 150 ML IVPB SCH (01:00)
== END 2017-02-04 15:45 | disposition home health service (06) | DRG 638 ==
LOC: FTE 20:40 → MS2 02-02 03:18
PROVIDERS: ADMIT Internal Medicine; ATTEND Internal Medicine
DX: E11.69 Type 2 diabetes mellitus with other specified complication (principal); M86.8X7 Other osteomyelitis, ankle and foot; N17.9 Acute kidney failure, unspecified; E11.22 Type 2 diabetes mellitus with diabetic chronic kidney disease; L03.116 Cellulitis of left lower limb; E11.42 Type 2 diabetes mellitus with diabetic polyneuropathy; Z68.41 Body mass index [BMI] 40.0-44.9, adult; E11.65 Type 2 diabetes mellitus with hyperglycemia; I16.0 Hypertensive urgency; E78.5 Hyperlipidemia, unspecified; I12.9 Hypertensive chronic kidney disease with stage 1 through stage 4 chronic kidney disease, or unspecified chronic kidney disease; N18.9 Chronic kidney disease, unspecified; D50.9 Iron deficiency anemia, unspecified; Z98.1 Arthrodesis status; Z90.49 Acquired absence of other specified parts of digestive tract; I70.203 Unspecified atherosclerosis of native arteries of extremities, bilateral legs; D63.8 Anemia in other chronic diseases classified elsewhere; E11.51 Type 2 diabetes mellitus with diabetic peripheral angiopathy without gangrene; E11.610 Type 2 diabetes mellitus with diabetic neuropathic arthropathy; E66.01 Morbid (severe) obesity due to excess calories
CPT/HCPCS: 36415; 73610; 80048; 80053; 80202; 82962; 83605; 83735; 84100; 85025; 87040; 87081; 96365; 96366; 96372; 96375; J0360; J0692; J1650; J1815; J2270; J2405; J2997; J3370

== ENCOUNTER 2017-03-08 23:17 | Emergency (ER) | END 2017-03-09 02:17 | disposition home or self-care (01) | DX: G89.18 Other acute postprocedural pain (principal); E11.9 Type 2 diabetes mellitus without complications; I10 Essential (primary) hypertension; Z79.4 Long term (current) use of insulin; Z79.84 Long term (current) use of oral hypoglycemic drugs | CPT/HCPCS: 96372; J1170; Z7502; Z7610 ==

== ENCOUNTER 2017-03-20 09:18 | Emergency (ER) | payer OTHER ==
[~2017-03-20] VITALS: Ht 162.6 cm; Wt 95.4 kg
[~2017-03-20 09:18] MED LIST changes: +BENA5TAB2 PO; +HYDR-902 PO; +LEVO0.5P MC; +NOVO3I SC; +NOVO7030 SC
[2017-03-20 09:23] VITALS: Ht 162.6 cm; Wt 95.4 kg
[2017-03-20] MEDS ORDERED: IPRATROPIUM (NEB) 0.5 MG/2.5 ML AMP NEB STA (09:49)
[2017-03-20] MEDS ORDERED: ALBUTEROL 0.083% (NEB) 2.5 MG/3 ML AMP NEB STA (09:49)
[2017-03-20] MEDS ORDERED: ONDANSETRON (ODT) 4 MG TAB ODT STA (09:52)
--- NOTE | 2017-03-20 10:10 | ERD ---
ER Documentation Chief Complaint Date/Time DATE: 03/20/17 TIME: 10:01 Chief Complaint fever with N/V x 7 days HPI This a 56-year-old female who presents the emergency department today with her son for complaints of some nausea vomiting, headache, pain in her jaw and teeth , fever and chills, cough with phlegm and dry throat for the past couple of days. States she also has some nasal congestion. States that she saw Dr. Peacock 2 weeks ago and had a removed failed bone graft done at that time and had an external fixation device placed. States she has tried Mucinex for the cough. States she is losing her voice. She is taking vancomycin 750 daily. denies any diarrhea or abdominal pain ROS All systems reviewed and are negative except as per history of present illness. Medications Home Meds Active Scripts Ondansetron Hcl* (Zofran*) 4 Mg Tablet, 4 MG PO Q6H for NAUSEA AND/OR VOMITING, #30 TAB Prov:IZA VELASQUEZ PA-C 03/20/17 Cetirizine Hcl* (Zyrtec*) 10 Mg Capsule, 10 MG PO DAILY, #14 TAB.CHEW Prov:IZA VELASQUEZ PA-C 03/20/17 Fluticasone Propionate (Flonase Allergy Relief) 9.9 Ml [place].susp, 1 SPRAY NASAL BID, #1 BOTTLE TO EACH NOSTRIL Prov:IZA VELASQUEZ PA-C 03/20/17 Hydrocodone/Acetaminophen ([place] 10-325 Tablet) 1 Each Tablet, 1 TAB PO Q6H Y for PAIN, #20 TAB Prov:FRANCISCO JAVIER CHAVEZ 03/09/17 Insulin Aspart* (Novolog Insulin Pen*) 100 Unit/Ml Soln, 9 UNIT SC WITH MEALS, # 1 EA Prov:YIN SALOMON 02/04/17 Hydrocodone/Acetaminophen ([place] 5-325 Tablet) 1 Each Tablet, 1 EACH PO Q6 Y for SEVERE PAIN LEVEL 7-10 for 30 Days, TAB Prov:MARIANA KEENAN MD 01/13/17 Linagliptin (TRADJENTA) 5 Mg Tablet, 5 MG PO DAILY, #90 TAB Prov:MARIANA KEENAN MD 01/13/17 Ciprofloxacin Hcl* (Ciprofloxacin Hcl*) 500 Mg Tablet, 500 MG PO BID@06,18 for acute RLE osteomyelitis, #120 TAB Prov:MARIANA KEENAN MD 01/13/17 Metformin* (Glucophage*) 500 Mg Tab, 500 MG PO BID, #180 Prov:MARIANA KEENAN MD 01/13/17 Metoprolol Tartrate* (Lopressor*) 25 Mg Tab, 25 MG PO BID for 30 Days, TAB 1 Refill Prov:RILEY CUTLER MD 06/22/16 Reported Medications Levothyroxine Sodium (Levothyroxine Sodium) 0.5 Gm Powder, 0.5 GM MC 03/05/17 Benazepril Hcl* (Benazepril Hcl*) 5 Mg Tablet, 5 MG PO DAILY, #30 TAB 03/05/17 Insulin Isophan/Regular (Humulin 70/30) 100 Units/Ml Susp, 1 UNIT SC AC BREAKFAST, EA 03/05/17 Insulin Glargine* (Lantus*) 100 Unit/Ml Soln, 1 UNIT SC QHS, #1 VIAL 03/05/17 Lovastatin* (Lovastatin*) Unknown Strength Tablet, MG PO HS, TAB 01/04/17 Chlorthalidone* (Chlorthalidone*) 25 Mg Tablet, 25 MG PO DAILY, TAB 08/19/16 Trazodone Hcl* (Trazodone Hcl*) 50 Mg Tablet, 50 MG PO QHS, #30 TAB 05/11/16 Levothyroxine Sodium* (Levothyroxine Sodium*) 112 Mcg Tablet, 112 MCG PO AC BREAKFAST, TAB 05/09/15 Insulin Glargine* (Lantus*) 100 Unit/Ml Soln, 44 UNIT SC HS, EA 05/09/15 Allergies Allergies: Coded Allergies: No Known Drug Allergy (Verified Allergy, Mild, 03/20/17) PMhx/Soc History of Surgery: Yes (right achilles ) Anesthesia Reaction: No Hx Neurological Disorder: No Hx Respiratory Disorders: No Hx Cardiac Disorders: Yes (HTN) Hx Psychiatric Problems: No Hx Miscellaneous Medical Probl: Yes (CHOL) Hx Alcohol Use: No Hx Substance Use: No Hx Tobacco Use: No Physical Exam Vitals Vital Signs Date Time Temp Pulse Resp B/P Pulse Ox O2 Delivery O2 Flow Rate FiO2 03/20/17 10:21 87 20 95 21 03/20/17 09:23 98.2 88 16 123/56 96 Physical Exam Const: Obese, sitting in wheelchair, no acute distress Head: Atraumatic Eyes: Normal Conjunctiva ENT: Ears TMs normal. Nose no drainage. Throat erythema no exudate no vesicles. Tenderness palpation maxillary sinus. Neck: Full range of motion..~ No meningismus. Resp: Coarse breath sounds right-sided lung fisher. Cardio: Regular rate and rhythm, no murmurs Abd: Soft, non tender, non distended. Normal bowel sounds Skin: No petechiae or rashes. No erythema or warmth around oral fixation device no purulent drainage Back: No midline or flank tenderness Ext: No cyanosis, or edema Neur: Awake and alert Psych: Normal Mood and Affect Result Diagram: 03/20/17 1030 03/20/17 1030 Results 24 hrs Laboratory Tests Test 03/20/17 10:00 03/20/17 10:30 Urine Color YELLOW Urine Clarity SLIGHTLY CLOUDY Urine pH 5.0 Urine Specific [place] 1.014 Urine Ketones NEGATIVEmg/dL Urine Nitrite NEGATIVEmg/dL Urine Bilirubin NEGATIVEmg/dL Urine Urobilinogen NEGATIVEmg/dL Urine Leukocyte Esterase NEGATIVELeu/ul Urine Microscopic RBC 2/HPF Urine Microscopic WBC 4/HPF Urine Squamous Epithelial Cells FEW/HPF Urine Amorphous Crystals FEW/HPF Urine Bacteria FEW/HPF Urine Hemoglobin NEGATIVEmg/dL Urine Glucose 3+mg/dL Urine Total Protein 3+mg/dl White Blood Count 17.910^3/ul Red Blood Count 3.1810^6/ul Hemoglobin 8.2g/dl Hematocrit 25.2% Mean Corpuscular Volume 79.2fl Mean Corpuscular Hemoglobin 25.8pg Mean Corpuscular Hemoglobin Concent 32.5g/dl Red Cell Distribution Width 14.6% Platelet Count 34611^3/UL Mean Platelet Volume 8.6fl Neutrophils % 79.9% Lymphocytes % 9.6% Monocytes % 8.3% Eosinophils % 1.1% Basophils % 0.3% Nucleated Red Blood Cells % 0.0/100WBC Neutrophils # 14.310^3/ul Lymphocytes # 1.710^3/ul Monocytes # 1.510^3/ul Eosinophils # 0.210^3/ul Basophils # 0.110^3/ul Nucleated Red Blood Cells # 0.010^3/ul Sodium Level 139mmol/L Potassium Level 3.9mmol/L Chloride Level 98mmol/L Carbon Dioxide Level 25mmol/L Anion Gap 20 Blood Urea Nitrogen 20mg/dl Creatinine 1.86mg/dl Glucose Level 232mg/dl Calcium Level 8.7mg/dl Total Bilirubin 0.0mg/dl Direct Bilirubin 0.00mg/dl Indirect Bilirubin 0.0mg/dl Aspartate Amino Transf (AST/SGOT) 28IU/L Alanine Aminotransferase (ALT/SGPT) 48IU/L Alkaline Phosphatase 243IU/L Total Protein 7.4g/dl Albumin 3.3g/dl Globulin 4.10g/dl Albumin/Globulin Ratio 0.80 Lipase 40U/L Current Medications Medications (Trade) Dose Ordered Sig/Nafisa Route PRN Reason Start Time Stop Time Status Last Admin Dose Admin Albuterol (Proventil 0.083% (Neb)) 5 mg ONCE STAT NEB 03/20/17 09:49 03/20/17 09:52 DC 03/20/17 10:21 Ipratropium [place] (Atrovent 0.02% (Neb)) 0.5 mg ONCE STAT NEB 03/20/17 09:49 03/20/17 09:52 DC 03/20/17 10:21 Ondansetron HCl (Zofran Odt) 4 mg ONCE STAT ODT 03/20/17 09:52 03/20/17 09:53 DC 03/20/17 09:59 DIAGNOSTIC IMAGING REPORT Patient: TOR MCGRATH : 1960 Age: 56 Sex: F MR #: [id number] DOS: 03/20/17 0000 Ordering MD: IZA VELASQUEZ PA-C Location: [facility] Room/Bed: PROCEDURE: XR Chest. CLINICAL INDICATION: Cough. TECHNIQUE: Single frontal view. COMPARISON: 01/11/2017. FINDINGS: The left arm PICC line remains in satisfactory position. The lungs are clear. The heart size is normal. There is no pleural effusion. There is no pneumothorax. IMPRESSION: 1. Left arm PICC line in satisfactory position. 2. Clear lungs. RPTAT: QQ .Everett Turpin MD, MD Date Time Electronically viewed and signed by .Everett Turpin MD, on 03/20/2017 10:15 .R/ CC: IZA VELASQUEZ PA-C Procedures/MDM This 56-year-old female presents the emergency department today with multiple complaints. Patient has been seen here in the emergency department multiple times for diabetic feet, cellulitis and recently had surgery to remove a failed bone graft and have an external fixation device placed. Patient appears to have URI symptoms at this time however given patient's complaints of nausea vomiting, fevers and having had multiple visits to the emergency department, complex medical history I did obtain laboratory work. Patient also had some coarse breath sounds on the right side of her lung fisher and therefore did obtain a chest x-ray and give the patient a breathing treatment Laboratory workup shows an elevated white blood cell count of 17.9. Her hemoglobin is 8.2. Platelets are elevated. Electrolytes are within normal limits. Glucose is mildly elevated at 232. Liver enzymes are within normal limits. Lipase is within normal limits. UA is negative for infection. Chest x-ray shows clear lungs. Low suspicion for pneumonia, PE, abscess, pleural effusion She was given Zofran here in the emergency department as well as a breathing treatment. Patient symptoms at this time given her complaints of headache, facial pain nasal congestion likely related to sinusitis. I discussed the patient with Dr. Yanez and he does not feel the patient requires and buttocks at this time given new guidelines. She is afebrile. She does have an elevated white blood cell count however this may be reactive as patient has had some nausea and vomiting also on vancomycin at this time. Patient's wound and external fixation device has no erythema or warmth. There is no purulent drainage and there does not appear to be signs of infection from that. Patient's chest x-ray is negative. Low suspicion for pneumonia or bronchitis. Patient's hemoglobin is decreased at 8.2. Upon review of patient's medical records this is consistent with her previous visits. She has received blood transfusions in the past. There is no indication to transfuse at this time. I explained to the patient that she needs to follow-up with her primary care doctor in regards to this that she likely needs iron supplementation or further workup and eval. Patient and son understood. Patient was given a prescription for Zyrtec, Flonase and Zofran. Patient did indicate that she has a follow-up appointment with her primary care doctor tomorrow. At this time the patient is stable for discharge and outpatient management. Patient should follow up with their PCP in the next 1-2 days. They may return to the emergency department sooner for any persistent or worsening of symptoms. Patient and son understood and agreed with the plan. Departure Diagnosis: Primary Impression: Multiple complaints Condition: IZA Snyder PA-C Mar 20, 2017 10:10
--- NOTE | 2017-03-20 10:16 | RADRPT ---
PROCEDURE: XR Chest. CLINICAL INDICATION: Cough. TECHNIQUE: Single frontal view. COMPARISON: 01/11/2017. FINDINGS: The left arm PICC line remains in satisfactory position. The lungs are clear. The heart size is normal. There is no pleural effusion. There is no pneumothorax. IMPRESSION: 1. Left arm PICC line in satisfactory position. 2. Clear lungs. RPTAT: QQ .Everett Turpin MD, MD Date Time Electronically viewed and signed by .Everett Turpin MD, on 03/20/2017 10:15 .R/
[2017-03-20 10:37] LABS: WHITE BLOOD COUNT 17.9 10^3/ul (4.8-10.8)
[2017-03-20 10:38] LABS: ADD UMIC YES; UR AMORPHOUS CRYSTAL FEW /HPF (NONE SEEN); UR ASCORBIC ACID NEGATIVE (NEGATIVE); UR BACTERIA FEW /HPF (NONE SEEN); UR BILIRUBIN (Dip) NEGATIVE (NEGATIVE); UR BLOOD (Dip) NEGATIVE (NEGATIVE); UR CLARITY SLIGHTLY CLOUDY (CLEAR); UR COLOR YELLOW (YELLOW); UR GLUCOSE (Dip) 3+ mg/dL (NEGATIVE); UR KETONES (Dip) NEGATIVE (NEGATIVE); UR LEUKOCYTE ESTERASE (Dip) NEGATIVE Leu/ul (NEGATIVE); UR NITRITE (Dip) NEGATIVE (NEGATIVE); UR RBC 2 /HPF (0-5); UR SPECIFIC GRAVITY (Dip) 1.014 (1.003-1.030); UR SQUAMOUS EPITHELIAL CELL FEW /HPF (FEW); UR TOTAL PROTEIN (Dip) 3+ mg/dl (NEGATIVE); UR UROBILINOGEN (Dip) NEGATIVE (NEGATIVE)
[2017-03-20 10:38] LABS: BASOPHIL # 0.1 10^3/ul (0.0-0.1); BASOPHILS % 0.3 % (0.0-2.0); EOSINOPHILS # 0.2 10^3/ul (0.0-0.5); EOSINOPHILS % 1.1 % (0.0-7.0); HEMATOCRIT 25.2 % (37.0-47.0); HEMOGLOBIN 8.2 g/dl (12.0-16.0); LYMPHOCYTES # 1.7 10^3/ul (0.8-2.9); LYMPHOCYTES % 9.6 % (15.0-51.0); MEAN CORPUSCULAR HEMOGLOBIN 25.8 pg (29.0-33.0); MEAN CORPUSCULAR HGB CONC 32.5 g/dl (32.0-37.0); MEAN CORPUSCULAR VOLUME 79.2 fl (82.0-101.0); MEAN PLATELET VOLUME 8.6 fl (7.4-10.4); MONOCYTE # 1.5 10^3/ul (0.3-0.9); MONOCYTES % 8.3 % (0.0-11.0); NEUTROPHIL # 14.3 10^3/ul (1.6-7.5); NEUTROPHILS % 79.9 % (39.0-77.0); PLATELET COUNT 657 10^3/UL (140-415); RED BLOOD COUNT 3.18 10^6/ul (4.20-5.40); RED CELL DISTRIBUTION WIDTH 14.6 % (11.5-14.5)
[2017-03-20 11:02] LABS: ALBUMIN 3.3 g/dl (3.3-4.9); ALBUMIN/GLOBULIN RATIO 0.8; CALCIUM 8.7 mg/dl (8.4-10.2); CREATININE 1.86 mg/dl (0.44-1.00); POTASSIUM 3.9 mmol/L (3.5-5.1); TOTAL PROTEIN 7.4 g/dl (6.1-8.1)
[2017-03-20] MEDS ORDERED: CETI10CA PO (11:54)
[2017-03-20] MEDS ORDERED: FLUT9.9S NASAL (11:54)
[2017-03-20] MEDS ORDERED: ONDA4TAB8 PO (11:56)
[2017-03-20 12:06] VITALS: BP 132/67; PULSE 89; RESP 16; TEMP 98.8
== END 2017-03-20 12:07 | disposition home or self-care (01) ==
LOC: FTE 09:18
DX: R50.9 Fever, unspecified (principal); R11.2 Nausea with vomiting, unspecified; R51 Headache; R05 Cough; R09.81 Nasal congestion; I10 Essential (primary) hypertension; E11.9 Type 2 diabetes mellitus without complications; Z79.4 Long term (current) use of insulin; Z79.84 Long term (current) use of oral hypoglycemic drugs
CPT/HCPCS: 71010; 80053; 81001; 83690; 85025; 94664; Z7502; Z7610

== ENCOUNTER → 2017-04-04 | Outpatient (CLI) | payer OTHER ==
[~2017-04-04] MED LIST changes: +CETI10CA PO; +FLUT9.9S NASAL; +ONDA4TAB8 PO
--- NOTE | 2017-04-04 22:41 | RADRPT ---
PROCEDURE: XR Left Foot. CLINICAL INDICATION: Left foot pain. TECHNIQUE: Two views. Frontal and lateral. COMPARISON: 03/24/2017. FINDINGS: There is an external fixation device obscuring a large portion of the foot and ankle. There is miriam ed deformity of the foot and ankle consistent with Charcot foot. Vascular calcifications are presen t consistent with atherosclerosis. IMPRESSION: 1. Charcot foot with external fixation device noted. RPTAT: QQ .Everett Turpin MD, MD Date Time Electronically viewed and signed by .Everett Turpin MD, MD on 04/04/2017 22:40 .R/
--- NOTE | 2017-04-04 22:42 | RADRPT ---
PROCEDURE: XR Left Tibia and Fibula. CLINICAL INDICATION: Left lower leg pain. TECHNIQUE: Two views. Frontal and lateral. COMPARISON: 03/24/2017. FINDINGS: There is an external fixation device obscuring a large portion of the ankle. There is no lytic or b lastic lesion. There is diffuse osteopenia. Vascular calcifications are present consistent with at herosclerosis. Severe deformity of the tibiotalar joint is noted as seen previously. IMPRESSION: 1. No change from 03/24/2017. RPTAT: QQ .Everett Turpin MD, MD Date Time Electronically viewed and signed by .Everett Turpin MD, MD on 04/04/2017 22:42 .R/
--- NOTE | 2017-04-04 22:43 | RADRPT ---
PROCEDURE: XR Left Ankle. CLINICAL INDICATION: Left ankle pain. TECHNIQUE: 3 views. Frontal, lateral, and oblique. COMPARISON: 03/24/2017. FINDINGS: There is an external fixation device obscuring a large portion of the foot and ankle. There is miriam ed deformity of the foot and ankle consistent with Charcot joint. Vascular calcifications are prese nt consistent with atherosclerosis. IMPRESSION: 1. Charcot foot and ankle with external fixation device noted. RPTAT: QQ .Everett Turpin MD, MD Date Time Electronically viewed and signed by .Everett Turpin MD, MD on 04/04/2017 22:43 .R/
== END | disposition home or self-care (01) ==
LOC: RAD 11:42
PROVIDERS: ATTEND Podiatrist Foot & Ankle Surgery
DX: M14.672 Charcot's joint, left ankle and foot (principal)
CPT/HCPCS: 73590; 73610; 73620

== ENCOUNTER 2017-05-24 19:51 | Emergency (ER) | payer OTHER ==
[~2017-05-24] VITALS: Ht 157.5 cm; Wt 118.5 kg
[~2017-05-24 19:51] MED LIST changes: -CHLO25TA13 PO; -LEVO0.5P MC; +LEVO112T57 PO; -METF500T4 PO; -NOVO7030 SC; -SYN112 PO
[2017-05-24 20:23] VITALS: Ht 157.5 cm; Wt 118.5 kg
--- NOTE | 2017-05-24 21:35 | ERD ---
ER Documentation Chief Complaint Date/Time DATE: 05/24/17 TIME: 21:33 Chief Complaint bib self from deepak wilson, fell during transfer in bathroom from w/c HPI Patient is a 56-year-old female who presents with sudden onset, constant, mild to moderate pain and oozing of blood from her left leg stump after a ground- level fall trying to transfer from her chair to the toilet in the bathroom. She states that she had an amputation below the knee 1-1/2 months ago. Yesterday, she had a scab removed by Dr. Peacock. She denies other injury, denies head trauma, neck or back pain, other extremity injury.She does not take blood thinners. She does take baby aspirin. ROS All systems reviewed and are negative except as per history of present illness. Medications Home Meds Reported Medications Trazodone Hcl* (Desyrel*) 50 Mg Tablet, 50 MG PO QHS, #30 TAB 05/24/17 Linagliptin (TRADJENTA) 5 Mg Tablet, 5 MG PO DAILY, TAB 05/24/17 Sertraline Hcl* (Sertraline Hcl*) 50 Mg Tablet, 50 MG PO DAILY, #30 TAB 05/24/17 Simvastatin* (Zocor*) 40 Mg Tablet, 40 MG PO QHS, #30 TAB 05/24/17 Metformin Hcl* (Metformin Hcl*) 500 Mg Tablet, 500 MG PO WITH BREAKFAST DINNE, # 60 TAB 05/24/17 Chlorthalidone* (Chlorthalidone*) 25 Mg Tablet, 25 MG PO DAILY, TAB 05/24/17 Levothyroxine Sodium* (Levothyroxine Sodium*) 112 Mcg Tablet, 112 MCG PO BEFORE BREAKFAST, #30 TAB 05/24/17 Lisinopril* (Lisinopril*) 10 Mg Tablet, 10 MG PO DAILY, #30 TAB 05/24/17 Hydralazine Hcl* (Hydralazine Hcl*) 25 Mg Tab, 25 MG PO BID, #60 TAB 05/24/17 Insulin Lispro (Humalog) 100 Unit/1 Ml Cartridge, 15 UNIT SQ WITH MEALS 05/24/17 Insulin Glargine* (Lantus*) 100 Unit/Ml Soln, 43 UNIT SC QHS, #1 VIAL 05/24/17 Discontinued Reported Medications Benazepril Hcl* (Benazepril Hcl*) 5 Mg Tablet, 5 MG PO DAILY, #30 TAB 03/05/17 Lovastatin* (Lovastatin*) Unknown Strength Tablet, MG PO HS, TAB 01/04/17 Trazodone Hcl* (Trazodone Hcl*) 50 Mg Tablet, 50 MG PO QHS, #30 TAB 05/11/16 Levothyroxine Sodium* (Levothyroxine Sodium*) 112 Mcg Tablet, 112 MCG PO AC BREAKFAST, TAB 05/09/15 Insulin Glargine* (Lantus*) 100 Unit/Ml Soln, 44 UNIT SC HS, EA 05/09/15 Discontinued Scripts Ondansetron Hcl* (Zofran*) 4 Mg Tablet, 4 MG PO Q6H for NAUSEA AND/OR VOMITING, #30 TAB Prov:IZA VELASQUEZ PA-C 03/20/17 Cetirizine Hcl* (Zyrtec*) 10 Mg Capsule, 10 MG PO DAILY, #14 TAB.CHEW Prov:IZA VELASQUEZ PA-C 03/20/17 Fluticasone Propionate (Flonase Allergy Relief) 9.9 Ml [place].susp, 1 SPRAY NASAL BID, #1 BOTTLE TO EACH NOSTRIL Prov:IZA VELASQUEZ PA-C 03/20/17 Hydrocodone/Acetaminophen ([place] 10-325 Tablet) 1 Each Tablet, 1 TAB PO Q6H Y for PAIN, #20 TAB Prov:FRANCISCO JAVIER CHAVEZ 03/09/17 Insulin Aspart* (Novolog Insulin Pen*) 100 Unit/Ml Soln, 9 UNIT SC WITH MEALS, # 1 EA Prov:YIN SALOMON 02/04/17 Hydrocodone/Acetaminophen ([place] 5-325 Tablet) 1 Each Tablet, 1 EACH PO Q6 Y for SEVERE PAIN LEVEL 7-10 for 30 Days, TAB Prov:MARIANA KEENAN MD 01/13/17 Linagliptin (TRADJENTA) 5 Mg Tablet, 5 MG PO DAILY, #90 TAB Prov:MARIANA KEENAN MD 01/13/17 Ciprofloxacin Hcl* (Ciprofloxacin Hcl*) 500 Mg Tablet, 500 MG PO BID@06,18 for acute RLE osteomyelitis, #120 TAB Prov:MARIANA KEENAN MD 01/13/17 Metoprolol Tartrate* (Lopressor*) 25 Mg Tab, 25 MG PO BID for 30 Days, TAB 1 Refill Prov:RILEY CUTLER MD 06/22/16 Allergies Allergies: Coded Allergies: No Known Drug Allergy (Verified Allergy, Mild, 05/24/17) PMhx/Soc Past medical history: Diabetes mellitus, Hypothyroidism Past surgical history: Left [id number] amputation, cholecystectomy Social history: Denies tobacco, alcohol or illicit drugs. History of Surgery: Yes Anesthesia Reaction: No Hx Neurological Disorder: No Hx Respiratory Disorders: No Hx Cardiac Disorders: Yes (HTN) Hx Psychiatric Problems: No Hx Miscellaneous Medical Probl: Yes (see PT note) Hx Alcohol Use: No Hx Substance Use: No Hx Tobacco Use: No Smoking Status: Never smoker FmHx Noncontributory Physical Exam Vitals Vital Signs Date Time Temp Pulse Resp B/P Pulse Ox O2 Delivery O2 Flow Rate FiO2 05/24/17 23:34 98.0 82 18 195/91 95 Room Air 05/24/17 23:00 98.0 80 18 152/89 96 Room Air 05/24/17 20:23 98.5 88 18 135/81 100 Physical Exam Const: Alert, no acute distress Head: Atraumatic Eyes: Normal Conjunctiva, No pallor, no icterus ENT: Normal External Ears, Nose and Mouth. Mucous membranes moist Neck: Full range of motion. No meningismus. Resp: Clear to auscultation bilaterally, No wheezes, no rales Cardio: Regular rate and rhythm, no murmurs Abd: Soft, non tender, non distended. Normal bowel sounds Skin: No petechiae or rashes Back: No midline or flank tenderness Ext: No cyanosis, or edema. Left below the knee amputation with stump without active bleeding. There is a small area of hematoma. There is signs of wound dehiscence with partial healing by secondary intent. Neur: Awake and alert Psych: Normal Mood and Affect Results 24 hrs Current Medications Medications (Trade) Dose Ordered Sig/Nafisa Route PRN Reason Start Time Stop Time Status Last Admin Dose Admin Hydralazine HCl (Apresoline) 10 mg ONCE ONCE PO 05/25/17 00:00 05/25/17 00:01 DC 05/25/17 00:04 Procedures/MDM MDM: Patient is a 56-year-old female who presents with trauma to her left leg stump 1-1/2 months after amputation was performed. She had oozing of blood through her dressing. On exam there is no active bleeding. There is evidence of mild wound dehiscence and hematoma without active bleeding. There is no evidence of infection. The patient has an appointment with her surgeon in 2 days. I do not believe any acute management is necessary. Surgicel was placed over the open part of the wound and a new dressing was applied. The patient was advised to return to the ER for bleeding or discharge, and to follow-up with her PMD surgeon as scheduled. Departure Diagnosis: Primary Impression: Wound dehiscence Additional Impression: Fall with no significant injury Encounter type: initial encounter Qualified Code: W19.XXXA - Fall with no significant injury, initial encounter Condition: Stable YOLA TORRES MD May 24, 2017 21:35
[2017-05-24] MEDS ORDERED: LANT3I SC (22:10)
[2017-05-24] MEDS ORDERED: INSU100C SQ (22:11)
[2017-05-24] MEDS ORDERED: HYDR-3671 PO (22:11)
[2017-05-24] MEDS ORDERED: LISI10TA2 PO (22:11)
[2017-05-24] MEDS ORDERED: CHLO25TA13 PO (22:12)
[2017-05-24] MEDS ORDERED: LEVO112T57 PO (22:12)
[2017-05-24] MEDS ORDERED: METF500T4 PO (22:13)
[2017-05-24] MEDS ORDERED: SIMV40TA2 PO (22:13)
[2017-05-24] MEDS ORDERED: SERT50TA6 PO (22:14)
[2017-05-24] MEDS ORDERED: LINA5TAB PO (22:14)
[2017-05-24] MEDS ORDERED: TRAZ50TA18 PO (22:16)
[2017-05-24 23:34] VITALS: BP 195/91; PULSE 82; RESP 18; TEMP 98
== END 2017-05-25 00:15 | disposition home or self-care (01) ==
LOC: E/R 19:51
DX: T81.31XA Disruption of external operation (surgical) wound, not elsewhere classified, initial encounter (principal); I10 Essential (primary) hypertension; E11.9 Type 2 diabetes mellitus without complications; E03.9 Hypothyroidism, unspecified; Y82.8 Other medical devices associated with adverse incidents; Z79.4 Long term (current) use of insulin; Z79.84 Long term (current) use of oral hypoglycemic drugs
CPT/HCPCS: Z7502; Z7610; 99283

== ENCOUNTER 2017-07-26 09:34 | Day surgery (SDC) | payer OTHER ==
[~2017-07-26] VITALS: Ht 157.5 cm; Wt 95.2 kg
[2017-07-26] VITALS (11 sets, daily range): BP systolic 106–142; BP diastolic 54–71; PULSE 85–92; RESP 14–31; Ht 157.5 cm; Wt 95.2 kg
[~2017-07-26 09:34] MED LIST changes: -BENA5TAB2 PO; -CETI10CA PO; +CHLO25TA13 PO; -CIPR500T4 PO; -FLUT9.9S NASAL; +HYDR-3671 PO; -HYDR-902 PO; -HYDR-906 PO; +INSU100C SQ; +LISI10TA2 PO; -LOVA20TA PO; +METF500T4 PO; -METO-448 PO; -NOVO3I SC; -ONDA4TAB8 PO; +SERT50TA6 PO; +SIMV40TA2 PO
[2017-07-26] MEDS ORDERED: LANT3I SC (10:24)
[2017-07-26] MEDS ORDERED: INSU200I SQ (10:25)
[2017-07-26] MEDS ORDERED: HYDR-3670 PO (10:26)
[2017-07-26] MEDS ORDERED: FLUD0.1T10 PO (10:26)
[2017-07-26] MEDS ORDERED: CETI10TA4 PO (10:27)
[2017-07-26] MEDS ORDERED: DEXTROSE 50% 50 ML SYRINGE IV PRN ×2 (11:00)
[2017-07-26] MEDS ORDERED: CEFAZOLIN 2 GM/50 ML (PMX) 50 ML IVPB SCH (11:00)
[2017-07-26] MEDS ORDERED: GLUCAGON 1 MG INJ IM PRN (11:00)
[2017-07-26] MEDS ORDERED: GLUCOSE GEL 15 GRAM TUBE BUCCAL PRN (11:00)
[2017-07-26] MEDS ORDERED: GLUCOSE GEL 15 GRAM TUBE PO PRN ×2 (11:00)
[2017-07-26] MEDS ORDERED: INSULIN ASPART [NOVOLOG] 3 ML PEN SC ONE (11:00)
[2017-07-26 11:05] LABS: BASOPHIL # 0.1 10^3/ul (0.0-0.1); BASOPHILS % 0.8 % (0.0-2.0); EOSINOPHILS # 0.3 10^3/ul (0.0-0.5); EOSINOPHILS % 3.1 % (0.0-7.0); HEMATOCRIT 36.7 % (37.0-47.0); HEMOGLOBIN 11.7 g/dl (12.0-16.0); LYMPHOCYTES # 2.2 10^3/ul (0.8-2.9); LYMPHOCYTES % 24.4 % (15.0-51.0); MEAN CORPUSCULAR HEMOGLOBIN 25.9 pg (29.0-33.0); MEAN CORPUSCULAR HGB CONC 31.9 g/dl (32.0-37.0); MEAN CORPUSCULAR VOLUME 81.2 fl (82.0-101.0); MEAN PLATELET VOLUME 9.8 fl (7.4-10.4); MONOCYTE # 0.7 10^3/ul (0.3-0.9); MONOCYTES % 7.6 % (0.0-11.0); NEUTROPHIL # 5.8 10^3/ul (1.6-7.5); NEUTROPHILS % 63.8 % (39.0-77.0); PLATELET COUNT 505 10^3/UL (140-415); RED BLOOD COUNT 4.52 10^6/ul (4.20-5.40); RED CELL DISTRIBUTION WIDTH 15.9 % (11.5-14.5); WHITE BLOOD COUNT 9.1 10^3/ul (4.8-10.8)
[2017-07-26] MEDS ORDERED: BUPIVACAINE 0.25% (MPF) 30 ML INJ ONE (11:06)
[2017-07-26] MEDS ORDERED: LIDOCAINE 1% (MPF) 30 ML INJ ONE (11:06)
--- NOTE | 2017-07-26 11:07 | HPN ---
Date/Time of Note Date/Time of Note DATE: 07/26/17 TIME: 11:07 Interval H&P Admission Note Pt. seen H&P reviewed: No system changes SAUL HUNT MD Jul 26, 2017 11:07
--- NOTE | 2017-07-26 11:08 | PDOCDIS ---
Discharge Instructions CONDITION Patient Condition: Good HOME CARE INSTRUCTIONS: Special Diet: DIABETIC DIET ACTIVITY: Activity Restrictions: Slowly Increase Activity Rest between Activity Avoid heavy lifting Do not Drive Do not operate Machinery Do not operate Power Tool Avoid Heavy Housework Keep Limb Elevated Bathing Restrictions: Sponge Bath FOLLOW UP/APPOINTMENTS Follow-up Plan FOLLOWUP WITH MARILEE ON TuesdayJune TO REMOVE THE DRESSING IN AM AT [facility] LEAVE DRESSING INTACT UNTIL OFFICE VISIT DO NOT SHOWER UNTIL WOUND DRESSING HAS BEEN EVALUATED BY MARILEE IN THE OFFICE (SPONGE BATH IS FINE) SAUL HUNT MD Jul 26, 2017 11:08
[2017-07-26 11:09] LABS: ALBUMIN 3.8 g/dl (3.3-4.9); ALBUMIN/GLOBULIN RATIO 1.02; CALCIUM 9.5 mg/dl (8.4-10.2); CREATININE 1.69 mg/dl (0.44-1.00); POTASSIUM 4.6 mmol/L (3.5-5.1); TOTAL PROTEIN 7.5 g/dl (6.1-8.1)
--- NOTE | 2017-07-26 11:09 | SIPON ---
Date/Time of Note Date/Time of Note DATE: 07/26/17 TIME: 11:08 Operative Report Preoperative Diagnosis BKA-STUMP WOUND Postoperative Diagnosis SAME Operation/Procedure Performed LEFT BKA-REVISION Surgeon see signature line camp assistant NONE Anesthesia: moderate sedation Estimated blood loss: minimal Transfusion Required none Specimen NONE Grafts/Implants none Complications none SAUL HUNT MD Jul 26, 2017 11:09
--- NOTE | 2017-07-26 11:11 | RADRPT ---
PROCEDURE: XR Chest. CLINICAL INDICATION: Shortness of breath TECHNIQUE: Single portable view of the chest was obtained COMPARISON: May 16, 2017 FINDINGS: The trachea is midline. The cardiac silhouette and pulmonary vascularity are within normal limits. T he lungs are clear. The costophrenic angles are sharp. IMPRESSION: 1. No evidence of acute cardiopulmonary disease. RPTAT: AARR Physician Bianca Date Time Electronically viewed and signed by Marisela Cooper Physician on 07/26/2017 11:11 JL/
[2017-07-26] MEDS ORDERED: CEFAZOLIN 1 GM INJ ONE (11:21)
[2017-07-26] MEDS ORDERED: PROPOFOL 20 ML ONE (11:21)
[2017-07-26] MEDS ORDERED: FENTAnyl 50 MCG/ML VIAL ONE (11:22)
[2017-07-26] MEDS ORDERED: MIDAZOLAM 1 MG/ML 2 ML INJ ONE (11:22)
[2017-07-26 11:26] LABS: INR 0.94; PROTIME 12.6 Sec (12.2-14.2)
[2017-07-26] MEDS ORDERED: FENTAnyl 50 MCG/ML VIAL IV PRN ×2 (11:30)
[2017-07-26] MEDS ORDERED: HYDROmorphONE (0.2 MG/ML) 10ML SYG IV PRN ×3 (11:30)
[2017-07-26] MEDS ORDERED: ONDANSETRON 4 MG INJ IV PRN (11:30)
[2017-07-26] MEDS ORDERED: hydrALAzine 20 MG INJ IV PRN (11:30)
[2017-07-26] MEDS ORDERED: LABETALOL HCL 20MG INJ IV PRN (11:30)
[2017-07-26] MEDS ORDERED: MEPERIDINE 25 MG INJ IV PRN (11:30)
[2017-07-26 11:53] LABS: PARTIAL THROMBOPLASTIN TIME 31.1 Sec (25.0-35.0)
--- NOTE | 2017-07-26 14:29 | RADRPT ---
Vent Rate: 86 bpm RR Interval: 0 msec TX Interval: 162 msec QRS Duration: 76 msec QT Interval: 344 msec QTC Interval: 411 msec P-R-T [place]: 54 - 2 - 45 degrees Normal sinus rhythm Normal ECG Electronically Signed By: Jose Armando Sneed [id number]
--- NOTE | 2017-07-27 23:29 | OPR ---
DATE OF OPERATION: 07/26/2017 SURGEON: Michael Barrett MD PREOPERATIVE DIAGNOSIS: Left lower extremity below-knee amputation stump wound dehiscence. POSTOPERATIVE DIAGNOSIS: Left lower extremity below-knee amputation stump wound dehiscence. ANESTHESIA: Local with moderate sedation. ESTIMATED BLOOD LOSS: Minimal. COMPLICATIONS: None. PROCEDURE: Revision of left below-knee amputation. INDICATIONS: This is a 57-year-old female with a history of diabetes who has had a long-standing hi story of left lower extremity diabetic foot infection and Charcot in which she had undergone multipl e lower extremity procedures, specifically in her ankle and her Charcot foot in order to allow for a dequate limb salvage and wound healing. Unfortunately, the patient had long-standing history of ost eomyelitis and unable to heal her multiple podiatric foot and ankle surgeries in order to stabilize her Charcot foot. After a prolonged conversation with the patient and nonhealing wounds and her his tory of osteomyelitis and failed interventions, it was decided for the patient to undergo below-knee amputation. The patient underwent successful below-knee amputation and was her in recovery with ph ysical therapy, and it seems that the patient had fallen and caused a wound dehiscence of her below- knee amputation stump. Local wound care has been managed with our colleagues and has been coming al katja well. The patient has developed adequate granulation tissue and now requires a revision of the stump and closure of the wound. Therefore, the risks, benefits and alternatives were discussed with the patient, and she has agreed to proceed. Risks including, but not limited to, bleeding, thrombo sis, myocardial infarction, , stroke, infection, revision, nerve injury and further limb loss, were discussed and the patient has agreed to proceed. DESCRIPTION OF PROCEDURE: The patient was brought to the operating room table and placed in the sup ine position. The left lower extremity was prepped and draped in the usual standard sterile fashion . Preoperative antibiotics were given to the patient. Moderate sedation and local anesthesia was g iven to the patient's left lower extremity stump. At this point, using a sharp scissors, excisional sharp debridement was performed of the skin, subcutaneous tissue and necrotic muscle and tendon jing t was along the BKA wound dehiscence. This measured roughly about 10 x 4 x 1 cm in depth. After th is was performed, adequate rebleeding and healthy viable tissue was identified at the base of the wo und. Upon the completion of that, using sharp scissors and electrocautery, we were able to make and create an undermining in the amputation stump in order to allow for the posterior flap to reach the anterior portion of the stump in order for us to allow for closure. Once this was reapproximated a nd identified to be able to heal appropriately, we used 2-0 nylon mattress sutures in order to reapp roximate the wound and allow for adequate closure. Upon the completion of our interrupted sutures a cross the BKA stump from lateral to medial, we went ahead and applied some superficial sutures in th e dermal layer with 3-0 nylon sutures as well in interrupted fashion. All instrument, sponge and ne edle counts were correct x2. Sterile dressing was applied, and the patient was taken to the postane sthesia care unit in stable condition. Dictated By: MICHAEL REYNOSO/COURTNEY Conf#: [id number] DID#: [id number]
== END 2017-07-26 14:21 | disposition home or self-care (01) ==
LOC: SDS 09:34
PROVIDERS: ATTEND Student in an Organized Health Care Education/Training Program
DX: T87.81 Dehiscence of amputation stump (principal); Y83.8 Other surgical procedures as the cause of abnormal reaction of the patient, or of later complication, without mention of misadventure at the time of the procedure; E11.610 Type 2 diabetes mellitus with diabetic neuropathic arthropathy; M86.9 Osteomyelitis, unspecified; I73.9 Peripheral vascular disease, unspecified; E78.5 Hyperlipidemia, unspecified
CPT/HCPCS: 11043; 11046; 71010; 80053; 82962; 84703; 85025; 85610; 85730; 93005; J0690; J1815; J2250; J3010; Z7512; Z7610

== ENCOUNTER 2018-05-22 07:00 | Emergency (ER) | END 2018-05-22 09:48 | disposition home or self-care (01) ==

== ENCOUNTER 2018-11-14 02:51 | Inpatient (IN) | payer OTHER ==
[~2018-11-14] VITALS: Ht 157.5 cm; Wt 98.0 kg
[~2018-11-14 02:51] MED LIST changes: +CEPH-443 PO; -CHLO25TA13 PO; +HYDR-3670 PO; -HYDR-3671 PO; +IBUP-1542 PO; -INSU100C SQ; +INSU100I12 SQ; +LEVO112T42 PO; -LEVO112T57 PO; +METF500T24 PO; -METF500T4 PO; +ONDA4TAB8 PO; +TRAZ-111 PO; -TRAZ50TA18 PO
[2018-11-14] MEDS ORDERED: ONDANSETRON 4 MG INJ IV STA (04:05)
[2018-11-14] MEDS ORDERED: PANTOPRAZOLE IV 80 MG in SOD CHLORIDE 0.9% 100 ML IVPB STA (04:05)
[2018-11-14] MEDS ORDERED: PANTOPRAZOLE IV 80 MG in SOD CHLORIDE 0.9% 100 ML IV STA (04:05)
[2018-11-14] MEDS: OCTREOTIDE 500 MCG in SOD CHLORIDE 0.9% 49 ML IV STA ×2 (04:57→05:01)
[2018-11-14] MEDS: OCTREOTIDE 50 MCG in SOD CHLORIDE 0.9% 25 ML IVPB STA ×2 (04:57→05:01)
[2018-11-14] MEDS ORDERED: BISACODYL (EC) 5 MG TAB PO PRN (06:00)
[2018-11-14] MEDS ORDERED: NACL 0.9% 3 ML SYG IV SCH (06:00)
[2018-11-14] MEDS ORDERED: ONDANSETRON 4 MG INJ IV PRN (06:00)
[2018-11-14] MEDS ORDERED: OCTREOTIDE 1 MG in DEXTROSE 5% 95 ML IV SCH (06:00)
[2018-11-14] MEDS ORDERED: PANTOPRAZOLE IV 80 MG in SOD CHLORIDE 0.9% 100 ML IV SCH (06:00)
[2018-11-14] MEDS ORDERED: DOCUSATE SODIUM 100 MG CAP PO PRN (06:00)
[2018-11-14] MEDS ORDERED: ACETAMINOPHEN 325 MG TAB PO PRN (06:00)
[2018-11-14] MEDS ORDERED: SIMV40TA7 PO (06:02)
[2018-11-14] MEDS ORDERED: CHLO25TA2 PO (06:02)
[2018-11-14] MEDS ORDERED: METF100010 PO (06:02)
[2018-11-14] MEDS ORDERED: FER325 PO (06:03)
[2018-11-14] MEDS ORDERED: VITA1CAP PO (06:03)
[2018-11-14] MEDS ORDERED: DEXTROSE 50% 50 ML SYRINGE IV PRN ×2 (06:30)
[2018-11-14] MEDS ORDERED: GLUCAGON 1 MG INJ IM PRN (06:30)
[2018-11-14] MEDS ORDERED: GLUCOSE GEL 15 GRAM TUBE PO PRN ×2 (06:30)
[2018-11-14] MEDS ORDERED: GLUCOSE GEL 15 GRAM TUBE BUCCAL PRN (06:30)
[2018-11-14] MEDS: LEVOTHYROXINE 112 MCG TAB PO SCH (10:43)
[2018-11-14] MEDS: SERTRALINE 50 MG TAB PO SCH (10:43)
[2018-11-14] MEDS: SUCRALFATE 1 GM TAB PO SCH ×3 (10:44→20:33)
[2018-11-14] MEDS: INSULIN ASPART [NOVOLOG] 3 ML PEN SC SCH ×2 (10:47→16:01)
--- NOTE | 2018-11-14 13:44 | CONS ---
Assessment/Plan Assessment/Plan Hospital Course (Demo Recall) Summary Assessment and Plan: Assessment: Coffee-ground emesis -R/o PUD vs hemorrhagic gastritis vs esophagitis Leukocytosis Left AKA CKD History of hypertension History of diabetes, type 2 History of high cholesterol History of thyroid disease Plan: Continue PPI drip Continue Carafate N.p.o. after EGD tomorrow Endoscopy - risks/benefits/alternatives/indications of procedure and sedation/anesthesia discussed with patient who states understanding and gives informed consent to proceed. Conditions based on clinical course Patient seen in collaboration with Dr. Wilkinson CC: JO WILKINSON MD ; Consultation Date/Type/Reason Admit Date/Time Date of Consultation: Nov 14, 2018 Type of Consult GI Reason for Consultation Coffee-ground emesis Date/Time of Note DATE: 11/14/18 TIME: 13:38 Hx of Present Illness This a 58-year-old female with past medical history of diabetes, high cholesterol, thyroid disease, obesity, left AKA, hypertension who presented to the hospital after an episode of coffee-ground emesis was noted. Patient states she was in her usual state of health last meal was at 1500 yesterday at 2100 p atient complained of feeling nauseated she had x2 episodes of nonbloody emesis upon the third episode she noted coffee grounds. She denies ibuprofen/Motrin/Advil use (however Ibuprofen is noted in her home meds), she states she takes a baby aspirin daily and has been been doing so for the past 12 years has hematochezia, melena, abdominal pain, pyrosis. Initial labs show mild leukocytosis with a normal hemoglobin. CT of the chest shows wall thickening of the esophagus extending to the gastroesophageal junction. We will plan to start a clear liquid diet she is currently on a PPI drip will continue overnight and plan for EGD tomorrow. I reviewed risk/benefits of both procedure and sedation patient verbalized understanding is agreeable to EGD. Review of Systems: A 12 system, review was conducted and is negative except as noted in the HPI or here. Past Medical History Home Meds Active Scripts Ondansetron Hcl* (Zofran*) 4 Mg Tablet, 4 MG PO Q8H PRN for NAUSEA AND/OR VOMITING, #30 TAB Prov:АЛЕКСАНДР SERNA MD 05/22/18 Ibuprofen* (Motrin*) 600 Mg Tab, 600 MG PO Q8 PRN for PAIN AND/OR INFLAMMATION, #30 TAB Prov:АЛЕКСАНДР SERNA MD 05/22/18 Reported Medications Vitamin B Complex (Vitamin B Complex) 1 Each Capsule, 1 EACH PO DAILY, CAP 11/14/18 Ferrous Sulfate* (Ferrous Sulfate*) 325 Mg Tabec, 325 MG PO DAILY, TAB 11/14/18 Simvastatin (Simvastatin) 40 Mg Tablet, 40 MG PO QHS for 30 Days, #30 11/14/18 Chlorthalidone* (Chlorthalidone*) 25 Mg Tablet, 25 MG PO DAILY for 30 Days, #30 11/14/18 Metformin Hcl* (Metformin Hcl*) 1,000 Mg Tablet, 1000 MG PO WITH BREAKFAST DINNE, #30 TAB 11/14/18 Trazodone Hcl* (Trazodone Hcl*) 50 Mg Tablet, 50 MG PO QHS, #30 TAB 05/22/18 Simvastatin* (Zocor*) 40 Mg Tablet, 40 MG PO QHS, #30 TAB 05/22/18 Sertraline Hcl* (Sertraline Hcl*) 50 Mg Tablet, 50 MG PO DAILY, #30 TAB 05/22/18 Lisinopril* (Lisinopril*) 10 Mg Tablet, 10 MG PO DAILY, #30 TAB 05/22/18 Linagliptin (TRADJENTA) 5 Mg Tablet, 5 MG PO DAILY, TAB 05/22/18 Levothyroxine Sodium* (Levoxyl*) 112 Mcg Tablet, 112 MCG PO BEFORE BREAKFAST, #30 TAB 05/22/18 Insulin Lispro (Humalog Kwikpen U-100) 100 Unit/1 Ml Insuln.pen, 16 UNIT SQ AC MEALS, EA 05/22/18 Insulin Glargine* (Lantus*) 100 Unit/Ml Soln, 44 UNIT SC QHS, #1 VIAL 05/22/18 Hydralazine Hcl* (Hydralazine Hcl*) 10 Mg Tablet, 10 MG PO BID PRN for ELEVATED BLOOD PRESSURE, #60 TAB 05/22/18 Discontinued Reported Medications Metformin Hcl* (Metformin Hcl*) 500 Mg Tablet, 500 MG PO WITH BREAKFAST DINNE, #60 TAB 05/22/18 Discontinued Scripts Cephalexin* (Keflex*) 500 Mg Capsule, 500 MG PO QID for 5 Days, CAP Prov:АЛЕКСАНДР SERNA MD 05/22/18 Medications Current Medications Pantoprazole 80 mg/Sodium Chloride 100 ml @ 10 mls/hr ONCE STAT IV Last administered on 11/14/18at 04:57; Admin Dose 10 MLS/HR; Start 11/14/18 at 04:05; Stop 11/14/18 at 14:04 Octreotide Acetate 500 mcg/ Sodium Chloride 50 ml @ 5 mls/hr ONCE STAT IV ; Start 11/14/18 at 04:05; Stop 11/14/18 at 14:04 Sodium Chloride 1,000 ml @ 75 mls/hr [id number] IV ; Start 11/14/18 at 05:38 IV Flush (NS 3 ml) 3 ml PER PROTOCOL IV ; Start 11/14/18 at 06:00 Ondansetron HCl (Zofran Inj) 4 mg Q6H PRN IV NAUSEA/VOMITING; Start 11/14/18 at 06:00 Acetaminophen (Tylenol Tab) 650 mg Q6H PRN PO .PAIN 1-3 OR TEMP; Start 11/14/18 at 06:00 Docusate Sodium (Colace) 100 mg Q12H PRN PO .CONSTIPATION; Start 11/14/18 at 06:00 Bisacodyl (Dulcolax) 5 mg DAILY PRN PO .CONSTIPATION; Start 11/14/18 at 06:00 Octreotide Acetate 1 mg/ Dextrose 100 ml @ 5 mls/hr Q20H IV ; Start 11/14/18 at 06:00 Pantoprazole 80 mg/Sodium Chloride 100 ml @ 10 mls/hr Q10H IV ; Start 11/14/18 at 06:00 Hydralazine HCl (Apresoline) 10 mg BID PRN PO ELEVATED BLOOD PRESSURE; Start 11/14/18 at 06:00 Levothyroxine Sodium (Synthroid) 112 mcg BEFORE BREAKFAST PO Last administered on 11/14/18at 10:43; Admin Dose 112 MCG; Start 11/14/18 at 07:00 Sertraline HCl (Zoloft) 50 mg DAILY PO Last administered on 11/14/18at 10:43; Admin Dose 50 MG; Start 11/14/18 at 09:00 Trazodone HCl (Desyrel) 50 mg QHS PO ; Start 11/14/18 at 21:00 Diagnostic Test (Pha) (Accu-Chek) 1 ea 02 XX ; Start 11/15/18 at 02:00 Insulin Aspart (Novolog Insulin Pen) NOVOLOG *MILD* ALGORI... Q4 SC Last administered on 11/14/18at 10:47; Admin Dose 5 UNIT; Start 11/14/18 at 09:00 Miscellaneous Information 1 ea NOTE XX ; Start 11/14/18 at 06:30 Glucose (Glutose) 15 gm Q15M PRN PO DECREASED GLUCOSE; Start 11/14/18 at 06:30 Glucose (Glutose) 22.5 gm Q15M PRN PO DECREASED GLUCOSE; Start 11/14/18 at 06:30 Dextrose (D50w Syringe) 25 ml Q15M PRN IV DECREASED GLUCOSE; Start 11/14/18 at 06:30 Dextrose (D50w Syringe) 50 ml Q15M PRN IV DECREASED GLUCOSE; Start 11/14/18 at 06:30 Glucagon (Glucagen) 1 mg Q15M PRN IM DECREASED GLUCOSE; Start 11/14/18 at 06:30 Glucose (Glutose) 15 gm Q15M PRN BUCCAL DECREASED GLUCOSE; Start 11/14/18 at 06:30 Sucralfate (Carafate) 1 gm Q6 PO Last administered on 11/14/18at 10:44; Admin Dose 1 GM; Start 11/14/18 at 07:00 Allergies: Coded Allergies: No Known Drug Allergy (Unverified Allergy, Mild, 11/14/18) Past Surgical History Past Surgical Hx: cholecystectomy Social History Smoking Status: Never smoker Exam/Review of Systems Exam Vitals Vital Signs Date Temp Pulse Resp B/P (MAP) Pulse Ox O2 O2 Flow FiO2 Time Delivery Rate 11/14/18 85 14 152/70 100 Room Air 10:00 (97) 11/14/18 97.7 06:23 Constitutional: alert, oriented, obese Psych: no complaints Head: normocephalic, atraumatic Eyes: nl conjunctiva ENMT: nl external ears & nose Neck: supple, non-tender Respiratory: clear to auscultation Cardiovascular: regular rate and rhythm Gastrointestinal: soft, non-tender, bowel sounds; No distended, No firm, No hepatomegaly Extremities: other (Left AKA) Results Result Diagram: 11/14/18 0424 11/14/18 0525 Results 24hrs Laboratory Tests Test 11/14/18 04:24 11/14/18 05:25 11/14/18 08:04 11/14/18 09:59 White Blood Count 15.0 #H Red Blood Count 5.18 Hemoglobin 13.4 Hematocrit 41.3 Mean Corpuscular 79.7 L Volume Mean Corpuscular 25.9 L Hemoglobin Mean Corpuscular 32.4 Hemoglobin Concent Red Cell 14.2 Distribution Width Platelet Count 553 H Mean Platelet Volume 9.8 Immature 0.700 H Granulocytes % Neutrophils % 80.3 H Lymphocytes % 12.4 L Monocytes % 4.9 Eosinophils % 1.2 Basophils % 0.5 Nucleated Red Blood 0.0 Cells % Immature 0.110 H Granulocytes # Neutrophils # 12.0 H Lymphocytes # 1.9 Monocytes # 0.7 Eosinophils # 0.2 Basophils # 0.1 Nucleated Red Blood 0.0 Cells # Prothrombin Time 11.5 L Prothrombin Time 0.9 Ratio INR International 0.83 Normalized Ratio Activated 35.0 Partial Thromboplast Time Sodium Level 137 136 Potassium Level 5.1 5.5 H Chloride Level 99 100 Carbon Dioxide Level 21 21 Anion Gap 17 H 15 H Blood Urea Nitrogen 48 H 49 H Creatinine 2.68 H 2.45 H Est Glomerular 18 L Filtrat Rate mL/min Glucose Level 279 H 278 H Calcium Level 9.9 9.6 Total Bilirubin 0.1 L Direct Bilirubin 0.00 Indirect Bilirubin 0.1 Aspartate Amino 17 Transf (AST/SGOT) Alanine 8 L Aminotransferase (AL T/SGPT) Alkaline Phosphatase 162 H Troponin I < 0.012 < 0.012 Total Protein 8.3 H Albumin 4.1 3.5 Globulin 4.20 H Albumin/Globulin 0.97 Ratio Phosphorus Level 4.8 Creatine Kinase 108 Creatine Kinase 0.8 Index Creatinine Kinase MB 0.84 (Mass) Bedside Glucose 317 H Test 11/14/18 10:42 Bedside Glucose 323 H Medications Medication Current Medications Pantoprazole 80 mg/Sodium Chloride 100 ml @ 10 mls/hr ONCE STAT IV Last administered on 11/14/18at 04:57; Admin Dose 10 MLS/HR; Start 11/14/18 at 04:05; Stop 11/14/18 at 14:04 Octreotide Acetate 500 mcg/ Sodium Chloride 50 ml @ 5 mls/hr ONCE STAT IV ; Start 11/14/18 at 04:05; Stop 11/14/18 at 14:04 Sodium Chloride 1,000 ml @ 75 mls/hr [id number] IV ; Start 11/14/18 at 05:38 IV Flush (NS 3 ml) 3 ml PER PROTOCOL IV ; Start 11/14/18 at 06:00 Ondansetron HCl (Zofran Inj) 4 mg Q6H PRN IV NAUSEA/VOMITING; Start 11/14/18 at 06:00 Acetaminophen (Tylenol Tab) 650 mg Q6H PRN PO .PAIN 1-3 OR TEMP; Start 11/14/18 at 06:00 Docusate Sodium (Colace) 100 mg Q12H PRN PO .CONSTIPATION; Start 11/14/18 at 06:00 Bisacodyl (Dulcolax) 5 mg DAILY PRN PO .CONSTIPATION; Start 11/14/18 at 06:00 Octreotide Acetate 1 mg/ Dextrose 100 ml @ 5 mls/hr Q20H IV ; Start 11/14/18 at 06:00 Pantoprazole 80 mg/Sodium Chloride 100 ml @ 10 mls/hr Q10H IV ; Start 11/14/18 at 06:00 Hydralazine HCl (Apresoline) 10 mg BID PRN PO ELEVATED BLOOD PRESSURE; Start 11/14/18 at 06:00 Levothyroxine Sodium (Synthroid) 112 mcg BEFORE BREAKFAST PO Last administered on 11/14/18at 10:43; Admin Dose 112 MCG; Start 11/14/18 at 07:00 Sertraline HCl (Zoloft) 50 mg DAILY PO Last administered on 11/14/18at 10:43; Admin Dose 50 MG; Start 11/14/18 at 09:00 Trazodone HCl (Desyrel) 50 mg QHS PO ; Start 11/14/18 at 21:00 Diagnostic Test (Pha) (Accu-Chek) 1 ea 02 XX ; Start 11/15/18 at 02:00 Insulin Aspart (Novolog Insulin Pen) NOVOLOG *MILD* ALGORI... Q4 SC Last administered on 11/14/18at 10:47; Admin Dose 5 UNIT; Start 11/14/18 at 09:00 Miscellaneous Information 1 ea NOTE XX ; Start 11/14/18 at 06:30 Glucose (Glutose) 15 gm Q15M PRN PO DECREASED GLUCOSE; Start 11/14/18 at 06:30 Glucose (Glutose) 22.5 gm Q15M PRN PO DECREASED GLUCOSE; Start 11/14/18 at 06:30 Dextrose (D50w Syringe) 25 ml Q15M PRN IV DECREASED GLUCOSE; Start 11/14/18 at 06:30 Dextrose (D50w Syringe) 50 ml Q15M PRN IV DECREASED GLUCOSE; Start 11/14/18 at 06:30 Glucagon (Glucagen) 1 mg Q15M PRN IM DECREASED GLUCOSE; Start 11/14/18 at 06:30 Glucose (Glutose) 15 gm Q15M PRN BUCCAL DECREASED GLUCOSE; Start 11/14/18 at 06:30 Sucralfate (Carafate) 1 gm Q6 PO Last administered on 11/14/18at 10:44; Admin Dose 1 GM; Start 11/14/18 at 07:00 BINA WATKINS Nov 14, 2018 13:44
--- NOTE | 2018-11-14 14:38 | HP ---
Date/Time of Note Date/Time of Note DATE: 11/14/18 TIME: 14:30 Assessment/Plan VTE Prophylaxis SCD applied (from Nsg): Yes Pharmacological prophylaxis: NA/contraindicated Pharm contraindication: bleeding Lines/Catheters IV Catheter Type (from Nrsg): Saline Lock Assessment/Plan Hospital Course SUBJECTIVE: Seen and evaluated patient in ER room 6. Currently no nausea, vomiting, abdominal pain or other discomfort. Patient has been having myalgias. OBJECTIVE: Vital signs-see below PHYSICAL EXAM: Constitutional: Well-developed, adequately built, lying in bed comfortably. Psych: nl mood/affect, no complaints Head: atraumatic, normocephalic Eyes: nl conjunctiva, nl sclera ENMT: mucosa pink and moist, nl external ears & nose Neck: non-tender, supple Respiratory: clear to auscultation, normal air movement Cardiovascular: nl pulses, regular rate and rhythm Gastrointestinal: non-tender, soft, bowel sounds active in all 4 quadrants. Musculoskeletal/extremities: nl extremities to inspection, motor strength equal bilaterally, no focal deficit. Normal pulses,no cyanosis, no edema. Neurological: Alert oriented 3,nl speech, nl strength Skin: nl turgor ASSESSMENT/PLAN: 58-year-old female with DMII, status post left below-knee amputation secondary to gangrene/osteomyelitis in August 2017,htn, dyslipidemia, hypothyroidism, here with sudden onset of multiple episodes of hematemesis. 1. Hematemesis, rule out GI etiologies. -CT shows esophageal wall thickening... -Currently hemoglobin stable, no further bleeding. However microcytic indicis are concerning as such she would definitely benefit from inpatient GI workup/EGD eval. -Hold NSAIDs,Antiplatelet/anticoagulation if any. -Start Protonix drip and hold off to octreotide unless indicated by GI team. -Obtain stool OB as well. 2. Microcytic indicis with stable H&H -We will repeat hemoglobin light of #1 -Patient on oral iron supplementation at home which we will resume and will obtain repeat iron panel. 3. Hyperglycemia with type 2 diabetes -We will start patient on Accu-Cheks/ISS/Lantus insulin. -Obtain A1c in a.m. -Hold off metformin 4. Acute kidney injury on CKD -Patient's creatinine remains at previous baseline level with a slight fluctuation only. We will request nephrology consultation. -Monitor renal function closely. 5. Essential hypertension -Stable. Resume home medications 6. Dyslipidemia -Patient on statin at home. However, due to myalgias reported we will hold off to statin and will obtain LFTs and treat accordingly. 7. Hypothyroidism -Resume Synthroid 8. 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 DVT prophylaxis: SCDs PUD prophylaxis: PPI CODE STATUS: Full code Diet: N.p.o. except medications. Rest of the management depend on hospital course. Approximately 60 m spent on this history and physical. Patient was seen in collaboration with Dr. Mittal. Result Diagram: 11/14/18 0424 11/14/18 0525 Results 24hrs Laboratory Tests Test 11/14/18 04:24 11/14/18 05:25 11/14/18 08:04 11/14/18 09:59 White Blood Count 15.0 #H Red Blood Count 5.18 Hemoglobin 13.4 Hematocrit 41.3 Mean Corpuscular 79.7 L Volume Mean Corpuscular 25.9 L Hemoglobin Mean Corpuscular 32.4 Hemoglobin Concent Red Cell 14.2 Distribution Width Platelet Count 553 H Mean Platelet Volume 9.8 Immature 0.700 H Granulocytes % Neutrophils % 80.3 H Lymphocytes % 12.4 L Monocytes % 4.9 Eosinophils % 1.2 Basophils % 0.5 Nucleated Red Blood 0.0 Cells % Immature 0.110 H Granulocytes # Neutrophils # 12.0 H Lymphocytes # 1.9 Monocytes # 0.7 Eosinophils # 0.2 Basophils # 0.1 Nucleated Red Blood 0.0 Cells # Prothrombin Time 11.5 L Prothrombin Time 0.9 Ratio INR International 0.83 Normalized Ratio Activated 35.0 Partial Thromboplast Time Sodium Level 137 136 Potassium Level 5.1 5.5 H Chloride Level 99 100 Carbon Dioxide Level 21 21 Anion Gap 17 H 15 H Blood Urea Nitrogen 48 H 49 H Creatinine 2.68 H 2.45 H Est Glomerular 18 L Filtrat Rate mL/min Glucose Level 279 H 278 H Calcium Level 9.9 9.6 Total Bilirubin 0.1 L Direct Bilirubin 0.00 Indirect Bilirubin 0.1 Aspartate Amino 17 Transf (AST/SGOT) Alanine 8 L Aminotransferase (AL T/SGPT) Alkaline Phosphatase 162 H Troponin I < 0.012 < 0.012 Total Protein 8.3 H Albumin 4.1 3.5 Globulin 4.20 H Albumin/Globulin 0.97 Ratio Phosphorus Level 4.8 Creatine Kinase 108 Creatine Kinase 0.8 Index Creatinine Kinase MB 0.84 (Mass) Bedside Glucose 317 H Test 11/14/18 10:42 11/14/18 13:50 11/14/18 14:10 Bedside Glucose 323 H 274 H Urine Color STRAW Urine Clarity CLEAR Urine pH 6.0 Urine Specific 1.006 [place] Urine Ketones NEGATIVE Urine Nitrite NEGATIVE Urine Bilirubin NEGATIVE Urine Urobilinogen NEGATIVE Urine Leukocyte NEGATIVE Esterase Urine Microscopic 1 RBC Urine Microscopic 20 H WBC Urine Bacteria MANY A Urine Mucus FEW A Urine Hemoglobin NEGATIVE Urine Glucose 3+ H Urine Total Protein 3+ H HPI/ROS Admit Date/Time Admit Date/Time Hx of Present Illness This is a 58-year-old female with type 2 diabetes, status post left below-knee amputation secondary to gangrene/osteomyelitis in August 2017, chronic kidney disease, hypertension, hyperlipidemia, hypothyroidism, chronic anemia, came into the emergency room with sudden onset of bright bloody vomiting 3 times occurred yesterday. Patient denied abdominal pain, melena, hematochezia, diarrhea, constipation, fever or chills. She also denied taking any new prescription. Patient has been having worsening muscle pain, for which she is also also on as needed ibuprofen at home. Patient denied any chest pain, numbness, tingling, loss of consciousness, dizziness, speech difficulties, vision changes, headache or other constitutional symptoms. In the emergency room, patient was noted with a white count 15,000, low indicis with stable hemoglobin, potassium 5.5, BUN 49, creatinine 2.45 and blood sugar 278. She did not have any bleeding episodes in the emergency room. Coag studies unremarkable. Chest showed Wall thickening of the esophagus extending to the gastroesophageal junction. Patient was given Protonix bolus followed by drip and one-time octreotide 50 mcg dose. A clinical decision was made to admit the patient for further GI workup. ROS A 12 point review of system was assessed and is negative other than what is mentioned in the HPI. PMH/Family/Social Past Medical History See HPI Medications Current Medications Sodium Chloride 1,000 ml @ 75 mls/hr [id number] IV ; Start 11/14/18 at 05:38 IV Flush (NS 3 ml) 3 ml PER PROTOCOL IV ; Start 11/14/18 at 06:00 Ondansetron HCl (Zofran Inj) 4 mg Q6H PRN IV NAUSEA/VOMITING; Start 11/14/18 at 06:00 Acetaminophen (Tylenol Tab) 650 mg Q6H PRN PO .PAIN 1-3 OR TEMP; Start 11/14/18 at 06:00 Docusate Sodium (Colace) 100 mg Q12H PRN PO .CONSTIPATION; Start 11/14/18 at 06:00 Bisacodyl (Dulcolax) 5 mg DAILY PRN PO .CONSTIPATION; Start 11/14/18 at 06:00 Octreotide Acetate 1 mg/ Dextrose 100 ml @ 5 mls/hr Q20H IV ; Start 11/14/18 at 06:00 Pantoprazole 80 mg/Sodium Chloride 100 ml @ 10 mls/hr Q10H IV ; Start 11/14/18 at 06:00 Hydralazine HCl (Apresoline) 10 mg BID PRN PO ELEVATED BLOOD PRESSURE; Start 11/14/18 at 06:00 Levothyroxine Sodium (Synthroid) 112 mcg BEFORE BREAKFAST PO Last administered on 11/14/18at 10:43; Admin Dose 112 MCG; Start 11/14/18 at 07:00 Sertraline HCl (Zoloft) 50 mg DAILY PO Last administered on 11/14/18at 10:43; Admin Dose 50 MG; Start 11/14/18 at 09:00 Trazodone HCl (Desyrel) 50 mg QHS PO ; Start 11/14/18 at 21:00 Diagnostic Test (Pha) (Accu-Chek) 1 ea 02 XX ; Start 11/15/18 at 02:00 Insulin Aspart (Novolog Insulin Pen) NOVOLOG *MILD* ALGORI... Q4 SC Last admi nistered on 11/14/18at 10:47; Admin Dose 5 UNIT; Start 11/14/18 at 09:00 Miscellaneous Information 1 ea NOTE XX ; Start 11/14/18 at 06:30 Glucose (Glutose) 15 gm Q15M PRN PO DECREASED GLUCOSE; Start 11/14/18 at 06:30 Glucose (Glutose) 22.5 gm Q15M PRN PO DECREASED GLUCOSE; Start 11/14/18 at 06:30 Dextrose (D50w Syringe) 25 ml Q15M PRN IV DECREASED GLUCOSE; Start 11/14/18 at 06:30 Dextrose (D50w Syringe) 50 ml Q15M PRN IV DECREASED GLUCOSE; Start 11/14/18 at 06:30 Glucagon (Glucagen) 1 mg Q15M PRN IM DECREASED GLUCOSE; Start 11/14/18 at 06:30 Glucose (Glutose) 15 gm Q15M PRN BUCCAL DECREASED GLUCOSE; Start 11/14/18 at 06:30 Sucralfate (Carafate) 1 gm Q6 PO Last administered on 11/14/18at 10:44; Admin Dose 1 GM; Start 11/14/18 at 07:00 Coded Allergies: No Known Drug Allergy (Unverified Allergy, Mild, 11/14/18) Past Surgical History See HPI Past Surgical Hx: cholecystectomy Family History Significant Family History: no pertinent family hx Social History Denied history of alcohol, smoking or illicit drug use. Smoking Status: Never smoker Exam/Review of Systems Vital Signs Vitals Vital Signs Date Temp Pulse Resp B/P (MAP) Pulse Ox O2 O2 Flow FiO2 Time Delivery Rate 11/14/18 85 14 152/70 100 Room Air 10:00 (97) 11/14/18 97.7 06:23 KEVIN ALVAREZ NP Nov 14, 2018 14:38
--- NOTE | 2018-11-14 15:30 | CONS ---
DATE OF ADMISSION: 11/14/2018 DATE OF CONSULTATION: 11/14/2018 TYPE OF CONSULTATION: Nephrology. REASON FOR CONSULTATION: Acute kidney injury, hyperkalemia. PHYSICIAN REQUESTING CONSULTATION: Prakash Florez MD HISTORY OF PRESENT ILLNESS: This is a 58-year-old female with a past medical history of diabetes, hi story of peripheral arterial disease, history of hypertension, history of left below-knee amputation, history of obesity, who presents to [facility] with complaints of abdominal pain a nd nausea, vomiting with hematemesis. The patient states her symptoms began 2 to 3 days prior to adm ission when she started having nausea and vomiting. The patient also then had an episode of hemateme sis. The patient describes having abdominal pain during this time. The patient as a result came int o the emergency room for evaluation. Upon arrival, the patient had laboratory data drawn which showe d an elevated potassium, elevated BUN and creatinine. The patient in the emergency room also had CT scan of the chest which showed thickening of the esophagus may represent ____ gastritis, small hiatal hernia and thickening of the urinary bladder. In terms of patient's renal history, the patient has a previous baseline creatinine around ____ to 2. 5 mg/dL. The patient on admission has creatinine of 2.68 mg/dL. The patient denies any hematuria, a ny coke colored urine. Denies any rashes. PAST MEDICAL HISTORY: As stated above, history of diabetes, hypertension, depression, dyslipidemia, history of chronic pain syndrome, history of hypothyroidism. PAST SURGICAL HISTORY: Status post left below-knee amputation. FAMILY HISTORY: No family history of kidney disease. SOCIAL HISTORY: Does not drink, smoke or do drugs. MEDICATIONS: Have been reviewed. REVIEW OF SYSTEMS: A 14-point review of systems conducted. Pertinent positives stated in HPI, other vines negative. PHYSICAL EXAMINATION: VITAL SIGNS: Blood pressure is 152/70, respiration 14, pulse 85, temperature 97.6. HEENT: Head is normocephalic. Pupils are reactive to light. NECK: Supple. HEART: Tachycardic. LUNGS: Show diminished breath sounds at base. ABDOMEN: Soft, positive tenderness to palpation in mid epigastric region. No rebound or guarding. EXTREMITIES: Negative for clubbing, cyanosis. Trace edema in right lower extremity. Left below-kne e amputation is noted. NEUROLOGIC: No focal deficits. LABORATORY DATA: Show sodium 136, potassium 5.5, BUN 49, creatinine 2.55, glucose 278. White count 15.0, hemoglobin 13.4, platelet count is 553. DIAGNOSTIC DATA: The patient's renal ultrasound was unremarkable. CT scan of the chest was reviewed . Chest x-ray was reviewed, no evidence of cardiopulmonary disease. Urinalysis was reviewed. ASSESSMENT AND PLAN: This is a 58-year-old female who presents with: 1. Nonoliguric acute kidney injury on top of chronic kidney disease stage IV with previous baseline creatinine around 1.5 to 2.5 mg/dL. Etiology of acute kidney injury may be secondary to hemodynamics . Other possibilities such as a tubular injury or interstitial nephritis are consideration. Lower s uspicion for acute glomerulonephritis or vasculitis. Plan at this point is stool for evaluation. We will check UA with microanalysis, check urine electrolytes, calculate a FENa. We would recommend to continue current treatment plan. Continue gentle IV hydration. Continue supportive care, renally d ose all meds. 2. Hyperkalemia. Etiology is multifactorial secondary to acute kidney injury, chronic kidney diseas e and hyperglycemia. Recommendation is to try to obtain euglycemic levels. We will continue to alyssa tor potassium levels. Continue the patient on a low potassium diet. 3. Mineral bone disorder. 4. Possible gastrointestinal bleed. The patient is currently on octreotide and Protonix drip. We w ill continue to monitor hemoglobin and hematocrit levels. 5. Hypertension. Continue current blood pressure regimen. 6. Diabetes. Continue current insulin regimen. 7. History of depression. Continue medical management. 8. Status post left below-knee amputation. Thank you, Dr. Florez, for this interesting consult. It will be a pleasure to follow patient with terrance holcomb throughout the hospital course. Dictated By: HOLLIE ANGLIN DO NR/NTS Conf#: [id number] DID#: [id number] CC: RILEY OLSON MD;*EndCC*
[2018-11-14] MEDS ORDERED: INSULIN ASPART [NOVOLOG] 3 ML PEN SC ONE (16:30)
[2018-11-14] MEDS: INSULIN GLARGINE [LANTus] (100 UNITS/ML) SYG SC SCH (17:08)
[2018-11-14 18:14] VITALS: Ht 157.5 cm; Wt 98.0 kg
[2018-11-14] MEDS: SOD CHLORIDE 0.9% 1,000 ML IV SCH ×2 (18:52→18:58)
[2018-11-14 20:00] VITALS: BP 132/66; PULSE 88; RESP 18
[2018-11-14] MEDS: traZODone 50 MG TAB PO SCH (20:33)
[2018-11-14] MEDS: PANTOPRAZOLE IV 80 MG in SOD CHLORIDE 0.9% 100 ML IV SCH (20:34)
[2018-11-14] MEDS ORDERED: INSULIN ASPART [NOVOLOG] 3 ML PEN SC SCH (21:00)
[2018-11-15] VITALS (10 sets, daily range): BP systolic 86–170; BP diastolic 50–83; PULSE 71–86; RESP 14–21
[2018-11-15] MEDS: SUCRALFATE 1 GM TAB PO SCH ×4 (00:12→16:35)
[2018-11-15] MEDS ORDERED: ACCU-CHEK XX SCH (02:00)
[2018-11-15] MEDS: LEVOTHYROXINE 112 MCG TAB PO SCH (06:13)
[2018-11-15] MEDS: PANTOPRAZOLE IV 80 MG in SOD CHLORIDE 0.9% 100 ML IV SCH ×2 (06:13→10:30)
[2018-11-15] MEDS: SOD CHLORIDE 0.9% 1,000 ML IV SCH ×2 (08:18→21:38)
[2018-11-15] MEDS: SERTRALINE 50 MG TAB PO SCH (08:50)
[2018-11-15] MEDS: INSULIN GLARGINE [LANTus] (100 UNITS/ML) SYG SC SCH (08:52)
[2018-11-15] MEDS: INSULIN ASPART [NOVOLOG] 3 ML PEN SC SCH ×7 (09:25→21:00)
--- NOTE | 2018-11-15 09:46 | PN ---
DATE: 11/15/2018 SUBJECTIVE: The patient is currently n.p.o. pending EGD. No other events noted. OBJECTIVE: VITAL SIGNS: Blood pressure is 135/66, respirations 18, pulse 75, temperature 98.0. HEENT: Head is normocephalic. NECK: Supple. HEART: Regular rate. LUNGS: Show diminished breath sounds at the base. ABDOMEN: Soft, nontender to palpation without rebound or guarding. EXTREMITIES: Negative for clubbing, cyanosis, no edema, positive BKA. DERMATOLOGIC: No rashes. MUSCULOSKELETAL: No joint effusion. NEUROLOGIC: No change in exam. MEDICATIONS: Reviewed. LABORATORY DATA: Reviewed. Sodium 138, potassium 4.8, chloride 105, bicarbonate 20, BUN 39, creatin ine 3.19, glucose 312. White count 7.8, hemoglobin 11.3, platelet count is 452. IMAGING STUDIES: The patient's renal ultrasound is unremarkable. CT scan of the chest was reviewed. ASSESSMENT AND PLAN: 1. Nonoliguric acute kidney injury on top of chronic kidney disease stage IV with previous baseline creatinine of 1.5 to 2.5 mg/dL. Etiology of acute kidney injury is likely secondary to acute tubular necrosis due to hemodynamic fluctuations. The patient's urinalysis was reviewed, no active sediment . Therefore, lower suspicion for acute glomerulonephritis or vasculitis. The patient's renal ultras ound showed no obstruction. At this point, continue current treatment plan, supportive care, renally dose all medicines, no immediate need for renal replacement therapy. 2. Hyperkalemia, resolved. Continue to monitor. 3. Mineral bone disorder, monitor calcium and phosphorus levels. 4. Possible gastrointestinal bleed. The patient is on Protonix drip, octreotide drip. Pending EGD. Continue to monitor. 5. Hypertension. Blood pressure is improved, avoid hypotensive episodes if possible. Continue to m onitor. 6. Diabetes. Continue current insulin regimen. 7. History of depression. Continue medical management. 8. Status post left below knee amputation. Dictated By: HOLLIE ANGLIN DO NR/NTS Conf#: [id number] DID#: [id number] CC: HOLLIE ANGLIN DO; KELLEY ROBLEDO MD;*EndCC*
[2018-11-15] MEDS ORDERED: FISH OIL 1,000 MG CAP PO SCH (11:00)
[2018-11-15] MEDS ORDERED: INSULIN GLARGINE [LANTus] (100 UNITS/ML) SYG SC ONE (11:00)
--- NOTE | 2018-11-15 11:00 | PN ---
Date/Time of Note Date/Time of Note DATE: 11/15/18 TIME: 10:55 Assessment/Plan VTE Prophylaxis Risk score (from Ns)>0 risk: 3 SCD applied (from Ns): Yes Pharmacological prophylaxis: NA/contraindicated Pharm contraindication: bleeding Lines/Catheters IV [facility]from [facility] Peripheral IV Assessment/Plan Hospital Course SUBJECTIVE: Patient with no further vomiting. She is scheduled for EGD today. OBJECTIVE: Vital signs-see below PHYSICAL EXAM: Constitutional: Obese, lying in bed comfortably. Psych: nl mood/affect, no complaints Head: atraumatic, normocephalic Eyes: nl conjunctiva, nl sclera ENMT: mucosa pink and moist, nl external ears & nose Neck: non-tender, supple Respiratory: clear to auscultation, normal air movement Cardiovascular: nl pulses, regular rate and rhythm Gastrointestinal: non-tender, soft, bowel sounds active in all 4 quadrants. Musculoskeletal/extremities: Left BKA. Normal pulses,no cyanosis, no edema. Neurological: Alert oriented 3,nl speech, nl strength Skin: nl turgor ASSESSMENT/PLAN: 58-year-old female with DMII, status post left below-knee amputation secondary to gangrene/osteomyelitis in August 2017,htn, dyslipidemia, hypothyroidism, here with sudden onset of multiple episodes of hematemesis. 1. Hematemesis, rule out GI etiologies. -CT shows esophageal wall thickening... -No further bleed, plan is EGD today. -Again, avoid NSAIDs, antiplatelets/anticoagulation. -Continue empiric Protonix. 2. Microcytic anemia likely secondary to #1. -Low iron panel. Will give a dose of IV iron in light of #1. 3. Poorly controlled DMII -Up titrate Lantus. Will start patient on pre-meal insulin once she is stable for oral after EGD. We will also request endocrinology consultation for better outpatient regimen. -Diabetic education 4. Acute kidney injury on CKD -Hold lisinopril and thiazide diuretics in light of acute kidney injury. Follow-up nephrology recommendations. -Monitor renal function closely. 5. Essential hypertension -Stable. Resume home medications 6. Dyslipidemia/triglyceridemia. -We will resume patient on low-dose statin and will monitor LFTs closely. Add fish oil supplementations. 7. Hypothyroidism -ON Synthroid 8. 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 9. Depressive disorders. -Stable, no mood changes. -Continue home medications. 10. Essential hypertension -In light of acute kidney injury, will hold off to lisinopril and will continue patient on hydralazine. Once renal function/potassium level stabilizes, will resume lisinopril after discussion with nephrology. DVT prophylaxis: SCDs PUD prophylaxis: PPI CODE STATUS: Full code Diet: N.p.o. except medications. Disposition: Follow-up EGD findings. Monitor blood sugar closely and if stabilizes over the next 24 hours, DC planning with outpatient follow-up. Patient was seen in collaboration with Dr. Fishman Result Diagram: 11/15/18 0602 11/15/18 0602 Results 24hrs Laboratory Tests Test 11/14/18 13:50 11/14/18 14:10 11/14/18 15:48 11/14/18 15:50 Bedside Glucose 274 H 375 H 374 H Urine Color STRAW Urine Clarity CLEAR Urine pH 6.0 Urine Specific 1.006 [place] Urine Ketones NEGATIVE Urine Nitrite NEGATIVE Urine Bilirubin NEGATIVE Urine Urobilinogen NEGATIVE Urine Leukocyte NEGATIVE Esterase Urine Microscopic 1 RBC Urine Microscopic 20 H WBC Urine Bacteria MANY A Urine Mucus FEW A Urine Hemoglobin NEGATIVE Urine Random 21.83 Creatinine Urine Random Sodium 40 Urine Glucose 3+ H Urine Total Protein 491.0 H Test 11/14/18 17:06 11/14/18 19:21 11/14/18 20:29 11/15/18 01:11 Bedside Glucose 363 H 330 H 288 H Creatine Kinase 92 Creatine Kinase 0.6 Index Creatinine Kinase MB 0.59 (Mass) Troponin I < 0.012 Test 11/15/18 06:02 11/15/18 08:48 White Blood Count 7.8 # Red Blood Count 4.32 Hemoglobin 11.3 L Hematocrit 35.8 L Mean Corpuscular 82.9 Volume Mean Corpuscular 26.2 L Hemoglobin Mean Corpuscular 31.6 L Hemoglobin Concent Red Cell 14.6 H Distribution Width Platelet Count 452 H Mean Platelet Volume 9.9 Immature 0.300 Granulocytes % Neutrophils % 54.2 Lymphocytes % 32.4 Monocytes % 9.3 Eosinophils % 2.9 Basophils % 0.9 Nucleated Red Blood 0.0 Cells % Immature 0.020 Granulocytes # Neutrophils # 4.2 Lymphocytes # 2.5 Monocytes # 0.7 Eosinophils # 0.2 Basophils # 0.1 Nucleated Red Blood 0.0 Cells # Sodium Level 138 Potassium Level 4.8 Chloride Level 105 Carbon Dioxide Level 20 L Anion Gap 13 Blood Urea Nitrogen 49 H Creatinine 3.19 H Est Glomerular 15 L Filtrat Rate mL/min Glucose Level 302 H Hemoglobin A1c 12.5 H Calcium Level 8.7 Magnesium Level 2.3 Triglycerides Level 326 H Cholesterol Level 240 H LDL Cholesterol, 147 Calculated HDL Cholesterol 28 L Cholesterol/HDL 8.5 Ratio Thyroid Stimulating 4.360 Hormone (TSH) Bedside Glucose 312 H Exam/Review of Systems Exam Vitals Vital Signs Date Temp Pulse Resp B/P (MAP) Pulse Ox O2 O2 Flow FiO2 Time Delivery Rate 11/15/18 98.0 75 18 135/66 97 Room Air 08:49 (89) Intake and Output 11/14/18 11/14/18 11/15/18 1515:00 23:00 07:00 IntakeIntake Total 50 ml 250 ml OutputOutput Total 700 ml BalanceBalance 50 ml -450 ml Results Results 24hrs Laboratory Tests Test 11/14/18 13:50 11/14/18 14:10 11/14/18 15:48 11/14/18 15:50 Bedside Glucose 274 H 375 H 374 H Urine Color STRAW Urine Clarity CLEAR Urine pH 6.0 Urine Specific 1.006 [place] Urine Ketones NEGATIVE Urine Nitrite NEGATIVE Urine Bilirubin NEGATIVE Urine Urobilinogen NEGATIVE Urine Leukocyte NEGATIVE Esterase Urine Microscopic 1 RBC Urine Microscopic 20 H WBC Urine Bacteria MANY A Urine Mucus FEW A Urine Hemoglobin NEGATIVE Urine Random 21.83 Creatinine Urine Random Sodium 40 Urine Glucose 3+ H Urine Total Protein 491.0 H Test 11/14/18 17:06 11/14/18 19:21 11/14/18 20:29 11/15/18 01:11 Bedside Glucose 363 H 330 H 288 H Creatine Kinase 92 Creatine Kinase 0.6 Index Creatinine Kinase MB 0.59 (Mass) Troponin I < 0.012 Test 11/15/18 06:02 11/15/18 08:48 White Blood Count 7.8 # Red Blood Count 4.32 Hemoglobin 11.3 L Hematocrit 35.8 L Mean Corpuscular 82.9 Volume Mean Corpuscular 26.2 L Hemoglobin Mean Corpuscular 31.6 L Hemoglobin Concent Red Cell 14.6 H Distribution Width Platelet Count 452 H Mean Platelet Volume 9.9 Immature 0.300 Granulocytes % Neutrophils % 54.2 Lymphocytes % 32.4 Monocytes % 9.3 Eosinophils % 2.9 Basophils % 0.9 Nucleated Red Blood 0.0 Cells % Immature 0.020 Granulocytes # Neutrophils # 4.2 Lymphocytes # 2.5 Monocytes # 0.7 Eosinophils # 0.2 Basophils # 0.1 Nucleated Red Blood 0.0 Cells # Sodium Level 138 Potassium Level 4.8 Chloride Level 105 Carbon Dioxide Level 20 L Anion Gap 13 Blood Urea Nitrogen 49 H Creatinine 3.19 H Est Glomerular 15 L Filtrat Rate mL/min Glucose Level 302 H Hemoglobin A1c 12.5 H Calcium Level 8.7 Magnesium Level 2.3 Triglycerides Level 326 H Cholesterol Level 240 H LDL Cholesterol, 147 Calculated HDL Cholesterol 28 L Cholesterol/HDL 8.5 Ratio Thyroid Stimulating 4.360 Hormone (TSH) Bedside Glucose 312 H Medications Medication Current Medications Sodium Chloride 1,000 ml @ 75 mls/hr [id number] IV Last administered on 11/14/18at 18:52; Admin Dose 75 MLS/HR; Start 11/14/18 at 05:38 IV Flush (NS 3 ml) 3 ml PER PROTOCOL IV ; Start 11/14/18 at 06:00 Ondansetron HCl (Zofran Inj) 4 mg Q6H PRN IV NAUSEA/VOMITING; Start 11/14/18 at 06:00 Acetaminophen (Tylenol Tab) 650 mg Q6H PRN PO .PAIN 1-3 OR TEMP; Start 11/14/18 at 06:00 Docusate Sodium (Colace) 100 mg Q12H PRN PO .CONSTIPATION; Start 11/14/18 at 0 6:00 Bisacodyl (Dulcolax) 5 mg DAILY PRN PO .CONSTIPATION; Start 11/14/18 at 06:00 Hydralazine HCl (Apresoline) 10 mg BID PRN PO ELEVATED BLOOD PRESSURE; Start 11/14/18 at 06:00 Levothyroxine Sodium (Synthroid) 112 mcg BEFORE BREAKFAST PO Last administered on 11/15/18at 06:13; Admin Dose 112 MCG; Start 11/14/18 at 07:00 Sertraline HCl (Zoloft) 50 mg DAILY PO Last administered on 11/15/18at 08:50; Admin Dose 50 MG; Start 11/14/18 at 09:00 Trazodone HCl (Desyrel) 50 mg QHS PO Last administered on 11/14/18at 20:33; Admin Dose 50 MG; Start 11/14/18 at 21:00 Diagnostic Test (Pha) (Accu-Chek) 1 ea 02 XX ; Start 11/15/18 at 02:00 Miscellaneous Information 1 ea NOTE XX ; Start 11/14/18 at 06:30 Glucose (Glutose) 15 gm Q15M PRN PO DECREASED GLUCOSE; Start 11/14/18 at 06:30 Glucose (Glutose) 22.5 gm Q15M PRN PO DECREASED GLUCOSE; Start 11/14/18 at 06:30 Dextrose (D50w Syringe) 25 ml Q15M PRN IV DECREASED GLUCOSE; Start 11/14/18 at 06:30 Dextrose (D50w Syringe) 50 ml Q15M PRN IV DECREASED GLUCOSE; Start 11/14/18 at 06:30 Glucagon (Glucagen) 1 mg Q15M PRN IM DECREASED GLUCOSE; Start 11/14/18 at 06:30 Glucose (Glutose) 15 gm Q15M PRN BUCCAL DECREASED GLUCOSE; Start 11/14/18 at 06:30 Sucralfate (Carafate) 1 gm Q6 PO Last administered on 11/15/18at 06:13; Admin Dose 1 GM; Start 11/14/18 at 07:00 Pantoprazole 80 mg/Sodium Chloride 100 ml @ 10 mls/hr Q10H IV Last administered on 11/15/18at 06:13; Admin Dose 10 MLS/HR; Start 11/14/18 at 14:30 Insulin Glargine (Lantus) 30 units DAILY@0800 SC Last administered on 11/15/18at 08:52; Admin Dose 30 UNITS; Start 11/14/18 at 14:30 Insulin Aspart (Novolog Insulin Pen) NOVOLOG *MILD* ALGORI... Q4 SC Last administered on 11/15/18at 09:25; Admin Dose 5 UNIT; Start 11/15/18 at 09:00 KEVIN ALVAREZ NP Nov 15, 2018 11:00
--- NOTE | 2018-11-15 14:04 | CONS ---
Assessment/Plan Assessment/Plan Problems: (1) Diabetes type 2, uncontrolled Status: Chronic Comment: She has inadequate control as evidenced by her A1c. I will try and adjust her regimen around and see if we can come with a better protocol. Please note she was being treated with metformin a gram twice daily despite the fact that her serum creatinine has been above 2 for quite some time. At this point I would actually hold off the metformin as her renal function is at a level where even I would not use metformin. We will try and use the Tradjenta and use other medications to get us to goal. Pioglitazone is a possibility Qualifiers: Qualified Codes: E11.65 - Type 2 diabetes mellitus with hyperglycemia (2) Diabetic nephropathy Status: Chronic Comment: Advancing slowly with steadily if you look at the historical reference in the chart Qualifiers: Qualified Codes: E11.21 - Type 2 diabetes mellitus with diabetic nephropathy (3) Hematemesis Status: Acute Comment: As per gastroenterology Consultation Date/Type/Reason Admit Date/Time Date of Consultation: Nov 15, 2018 Type of Consult Endocrinology Reason for Consultation Diabetes mellitus type 2 out of control; hyporeninemic hypoaldosteronism; diabetic nephropathy with chronic kidney disease; peripheral vascular disease; status post left BKA; diabetic peripheral neuropathy; essential hypertension; hypothyroidism Requesting Provider: KEVIN ALVAREZ NP Date/Time of Note DATE: 11/15/18 TIME: 13:57 Hx of Present Illness 58-year-old female with diabetes with multiple complications known to me from prior consultations in 2017. No she has never been seen in the office. Her regular physician is Dr. Linares at [facility]. She reports her sugar control has not been good over the last year and she has been attempting to get some changes in her regimen that have not yet happened. Her renal function is declining. Constitutional: no complaints (Eyes fevers chills or sweats) Respiratory: no complaints Cardiovascular: no complaints Gastrointestinal: nausea, vomiting (Metaphysis) Genitourinary: no complaints Musculoskeletal: no complaints Skin: no complaints Past Medical History Medical History: diabetes (Type II with complications), GI bleed (Acute), high cholesterol, hypertension, hypothyroid, renal disease (Kidney disease stage IV slowly progressive), other (Po rem anemic hypoaldosteronism) Home Meds Active Scripts Ondansetron Hcl* (Zofran*) 4 Mg Tablet, 4 MG PO Q8H PRN for NAUSEA AND/OR VOMITING, #30 TAB Prov:АЛЕКСАНДР SERNA MD 05/22/18 Ibuprofen* (Motrin*) 600 Mg Tab, 600 MG PO Q8 PRN for PAIN AND/OR INFLAMMATION, #30 TAB Prov:АЛЕКСАНДР SERNA MD 05/22/18 Reported Medications Vitamin B Complex (Vitamin B Complex) 1 Each Capsule, 1 EACH PO DAILY, CAP 11/14/18 Ferrous Sulfate* (Ferrous Sulfate*) 325 Mg Tabec, 325 MG PO DAILY, TAB 11/14/18 Simvastatin (Simvastatin) 40 Mg Tablet, 40 MG PO QHS for 30 Days, #30 11/14/18 Chlorthalidone* (Chlorthalidone*) 25 Mg Tablet, 25 MG PO DAILY for 30 Days, #30 11/14/18 Metformin Hcl* (Metformin Hcl*) 1,000 Mg Tablet, 1000 MG PO WITH BREAKFAST DINNE, #30 TAB 11/14/18 Trazodone Hcl* (Trazodone Hcl*) 50 Mg Tablet, 50 MG PO QHS, #30 TAB 05/22/18 Simvastatin* (Zocor*) 40 Mg Tablet, 40 MG PO QHS, #30 TAB 05/22/18 Sertraline Hcl* (Sertraline Hcl*) 50 Mg Tablet, 50 MG PO DAILY, #30 TAB 05/22/18 Lisinopril* (Lisinopril*) 10 Mg Tablet, 10 MG PO DAILY, #30 TAB 05/22/18 Linagliptin (TRADJENTA) 5 Mg Tablet, 5 MG PO DAILY, TAB 05/22/18 Levothyroxine Sodium* (Levoxyl*) 112 Mcg Tablet, 112 MCG PO BEFORE BREAKFAST, #30 TAB 05/22/18 Insulin Lispro (Humalog Kwikpen U-100) 100 Unit/1 Ml Insuln.pen, 16 UNIT SQ AC MEALS, EA 05/22/18 Insulin Glargine* (Lantus*) 100 Unit/Ml Soln, 44 UNIT SC QHS, #1 VIAL 05/22/18 Hydralazine Hcl* (Hydralazine Hcl*) 10 Mg Tablet, 10 MG PO BID PRN for ELEVATED BLOOD PRESSURE, #60 TAB 05/22/18 Discontinued Reported Medications Metformin Hcl* (Metformin Hcl*) 500 Mg Tablet, 500 MG PO WITH BREAKFAST DINNE, #60 TAB 05/22/18 Discontinued Scripts Cephalexin* (Keflex*) 500 Mg Capsule, 500 MG PO QID for 5 Days, CAP Prov:АЛЕКСАНДР SERNA MD 05/22/18 Medications Current Medications Sodium Chloride 1,000 ml @ 75 mls/hr [id number] IV Last administered on 11/14/18at 18:52; Admin Dose 75 MLS/HR; Start 11/14/18 at 05:38 IV Flush (NS 3 ml) 3 ml PER PROTOCOL IV ; Start 11/14/18 at 06:00 Ondansetron HCl (Zofran Inj) 4 mg Q6H PRN IV NAUSEA/VOMITING; Start 11/14/18 at 06:00 Acetaminophen (Tylenol Tab) 650 mg Q6H PRN PO .PAIN 1-3 OR TEMP; Start 11/14/18 at 06:00 Docusate Sodium (Colace) 100 mg Q12H PRN PO .CONSTIPATION; Start 11/14/18 at 06:00 Bisacodyl (Dulcolax) 5 mg DAILY PRN PO .CONSTIPATION; Start 11/14/18 at 06:00 Levothyroxine Sodium (Synthroid) 112 mcg BEFORE BREAKFAST PO Last administered on 11/15/18at 06:13; Admin Dose 112 MCG; Start 11/14/18 at 07:00 Sertraline HCl (Zoloft) 50 mg DAILY PO Last administered on 11/15/18at 08:50; Admin Dose 50 MG; Start 11/14/18 at 09:00 Trazodone HCl (Desyrel) 50 mg QHS PO Last administered on 11/14/18at 20:33; Admin Dose 50 MG; Start 11/14/18 at 21:00 Diagnostic Test (Pha) (Accu-Chek) 1 ea 02 XX ; Start 11/15/18 at 02:00 Miscellaneous Information 1 ea NOTE XX ; Start 11/14/18 at 06:30 Glucose (Glutose) 15 gm Q15M PRN PO DECREASED GLUCOSE; Start 11/14/18 at 06:30 Glucose (Glutose) 22.5 gm Q15M PRN PO DECREASED GLUCOSE; Start 11/14/18 at 06:30 Dextrose (D50w Syringe) 25 ml Q15M PRN IV DECREASED GLUCOSE; Start 11/14/18 at 06:30 Dextrose (D50w Syringe) 50 ml Q15M PRN IV DECREASED GLUCOSE; Start 11/14/18 at 06:30 Glucagon (Glucagen) 1 mg Q15M PRN IM DECREASED GLUCOSE; Start 11/14/18 at 06:30 Glucose (Glutose) 15 gm Q15M PRN BUCCAL DECREASED GLUCOSE; Start 11/14/18 at 06:30 Sucralfate (Carafate) 1 gm Q6 PO Last administered on 11/15/18at 06:13; Admin Dose 1 GM; Start 11/14/18 at 07:00 Pantoprazole 80 mg/Sodium Chloride 100 ml @ 10 mls/hr Q10H IV Last administered on 11/15/18at 06:13; Admin Dose 10 MLS/HR; Start 11/14/18 at 14:30 Insulin Aspart (Novolog Insulin Pen) NOVOLOG *MILD* ALGORI... Q4 SC Last administered on 11/15/18at 13:09; Admin Dose 4 UNIT; Start 11/15/18 at 09:00 Insulin Glargine (Lantus) 44 units DAILY@0800 SC ; Start 11/16/18 at 08:00 Atorvastatin Calcium (Lipitor) 10 mg HS PO ; Start 11/15/18 at 21:00 Fish Oil (Fish Oil) 1,000 mg BID PO ; Start 11/15/18 at 11:00 Insulin Aspart (Novolog Insulin Pen) 10 unit WITH MEALS SC ; Start 11/15/18 at 17:35 Hydralazine HCl (Apresoline) 25 mg TID PO Last administered on 11/15/18at 13:12; Admin Dose 25 MG; Start 11/15/18 at 13:00 Allergies: Coded Allergies: No Known Drug Allergy (Unverified Allergy, Mild, 11/14/18) Past Surgical History Past Surgical Hx: cholecystectomy, other (Status post left BKA) Family History Significant Family History: diabetes, hypertension Social History Alcohol Use: none Smoking Status: Never smoker Drug Use: none Exam/Review of Systems Exam Vitals Vital Signs Date Temp Pulse Resp B/P (MAP) Pulse Ox O2 O2 Flow FiO2 Time Delivery Rate 11/15/18 98.0 75 18 135/66 97 Room Air 08:49 (89) Intake and Output 11/14/18 11/14/18 11/15/18 1515:00 23:00 07:00 IntakeIntake Total 50 ml 250 ml OutputOutput Total 700 ml BalanceBalance 50 ml -450 ml Constitutional: alert, oriented Neck: supple, non-tender Respiratory: clear to auscultation, normal air movement Cardiovascular: regular rate and rhythm, nl pulses Results Result Diagram: 11/15/18 0602 11/15/18 0602 Results 24hrs Laboratory Tests Test 11/14/18 14:10 11/14/18 15:48 11/14/18 15:50 11/14/18 17:06 Urine Color STRAW Urine Clarity CLEAR Urine pH 6.0 Urine Specific 1.006 [place] Urine Ketones NEGATIVE Urine Nitrite NEGATIVE Urine Bilirubin NEGATIVE Urine Urobilinogen NEGATIVE Urine Leukocyte NEGATIVE Esterase Urine Microscopic 1 RBC Urine Microscopic 20 H WBC Urine Bacteria MANY A Urine Mucus FEW A Urine Hemoglobin NEGATIVE Urine Random 21.83 Creatinine Urine Random Sodium 40 Urine Glucose 3+ H Urine Total Protein 491.0 H Bedside Glucose 375 H 374 H 363 H Test 11/14/18 19:21 11/14/18 20:29 11/15/18 01:11 11/15/18 06:00 Creatine Kinase 92 Creatine Kinase 0.6 Index Creatinine Kinase MB 0.59 (Mass) Troponin I < 0.012 Bedside Glucose 330 H 288 H Iron Level 57 Total Iron Binding 286 Capacity Percent Iron 20 L Saturation Ferritin 21.0 Test 11/15/18 06:02 11/15/18 08:48 11/15/18 12:40 White Blood Count 7.8 # Red Blood Count 4.32 Hemoglobin 11.3 L Hematocrit 35.8 L Mean Corpuscular 82.9 Volume Mean Corpuscular 26.2 L Hemoglobin Mean Corpuscular 31.6 L Hemoglobin Concent Red Cell 14.6 H Distribution Width Platelet Count 452 H Mean Platelet Volume 9.9 Immature 0.300 Granulocytes % Neutrophils % 54.2 Lymphocytes % 32.4 Monocytes % 9.3 Eosinophils % 2.9 Basophils % 0.9 Nucleated Red Blood 0.0 Cells % Immature 0.020 Granulocytes # Neutrophils # 4.2 Lymphocytes # 2.5 Monocytes # 0.7 Eosinophils # 0.2 Basophils # 0.1 Nucleated Red Blood 0.0 Cells # Sodium Level 138 Potassium Level 4.8 Chloride Level 105 Carbon Dioxide Level 20 L Anion Gap 13 Blood Urea Nitrogen 49 H Creatinine 3.19 H Est Glomerular 15 L Filtrat Rate mL/min Glucose Level 302 H Hemoglobin A1c 12.5 H Calcium Level 8.7 Magnesium Level 2.3 Triglycerides Level 326 H Cholesterol Level 240 H LDL Cholesterol, 147 Calculated HDL Cholesterol 28 L Cholesterol/HDL 8.5 Ratio Thyroid Stimulating 4.360 Hormone (TSH) Bedside Glucose 312 H 268 H Medications Medication Current Medications Sodium Chloride 1,000 ml @ 75 mls/hr [id number] IV Last administered on 11/14/18at 18:52; Admin Dose 75 MLS/HR; Start 11/14/18 at 05:38 IV Flush (NS 3 ml) 3 ml PER PROTOCOL IV ; Start 11/14/18 at 06:00 Ondansetron HCl (Zofran Inj) 4 mg Q6H PRN IV NAUSEA/VOMITING; Start 11/14/18 at 06:00 Acetaminophen (Tylenol Tab) 650 mg Q6H PRN PO .PAIN 1-3 OR TEMP; Start 11/14/18 at 06:00 Docusate Sodium (Colace) 100 mg Q12H PRN PO .CONSTIPATION; Start 11/14/18 at 06:00 Bisacodyl (Dulcolax) 5 mg DAILY PRN PO .CONSTIPATION; Start 11/14/18 at 06:00 Levothyroxine Sodium (Synthroid) 112 mcg BEFORE BREAKFAST PO Last administered on 11/15/18at 06:13; Admin Dose 112 MCG; Start 11/14/18 at 07:00 Sertraline HCl (Zoloft) 50 mg DAILY PO Last administered on 11/15/18at 08:50; Admin Dose 50 MG; Start 11/14/18 at 09:00 Trazodone HCl (Desyrel) 50 mg QHS PO Last administered on 11/14/18at 20:33; Admin Dose 50 MG; Start 11/14/18 at 21:00 Diagnostic Test (Pha) (Accu-Chek) 1 ea 02 XX ; Start 11/15/18 at 02:00 Miscellaneous Information 1 ea NOTE XX ; Start 11/14/18 at 06:30 Glucose (Glutose) 15 gm Q15M PRN PO DECREASED GLUCOSE; Start 11/14/18 at 06:30 Glucose (Glutose) 22.5 gm Q15M PRN PO DECREASED GLUCOSE; Start 11/14/18 at 06:30 Dextrose (D50w Syringe) 25 ml Q15M PRN IV DECREASED GLUCOSE; Start 11/14/18 at 06:30 Dextrose (D50w Syringe) 50 ml Q15M PRN IV DECREASED GLUCOSE; Start 11/14/18 at 06:30 Glucagon (Glucagen) 1 mg Q15M PRN IM DECREASED GLUCOSE; Start 11/14/18 at 06:30 Glucose (Glutose) 15 gm Q15M PRN BUCCAL DECREASED GLUCOSE; Start 11/14/18 at 06:30 Sucralfate (Carafate) 1 gm Q6 PO Last administered on 11/15/18at 06:13; Admin Dose 1 GM; Start 11/14/18 at 07:00 Pantoprazole 80 mg/Sodium Chloride 100 ml @ 10 mls/hr Q10H IV Last administe red on 11/15/18at 06:13; Admin Dose 10 MLS/HR; Start 11/14/18 at 14:30 Insulin Aspart (Novolog Insulin Pen) NOVOLOG *MILD* ALGORI... Q4 SC Last administered on 11/15/18at 13:09; Admin Dose 4 UNIT; Start 11/15/18 at 09:00 Insulin Glargine (Lantus) 44 units DAILY@0800 SC ; Start 11/16/18 at 08:00 Atorvastatin Calcium (Lipitor) 10 mg HS PO ; Start 11/15/18 at 21:00 Fish Oil (Fish Oil) 1,000 mg BID PO ; Start 11/15/18 at 11:00 Insulin Aspart (Novolog Insulin Pen) 10 unit WITH MEALS SC ; Start 11/15/18 at 17:35 Hydralazine HCl (Apresoline) 25 mg TID PO Last administered on 11/15/18at 13:12; Admin Dose 25 MG; Start 11/15/18 at 13:00 JACE TURNER MD Nov 15, 2018 14:04
[2018-11-15] MEDS: ACCU-CHEK XX SCH ×3 (14:09→20:05)
[2018-11-15] MEDS: LINAGLIPTIN 5 MG TABLET PO SCH (14:14)
[2018-11-15] MEDS ORDERED: INSULIN ASPART [NOVOLOG] 3 ML PEN SC SCH (17:35)
--- NOTE | 2018-11-15 17:38 | PREAC ---
Date/Time of Note Date/Time of Note DATE: 11/15/18 TIME: 17:36 Anesthesia Eval and Record Evaluation Time Pre-Procedure Interview DATE: 11/15/18 TIME: 17:36 Age 58 Sex female NPO: 8 hrs Preoperative diagnosis Abdominal Pain Planned procedure EGD Past Medical History Past Medical History: Includes Cardio: HTN, Dyslipidemia Endo: Diabetes, Hypothyroid GI: Obesity, Morbid obesity Heme: Anemia Surgery & Anesthesia Issues No known issue Meds Anticoagulation: No Beta Luann within 24 hr: No Reason Beta Luann not given: Pt. not on B-Luann Active Scripts Ondansetron Hcl* (Zofran*) 4 Mg Tablet, 4 MG PO Q8H PRN for NAUSEA AND/OR VOMITING, #30 TAB Prov:АЛЕКСАНДР SERNA MD 05/22/18 Ibuprofen* (Motrin*) 600 Mg Tab, 600 MG PO Q8 PRN for PAIN AND/OR INFLAMMATION, #30 TAB Prov:АЛЕКСАНДР SERNA MD 05/22/18 Reported Medications Vitamin B Complex (Vitamin B Complex) 1 Each Capsule, 1 EACH PO DAILY, CAP 11/14/18 Ferrous Sulfate* (Ferrous Sulfate*) 325 Mg Tabec, 325 MG PO DAILY, TAB 11/14/18 Simvastatin (Simvastatin) 40 Mg Tablet, 40 MG PO QHS for 30 Days, #30 11/14/18 Chlorthalidone* (Chlorthalidone*) 25 Mg Tablet, 25 MG PO DAILY for 30 Days, #30 11/14/18 Metformin Hcl* (Metformin Hcl*) 1,000 Mg Tablet, 1000 MG PO WITH BREAKFAST DINNE, #30 TAB 11/14/18 Trazodone Hcl* (Trazodone Hcl*) 50 Mg Tablet, 50 MG PO QHS, #30 TAB 05/22/18 Simvastatin* (Zocor*) 40 Mg Tablet, 40 MG PO QHS, #30 TAB 05/22/18 Sertraline Hcl* (Sertraline Hcl*) 50 Mg Tablet, 50 MG PO DAILY, #30 TAB 05/22/18 Lisinopril* (Lisinopril*) 10 Mg Tablet, 10 MG PO DAILY, #30 TAB 05/22/18 Linagliptin (TRADJENTA) 5 Mg Tablet, 5 MG PO DAILY, TAB 05/22/18 Levothyroxine Sodium* (Levoxyl*) 112 Mcg Tablet, 112 MCG PO BEFORE BREAKFAST, #30 TAB 05/22/18 Insulin Lispro (Humalog Kwikpen U-100) 100 Unit/1 Ml Insuln.pen, 16 UNIT SQ AC MEALS, EA 05/22/18 Insulin Glargine* (Lantus*) 100 Unit/Ml Soln, 44 UNIT SC QHS, #1 VIAL 05/22/18 Hydralazine Hcl* (Hydralazine Hcl*) 10 Mg Tablet, 10 MG PO BID PRN for ELEVATED BLOOD PRESSURE, #60 TAB 05/22/18 Discontinued Reported Medications Metformin Hcl* (Metformin Hcl*) 500 Mg Tablet, 500 MG PO WITH BREAKFAST DINNE, #60 TAB 05/22/18 Discontinued Scripts Cephalexin* (Keflex*) 500 Mg Capsule, 500 MG PO QID for 5 Days, CAP Prov:АЛЕКСАНДР SERNA MD 05/22/18 Current Medications Sodium Chloride 1,000 ml @ 75 mls/hr [id number] IV Last administered on 11/14/18at 18:52; Admin Dose 75 MLS/HR; Start 11/14/18 at 05:38 IV Flush (NS 3 ml) 3 ml PER PROTOCOL IV ; Start 11/14/18 at 06:00 Ondansetron HCl (Zofran Inj) 4 mg Q6H PRN IV NAUSEA/VOMITING; Start 11/14/18 at 06:00 Acetaminophen (Tylenol Tab) 650 mg Q6H PRN PO .PAIN 1-3 OR TEMP; Start 11/14/18 at 06:00 Docusate Sodium (Colace) 100 mg Q12H PRN PO .CONSTIPATION; Start 11/14/18 at 06:00 Bisacodyl (Dulcolax) 5 mg DAILY PRN PO .CONSTIPATION; Start 11/14/18 at 06:00 Sertraline HCl (Zoloft) 50 mg DAILY PO Last administered on 11/15/18at 08:50; Admin Dose 50 MG; Start 11/14/18 at 09:00 Trazodone HCl (Desyrel) 50 mg QHS PO Last administered on 11/14/18at 20:33; Admin Dose 50 MG; Start 11/14/18 at 21:00 Diagnostic Test (Pha) (Accu-Chek) 1 ea 02 XX ; Start 11/15/18 at 02:00 Miscellaneous Information 1 ea NOTE XX ; Start 11/14/18 at 06:30 Glucose (Glutose) 15 gm Q15M PRN PO DECREASED GLUCOSE; Start 11/14/18 at 06:30 Glucose (Glutose) 22.5 gm Q15M PRN PO DECREASED GLUCOSE; Start 11/14/18 at 06:30 Dextrose (D50w Syringe) 25 ml Q15M PRN IV DECREASED GLUCOSE; Start 11/14/18 at 06:30 Dextrose (D50w Syringe) 50 ml Q15M PRN IV DECREASED GLUCOSE; Start 11/14/18 at 06:30 Glucagon (Glucagen) 1 mg Q15M PRN IM DECREASED GLUCOSE; Start 11/14/18 at 06:30 Glucose (Glutose) 15 gm Q15M PRN BUCCAL DECREASED GLUCOSE; Start 11/14/18 at 0 6:30 Sucralfate (Carafate) 1 gm Q6 PO Last administered on 11/15/18at 06:13; Admin Dose 1 GM; Start 11/14/18 at 07:00 Pantoprazole 80 mg/Sodium Chloride 100 ml @ 10 mls/hr Q10H IV Last administered on 11/15/18at 06:13; Admin Dose 10 MLS/HR; Start 11/14/18 at 14:30 Insulin Aspart (Novolog Insulin Pen) NOVOLOG *MILD* ALGORI... Q4 SC Last administered on 11/15/18at 13:09; Admin Dose 4 UNIT; Start 11/15/18 at 09:00 Hydralazine HCl (Apresoline) 25 mg TID PO Last administered on 11/15/18at 13:12; Admin Dose 25 MG; Start 11/15/18 at 13:00 Atorvastatin Calcium (Lipitor) 80 mg HS PO ; Start 11/15/18 at 21:00 Fish Oil (Fish Oil) 2,000 mg BID PO ; Start 11/15/18 at 21:00 Insulin Aspart (Novolog Insulin Pen) 18 unit WITH MEALS SC ; Start 11/15/18 at 17:35 Insulin Glargine (Lantus) 50 units DAILY@0800 SC ; Start 11/16/18 at 08:00 Levothyroxine Sodium (Synthroid) 125 mcg BEFORE BREAKFAST PO ; Start 11/16/18 at 07:00 Linagliptin (Tradjenta) 5 mg DAILY PO Last administered on 11/15/18at 14:14; Admin Dose 5 MG; Start 11/15/18 at 14:00 Diagnostic Test (Pha) (Accu-Chek) 1 ea 2 HOURS AFTER MEALS XX Last administered on 11/15/18at 14:09; Admin Dose 1 EA; Start 11/15/18 at 14:00 Diagnostic Test (Pha) (Accu-Chek) 1 ea AC MEALS XX ; Start 11/15/18 at 17:35 Meds reviewed: Yes Allergies Coded Allergies: No Known Drug Allergy (Unverified Allergy, Mild, 11/14/18) Allergies Reviewed: Yes Labs/Studies Labs Reviewed: Reviewed by anesthesiologist Result Diagram: 11/15/18 0602 11/15/18 0602 Laboratory Tests 11/15/18 06:02 test: Negative Pre-procedure Exam Last vitals Vital Signs Date Temp Pulse Resp B/P (MAP) Pulse Ox O2 O2 Flow FiO2 Time Delivery Rate 11/15/18 Simple 10 17:02 Mask 11/15/18 97.5 79 18 170/83 96 17:00 (112) Airway: Adequate mouth opening, Adequate thyromental dist Mallampati: Mallampati III Teeth: Normal Lung: Normal Heart: Normal ASA Physical Status ASA physical status: 3 Emergency: None Planned Anesthetic General/MAC: MAC Pre-operative Attestations Prior to commencing anesthesia and surgery, the patient was re-evaluated, there was verification of: *The patient's identity *The results of appropriate recent lab work and preoperative vital signs *The above evaluation not changing prior to induction *Anesthetic plan, risk benefits, alternative and complications discussed with patient/family; questions answered; patient/family understands, accepts and wishes to proceed. IRVING MONROE MD Nov 15, 2018 17:38
[2018-11-15] MEDS ORDERED: LIDOCAINE 2% (SDV) 5 ML INJ ONE (17:39)
[2018-11-15] MEDS ORDERED: PROPOFOL 20 ML ONE (17:39)
[2018-11-15] MEDS: METOCLOPRAMIDE 10 MG INJ IV SCH (18:00)
--- NOTE | 2018-11-15 18:02 | PAC ---
Date/Time of Note Date/Time of Note DATE: 11/15/18 TIME: 18:01 Post-Anesthesia Notes Post-Anesthesia Note Last documented vital signs Vital Signs Date Temp Pulse Resp B/P (MAP) Pulse Ox O2 O2 Flow FiO2 Time Delivery Rate 11/15/18 Simple 10 17:02 Mask 11/15/18 97.5 79 18 170/83 96 17:00 (112) Activity: WNL Respiratory function: WNL Cardiovascular function: WNL Mental status: Baseline Pain reasonably controlled: Yes Hydration appropriate: Yes Nausea/Vomiting absent: Yes Comments BP:112/56, P:76, Spo2:100%, T:98,8 IRVING MONROE MD Nov 15, 2018 18:01
[2018-11-15] MEDS ORDERED: ONDANSETRON 4 MG INJ IV PRN (18:30)
[2018-11-15] MEDS ORDERED: FENTAnyl 50 MCG/ML VIAL IV PRN (18:30)
[2018-11-15] MEDS: PANTOPRAZOLE (EC) 40 MG TAB PO SCH (18:55)
[2018-11-15] MEDS: FISH OIL 1,000 MG CAP PO SCH (20:40)
[2018-11-15] MEDS: traZODone 50 MG TAB PO SCH (20:40)
[2018-11-15] MEDS: ATORVASTATIN 80 MG TAB PO SCH (20:40)
[2018-11-15] MEDS ORDERED: ATORVASTATIN 20 MG TAB PO SCH (21:00)
[2018-11-15] MEDS ORDERED: NPH, HUMAN INSULIN ISOPHANE 3ML VIAL SC ONE (22:00)
[2018-11-16] MEDS: SUCRALFATE 1 GM TAB PO SCH ×5 (00:55→23:58)
[2018-11-16] MEDS: METOCLOPRAMIDE 10 MG INJ IV SCH ×5 (00:55→23:58)
[2018-11-16 02:00] VITALS: BP 103/71; PULSE 96; RESP 19
[2018-11-16] MEDS: ACCU-CHEK XX SCH ×7 (02:00→21:06)
[2018-11-16] MEDS: PANTOPRAZOLE (EC) 40 MG TAB PO SCH ×2 (06:12→17:52)
[2018-11-16] MEDS: LEVOTHYROXINE 125 MCG TAB PO SCH (06:12)
[2018-11-16] MEDS ORDERED: INSULIN GLARGINE [LANTus] (100 UNITS/ML) SYG SC SCH (08:00)
[2018-11-16] MEDS: INSULIN ASPART [NOVOLOG] 3 ML PEN SC SCH ×7 (08:31→21:14)
[2018-11-16] MEDS: INSULIN GLARGINE [LANTus] (100 UNITS/ML) SYG SC SCH (08:31)
[2018-11-16] MEDS: LINAGLIPTIN 5 MG TABLET PO SCH (08:34)
[2018-11-16] MEDS: SOD CHLORIDE 0.9% 1,000 ML IV SCH (08:34)
[2018-11-16] MEDS: FISH OIL 1,000 MG CAP PO SCH ×2 (08:34→21:11)
[2018-11-16] MEDS: SERTRALINE 50 MG TAB PO SCH (08:34)
[2018-11-16 08:51] VITALS: BP 105/57; PULSE 74; RESP 18
--- NOTE | 2018-11-16 09:38 | PN ---
DATE: 11/16/2018 SUBJECTIVE: The patient is stable, no events overnight. OBJECTIVE: VITAL SIGNS: Blood pressure is 105/57, respiration 18, pulse 74, temperature 98.0. HEENT: Head is normocephalic. NECK: Supple. HEART: Regular rate. LUNGS: Show diminished breath sounds at the base. ABDOMEN: Soft, nontender to palpation without rebound or guarding. EXTREMITIES: Negative for clubbing, cyanosis, no edema. DERMATOLOGIC: No rashes. MUSCULOSKELETAL: No joint effusion. NEUROLOGIC: No change in exam. MEDICATIONS: Reviewed. LABORATORY DATA: Shows a BUN 43, creatinine 2.95. Bicarbonate levels 19, glucose 312. The patient' s urinalysis shows a microalbumin creatinine ratio of 8 grams per gram of creatinine, protein creatin ine ratio of over 6 grams per gram of creatinine. ASSESSMENT AND PLAN: 1. Nonoliguric acute kidney injury on top of chronic kidney disease stage 4 with previous baseline c reatinine around 2.5 mg/dL. Etiology of acute kidney injury is secondary to hemodynamics, possible t ubular injury. Patient's urinalysis was reviewed, no active sediment. The patient does have nephrot ic range proteinuria, likely secondary to diabetic nephropathy. At this point, will continue to alyssa tor, continue supportive care, renally dose all meds, monitor closely on IV fluids. No immediate nee d for renal replacement therapy at this time. 2. Diabetic nephropathy with nephrotic range proteinuria, possible nephrotic syndrome. The patient is currently in acute kidney injury as stated above. Recommendation would be to continue current maury atment plan. Continue disease factor modification, good glycemic control. Would restart the patient on JANE inhibitor or ARB once renal function has stabilized. 3. Anemia. The patient is status post EGD with noted gastritis. Continue to monitor hemoglobin and hematocrit levels. Continue proton pump inhibitor. 4. Mineral bone disorder, monitor calcium and phosphorus levels. 5. Hypertension. Continue current blood pressure regimen. 6. Diabetes. Continue current insulin regimen per endocrinology. 7. History of depression. 8. Status post left below knee amputation. Dictated By: HOLLIE ANGLIN DO NR/NTS Conf#: [id number] DID#: [id number] CC: KELLEY ROBLEDO MD;*EndCC*
--- NOTE | 2018-11-16 10:32 | PN ---
Date/Time of Note Date/Time of Note DATE: 11/16/18 TIME: 10:17 Assessment/Plan VTE Prophylaxis Risk score (from Nsg)>0 risk: 3 SCD applied (from Ns): Yes Pharmacological prophylaxis: NA/contraindicated Pharm contraindication: low risk/ambulating, bleeding Lines/Catheters IV Catheter Type (from Nrs): Saline Lock Assessment/Plan Hospital Course SUBJECTIVE: No acute overnight episodes. No further vomiting. Tolerating diet. OBJECTIVE: Vital signs-see below PHYSICAL EXAM: Constitutional: Obese, lying in bed comfortably. Psych: nl mood/affect, no complaints Head: atraumatic, normocephalic Eyes: nl conjunctiva, nl sclera ENMT: mucosa pink and moist, nl external ears & nose Neck: non-tender, supple Respiratory: clear to auscultation, normal air movement Cardiovascular: nl pulses, regular rate and rhythm Gastrointestinal: non-tender, soft, bowel sounds active in all 4 quadrants. Musculoskeletal/extremities: Left BKA. Normal pulses,no cyanosis, no edema. Neurological: Alert oriented 3,nl speech, nl strength Skin: nl turgor ASSESSMENT/PLAN: 58-year-old female with DMII, status post left below-knee amputation secondary to gangrene/osteomyelitis in August 2017,htn, dyslipidemia, hypothyroidism, here with sudden onset of multiple episodes of hematemesis. 1. Hematemesis -Resolved -Status post EGD 11/15/2018: Severe erosive esophagitis/moderate gastritis. -PPI and Reglan. Follow-up pathology. 2. Microcytic anemia likely secondary to #1. -Stable H&H. Continue iron supplementation. 3. Poorly controlled DMII -Now being managed by [facility] sl[facility] sawyer. -Diabetic education 4. Acute kidney injury on CKD/Diabetic nephropathy. -Management per nephrology. Nikunj inhibitors on hold secondary to acute kidney injury., plan is to resume as soon as possible secondary to diabetic nephropathy and renal function stabilizes. -Monitor renal function closely. 5. Essential hypertension -Stable. Resume home medications 6. Dyslipidemia/triglyceridemia. -Continue low-dose statin and fish oil supplementation while watching LFTs closely. 7. Hypothyroidism -ON Synthroid 8. 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 9. Depressive disorders. -Stable, no mood changes. -Continue home medications. 10. Essential hypertension -In light of acute kidney injury, will hold off to lisinopril and will continue patient on hydralazine. Once renal function/potassium level stabilizes, will resume lisinopril after discussion with nephrology. DVT prophylaxis: SCDs PUD prophylaxis: PPI CODE STATUS: Full code Diet: N.p.o. except medications. Disposition: Continue current management. Patient is to be monitored inpatient for another 24-48 hours due to trending up creatinine and labile blood sugar readings. Patient was seen in collaboration with Dr. Fishman Result Diagram: 11/16/18 0602 11/16/18 0602 Results 24hrs Laboratory Tests Test 11/15/18 12:40 11/15/18 14:16 11/15/18 18:43 11/15/18 19:06 Bedside Glucose 268 H 231 H 182 White Blood Count 13.2 #H Red Blood Count 4.70 Hemoglobin 12.3 Hematocrit 38.9 Mean Corpuscular 82.8 Volume Mean Corpuscular 26.2 L Hemoglobin Mean Corpuscular 31.6 L Hemoglobin Concent Red Cell 14.8 H Distribution Width Platelet Count 521 H Mean Platelet Volume 9.7 Immature 0.500 H Granulocytes % Neutrophils % 71.5 Lymphocytes % 18.0 Monocytes % 7.3 Eosinophils % 2.0 Basophils % 0.7 Nucleated Red Blood 0.0 Cells % Immature 0.060 H Granulocytes # Neutrophils # 9.4 H Lymphocytes # 2.4 Monocytes # 1.0 H Eosinophils # 0.3 Basophils # 0.1 Nucleated Red Blood 0.0 Cells # Test 11/15/18 20:35 11/15/18 21:21 11/15/18 23:06 11/16/18 02:03 Bedside Glucose 298 H 303 H 221 H White Blood Count 10.9 H Red Blood Count 4.19 L Hemoglobin 11.1 L Hematocrit 34.7 L Mean Corpuscular 82.8 Volume Mean Corpuscular 26.5 L Hemoglobin Mean Corpuscular 32.0 Hemoglobin Concent Red Cell 14.8 H Distribution Width Platelet Count 443 H Mean Platelet Volume 10.0 Immature 0.200 Granulocytes % Neutrophils % 67.2 Lymphocytes % 21.8 Monocytes % 8.4 Eosinophils % 1.6 Basophils % 0.8 Nucleated Red Blood 0.0 Cells % Immature 0.020 Granulocytes # Neutrophils # 7.4 Lymphocytes # 2.4 Monocytes # 0.9 Eosinophils # 0.2 Basophils # 0.1 Nucleated Red Blood 0.0 Cells # Test 11/16/18 06:02 White Blood Count 9.8 Red Blood Count 4.37 Hemoglobin 11.6 L Hematocrit 36.2 L Mean Corpuscular 82.8 Volume Mean Corpuscular 26.5 L Hemoglobin Mean Corpuscular 32.0 Hemoglobin Concent Red Cell 14.7 H Distribution Width Platelet Count 447 H Mean Platelet Volume 9.8 Immature 0.400 Granulocytes % Neutrophils % 64.2 Lymphocytes % 22.7 Monocytes % 9.8 Eosinophils % 2.2 Basophils % 0.7 Nucleated Red Blood 0.0 Cells % Immature 0.040 H Granulocytes # Neutrophils # 6.3 Lymphocytes # 2.2 Monocytes # 1.0 H Eosinophils # 0.2 Basophils # 0.1 Nucleated Red Blood 0.0 Cells # Sodium Level 138 Potassium Level 4.6 Chloride Level 109 Carbon Dioxide Level 19 L Anion Gap 10 Blood Urea Nitrogen 43 H Creatinine 2.95 H Est Glomerular 16 L Filtrat Rate mL/min Glucose Level 312 H Calcium Level 8.8 Phosphorus Level 5.1 H Magnesium Level 2.3 Total Bilirubin 0.0 L Direct Bilirubin 0.00 Indirect Bilirubin 0.0 Aspartate Amino 13 L Transf (AST/SGOT) Alanine 21 Aminotransferase (AL T/SGPT) Alkaline Phosphatase 103 Total Protein 6.0 L Albumin 2.9 L Exam/Review of Systems Exam Vitals Vital Signs Date Temp Pulse Resp B/P (MAP) Pulse Ox O2 O2 Flow FiO2 Time Delivery Rate 11/16/18 98.0 74 18 105/57 96 Room Air 08:51 (73) 11/15/18 2.0 18:19 Intake and Output 11/15/18 11/15/18 11/16/18 1515:00 23:00 07:00 IntakeIntake Total 800 ml 240 ml OutputOutput Total 3 ml 3 ml BalanceBalance 797 ml 237 ml Results Results 24hrs Laboratory Tests Test 11/15/18 12:40 11/15/18 14:16 11/15/18 18:43 11/15/18 19:06 Bedside Glucose 268 H 231 H 182 White Blood Count 13.2 #H Red Blood Count 4.70 Hemoglobin 12.3 Hematocrit 38.9 Mean Corpuscular 82.8 Volume Mean Corpuscular 26.2 L Hemoglobin Mean Corpuscular 31.6 L Hemoglobin Concent Red Cell 14.8 H Distribution Width Platelet Count 521 H Mean Platelet Volume 9.7 Immature 0.500 H Granulocytes % Neutrophils % 71.5 Lymphocytes % 18.0 Monocytes % 7.3 Eosinophils % 2.0 Basophils % 0.7 Nucleated Red Blood 0.0 Cells % Immature 0.060 H Granulocytes # Neutrophils # 9.4 H Lymphocytes # 2.4 Monocytes # 1.0 H Eosinophils # 0.3 Basophils # 0.1 Nucleated Red Blood 0.0 Cells # Test 11/15/18 20:35 11/15/18 21:21 11/15/18 23:06 11/16/18 02:03 Bedside Glucose 298 H 303 H 221 H White Blood Count 10.9 H Red Blood Count 4.19 L Hemoglobin 11.1 L Hematocrit 34.7 L Mean Corpuscular 82.8 Volume Mean Corpuscular 26.5 L Hemoglobin Mean Corpuscular 32.0 Hemoglobin Concent Red Cell 14.8 H Distribution Width Platelet Count 443 H Mean Platelet Volume 10.0 Immature 0.200 Granulocytes % Neutrophils % 67.2 Lymphocytes % 21.8 Monocytes % 8.4 Eosinophils % 1.6 Basophils % 0.8 Nucleated Red Blood 0.0 Cells % Immature 0.020 Granulocytes # Neutrophils # 7.4 Lymphocytes # 2.4 Monocytes # 0.9 Eosinophils # 0.2 Basophils # 0.1 Nucleated Red Blood 0.0 Cells # Test 11/16/18 06:02 White Blood Count 9.8 Red Blood Count 4.37 Hemoglobin 11.6 L Hematocrit 36.2 L Mean Corpuscular 82.8 Volume Mean Corpuscular 26.5 L Hemoglobin Mean Corpuscular 32.0 Hemoglobin Concent Red Cell 14.7 H Distribution Width Platelet Count 447 H Mean Platelet Volume 9.8 Immature 0.400 Granulocytes % Neutrophils % 64.2 Lymphocytes % 22.7 Monocytes % 9.8 Eosinophils % 2.2 Basophils % 0.7 Nucleated Red Blood 0.0 Cells % Immature 0.040 H Granulocytes # Neutrophils # 6.3 Lymphocytes # 2.2 Monocytes # 1.0 H Eosinophils # 0.2 Basophils # 0.1 Nucleated Red Blood 0.0 Cells # Sodium Level 138 Potassium Level 4.6 Chloride Level 109 Carbon Dioxide Level 19 L Anion Gap 10 Blood Urea Nitrogen 43 H Creatinine 2.95 H Est Glomerular 16 L Filtrat Rate mL/min Glucose Level 312 H Calcium Level 8.8 Phosphorus Level 5.1 H Magnesium Level 2.3 Total Bilirubin 0.0 L Direct Bilirubin 0.00 Indirect Bilirubin 0.0 Aspartate Amino 13 L Transf (AST/SGOT) Alanine 21 Aminotransferase (AL T/SGPT) Alkaline Phosphatase 103 Total Protein 6.0 L Albumin 2.9 L Medications Medication Current Medications Sodium Chloride 1,000 ml @ 50 mls/hr Q20H IV Last administered on 11/16/18at 08:34; Admin Dose 75 MLS/HR; Start 11/14/18 at 05:38 IV Flush (NS 3 ml) 3 ml PER PROTOCOL IV ; Start 11/14/18 at 06:00 Ondansetron HCl (Zofran Inj) 4 mg Q6H PRN IV NAUSEA/VOMITING; Start 11/14/18 at 06:00 Acetaminophen (Tylenol Tab) 650 mg Q6H PRN PO .PAIN 1-3 OR TEMP; Start 11/14/18 at 06:00 Docusate Sodium (Colace) 100 mg Q12H PRN PO .CONSTIPATION; Start 11/14/18 at 06:00 Bisacodyl (Dulcolax) 5 mg DAILY PRN PO .CONSTIPATION; Start 11/14/18 at 06:00 Sertraline HCl (Zoloft) 50 mg DAILY PO Last administered on 11/16/18at 08:34; Admin Dose 50 MG; Start 11/14/18 at 09:00 Trazodone HCl (Desyrel) 50 mg QHS PO Last administered on 11/15/18at 20:40; Admin Dose 50 MG; Start 11/14/18 at 21:00 Miscellaneous Information 1 ea NOTE XX ; Start 11/14/18 at 06:30 Glucose (Glutose) 15 gm Q15M PRN PO DECREASED GLUCOSE; Start 11/14/18 at 06:30 Glucose (Glutose) 22.5 gm Q15M PRN PO DECREASED GLUCOSE; Start 11/14/18 at 06:30 Dextrose (D50w Syringe) 25 ml Q15M PRN IV DECREASED GLUCOSE; Start 11/14/18 at 06:30 Dextrose (D50w Syringe) 50 ml Q15M PRN IV DECREASED GLUCOSE; Start 11/14/18 at 06:30 Glucagon (Glucagen) 1 mg Q15M PRN IM DECREASED GLUCOSE; Start 11/14/18 at 06:30 Glucose (Glutose) 15 gm Q15M PRN BUCCAL DECREASED GLUCOSE; Start 11/14/18 at 06:30 Sucralfate (Carafate) 1 gm Q6 PO Last administered on 11/16/18 06:11; Admin Dose 1 GM; Start 11/14/18 at 07:00 Hydralazine HCl (Apresoline) 25 mg TID PO Last administered on 11/15/18 20:40; Admin Dose 25 MG; Start 11/15/18 at 13:00 Atorvastatin Calcium (Lipitor) 80 mg HS PO Last administered on 11/15/18 20:40; Admin Dose 80 MG; Start 11/15/18 at 21:00 Fish Oil (Fish Oil) 2,000 mg BID PO Last administered on 11/16/18 08:34; Admin Dose 2,000 MG; Start 11/15/18 at 21:00 Insulin Aspart (Novolog Insulin Pen) 18 unit WITH MEALS SC Last administered on 11/16/18 08:31; Admin Dose 18 UNIT; Start 11/15/18 at 17:35 Insulin Glargine (Lantus) 50 units DAILY@0800 SC Last administered on 11/16/18 08:31; Admin Dose 50 UNITS; Start 11/16/18 at 08:00 Levothyroxine Sodium (Synthroid) 125 mcg BEFORE BREAKFAST PO Last administered on 11/16/18 06:12; Admin Dose 125 MCG; Start 11/16/18 at 07:00 Linagliptin (Tradjenta) 5 mg DAILY PO Last administered on 11/16/18 08:34; Admin Dose 5 MG; Start 11/15/18 at 14:00 Diagnostic Test (Pha) (Accu-Chek) 1 ea 2 HOURS AFTER MEALS XX Last administered on 11/15/18 14:09; Admin Dose 1 EA; Start 11/15/18 at 14:00 Diagnostic Test (Pha) (Accu-Chek) 1 ea AC MEALS XX Last administered on 11/16/18 07:30; Admin Dose 1 EA; Start 11/15/18 at 17:35 Pantoprazole (Protonix Tab) 40 mg BID@06,18 PO Last administered on 11/16/18 06:12; Admin Dose 40 MG; Start 11/15/18 at 18:00 Metoclopramide HCl (Reglan) 10 mg Q6 IV Last administered on 11/16/18at 06:12; Admin Dose 10 MG; Start 11/15/18 at 18:00 Diagnostic Test (Pha) (Accu-Chek) 1 02 XX ; Start 11/16/18 at 02:00 Insulin Aspart (Novolog Insulin Pen) NOVOLOG *MILD* ALGORITHM WITH MEALS BEDTIME SC Last administered on 11/16/18at 08:31; Admin Dose 5 UNIT; Start 11/15/18 at 21:00 KEVIN ALVAREZ NP Nov 16, 2018 10:27
--- NOTE | 2018-11-16 12:04 | PN ---
Date/Time of Note Date/Time of Note DATE: 11/16/18 TIME: 12:03 Assessment/Plan VTE Prophylaxis Risk score (from Ns)>0 risk: 4 SCD applied (from Ns): Yes Pharmacological prophylaxis: other (scds) Lines/Catheters [facility] ([facility] Saline Lock Assessment/Plan Hospital Course Summary Assessment and Plan: Assessment: Coffee-ground emesis- resolved EGD 11/15/18 Moderate erosive esophagitis. Rule out Gutierrez's esophagus, biopsies obtained Small hiatal hernia. Moderate gastritis. Rule out H. pylori infection, biopsies obtained Normocytic anemia- stable Leukocytosis- resolved Left AKA CKD History of hypertension History of diabetes, type 2 History of high cholesterol History of thyroid disease Plan: Continue PPI p.o. twice daily- x 4 weeks Reglan 10 mg 4 times daily- x10 days Advance diet as tolerated Await bx results If pt d/c'd prior to pathology resulting she can f/u with GI to review bx results Patient seen in collaboration with Dr. Wilkinson/Hong Subjective: Course reviewed with nursing staff Patient interviewed and examined All labs, imaging and other results reviewed The patient feels much better, no c/o n/v or overt signs of GI bleed Eating well, no c/o abd pain, or diarrhea Constitutional: alert, oriented, obese Psych: no complaints Head: normocephalic, atraumatic Eyes: nl conjunctiva ENMT: nl external ears & nose Neck: supple, non-tender Respiratory: clear to auscultation Cardiovascular: regular rate and rhythm Gastrointestinal: soft, non-tender, bowel sounds; No distended, No firm, No hepatomegaly Extremities: other (Left AKA) Result Diagram: 11/16/18 0602 11/16/18 0602 Results 24hrs Laboratory Tests Test 11/15/18 12:40 11/15/18 14:16 11/15/18 18:43 11/15/18 19:06 Bedside Glucose 268 H 231 H 182 White Blood Count 13.2 #H Red Blood Count 4.70 Hemoglobin 12.3 Hematocrit 38.9 Mean Corpuscular 82.8 Volume Mean Corpuscular 26.2 L Hemoglobin Mean Corpuscular 31.6 L Hemoglobin Concent Red Cell 14.8 H Distribution Width Platelet Count 521 H Mean Platelet Volume 9.7 Immature 0.500 H Granulocytes % Neutrophils % 71.5 Lymphocytes % 18.0 Monocytes % 7.3 Eosinophils % 2.0 Basophils % 0.7 Nucleated Red Blood 0.0 Cells % Immature 0.060 H Granulocytes # Neutrophils # 9.4 H Lymphocytes # 2.4 Monocytes # 1.0 H Eosinophils # 0.3 Basophils # 0.1 Nucleated Red Blood 0.0 Cells # Test 11/15/18 20:35 11/15/18 21:21 11/15/18 23:06 11/16/18 02:03 Bedside Glucose 298 H 303 H 221 H White Blood Count 10.9 H Red Blood Count 4.19 L Hemoglobin 11.1 L Hematocrit 34.7 L Mean Corpuscular 82.8 Volume Mean Corpuscular 26.5 L Hemoglobin Mean Corpuscular 32.0 Hemoglobin Concent Red Cell 14.8 H Distribution Width Platelet Count 443 H Mean Platelet Volume 10.0 Immature 0.200 Granulocytes % Neutrophils % 67.2 Lymphocytes % 21.8 Monocytes % 8.4 Eosinophils % 1.6 Basophils % 0.8 Nucleated Red Blood 0.0 Cells % Immature 0.020 Granulocytes # Neutrophils # 7.4 Lymphocytes # 2.4 Monocytes # 0.9 Eosinophils # 0.2 Basophils # 0.1 Nucleated Red Blood 0.0 Cells # Test 11/16/18 06:02 11/16/18 10:47 White Blood Count 9.8 Red Blood Count 4.37 Hemoglobin 11.6 L Hematocrit 36.2 L Mean Corpuscular 82.8 Volume Mean Corpuscular 26.5 L Hemoglobin Mean Corpuscular 32.0 Hemoglobin Concent Red Cell 14.7 H Distribution Width Platelet Count 447 H Mean Platelet Volume 9.8 Immature 0.400 Granulocytes % Neutrophils % 64.2 Lymphocytes % 22.7 Monocytes % 9.8 Eosinophils % 2.2 Basophils % 0.7 Nucleated Red Blood 0.0 Cells % Immature 0.040 H Granulocytes # Neutrophils # 6.3 Lymphocytes # 2.2 Monocytes # 1.0 H Eosinophils # 0.2 Basophils # 0.1 Nucleated Red Blood 0.0 Cells # Sodium Level 138 Potassium Level 4.6 Chloride Level 109 Carbon Dioxide Level 19 L Anion Gap 10 Blood Urea Nitrogen 43 H Creatinine 2.95 H Est Glomerular 16 L Filtrat Rate mL/min Glucose Level 312 H Calcium Level 8.8 Phosphorus Level 5.1 H Magnesium Level 2.3 Total Bilirubin 0.0 L Direct Bilirubin 0.00 Indirect Bilirubin 0.0 Aspartate Amino 13 L Transf (AST/SGOT) Alanine 21 Aminotransferase (AL T/SGPT) Alkaline Phosphatase 103 Total Protein 6.0 L Albumin 2.9 L Bedside Glucose 267 H Exam/Review of Systems Exam Vitals Vital Signs Date Temp Pulse Resp B/P (MAP) Pulse Ox O2 O2 Flow FiO2 Time Delivery Rate 11/16/18 98.0 74 18 105/57 96 Room Air 08:51 (73) 11/15/18 2.0 18:19 Intake and Output 11/15/18 11/15/18 11/16/18 1515:00 23:00 07:00 IntakeIntake Total 800 ml 240 ml OutputOutput Total 3 ml 3 ml BalanceBalance 797 ml 237 ml Results Results 24hrs Laboratory Tests Test 11/15/18 12:40 11/15/18 14:16 11/15/18 18:43 11/15/18 19:06 Bedside Glucose 268 H 231 H 182 White Blood Count 13.2 #H Red Blood Count 4.70 Hemoglobin 12.3 Hematocrit 38.9 Mean Corpuscular 82.8 Volume Mean Corpuscular 26.2 L Hemoglobin Mean Corpuscular 31.6 L Hemoglobin Concent Red Cell 14.8 H Distribution Width Platelet Count 521 H Mean Platelet Volume 9.7 Immature 0.500 H Granulocytes % Neutrophils % 71.5 Lymphocytes % 18.0 Monocytes % 7.3 Eosinophils % 2.0 Basophils % 0.7 Nucleated Red Blood 0.0 Cells % Immature 0.060 H Granulocytes # Neutrophils # 9.4 H Lymphocytes # 2.4 Monocytes # 1.0 H Eosinophils # 0.3 Basophils # 0.1 Nucleated Red Blood 0.0 Cells # Test 11/15/18 20:35 11/15/18 21:21 11/15/18 23:06 11/16/18 02:03 Bedside Glucose 298 H 303 H 221 H White Blood Count 10.9 H Red Blood Count 4.19 L Hemoglobin 11.1 L Hematocrit 34.7 L Mean Corpuscular 82.8 Volume Mean Corpuscular 26.5 L Hemoglobin Mean Corpuscular 32.0 Hemoglobin Concent Red Cell 14.8 H Distribution Width Platelet Count 443 H Mean Platelet Volume 10.0 Immature 0.200 Granulocytes % Neutrophils % 67.2 Lymphocytes % 21.8 Monocytes % 8.4 Eosinophils % 1.6 Basophils % 0.8 Nucleated Red Blood 0.0 Cells % Immature 0.020 Granulocytes # Neutrophils # 7.4 Lymphocytes # 2.4 Monocytes # 0.9 Eosinophils # 0.2 Basophils # 0.1 Nucleated Red Blood 0.0 Cells # Test 11/16/18 06:02 11/16/18 10:47 White Blood Count 9.8 Red Blood Count 4.37 Hemoglobin 11.6 L Hematocrit 36.2 L Mean Corpuscular 82.8 Volume Mean Corpuscular 26.5 L Hemoglobin Mean Corpuscular 32.0 Hemoglobin Concent Red Cell 14.7 H Distribution Width Platelet Count 447 H Mean Platelet Volume 9.8 Immature 0.400 Granulocytes % Neutrophils % 64.2 Lymphocytes % 22.7 Monocytes % 9.8 Eosinophils % 2.2 Basophils % 0.7 Nucleated Red Blood 0.0 Cells % Immature 0.040 H Granulocytes # Neutrophils # 6.3 Lymphocytes # 2.2 Monocytes # 1.0 H Eosinophils # 0.2 Basophils # 0.1 Nucleated Red Blood 0.0 Cells # Sodium Level 138 Potassium Level 4.6 Chloride Level 109 Carbon Dioxide Level 19 L Anion Gap 10 Blood Urea Nitrogen 43 H Creatinine 2.95 H Est Glomerular 16 L Filtrat Rate mL/min Glucose Level 312 H Calcium Level 8.8 Phosphorus Level 5.1 H Magnesium Level 2.3 Total Bilirubin 0.0 L Direct Bilirubin 0.00 Indirect Bilirubin 0.0 Aspartate Amino 13 L Transf (AST/SGOT) Alanine 21 Aminotransferase (AL T/SGPT) Alkaline Phosphatase 103 Total Protein 6.0 L Albumin 2.9 L Bedside Glucose 267 H Medications Medication Current Medications Sodium Chloride 1,000 ml @ 50 mls/hr Q20H IV Last administered on 11/16/18at 08:34; Admin Dose 75 MLS/HR; Start 11/14/18 at 05:38 IV Flush (NS 3 ml) 3 ml PER PROTOCOL IV ; Start 11/14/18 at 06:00 Ondansetron HCl (Zofran Inj) 4 mg Q6H PRN IV NAUSEA/VOMITING; Start 11/14/18 at 06:00 Acetaminophen (Tylenol Tab) 650 mg Q6H PRN PO .PAIN 1-3 OR TEMP; Start 11/14/18 at 06:00 Docusate Sodium (Colace) 100 mg Q12H PRN PO .CONSTIPATION; Start 11/14/18 at 06:00 Bisacodyl (Dulcolax) 5 mg DAILY PRN PO .CONSTIPATION; Start 11/14/18 at 06:00 Sertraline HCl (Zoloft) 50 mg DAILY PO Last administered on 11/16/18at 08:34; Admin Dose 50 MG; Start 11/14/18 at 09:00 Trazodone HCl (Desyrel) 50 mg QHS PO Last administered on 11/15/18at 20:40; Admin Dose 50 MG; Start 11/14/18 at 21:00 Miscellaneous Information 1 ea NOTE XX ; Start 11/14/18 at 06:30 Glucose (Glutose) 15 gm Q15M PRN PO DECREASED GLUCOSE; Start 11/14/18 at 06:30 Glucose (Glutose) 22.5 gm Q15M PRN PO DECREASED GLUCOSE; Start 11/14/18 at 06:30 Dextrose (D50w Syringe) 25 ml Q15M PRN IV DECREASED GLUCOSE; Start 11/14/18 at 06:30 Dextrose (D50w Syringe) 50 ml Q15M PRN IV DECREASED GLUCOSE; Start 11/14/18 at 06:30 Glucagon (Glucagen) 1 mg Q15M PRN IM DECREASED GLUCOSE; Start 11/14/18 at 06:30 Glucose (Glutose) 15 gm Q15M PRN BUCCAL DECREASED GLUCOSE; Start 11/14/18 at 06:30 Sucralfate (Carafate) 1 gm Q6 PO Last administered on 11/16/18at 06:11; Admin Dose 1 GM; Start 11/14/18 at 07:00 Hydralazine HCl (Apresoline) 25 mg TID PO Last administered on 11/15/18at 20:40; Admin Dose 25 MG; Start 11/15/18 at 13:00 Atorvastatin Calcium (Lipitor) 80 mg HS PO Last administered on 11/15/18 20:40; Admin Dose 80 MG; Start 11/15/18 at 21:00 Fish Oil (Fish Oil) 2,000 mg BID PO Last administered on 11/16/18 08:34; Admin Dose 2,000 MG; Start 11/15/18 at 21:00 Insulin Aspart (Novolog Insulin Pen) 18 unit WITH MEALS SC Last administered on 11/16/18at 08:31; Admin Dose 18 UNIT; Start 11/15/18 at 17:35 Insulin Glargine (Lantus) 50 units DAILY@0800 SC Last administered on 11/16/18 08:31; Admin Dose 50 UNITS; Start 11/16/18 at 08:00 Levothyroxine Sodium (Synthroid) 125 mcg BEFORE BREAKFAST PO Last administered on 11/16/18 06:12; Admin Dose 125 MCG; Start 11/16/18 at 07:00 Linagliptin (Tradjenta) 5 mg DAILY PO Last administered on 11/16/18 08:34; Admin Dose 5 MG; Start 11/15/18 at 14:00 Diagnostic Test (Pha) (Accu-Chek) 1 ea 2 HOURS AFTER MEALS XX Last administered on 11/16/18 10:49; Admin Dose 1 EA; Start 11/15/18 at 14:00 Diagnostic Test (Pha) (Accu-Chek) 1 ea AC MEALS XX Last administered on 11/16/18 07:30; Admin Dose 1 EA; Start 11/15/18 at 17:35 Pantoprazole (Protonix Tab) 40 mg BID@06,18 PO Last administered on 11/16/18 06:12; Admin Dose 40 MG; Start 11/15/18 at 18:00 Metoclopramide HCl (Reglan) 10 mg Q6 IV Last administered on 11/16/18 06:12; Admin Dose 10 MG; Start 11/15/18 at 18:00 Diagnostic Test (Pha) (Accu-Chek) 1 ea 02 XX ; Start 11/16/18 at 02:00 Insulin Aspart (Novolog Insulin Pen) NOVOLOG *MILD* ALGORITHM WITH MEALS BEDTIME SC Last administered on 11/16/18 08:31; Admin Dose 5 UNIT; Start 11/15/18 at 21:00 Ferric Sodium Gluconate Complex 125 mg/Sodium Chloride 100 ml @ 100 mls/hr ONCE ONCE IVPB ; Start 11/16/18 at 13:00; Stop 11/16/18 at 13:59 BINA WATKINS Nov 16, 2018 12:04
[2018-11-16] MEDS ORDERED: SOD FERRIC GLUC COMPLX 125 MG in SOD CHLORIDE 0.9% 100 ML IVPB ONE (13:00)
[2018-11-16 14:48] VITALS: BP 183/81; PULSE 80; RESP 18
[2018-11-16 16:00] VITALS: BP 149/69; PULSE 88
[2018-11-16 20:00] VITALS: BP 138/68; PULSE 76; RESP 18
[2018-11-16] MEDS: ATORVASTATIN 80 MG TAB PO SCH (21:11)
[2018-11-16] MEDS: traZODone 50 MG TAB PO SCH (21:11)
[2018-11-17 02:00] VITALS: BP 155/70; PULSE 80; RESP 18
[2018-11-17] MEDS: ACCU-CHEK XX SCH ×5 (02:32→13:37)
[2018-11-17] MEDS: METOCLOPRAMIDE 10 MG INJ IV SCH ×2 (05:57→12:11)
[2018-11-17] MEDS: SUCRALFATE 1 GM TAB PO SCH ×2 (05:57→12:11)
[2018-11-17] MEDS: PANTOPRAZOLE (EC) 40 MG TAB PO SCH (05:57)
[2018-11-17] MEDS: SOD CHLORIDE 0.9% 1,000 ML IV SCH (05:57)
[2018-11-17] MEDS: LEVOTHYROXINE 125 MCG TAB PO SCH (06:00)
[2018-11-17] MEDS: INSULIN ASPART [NOVOLOG] 3 ML PEN SC SCH ×4 (08:04→12:13)
[2018-11-17] MEDS: INSULIN GLARGINE [LANTus] (100 UNITS/ML) SYG SC SCH (08:06)
[2018-11-17] MEDS: FISH OIL 1,000 MG CAP PO SCH (08:07)
[2018-11-17] MEDS: SERTRALINE 50 MG TAB PO SCH (08:07)
[2018-11-17] MEDS: LINAGLIPTIN 5 MG TABLET PO SCH (08:07)
[2018-11-17 08:42] VITALS: BP 130/51; PULSE 77; RESP 18
--- NOTE | 2018-11-17 09:24 | PN ---
DATE: 11/17/2018 SUBJECTIVE: The patient is stable. No events overnight. OBJECTIVE: VITAL SIGNS: Blood pressure is 135/70, respirations 18, pulse 80, temperature 97.9. HEENT: Head is normocephalic. NECK: Supple. HEART: Regular rate. LUNGS: Show diminished breath sounds at the base. ABDOMEN: Soft, nontender to palpation without rebound or guarding. EXTREMITIES: Negative for clubbing, cyanosis. Trace edema. DERMATOLOGIC: No rashes. MUSCULOSKELETAL: No joint effusion. NEUROLOGIC: No change in exam. MEDICATIONS: The patient's medications have been reviewed. LABORATORY DATA: Shows a white count 9.7, hemoglobin 10.9, BUN 46, creatinine 2.7. ASSESSMENT AND PLAN: 1. Nonoliguric acute kidney injury on top of chronic kidney disease stage IV with previous baseline creatinine of around 2.5 mg/dL. Etiology of acute kidney injury is secondary to hemodynamics. The p atient's renal function has slowly been improving, approaching previous baseline. At this point, we will discontinue IV fluids, continue current treatment plans, supportive care, renally dose all medic elisa. 2. Diabetic nephropathy with nephrotic range proteinuria, possible nephrotic syndrome. The patient is currently in acute kidney injury as stated above. Recommendation would be to continue disease fac tor modification with good glycemic and blood pressure control. We would consider starting JANE inhib itor or ARB once renal function has stabilized. 3. Anemia. Continue to monitor hemoglobin and hematocrit levels. The patient is status post EGD wi th noted gastritis. Continue proton pump inhibitor. 4. Mineral bone disorder, monitor calcium and phosphorus levels. 5. Hypertension. We will continue IV fluids, continue current blood pressure regimen. We will star t JANE inhibitor or ARB once renal function stabilized. 6. Diabetes. Continue current insulin regimen. Follow up with endocrinology. 7. History of depression. 8. History of left below knee amputation. Dictated By: HOLLIE ANGLIN DO NR/NTS Conf#: [id number] DID#: [id number] CC: HOLLIE ANGLIN DO; KELLEY ROBLEDO MD;*EndCC*
--- NOTE | 2018-11-17 11:19 | PN ---
Date/Time of Note Date/Time of Note DATE: 11/17/18 TIME: 11:03 Assessment/Plan VTE Prophylaxis [place] [facility] risk: 3 SCD applied (from Ns): Yes Pharmacological prophylaxis: heparin Lines/Catheters IV C[facility] Type [facility]from [facility]): Peripheral IV Assessment/Plan Assessment/Plan Assessment: Coffee-ground emesis- resolved EGD 11/15/18 Moderate erosive esophagitis. Rule out Gutierrez's esophagus, biopsies obtained Small hiatal hernia. Moderate gastritis. Rule out H. pylori infection, biopsies obtained Gastric biopsy: -- minimal patchy chronic inflammation. -- No Helicobacter organisms are identified -Esophagus biopsy: -- mild reflux esophagitis and carditis. -- No intestinal metaplasia Normocytic anemia- stable Leukocytosis- resolved Left AKA CKD History of hypertension History of diabetes, type 2 History of high cholesterol History of thyroid disease Plan: Continue PPI p.o. twice daily- x 4 weeks Reglan 10 mg 4 times daily- x10 days Colonoscopy as an outpatient Patient seen in collaboration with Dr. Wilkinson/Hong Subjective: Course reviewed with nursing staff Patient interviewed and examined All labs, imaging and other results reviewed The patient is feeling well. Results of EGD and gastric biopsies reviewed. Patient is tolerating diet well. Denies abdominal pain, nausea or vomiting. Hemoglobin is stable. Patient never had a colonoscopy done. Recommend colonoscopy as an outpatient. Pending discharge home for today. Constitutional: alert, oriented, obese Psych: no complaints Head: normocephalic, atraumatic Eyes: nl conjunctiva ENMT: nl external ears & nose Neck: supple, non-tender Respiratory: clear to auscultation Cardiovascular: regular rate and rhythm Gastrointestinal: soft, non-tender, bowel sounds; No distended, No firm, No hepatomegaly Result Diagram: 11/17/18 0552 11/17/18 0552 Results 24hrs Laboratory Tests Test 11/16/18 12:09 11/16/18 17:39 11/16/18 21:05 11/17/18 02:30 Bedside Glucose 240 H 219 191 266 H Test 11/17/18 05:52 11/17/18 07:56 11/17/18 10:13 White Blood Count 9.7 Red Blood Count 4.09 L Hemoglobin 10.9 L Hematocrit 34.1 L Mean Corpuscular 83.4 Volume Mean Corpuscular 26.7 L Hemoglobin Mean Corpuscular 32.0 Hemoglobin Concent Red Cell 14.7 H Distribution Width Platelet Count 419 H Mean Platelet Volume 10.1 Immature 0.200 Granulocytes % Neutrophils % 62.3 Lymphocytes % 25.7 Monocytes % 8.7 Eosinophils % 2.3 Basophils % 0.8 Nucleated Red Blood 0.0 Cells % Immature 0.020 Granulocytes # Neutrophils # 6.0 Lymphocytes # 2.5 Monocytes # 0.8 Eosinophils # 0.2 Basophils # 0.1 Nucleated Red Blood 0.0 Cells # Sodium Level 140 Potassium Level 4.4 Chloride Level 107 Carbon Dioxide Level 23 Anion Gap 10 Blood Urea Nitrogen 46 H Creatinine 2.70 H Est Glomerular 18 L Filtrat Rate mL/min Glucose Level 303 H Calcium Level 8.5 Phosphorus Level 4.5 Magnesium Level 2.1 Bedside Glucose 343 H 296 H CC: JO WILKINSON MD ; Exam/Review of Systems Exam Vitals Vital Signs Date Temp Pulse Resp B/P (MAP) Pulse Ox O2 O2 Flow FiO2 Time Delivery Rate 11/17/18 97.9 77 18 130/51 96 Room Air 08:42 (77) 11/15/18 2.0 18:19 Intake and Output 11/16/18 11/16/18 11/17/18 1515:00 23:00 07:00 IntakeIntake Total 1530 ml 420 ml 1590 ml OutputOutput Total 700 ml 1800 ml BalanceBalance 830 ml 420 ml -210 ml Results Results 24hrs Laboratory Tests Test 11/16/18 12:09 11/16/18 17:39 11/16/18 21:05 11/17/18 02:30 Bedside Glucose 240 H 219 191 266 H Test 11/17/18 05:52 11/17/18 07:56 11/17/18 10:13 White Blood Count 9.7 Red Blood Count 4.09 L Hemoglobin 10.9 L Hematocrit 34.1 L Mean Corpuscular 83.4 Volume Mean Corpuscular 26.7 L Hemoglobin Mean Corpuscular 32.0 Hemoglobin Concent Red Cell 14.7 H Distribution Width Platelet Count 419 H Mean Platelet Volume 10.1 Immature 0.200 Granulocytes % Neutrophils % 62.3 Lymphocytes % 25.7 Monocytes % 8.7 Eosinophils % 2.3 Basophils % 0.8 Nucleated Red Blood 0.0 Cells % Immature 0.020 Granulocytes # Neutrophils # 6.0 Lymphocytes # 2.5 Monocytes # 0.8 Eosinophils # 0.2 Basophils # 0.1 Nucleated Red Blood 0.0 Cells # Sodium Level 140 Potassium Level 4.4 Chloride Level 107 Carbon Dioxide Level 23 Anion Gap 10 Blood Urea Nitrogen 46 H Creatinine 2.70 H Est Glomerular 18 L Filtrat Rate mL/min Glucose Level 303 H Calcium Level 8.5 Phosphorus Level 4.5 Magnesium Level 2.1 Bedside Glucose 343 H 296 H Medications Medication Current Medications IV Flush (NS 3 ml) 3 ml PER PROTOCOL IV ; Start 11/14/18 at 06:00 Ondansetron HCl (Zofran Inj) 4 mg Q6H PRN IV NAUSEA/VOMITING; Start 11/14/18 at 06:00 Acetaminophen (Tylenol Tab) 650 mg Q6H PRN PO .PAIN 1-3 OR TEMP; Start 11/14/18 at 06:00 Docusate Sodium (Colace) 100 mg Q12H PRN PO .CONSTIPATION; Start 11/14/18 at 06:00 Bisacodyl (Dulcolax) 5 mg DAILY PRN PO .CONSTIPATION; Start 11/14/18 at 06:00 Sertraline HCl (Zoloft) 50 mg DAILY PO Last administered on 11/17/18at 08:07; Admin Dose 50 MG; Start 11/14/18 at 09:00 Trazodone HCl (Desyrel) 50 mg QHS PO Last administered on 11/16/18at 21:11; Admin Dose 50 MG; Start 11/14/18 at 21:00 Miscellaneous Information 1 ea NOTE XX ; Start 11/14/18 at 06:30 Glucose (Glutose) 15 gm Q15M PRN PO DECREASED GLUCOSE; Start 11/14/18 at 06:30 Glucose (Glutose) 22.5 gm Q15M PRN PO DECREASED GLUCOSE; Start 11/14/18 at 06:30 Dextrose (D50w Syringe) 25 ml Q15M PRN IV DECREASED GLUCOSE; Start 11/14/18 at 06:30 Dextrose (D50w Syringe) 50 ml Q15M PRN IV DECREASED GLUCOSE; Start 11/14/18 at 06:30 Glucagon (Glucagen) 1 mg Q15M PRN IM DECREASED GLUCOSE; Start 11/14/18 at 06:30 Glucose (Glutose) 15 gm Q15M PRN BUCCAL DECREASED GLUCOSE; Start 11/14/18 at 06:30 Sucralfate (Carafate) 1 gm Q6 PO Last administered on 11/17/18 05:57; Admin Dose 1 GM; Start 11/14/18 at 07:00 Hydralazine HCl (Apresoline) 25 mg TID PO Last administered on 11/17/18 08:07; Admin Dose 25 MG; Start 11/15/18 at 13:00 Atorvastatin Calcium (Lipitor) 80 mg HS PO Last administered on 11/16/18 21:11; Admin Dose 80 MG; Start 11/15/18 at 21:00 Fish Oil (Fish Oil) 2,000 mg BID PO Last administered on 11/17/18 08:07; Admin Dose 2,000 MG; Start 11/15/18 at 21:00 Insulin Aspart (Novolog Insulin Pen) 18 unit WITH MEALS SC Last administered on 11/17/18 08:04; Admin Dose 18 UNIT; Start 11/15/18 at 17:35 Insulin Glargine (Lantus) 50 units DAILY@0800 SC Last administered on 11/17/18 08:06; Admin Dose 50 UNITS; Start 11/16/18 at 08:00 Levothyroxine Sodium (Synthroid) 125 mcg BEFORE BREAKFAST PO Last administered on 11/17/18 06:00; Admin Dose 125 MCG; Start 11/16/18 at 07:00 Linagliptin (Tradjenta) 5 mg DAILY PO Last administered on 11/17/18 08:07; Admin Dose 5 MG; Start 11/15/18 at 14:00 Diagnostic Test (Pha) (Accu-Chek) 1 ea 2 HOURS AFTER MEALS XX Last administered on 11/17/18 10:16; Admin Dose 1 EA; Start 11/15/18 at 14:00 Diagnostic Test (Pha) (Accu-Chek) 1 ea AC MEALS XX Last administered on 11/17/18 08:07; Admin Dose 1 EA; Start 11/15/18 at 17:35 Pantoprazole (Protonix Tab) 40 mg BID@06,18 PO Last administered on 11/17/18 05:57; Admin Dose 40 MG; Start 11/15/18 at 18:00 Metoclopramide HCl (Reglan) 10 mg Q6 IV Last administered on 3/22/19at 05:57; Admin Dose 10 MG; Start 11/15/18 at 18:00 Diagnostic Test (Pha) (Accu-Chek) 1 ea 02 XX Last administered on 11/17/18 02:32; Admin Dose 1 EA; Start 11/16/18 at 02:00 Insulin Aspart (Novolog Insulin Pen) NOVOLOG *MILD* ALGORITHM WITH MEALS BEDTIME SC Last administered on 11/17/18 08:05; Admin Dose 5 UNIT; Start 11/15/18 at 21:00 TAN ANSARI NP Nov 17, 2018 11:13
--- NOTE | 2018-11-17 12:13 | PDOCDIS ---
Discharge Instructions CONDITION [id number] Patient Condition: [id number] Stable HOME CARE INSTRUCTIONS: [id number] Your diet recommendation is: [id number] Carbohydrate controlled/low-cholesterol diet. FOLLOW UP/APPOINTMENTS Follow-up Plan Follow-up with primary care physician in 1 week-we recommend you not taking your lisinopril for blood pressure for a week and you need to repeat your kidney function by checking your blood creatinine level to determine when to resume you back on this medicine. For now, we have given prescription for hydralazine and amlodipine for controlling blood pressure. You may also call ' office to see whether he can see you for diabetes management. Name, Degree Chong Galvan MD Specialty Endocrinology Comments Office Address [address] [facility], [address] [address] Office Office Follow up with in 6 weeks. You will need a repeat colonoscopy. Name, Degree Db Wilkinson MD Specialty Gastroenterology Comments Office Address [address] [facility] [address] [facility] [place] [address] Office Office KEVIN ALVAREZ NP Nov 17, 2018 12:13
[2018-11-17] MEDS ORDERED: METO5TAB58 PO (12:20)
[2018-11-17] MEDS ORDERED: LANT3I SC (12:20)
[2018-11-17] MEDS ORDERED: SUCR1TAB35 PO (12:20)
[2018-11-17] MEDS ORDERED: HYDR-3671 PO (12:20)
[2018-11-17] MEDS ORDERED: AMLO2.5T78 PO (12:20)
[2018-11-17] MEDS ORDERED: PANT40TA4 PO (12:20)
[2018-11-17] MEDS ORDERED: INSU100I12 SQ (12:20)
[2018-11-17] MEDS ORDERED: OMEG100024 PO (12:20)
[2018-11-17] MEDS ORDERED: SITA25TA3 PO (12:31)
--- NOTE | 2018-11-17 12:40 | DS ---
Date/Time of Note Date/Time of Note DATE: 11/17/18 TIME: 12:36 Discharge Summary Admission/Discharge Info Admit Date/Time Nov 14, 2018 at 05:35 Discharge Date/Time Discharge Diagnosis 1. Hematemesis-Status post EGD 11/15/2018: Severe erosive esophagitis/moderate gastritis. 2. Hypochromic anemia likely secondary to #1.stable 3. Poorly controlled DMII 4. Acute kidney injury on CKD/Diabetic nephropathy. 5. Essential hypertension 6. Dyslipidemia/triglyceridemia. 7. Hypothyroidism 8. 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 9. Depressive disorders. 10. Essential hypertension Patient Condition: Stable Consults , gastroenterology ,endocrinology Procedures 11/14/2018. CT chest, abdomen and pelvis without contrast. IMPRESSION: 1. Wall thickening of the esophagus extending to the gastroesophageal junction. Although this may represent reflux esophagitis, correlation is advised. 2. Small hiatal hernia. 3. Colonic diverticulosis without CT evidence of acute diverticulitis. 4. Mild wall thickening of the urinary bladder in incomplete distension. Correlation with urinalysis is recommended to rule out cystitis. 5. No acute pulmonary process. EGD 11/15/18 Moderate erosive esophagitis. Rule out Gutierrez's esophagus, biopsies obtained Small hiatal hernia. Moderate gastritis. Rule out H. pylori infection, biopsies obtained Gastric biopsy: -- minimal patchy chronic inflammation. -- No Helicobacter organisms are identified -Esophagus biopsy: -- mild reflux esophagitis and carditis. -- No intestinal metaplasia Hx of Present Illness This is a 58-year-old female with type 2 diabetes, status post left below-knee amputation secondary to gangrene/osteomyelitis in August 2017, chronic kidney disease, hypertension, hyperlipidemia, hypothyroidism, chronic anemia, came into the emergency room with sudden onset of bright bloody vomiting 3 times occurred yesterday. Patient denied abdominal pain, melena, hematochezia, diarrhea, constipation, fever or chills. She also denied taking any new prescription. Patient has been having worsening muscle pain, for which she is also also on as needed ibuprofen at home. Patient denied any chest pain, numbness, tingling, loss of consciousness, dizziness, speech difficulties, vision changes, headache or other constitutional symptoms. In the emergency room, patient was noted with a white count 15,000, low indicis with stable hemoglobin, potassium 5.5, BUN 49, creatinine 2.45 and blood sugar 278. She did not have any bleeding episodes in the emergency room. Coag studies unremarkable. Chest showed Wall thickening of the esophagus extending to the gastroesophageal junction. Patient was given Protonix bolus followed by drip and one-time octreotide 50 mcg dose. A clinical decision was made to admit the patient for further GI workup. Hospital Course 58-year-old female with DMII, status post left below-knee amputation secondary to gangrene/osteomyelitis in August 2017,htn, dyslipidemia, hypothyroidism, here with sudden onset of multiple episodes of hematemesis. Patient underwent EGD 11/15/2018, showed severe erosive esophagitis with moderate gastritis. Gastroenterology recommended continuation of PPI, Carafate and Reglan. Pathology was negative for H. pylori. Patient symptoms resolved. Her H&H remained stable. She did not require any blood transfusion. Hospitalization was noted for acute kidney injury on CKD and diabetic nephrop athy for which she was being followed by our custom designer. Renal function was monitored closely. JANE inhibitors were held secondary to acute kidney injury. Patient's renal function was stabilizing back to baseline. She was also noted with poorly controlled diabetes with persistent hyperglycemia requiring endocrinology follow-up. Patient was continued on insulin regimen recommended by the analytics consultant. She also had diabetic education. Patient was continued on home medication for underlying comorbidities. At this time, patient is feeling back to baseline. Her labs and vital signs stable. Her blood sugar is still high however better than how she came with it. She was prescribed with appropriate insulin regimen along with oral combination according to renal function. She was advised to continue holding lisinopril and how her renal function repeated prior to restarting. For blood pressure control, she was started on amlodipine, hydralazine. Patient to follow-up with primary care physician, and analytics consultant if possible. She also needed a repeat colonoscopy in 6-8 weeks which he verbalized understanding. Patient was advised on adherence with diet and weight reduction to control her diabetes. Approximately 60 m spent in coordinating the discharge on this patient. Patient was seen in collaboration with Dr. Mittal. Home Meds Active Scripts Sitagliptin* (Januvia*) 25 Mg Tablet, 25 MG PO DAILY, #30 TAB Prov:KEVIN ALVAREZ [employer] 11/17/18 Metoclopramide* (Reglan*) 5 Mg Tablet, 5 MG PO AC MEALS, #30 TAB Prov:ALVAREZKEVIN [employer]ER 11/17/18 Pantoprazole* (Pantoprazole*) 40 Mg Tablet.dr, 40 MG PO BID@06,18, #120 TAB Prov:ALVAREZMAMIA [employer]ER 11/17/18 Amlodipine Besylate* (Amlodipine Besylate*) 2.5 Mg Tablet, 2.5 MG PO DAILY, #30 TAB Prov:ALVAREZKEVIN [employer]ER 11/17/18 Sucralfate (Carafate) 1 Gm Tablet, 1 GM PO Q6, #120 TAB Prov:ALVAREZMAMIA [employer] TE[employer]ER 11/17/18 [place]-3/Dha/Epa/Fish Oil (Fish Oil 1,000 mg Softgel) 1,000 Mg Capsule, 2000 MG PO BID, #60 CAP Prov:ALVAREZ,KEVIN [employer] 11/17/18 Hydralazine Hcl* (Hydralazine Hcl*) 25 Mg Tab, 25 MG PO TID, #90 TAB Prov:ALVAREZ,KEVIN [employer] 11/17/18 Insulin Lispro (Humalog Kwikpen U-100) 100 Unit/1 Ml Insuln.pen, 18 UNIT SQ AC MEALS, #1 EA Blood sugar check 3 times a day and at bedtime. Provide 100 lancet, 100 test strips, 100 32 gauge insulin pen needles. Prov:ALVAREZMAMIA [employer]ER 11/17/18 Insulin Glargine* (Lantus*) 100 Unit/Ml Soln, 50 UNIT SC QHS, #1 VIAL Prov:ALVAREZKEVIN [employer] TE[employer]ER 11/17/18 Ondansetron Hcl* (Zofran*) 4 Mg Tablet, 4 MG PO Q8H PRN for NAUSEA AND/OR VOMITING, #30 TAB Prov:АЛЕКСАНДР SERNA MD 05/22/18 Ibuprofen* (Motrin*) 600 Mg Tab, 600 MG PO Q8 PRN for PAIN AND/OR INFLAMMATION, #30 TAB Prov:АЛЕКСАНДР SERNA MD 05/22/18 Reported Medications Vitamin B Complex (Vitamin B Complex) 1 Each Capsule, 1 EACH PO DAILY, CAP 11/14/18 Ferrous Sulfate* (Ferrous Sulfate*) 325 Mg Tabec, 325 MG PO DAILY, TAB 11/14/18 Simvastatin (Simvastatin) 40 Mg Tablet, 40 MG PO QHS for 30 Days, #30 11/14/18 Chlorthalidone* (Chlorthalidone*) 25 Mg Tablet, 25 MG PO DAILY for 30 Days, #30 11/14/18 Metformin Hcl* (Metformin Hcl*) 1,000 Mg Tablet, 1000 MG PO WITH BREAKFAST DINNE, #30 TAB 11/14/18 Trazodone Hcl* (Trazodone Hcl*) 50 Mg Tablet, 50 MG PO QHS, #30 TAB 05/22/18 Simvastatin* (Zocor*) 40 Mg Tablet, 40 MG PO QHS, #30 TAB 05/22/18 Sertraline Hcl* (Sertraline Hcl*) 50 Mg Tablet, 50 MG PO DAILY, #30 TAB 05/22/18 Lisinopril* (Lisinopril*) 10 Mg Tablet, 10 MG PO DAILY, #30 TAB 05/22/18 Linagliptin (TRADJENTA) 5 Mg Tablet, 5 MG PO DAILY, TAB 05/22/18 Levothyroxine Sodium* (Levoxyl*) 112 Mcg Tablet, 112 MCG PO BEFORE BREAKFAST, #30 TAB 05/22/18 Hydralazine Hcl* (Hydralazine Hcl*) 10 Mg Tablet, 10 MG PO BID PRN for ELEVATED BLOOD PRESSURE, #60 TAB 05/22/18 Discontinued Reported Medications Metformin Hcl* (Metformin Hcl*) 500 Mg Tablet, 500 MG PO WITH BREAKFAST DINNE, #60 TAB 05/22/18 Discontinued Scripts Cephalexin* (Keflex*) 500 Mg Capsule, 500 MG PO QID for 5 Days, CAP Prov:АЛЕКСАНДР SERNA MD 05/22/18 Follow-up Plan Follow-up with primary care physician in 1 week-we recommend you not taking your lisinopril for blood pressure for a week and you need to repeat your kidney function by checking your blood creatinine level to determine when to resume you back on this medicine. For now, we have given prescription for hydralazine and amlodipine for controlling blood pressure. You may also call ' office to see whether he can see you for diabetes management. Name, Degree Chong Galvan MD Specialty Endocrinology Comments Office Address [address] [place] [address], [address] [place] [address] Office Office Follow up with in 6 weeks. You will need a repeat colonoscopy. Name, Degree Db Wilkinson MD Specialty Gastroenterology Comments Office Address [id number] [facility] [address] [place] [address] Office Office Primary Care Provider Not On Staff Doctor Pending Labs Laboratory Tests Test 11/16/18 17:39 11/16/18 21:05 11/17/18 02:30 11/17/18 05:52 Bedside 219 191 266 Glucose mg/dL (70-220) mg/dL (70-220) mg/dL (70-220) White Blood 9.7 Count 10^3/ul (4.8-1 0.8) Red Blood 4.09 Count 10^6/ul (4.20- 5.40) Hemoglobin 10.9 g/dl (12.0-16. 0) Hematocrit 34.1 % (37.0-47.0) Mean 83.4 Corpuscular fl (82.0-101.0 Volume ) Mean 26.7 Corpuscular pg (29.0-33.0) Hemoglobin Mean 32.0 Corpuscular g/dl (32.0-37. Hemoglobin Conc 0) ent Red Cell 14.7 Distribution % (11.5-14.5) Width Platelet Count 419 10^3/UL (140-4 15) Mean Platelet 10.1 Volume fl (7.4-10.4) Immature 0.200 Granulocytes % % (0.001-0.429 ) Neutrophils % 62.3 % (39.0-77.0) Lymphocytes % 25.7 % (15.0-51.0) Monocytes % 8.7 % (0.0-11.0) Eosinophils % 2.3 % (0.0-7.0) Basophils % 0.8 % (0.0-2.0) Nucleated Red 0.0 Blood Cells % /100WBC (0.0-0 .0) Immature 0.020 Granulocytes # 10^3/ul (0.0-0 .031) Neutrophils # 6.0 10^3/ul (1.6-7 .5) Lymphocytes # 2.5 10^3/ul (0.8-2 .9) Monocytes # 0.8 10^3/ul (0.3-0 .9) Eosinophils # 0.2 10^3/ul (0.0-0 .5) Basophils # 0.1 10^3/ul (0.0-0 .1) Nucleated Red 0.0 Blood Cells # 10^3/ul (0.0-0 .0) Sodium Level 140 mmol/L (135-14 4) Potassium 4.4 Level mmol/L (3.5-5. 1) Chloride Level 107 mmol/L (97-110 ) Carbon Dioxide 23 Level mmol/L (21-31) Anion Gap 10 (5-13) Blood Urea 46 Nitrogen mg/dl (7-20) Creatinine 2.70 mg/dl (0.44-1. 00) Est Glomerular 18 Filtrat mL/min (>60) Rate mL/min Glucose Level 303 mg/dl (70-220) Calcium Level 8.5 mg/dl (8.4-10. 2) Phosphorus 4.5 Level mg/dl (2.5-4.9 ) Magnesium 2.1 Level mg/dl (1.7-2.5 ) Test 11/17/18 07:56 11/17/18 10:13 11/17/18 12:08 Bedside 343 296 222 Glucose mg/dL (70-220) mg/dL (70-220) mg/dL (70-220) KEVIN ALVAREZ NP Nov 17, 2018 12:40
[2018-11-17 12:46] VITALS: BP_SYST 180; BP_DIAS 100; BP_DIAS 80; PULSE 88; RESP 17
[2018-11-17] MEDS ORDERED: AMLODIPINE 2.5 MG TAB PO SCH (13:00)
[2018-11-17 14:14] VITALS: BP 145/61; PULSE 79; RESP 18
[2018-11-17] MEDS ORDERED: NOVO3I SC (15:30)
[2018-11-17] MEDS ORDERED: Insulin Glargine SC (15:30)
[2018-11-17] MEDS ORDERED: INSULIN GLARGINE [LANTus] (100 UNITS/ML) SYG SC ONE (16:00)
[2018-11-17] MEDS ORDERED: INSULIN ASPART [NOVOLOG] 3 ML PEN SC SCH (17:35)
[2018-11-18] MEDS ORDERED: INSULIN GLARGINE [LANTus] (100 UNITS/ML) SYG SC SCH (08:00)
== END 2018-11-17 16:30 | disposition home or self-care (01) | DRG 378 ==
LOC: E/R 02:51 → PP2 05:35
PROVIDERS: ADMIT Family Medicine; ATTEND Family Medicine
PROC: 0DB68ZX Excision of Stomach, Via Natural or Artificial Opening Endoscopic, Diagnostic (ICD-10-PCS; 2018-11-15)
PROC: 0DB58ZX Excision of Esophagus, Via Natural or Artificial Opening Endoscopic, Diagnostic (ICD-10-PCS; principal; 2018-11-15 18:00)
DX: K92.0 Hematemesis (principal); N18.4 Chronic kidney disease, stage 4 (severe); N17.9 Acute kidney failure, unspecified; E27.40 Unspecified adrenocortical insufficiency; K22.10 Ulcer of esophagus without bleeding; I12.9 Hypertensive chronic kidney disease with stage 1 through stage 4 chronic kidney disease, or unspecified chronic kidney disease; E11.22 Type 2 diabetes mellitus with diabetic chronic kidney disease; E11.65 Type 2 diabetes mellitus with hyperglycemia; E11.21 Type 2 diabetes mellitus with diabetic nephropathy; E66.01 Morbid (severe) obesity due to excess calories; Z68.39 Body mass index [BMI] 39.0-39.9, adult; Z90.49 Acquired absence of other specified parts of digestive tract; E78.5 Hyperlipidemia, unspecified; E03.9 Hypothyroidism, unspecified; D63.1 Anemia in chronic kidney disease; E87.5 Hyperkalemia; Z89.512 Acquired absence of left leg below knee; F32.9 Major depressive disorder, single episode, unspecified; G89.4 Chronic pain syndrome; E11.51 Type 2 diabetes mellitus with diabetic peripheral angiopathy without gangrene; E11.42 Type 2 diabetes mellitus with diabetic polyneuropathy; K44.9 Diaphragmatic hernia without obstruction or gangrene; K29.70 Gastritis, unspecified, without bleeding
CPT/HCPCS: 71045; 71250; 74176; 76775; 80048; 80053; 80061; 80069; 80076; 81001; 81003; 82043; 82550; 82553; 82728; 82962; 83036; 83540; 83735; 84100; 84155; 84300; 84443; 84484; 85025; 85610; 85730; 86850; 86900; 86901; 88305; 88312; 88313; 93005; C9113; J1815; J2354; J2405; J2765; J2916; J7030

== ENCOUNTER 2019-01-14 04:28 | Inpatient (IN) | payer OTHER ==
[~2019-01-14] VITALS: Ht 157.5 cm; Wt 100.6 kg
[2019-01-14] VITALS (9 sets, daily range): BP systolic 101–187; BP diastolic 54–86; PULSE 70–81; RESP 18–21; Ht 157.5 cm; Wt 100.6 kg
[~2019-01-14 04:28] MED LIST changes: +AMLO2.5T78 PO; -CEPH-443 PO; +FER325 PO; -HYDR-3670 PO; +HYDR-3671 PO; -IBUP-1542 PO; -INSU100I12 SQ; +Insulin Glargine SC; -LANT3I SC; -LISI10TA2 PO; -METF500T24 PO; +METO5TAB58 PO; +NOVO3I SC; +OMEG100024 PO; +PANT40TA4 PO; +SITA25TA3 PO; +SUCR1TAB35 PO; +VITA1CAP PO
[2019-01-14] MEDS ORDERED: NITROGLYCERIN 2% 1 GM OINT PKT TD STA (04:52)
[2019-01-14] MEDS ORDERED: ONDANSETRON 4 MG INJ IV STA (04:52)
[2019-01-14] MEDS ORDERED: morphine 4 MG/ML VIAL IV STA (04:52)
[2019-01-14] MEDS ORDERED: ASPIRIN 325 MG TAB PO STA (04:52)
--- NOTE | 2019-01-14 05:16 | ERD ---
ER Documentation Chief Complaint Chief Complaint chest pain x 3 hours HPI This is a 58-year-old female who has a history of hypertension, diabetes, high cholesterol who complained that 3 hours ago she developed some severe substernal left-sided chest pressure with radiation down the left arm that is still there now. She says she was short of breath and nauseated but no vomiting no diaphoresis no palpitations or syncope. Patient denies any prior heart attack ROS All systems reviewed and are negative except as per history of present illness. Medications Home Meds Active Scripts Insulin Aspart* (Novolog Insulin Pen*) 100 Unit/Ml Soln, 25 UNIT SC WITH MEALS, #1 UNIT Prov:TOMEKA BATRES NP 11/17/18 [Insulin Glargine] 100 UNITS/ML SOLN No Conflict Check, 60 UNITS SC DAILY@0800, #1 UNIT Prov:TOMEKA BATRES NP 11/17/18 Sitagliptin* (Januvia*) 25 Mg Tablet, 25 MG PO DAILY, #30 TAB Prov:KEVIN ALVAREZ NP 11/17/18 Metoclopramide* (Reglan*) 5 Mg Tablet, 5 MG PO AC MEALS, #30 TAB Prov:KEVIN ALVAREZ NP 11/17/18 Pantoprazole* (Pantoprazole*) 40 Mg Tablet.dr, 40 MG PO BID@06,18, #120 TAB Prov:KEVIN ALVAREZ NP 11/17/18 Amlodipine Besylate* (Amlodipine Besylate*) 2.5 Mg Tablet, 2.5 MG PO DAILY, #30 TAB Prov:KEVIN ALVAREZ NP 11/17/18 Sucralfate (Carafate) 1 Gm Tablet, 1 GM PO Q6, #120 TAB Prov:KEVIN ALVAREZ NP 11/17/18 [place]-3/Dha/Epa/Fish Oil (Fish Oil 1,000 mg Softgel) 1,000 Mg Capsule, 2000 MG PO BID, #60 CAP Prov:KEVIN ALVAREZ NP 11/17/18 Hydralazine Hcl* (Hydralazine Hcl*) 25 Mg Tab, 25 MG PO TID, #90 TAB Prov:KEVIN ALVAREZ NP 11/17/18 Ondansetron Hcl* (Zofran*) 4 Mg Tablet, 4 MG PO Q8H PRN for NAUSEA AND/OR VOMITING, #30 TAB Prov:АЛЕКСАНДР SERNA MD 05/22/18 Reported Medications Vitamin B Complex (Vitamin B Complex) 1 Each Capsule, 1 EACH PO DAILY, CAP 11/14/18 Ferrous Sulfate* (Ferrous Sulfate*) 325 Mg Tabec, 325 MG PO DAILY, TAB 11/14/18 Trazodone Hcl* (Trazodone Hcl*) 50 Mg Tablet, 50 MG PO QHS, #30 TAB 05/22/18 Simvastatin* (Zocor*) 40 Mg Tablet, 40 MG PO QHS, #30 TAB 05/22/18 Sertraline Hcl* (Sertraline Hcl*) 50 Mg Tablet, 50 MG PO DAILY, #30 TAB 05/22/18 Linagliptin (TRADJENTA) 5 Mg Tablet, 5 MG PO DAILY, TAB 05/22/18 Levothyroxine Sodium* (Levoxyl*) 112 Mcg Tablet, 112 MCG PO BEFORE BREAKFAST, #30 TAB 05/22/18 Allergies Allergies: Coded Allergies: No Known Drug Allergy (Unverified Allergy, Mild, 11/14/18) Fish Containing Products (Verified Allergy, Unknown, 11/16/18) PMhx/Soc History of Surgery: Yes (Left AKA, Gallbladder surgery) Anesthesia Reaction: No Hx Neurological Disorder: No Hx Respiratory Disorders: No Hx Cardiac Disorders: Yes (HTN, CAD) Hx Psychiatric Problems: Yes (Anxiety, DEpression) Hx Miscellaneous Medical Probl: Yes Hx Alcohol Use: No Hx Substance Use: No Hx Tobacco Use: No Smoking Status: Never smoker FmHx Family History: No coronary disease Physical Exam Vitals Vital Signs Date Temp Pulse Resp B/P (MAP) Pulse Ox O2 O2 Flow FiO2 Time Delivery Rate 01/14/19 97.6 90 18 233/110 99 04:32 (151) Physical Exam Const: Well-developed, well-nourished Head: Atraumatic, normocephalic Eyes: Normal Conjunctiva, PERRLA, EOMI, normal sclera, no nystagmus ENT: Normal External Ears, Nose and Mouth, moist mucus membranes. Neck: Full range of motion. No meningismus, no lymphadenopathy. Resp: Clear to auscultation bilaterally, no wheezing, rhonchi, rales Cardio: Regular rate and rhythm, no murmurs, S1 S2 present Abd: Soft, non tender x 4, non distended. Normal bowel sounds, no guarding or rebound, no pulsitile abdominal masses or bruits Skin: No petechiae or rashes, no ecchymosis , no maculopapular rash Back: No midline or flank tenderness Ext: No cyanosis, or edema, FROM x 4, normal inspection, neurovas cularly intact x 4 Neur: Awake and alert, STR 5/5 x 4, sensation intact x 4, no focal findings, cerebellum intact Psych: Normal Mood and Affect Results 24 hrs Current Medications Medications Dose Sig/Nafisa Start Time Status Last (Trade) Ordered Route PRN Stop Time Admin Dose Reason Admin Aspirin 325 mg ONCE STAT 01/14/19 DC 01/14/19 (Aspirin) PO 04:52 04:59 01/14/19 04:54 1 inch ONCE STAT 01/14/19 DC 01/14/19 Nitroglycerin TD 04:52 05:00 01/14/19 04:54 (Nitroglyceri n 2% Oint) Morphine 4 mg ONCE STAT 01/14/19 DC 01/14/19 Sulfate IV 04:52 05:00 (morphine) 01/14/19 04:54 Ondansetron 4 mg ONCE STAT 01/14/19 DC 01/14/19 HCl (Zofran IV 04:52 05:00 Inj) 01/14/19 04:54 Procedures/MDM EKG: Rate/Rhythm: Normal Sinus Rhythm,NL intervals QRS, ST, QT: NORMAL VA, QRS, QT] Impression: NORMAL EKG Cardiac Admit MDM: Patient's symptoms are concerning for cardiac cause will require inpatient workup and continuous monitoring. Further w/u for ischemia, arrhythmia, PE or dissection will be deferred to the inpatient team. Departure Diagnosis: Primary Impression: Chest pain Chest pain type: unspecified Qualified Codes: R07.9 - Chest pain, unspecified Condition: Stable DESEAN NIELSEN DO January 14, 2019 05:16
[2019-01-14] MEDS ORDERED: METOCLOPRAMIDE 10 MG INJ IV ONE (06:00)
[2019-01-14] MEDS ORDERED: ACETAMINOPHEN 325 MG TAB PO PRN ×2 (06:00→06:30)
[2019-01-14] MEDS ORDERED: ONDANSETRON 4 MG INJ IV PRN ×2 (06:00→06:30)
[2019-01-14] MEDS ORDERED: NITROGLYCERIN (SL) 0.4 MG TAB SL PRN (06:30)
[2019-01-14] MEDS ORDERED: DOCUSATE SODIUM 100 MG CAP PO PRN (06:30)
[2019-01-14] MEDS ORDERED: NACL 0.9% 3 ML SYG IV SCH (06:30)
[2019-01-14] MEDS ORDERED: BISACODYL (EC) 5 MG TAB PO PRN (06:30)
[2019-01-14] MEDS ORDERED: traZODone 50 MG TAB PO ONE (07:00)
[2019-01-14] MEDS: SOD CHLORIDE 0.9% 1,000 ML IV SCH ×2 (09:10→18:37)
--- NOTE | 2019-01-14 12:29 | HP ---
Date/Time of Note Date/Time of Note DATE: 01/14/19 TIME: 12:23 Assessment/Plan VTE Prophylaxis Pharmacological prophylaxis: heparin Lines/Catheters IV Catheter Type (from Nrsg): Saline Lock Assessment/Plan Hospital Course 1. Left arm pain with radiation to the back Pain is likely musculoskeletal secondary to arthritis No evidence of ACS at this time Trend troponins Patient received aspirin 2. History of erosive esophagitis/moderate gastritis Resume home PPI 3. Diabetes Resume home insulin and sliding scale 4. Morbid obesity Lifestyle changes 5. Hypertension Home meds 6. Acute kidney injury on CKD Nephrology consultation obtained Creatinine is worse than baseline Monitor 7. Hypothyroidism Resume home meds 8. History of left BKA Prophylaxis: Heparin Result Diagram: 01/14/19 0455 01/14/19 0455 Results 24hrs Laboratory Tests Test 01/14/19 04:55 White Blood Count 10.2 Red Blood Count 4.60 Hemoglobin 12.1 Hematocrit 37.4 Mean Corpuscular Volume 81.3 L Mean Corpuscular Hemoglobin 26.3 L Mean Corpuscular Hemoglobin Concent 32.4 Red Cell Distribution Width 13.9 Platelet Count 494 H Mean Platelet Volume 9.5 Immature Granulocytes % 0.400 Neutrophils % 56.2 Lymphocytes % 32.1 Monocytes % 6.3 Eosinophils % 4.3 Basophils % 0.7 Nucleated Red Blood Cells % 0.0 Immature Granulocytes # 0.040 H Neutrophils # 5.8 Lymphocytes # 3.3 H Monocytes # 0.7 Eosinophils # 0.4 Basophils # 0.1 Nucleated Red Blood Cells # 0.0 Sodium Level 134 L Potassium Level 4.2 Chloride Level 101 Carbon Dioxide Level 21 Anion Gap 12 Blood Urea Nitrogen 63 H Creatinine 3.63 H Est Glomerular Filtrat Rate mL/min 13 L Glucose Level 256 H Hemoglobin A1c 11.8 H Calcium Level 8.8 Magnesium Level 2.5 Total Bilirubin 0.2 Direct Bilirubin 0.00 Indirect Bilirubin 0.2 Aspartate Amino Transf (AST/SGOT) 19 Alanine Aminotransferase (ALT/SGPT) 12 L Alkaline Phosphatase 183 H Troponin I < 0.012 Total Protein 7.9 Albumin 3.7 Globulin 4.20 H Albumin/Globulin Ratio 0.88 Triglycerides Level 499 H Cholesterol Level 326 H LDL Cholesterol, Calculated 190 HDL Cholesterol 36 L Cholesterol/HDL Ratio 9.0 Thyroid Stimulating Hormone (TSH) 7.790 H HPI/ROS Admit Date/Time Admit Date/Time January 14, 2019 at 05:34 Hx of Present Illness Patient is a 58-year-old female with a history of erosive esophagitis and moderate gastritis, anemia, poorly controlled diabetes, CKD, hypertension, obesity with dyslipidemia, hypothyroidism, osteomyelitis status post left BKA, depression. Patient presents with left arm pain with pain in the left upper back. In the ER troponin was negative and EKG showed no evidence of ischemia. Patient denies pain with movement of the left arm, patient has no other complaints this time. ROS Constitutional: no complaints, improved Eyes: no complaints ENT: no complaints Respiratory: no complaints Cardiovascular: no complaints Gastrointestinal: no complaints Genitourinary: no complaints Musculoskeletal: bone/joint pain Skin: no complaints Neurologic: no complaints Endocrine: no complaints Lymphatic: no complaints Psychological: no complaints, nl mood/affect Immunologic: no complaints PMH/Family/Social Past Medical History As per HPI Medications Current Medications Ondansetron HCl (Zofran Inj) 4 mg ER BRIDGE PRN IV NAUSEA/VOMITING; Start 01/14/19 at 06:00; Stop 01/15/19 at 05:59 Acetaminophen (Tylenol Tab) 650 mg ER BRIDGE PRN PO .MILD PAIN 1-3 OR TEMP; Start 01/14/19 at 06:00; Stop 01/15/19 at 05:59 Sodium Chloride 1,000 ml @ 60 mls/hr [id number] IV Last administered on 01/14/19at 09:10; Admin Dose 60 MLS/HR; Start 01/14/19 at 06:03 IV Flush (NS 3 ml) 3 ml PER PROTOCOL IV ; Start 01/14/19 at 06:30 Ondansetron HCl (Zofran Inj) 4 mg Q6H PRN IV NAUSEA/VOMITING; Start 01/14/19 at 06:30 Nitroglycerin (Nitroglycerin (Sl Tab) 0.4 Mg) 1 tab Q5M PRN SL .CHEST PAIN; Start 01/14/19 at 06:30 Acetaminophen (Tylenol Tab) 650 mg Q6H PRN PO .PAIN 1-3 OR TEMP; Start 01/14/19 at 06:30 Morphine Sulfate (morphine) 2 mg Q4H PRN IV .PAIN 7-10; Start 01/14/19 at 06:30 Docusate Sodium (Colace) 100 mg Q12H PRN PO .CONSTIPATION; Start 01/14/19 at 06:30 Bisacodyl (Dulcolax) 5 mg DAILY PRN PO .CONSTIPATION; Start 01/14/19 at 06:30 Coded Allergies: No Known Drug Allergy (Unverified Allergy, Mild, 11/14/18) Fish Containing Products (Verified Allergy, Unknown, 11/16/18) Past Surgical History Past Surgical Hx: cholecystectomy, other Family History Significant Family History: diabetes, hypertension Social History Alcohol Use: rarely Smoking Status: Never smoker Drug Use: none Exam/Review of Systems Vital Signs Vitals Vital Signs Date Temp Pulse Resp B/P (MAP) Pulse Ox O2 O2 Flow FiO2 Time Delivery Rate 01/14/19 97.3 101/54 94 Room Air 11:27 (70) 01/14/19 76 08:40 01/14/19 18 08:35 Exam Constitutional: alert, oriented Respiratory: clear to auscultation Cardiovascular: regular rate and rhythm Gastrointestinal: soft; No distended Musculoskeletal: nl extremities to inspection YIN SALOMON January 14, 2019 12:29
[2019-01-14] MEDS ORDERED: GLUCOSE GEL 15 GRAM TUBE PO PRN ×2 (13:00)
[2019-01-14] MEDS: AMLODIPINE 2.5 MG TAB PO SCH (13:00)
[2019-01-14] MEDS ORDERED: GLUCAGON 1 MG INJ IM PRN (13:00)
[2019-01-14] MEDS ORDERED: DEXTROSE 50% 50 ML SYRINGE IV PRN ×2 (13:00)
[2019-01-14] MEDS ORDERED: GLUCOSE GEL 15 GRAM TUBE BUCCAL PRN (13:00)
--- NOTE | 2019-01-14 13:02 | RADRPT ---
Echocardiogram Report Patient Name: TOR MCGRATHPatient ID: [id number] : 1960 (58y 7m)Study Date: 01/14/2019 7:09:57 AM Gender: FAccession #: [id number] Tech: Doretha Maradiaga RDCS Location: [facility] ([place]) Ref.Physician: KELLEY ROBLEDO Height(Cm): BSA: Weight(Kg): Quality: AdequateOrder Physician: KELLEY ROBLEDO Account #: Procedures: Echocardiographic Report: Transthoracic echocardiogram with complete 2D, M-Mode, and doppler examination. Indications: Chest Pain. Measurements: 2D/M Mode Doppler Measurement Value Normal Range Measurement Value Normal Range LVIDd 2D 3.9 [ 3.8 - 5.2 ] cm AV Peak Justo 1.4 [ 100.0 - 170.0 ] cm/sec LVIDs 2D 2.0 [ 2.2 - 3.5 ] cm AV Peak PG 8.0 [ 2.0 - 9.0 ] mmHg LVPWd 2D 1.4 [ 0.6 - 0.9 ] cm LVOT Peak Justo 0.8 [ 70.0 - 110.0 ] cm/sec IVSd 2D 1.4 [ 0.6 - 0.9 ] cm LVOT Peak PG 2.0 [ 2.0 - 6.0 ] mmHg AoR Diam 2D 2.5 [ 2.3 - 3.1 ] cm MV E Peak Justo 0.4 [ 60.0 - 130.0 ] cm/sec EDV 2D 65.5 [ 46.0 - 106.0 ] ml MV A Peak Justo 0.6 [ 100.0 - 120.0 ] cm/sec ESV 2D 13.4 [ 14.0 - 42.0 ] ml MV E/A 0.7 [ 0.8 - 1.5 ] ratio EF 2D 79.5 [ 54.0 - 74.0 ] percent MV Decel Time 187 [ 104 - 258 ] msec LA Dimen 2D 3.2 [ 2.7 - 3.8 ] cm Lat E` Justo 0.1 [ 10.0 - 15.0 ] cm/sec Lateral E/E` 5.7 [ 1.0 - 2.0 ] ratio MV E/A 0.7 [ 0.8 - 1.5 ] ratio Findings: Left Ventricle: Normal left ventricular systolic function. Normal left ventricular cavity size. Mild concentric left ventricular hypertrophy. Ejection fraction is visually estimated at 65 %. Tissue Doppler/Mitral Doppler indices are consistent with impaired relaxation (Stage I diastolic dysfunction). Right Ventricle: Normal right ventricular size. Normal right ventricular systolic function. Left Atrium: The left atrium is normal in size. Right Atrium: The right atrium is normal in size. Mitral Valve: Normal appearance and function of the mitral valve with trace physiologic regurgitation. Aortic Valve: Normal appearance of the aortic valve. No significant aortic stenosis or insufficiency. Tricuspid Valve: Normal appearance of the tricuspid valve. Unable to obtain RVSP due to minimal presence of tricuspid regurgitation. Pulmonic Valve: Pulmonic valve not well visualized. Pericardium: Normal pericardium with no significant pericardial effusion. Aorta: Normal aortic root. IVC: Normal size and normal respiratory collapse consistent with normal right atrial pressure. Conclusions: Normal left ventricular systolic function. Normal left ventricular cavity size. Mild concentric left ventricular hypertrophy. Ejection fraction is visually estimated at 65 %. Tissue Doppler/Mitral Doppler indices are consistent with impaired relaxation (Stage I diastolic dysfunction). Electronically Signed By: Gerard Jacobo 2019-01-14 13:01:16 PDT
[2019-01-14] MEDS: morphine 2 MG INJ IV PRN (15:30)
[2019-01-14] MEDS: SUCRALFATE 1 GM TAB PO SCH (17:29)
[2019-01-14] MEDS: METOCLOPRAMIDE 5 MG TAB PO SCH (17:29)
[2019-01-14] MEDS: PANTOPRAZOLE (EC) 40 MG TAB PO SCH (17:29)
[2019-01-14] MEDS: INSULIN ASPART [NOVOLOG] 3 ML PEN SC SCH ×3 (17:33→21:22)
[2019-01-14] MEDS ORDERED: ATORVASTATIN 20 MG TAB PO SCH (21:00)
[2019-01-14] MEDS: FISH OIL 1,000 MG CAP PO SCH (21:07)
[2019-01-14] MEDS: HEPARIN 5,000 UNIT/1 ML VIAL SC SCH (21:22)
[2019-01-15] VITALS (11 sets, daily range): BP systolic 92–156; BP diastolic 44–73; PULSE 69–82; RESP 17–20
[2019-01-15] MEDS: SUCRALFATE 1 GM TAB PO SCH ×4 (00:05→17:06)
[2019-01-15] MEDS: ACCU-CHEK XX SCH ×4 (02:38→21:05)
[2019-01-15] MEDS ORDERED: INSULIN ASPART [NOVOLOG] 3 ML PEN SC ONE ×2 (03:00→06:00)
[2019-01-15] MEDS ORDERED: ACCU-CHEK XX ONE ×2 (05:00→07:45)
[2019-01-15] MEDS: PANTOPRAZOLE (EC) 40 MG TAB PO SCH ×2 (05:31→17:06)
[2019-01-15] MEDS: SOD CHLORIDE 0.9% 1,000 ML IV SCH ×2 (05:37→20:53)
[2019-01-15] MEDS: METOCLOPRAMIDE 5 MG TAB PO SCH ×3 (06:37→17:06)
[2019-01-15] MEDS: LEVOTHYROXINE 112 MCG TAB PO SCH (06:37)
[2019-01-15] MEDS ORDERED: INSULIN GLARGINE 60 UNIT SC SCH (08:00)
[2019-01-15] MEDS: FISH OIL 1,000 MG CAP PO SCH ×2 (08:22→20:57)
[2019-01-15] MEDS: AMLODIPINE 2.5 MG TAB PO SCH (08:23)
[2019-01-15] MEDS: SERTRALINE 50 MG TAB PO SCH (08:23)
[2019-01-15] MEDS: FERROUS SULFATE (EC) 325 MG TAB PO SCH (08:23)
[2019-01-15] MEDS: INSULIN ASPART [NOVOLOG] 3 ML PEN SC SCH ×7 (08:35→21:03)
[2019-01-15] MEDS: INSULIN GLARGINE [LANTus] (100 UNITS/ML) SYG SC SCH (08:36)
[2019-01-15] MEDS: HEPARIN 5,000 UNIT/1 ML VIAL SC SCH ×2 (08:36→21:00)
--- NOTE | 2019-01-15 10:04 | CONS ---
DATE OF ADMISSION: 01/14/2019 DATE OF CONSULTATION: 01/15/2019 TYPE OF CONSULTATION: Nephrology. REASON FOR CONSULTATION: Acute kidney injury, chronic kidney disease. PHYSICIAN REQUESTING CONSULT: Dr. Perez. HISTORY OF PRESENT ILLNESS: This is a 58-year-old female with a past medical history of obesity, his tory of diabetes, history of hypertension, history of chronic kidney disease who presents to [facility] for evaluation of left upper back pain. The patient in the emergency room had i nitial troponins, which are negative. EKG showed no evidence of ischemia. The patient, however, was subsequently admitted to telemetry for evaluation. In terms of patient's renal history, the patient has underlying chronic kidney disease stage IV with previous baseline creatinine around 3.0 mg/dL. The patient's most recent creatinine was around 2.7 m g/dL. Upon admission, the patient had a noted creatinine of 3.6 mg/dL. The patient herself denies a ny hemoptysis, hematemesis, or hematochezia. The patient does admit to having underlying history of chronic kidney disease. PAST MEDICAL HISTORY: As stated above, history of chronic kidney disease, history of hypertension, h istory of diabetes, history of obesity, history of gastritis, history of dyslipidemia, history of per ipheral vascular disease. PAST SURGICAL HISTORY: Status post left below knee amputation. FAMILY HISTORY: No family history of kidney disease. SOCIAL HISTORY: She does not drink, smoke or do drugs. MEDICATIONS: The patient's medications have been reviewed. REVIEW OF SYSTEMS: A 14-point review of systems was conducted. Pertinent positives stated in HPI, o therwise negative. PHYSICAL EXAMINATION: VITAL SIGNS: Blood pressure is 154/69, respirations 20, pulse 74, temperature 98.4. HEENT: Head is normocephalic. NECK: Supple. HEART: Regular rate. LUNGS: Show diminished breath sounds at the base. ABDOMEN: Soft, nontender to palpation without rebound or guarding. EXTREMITIES: Negative for clubbing, cyanosis. Trace edema. Left below knee amputation is noted. NEUROLOGIC: No focal deficits. DERMATOLOGIC: No rashes. LABORATORY DATA: Reviewed. IMAGING STUDIES: Reviewed. ASSESSMENT AND PLAN: This is a 58-year-old female who presents with: 1. Nonoliguric acute kidney injury on top of chronic kidney disease stage IV with previous baseline creatinine around 3.0 mg/dL. Etiology of acute kidney injury is likely secondary to hemodynamics, po ssible progression of chronic kidney disease. Lower suspicion for acute glomerulonephritis or vascul itis given patient's clinical presentation and underlying history. Recommendation at this point woul d be to check UA with microanalysis, check urine electrolytes. The patient's renal ultrasound was re viewed, no evidence of obstruction. We would continue gentle IV hydration. Otherwise, continue supp ortive care, renally dose all medications and avoid nephrotoxins. 2. Hypernatremia secondary to acute kidney injury. Continue to monitor. Limit free water intake. 3. Mineral bone disorder, monitor calcium and phosphorus levels. We will give phosphate binders as needed. 4. Left arm pain. Etiology is likely musculoskeletal. No evidence of acute coronary syndrome. Con tinue to monitor. 5. Diabetes. Continue current insulin regimen. 6. Obesity. Continue dietary modification. 7. History of gastroesophageal reflux disease. Continue proton pump inhibitor. 8. Hypertension. Continue current blood pressure regimen. We would hold JANE inhibitor or ARB at th is time given the patient's underlying chronic kidney disease and possible acute injury. 9. Hypothyroidism. Continue Synthroid. Thank you, Dr. Perez, for this interesting consult. It will be a pleasure to follow the patient wi th you throughout the hospital course. Dictated By: HOLLIE ANGLIN DO NR/NTS Conf#: [id number] DID#: [id number] CC: KELLEY ROBLEDO MD; YIN PEREZ MD; GEORGI SOLORIO MD; HOLLIE ANGLIN DO;*EndCC*
[2019-01-15] MEDS ORDERED: NON-FORMULARY/PATIENT OWN MED (Sitagliptin* (Januvia*) 25 MG) PO SCH (11:30)
--- NOTE | 2019-01-15 11:31 | PN ---
Date/Time of Note Date/Time of Note DATE: 01/15/19 TIME: 11:20 Assessment/Plan VTE Prophylaxis Risk score (from Nsg)>0 risk: 1 SCD applied (from Nsg): Yes Pharmacological prophylaxis: heparin Lines/Catheters IV Catheter Type (from Nrsg): Peripheral IV Assessment/Plan Hospital Course 1. Left-sided chest discomfort with radiation down her left arm: Resolved -ACS has been ruled out with 3- cardiac enzymes. -However patient has chronic uncontrolled diabetes with dyslipidemia and high blood pressure putting her at high risk. -2D echo showed preserved ejection fraction with EF of 65% and stage I diasto lic dysfunction with basically normal ventricular function. -Not likely ACS, but will get cardiology consultation for clearance 2. Poorly controlled diabetes mellitus: -Patient on high-dose Lantus and Humalog as outpatient. Patient's doses have been increased even higher on hospitalization and still with suboptimal control. -Hemoglobin A1c came back 11.8, patient's states that she is very compliant with her regimen. -Patient feels she may need alternative therapy. -We will get endocrinology consultation -Diabetic education 3. Chronic dyslipidemia with low HDL, hypertriglyceridemia and hypercholesterolemia -We will gently increase statin dose, patient currently dosed on home equiv alent 4. JOS on CKD stage IV: -Nephrology management 5. Chronic hypothyroidism on Synthroid still with elevated TSH -Continue home Synthroid, check free T4, adjust dosing if indicated 6. Hypertension: Patient having fluctuating control: -Likely related to the chest pain -Patient with hypertensive urgency upon arrival -We will gently increase her home dosing 7. History of left BKA 8. History of erosive esophagitis/gastritis continued on PPI Prophylaxis: Heparin Dispo: Not cleared for discharge at this time Result Diagram: 01/14/19 0455 01/14/19 0455 Results 24hrs Laboratory Tests Test 01/14/19 15:46 01/14/19 17:23 01/14/19 17:37 01/14/19 21:08 Bedside Glucose 268 H 288 H 225 H Troponin I < 0.012 Test 01/15/19 00:25 01/15/19 02:37 01/15/19 05:31 01/15/19 08:19 Troponin I < 0.012 Bedside Glucose 314 H 321 H 273 H Subjective 24 Hr Interval Summary Cardiovascular: No chest pain Exam/Review of Systems Exam Vitals Vital Signs Date Temp Pulse Resp B/P (MAP) Pulse Ox O2 O2 Flow FiO2 Time Delivery Rate 01/15/19 74 08:01 01/15/19 98.4 20 154/69 97 Room Air 07:34 (97) Intake and Output 01/14/19 01/14/19 01/15/19 1515:00 23:00 07:00 IntakeIntake Total 120 ml 560 ml 1460 ml OutputOutput Total 800 ml 500 ml BalanceBalance 120 ml -240 ml 960 ml Constitutional: alert, oriented, obese; No distress Head: normocephalic Eyes: PERRL Respiratory: clear to auscultation Cardiovascular: regular rate and rhythm; No murmurs/extra sounds Gastrointestinal: soft, non-tender, bowel sounds Extremities: other (charcot foot RLE, L BKA) Neurological: nl mental status; No focal weakness Results Results 24hrs Laboratory Tests Test 01/14/19 15:46 01/14/19 17:23 01/14/19 17:37 01/14/19 21:08 Bedside Glucose 268 H 288 H 225 H Troponin I < 0.012 Test 01/15/19 00:25 01/15/19 02:37 01/15/19 05:31 01/15/19 08:19 Troponin I < 0.012 Bedside Glucose 314 H 321 H 273 H Medications Medication Current Medications Sodium Chloride 1,000 ml @ 50 mls/hr Q20H IV Last administered on 01/15/19at 05:37; Admin Dose 100 MLS/HR; Start 01/14/19 at 06:03 IV Flush (NS 3 ml) 3 ml PER PROTOCOL IV ; Start 01/14/19 at 06:30 Ondansetron HCl (Zofran Inj) 4 mg Q6H PRN IV NAUSEA/VOMITING; Start 01/14/19 at 06:30 Nitroglycerin (Nitroglycerin (Sl Tab) 0.4 Mg) 1 tab Q5M PRN SL .CHEST PAIN; Start 01/14/19 at 06:30 Acetaminophen (Tylenol Tab) 650 mg Q6H PRN PO .PAIN 1-3 OR TEMP Last administered on 01/15/19at 05:41; Admin Dose 650 MG; Start 01/14/19 at 06:30 Morphine Sulfate (morphine) 2 mg Q4H PRN IV .PAIN 7-10 Last administered on 01/14/19 15:30; Admin Dose 2 MG; Start 01/14/19 at 06:30 Docusate Sodium (Colace) 100 mg Q12H PRN PO .CONSTIPATION; Start 01/14/19 at 06:30 Bisacodyl (Dulcolax) 5 mg DAILY PRN PO .CONSTIPATION; Start 01/14/19 at 06:30 Amlodipine Besylate (Norvasc) 2.5 mg DAILY PO Last administered on 01/15/19 08:23; Admin Dose 2.5 MG; Start 01/14/19 at 12:30 Ferrous Sulfate (Ferrous Sulfate (Ec)) 325 mg DAILY PO Last administered on 01/15/19 08:23; Admin Dose 325 MG; Start 01/15/19 at 09:00 Hydralazine HCl (Apresoline) 25 mg TID PO Last administered on 01/15/19 08:23; Admin Dose 25 MG; Start 01/14/19 at 13:00 Insulin Aspart (Novolog Insulin Pen) 25 unit WITH MEALS SC Last administered on 01/15/19 08:35; Admin Dose 25 UNIT; Start 01/14/19 at 18:00 Levothyroxine Sodium (Synthroid) 112 mcg BEFORE BREAKFAST PO Last administered on 01/15/19 06:37; Admin Dose 112 MCG; Start 01/15/19 at 07:00 Metoclopramide HCl (Reglan) 5 mg AC MEALS PO Last administered on 01/15/19 06:37; Admin Dose 5 MG; Start 01/14/19 at 17:30 Fish Oil (Fish Oil) 2,000 mg BID PO Last administered on 01/15/19 08:22; Admin Dose 2,000 MG; Start 01/14/19 at 21:00 Pantoprazole (Protonix Tab) 40 mg BID@,18 PO Last administered on 01/15/19 05:31; Admin Dose 40 MG; Start 01/14/19 at 18:00 Sertraline HCl (Zoloft) 50 mg DAILY PO Last administered on 01/15/19 08:23; Admin Dose 50 MG; Start 01/15/19 at 09:00 Sucralfate (Carafate) 1 gm Q6 PO Last administered on 01/15/19 05:31; Admin Dose 1 GM; Start 01/14/19 at 18:00 Diagnostic Test (Pha) (Accu-Chek) 1 ea 02 XX Last administered on 01/15/19 02:38; Admin Dose 1 EA; Start 01/15/19 at 02:00 Insulin Aspart (Novolog Insulin Pen) NOVOLOG *MILD* ALGORITHM WITH MEALS BEDTIME SC Last administered on 01/15/19 08:35; Admin Dose 2 UNIT; Start 01/14/19 at 18:00 Heparin Sodium (Porcine) (Heparin (5000 Units/1ml)) 5,000 unit BID SC Last administered on 01/15/19 08:36; Admin Dose 5,000 UNIT; Start 01/14/19 at 21:00 Miscellaneous Information 1 ea NOTE XX ; Start 01/14/19 at 13:00 Glucose (Glutose) 15 gm Q15M PRN PO DECREASED GLUCOSE; Start 01/14/19 at 13:00 Glucose (Glutose) 22.5 gm Q15M PRN PO DECREASED GLUCOSE; Start 01/14/19 at 13:00 Dextrose (D50w Syringe) 25 ml Q15M PRN IV DECREASED GLUCOSE; Start 01/14/19 at 13:00 Dextrose (D50w Syringe) 50 ml Q15M PRN IV DECREASED GLUCOSE; Start 01/14/19 at 13:00 Glucagon (Glucagen) 1 mg Q15M PRN IM DECREASED GLUCOSE; Start 01/14/19 at 13:00 Glucose (Glutose) 15 gm Q15M PRN BUCCAL DECREASED GLUCOSE; Start 01/14/19 at 13:00 Insulin Glargine (Lantus) 60 units DAILY@0800 SC Last administered on 01/15/19 08:36; Admin Dose 60 UNITS; Start 01/15/19 at 08:00 Atorvastatin Calcium (Lipitor) 40 mg DAILY@21 PO ; Start 01/15/19 at 21:00 GEORGI SOLORIO January 15, 2019 11:31
--- NOTE | 2019-01-15 19:34 | CONS ---
Assessment/Plan Assessment/Plan Hospital Course (Demo Recall) Back pain appears to be nonanginal musculoskeletal Acute on chronic renal failure hypertension PAD status post left BKA Diabetes Severe Dyslipidemia Obesity Recommendations: Aggressive medical therapy including better blood pressure and lipid management. Diabetic management as per internal medicine Aspirin will be initiated Renal work-up and management as per nephrology team We will hold off on any aggressive cardiac test at this point given her renal failure, and lack of any anginal chest pain Thank you for this referral. We will continue to follow along with you as needed PRINCE HERNANDEZ MD FAC Consultation Date/Type/Reason Admit Date/Time January 14, 2019 at 05:34 Date of Consultation: January 15, 2019 Type of Consult Cardiology Reason for Consultation Rule out acute coronary syndrome Requesting Provider: GEORGI SOLORIO Date/Time of Note DATE: 01/15/19 TIME: 19:28 Hx of Present Illness Interventional cardiology consultation note Chief complaint: Left upper shoulder back and arm pain Reason for consult: Rule out acute coronary syndrome History of present illness: Thank you for this referral. History was obtained from the patient review of the chart discussion with the staff and physicians. This is a 58-year-old female with a past medical history of obesity, history of diabetes, history of hypertension, history of chronic kidney disease who presents to [facility] for evaluation of left upper back pain/arm pain. The patient, however, was subsequently admitted to telemetry for evaluation. Troponin have been negative. She does not have any more pain at this point. Review of the old chart showed the patient has had similar presentation 2016 at this time was seen by Dr. Rea and a stress test was done which was negative PAST MEDICAL HISTORY: As stated above, history of chronic kidney disease, history of hypertension, history of diabetes, history of obesity, history of gastritis, history of dyslipidemia, history of peripheral vascular disease. PAST SURGICAL HISTORY: Status post left below knee amputation. FAMILY HISTORY: No family history of early coronary artery disease SOCIAL HISTORY: She does not drink, smoke or do drugs. MEDICATIONS: The patient's medications have been reviewed. Review of system: Patient denies all others except for above-mentioned Past Medical History Home Meds Active Scripts Insulin Aspart* (Novolog Insulin Pen*) 100 Unit/Ml Soln, 25 UNIT SC WITH MEALS, #1 UNIT Prov:TOMEKA BATRES [employer] 11/17/18 [Insulin Glargine] 100 UNITS/ML SOLN No Conflict Check, 60 UNITS SC DAILY@0800, #1 UNIT Prov:TOMEKA BATRES NP 11/17/18 Sitagliptin* (Januvia*) 25 Mg Tablet, 25 MG PO DAILY, #30 TAB Prov:ALVAREZMAMI AVERYA [employer] 11/17/18 Metoclopramide* (Reglan*) 5 Mg Tablet, 5 MG PO AC MEALS, #30 TAB Prov:ALVAREZMAMIA [employer] 11/17/18 Pantoprazole* (Pantoprazole*) 40 Mg Tablet.dr, 40 MG PO BID@06,18, #120 TAB Prov:ALVAREZFIDENCIOKEVIN [employer] 11/17/18 Amlodipine Besylate* (Amlodipine Besylate*) 2.5 Mg Tablet, 2.5 MG PO DAILY, #30 TAB Prov:ALVAREZMAMI AVERYA [employer] 11/17/18 Sucralfate (Carafate) 1 Gm Tablet, 1 GM PO Q6, #120 TAB Prov:ALVAREZKEVIN AVERY [employer] 11/17/18 [place]-3/Dha/Epa/Fish Oil (Fish Oil 1,000 mg Softgel) 1,000 Mg Capsule, 2000 MG PO BID, #60 CAP Prov:ALVAREZKEVIN AVERY [employer] 11/17/18 Hydralazine Hcl* (Hydralazine Hcl*) 25 Mg Tab, 25 MG PO TID, #90 TAB Prov:ALVAREZKEVIN AVERY [employer] 11/17/18 Ondansetron Hcl* (Zofran*) 4 Mg Tablet, 4 MG PO Q8H PRN for NAUSEA AND/OR VOMITING, #30 TAB Prov:АЛЕКСАНДР SERNA MD 05/22/18 Reported Medications Vitamin B Complex (Vitamin B Complex) 1 Each Capsule, 1 EACH PO DAILY, CAP 11/14/18 Ferrous Sulfate* (Ferrous Sulfate*) 325 Mg Tabec, 325 MG PO DAILY, TAB 11/14/18 Trazodone Hcl* (Trazodone Hcl*) 50 Mg Tablet, 50 MG PO QHS, #30 TAB 05/22/18 Simvastatin* (Zocor*) 40 Mg Tablet, 40 MG PO QHS, #30 TAB 05/22/18 Sertraline Hcl* (Sertraline Hcl*) 50 Mg Tablet, 50 MG PO DAILY, #30 TAB 05/22/18 Linagliptin (TRADJENTA) 5 Mg Tablet, 5 MG PO DAILY, TAB 05/22/18 Levothyroxine Sodium* (Levoxyl*) 112 Mcg Tablet, 112 MCG PO BEFORE BREAKFAST, #30 TAB 05/22/18 Medications Current Medications Sodium Chloride 1,000 ml @ 50 mls/hr Q20H IV Last administered on 01/15/19 05:37; Admin Dose 100 MLS/HR; Start 01/14/19 at 06:03 IV Flush (NS 3 ml) 3 ml PER PROTOCOL IV ; Start 01/14/19 at 06:30 Ondansetron HCl (Zofran Inj) 4 mg Q6H PRN IV NAUSEA/VOMITING; Start 01/14/19 at 06:30 Nitroglycerin (Nitroglycerin (Sl Tab) 0.4 Mg) 1 tab Q5M PRN SL .CHEST PAIN; Start 01/14/19 at 06:30 Acetaminophen (Tylenol Tab) 650 mg Q6H PRN PO .PAIN 1-3 OR TEMP Last administered on 01/15/19at 05:41; Admin Dose 650 MG; Start 01/14/19 at 06:30 Morphine Sulfate (morphine) 2 mg Q4H PRN IV .PAIN 7-10 Last administered on 01/14/19at 15:30; Admin Dose 2 MG; Start 01/14/19 at 06:30 Docusate Sodium (Colace) 100 mg Q12H PRN PO .CONSTIPATION; Start 01/14/19 at 06:30 Bisacodyl (Dulcolax) 5 mg DAILY PRN PO .CONSTIPATION; Start 01/14/19 at 06:30 Ferrous Sulfate (Ferrous Sulfate (Ec)) 325 mg DAILY PO Last administered on 01/15/19at 08:23; Admin Dose 325 MG; Start 01/15/19 at 09:00 Hydralazine HCl (Apresoline) 25 mg TID PO Last administered on 01/15/19at 12:28; Admin Dose 25 MG; Start 01/14/19 at 13:00 Insulin Aspart (Novolog Insulin Pen) 25 unit WITH MEALS SC Last administered on 01/15/19at 17:14; Admin Dose 25 UNIT; Start 01/14/19 at 18:00 Levothyroxine Sodium (Synthroid) 112 mcg BEFORE BREAKFAST PO Last administered on 01/15/19 06:37; Admin Dose 112 MCG; Start 01/15/19 at 07:00 Metoclopramide HCl (Reglan) 5 mg AC MEALS PO Last administered on 01/15/19 17:06; Admin Dose 5 MG; Start 01/14/19 at 17:30 Fish Oil (Fish Oil) 2,000 mg BID PO Last administered on 01/15/19 08:22; Admin Dose 2,000 MG; Start 01/14/19 at 21:00 Pantoprazole (Protonix Tab) 40 mg BID@,18 PO Last administered on 01/15/19 17:06; Admin Dose 40 MG; Start 01/14/19 at 18:00 Sertraline HCl (Zoloft) 50 mg DAILY PO Last administered on 01/15/19 08:23; Admin Dose 50 MG; Start 01/15/19 at 09:00 Sucralfate (Carafate) 1 gm Q6 PO Last administered on 01/15/19 17:06; Admin Dose 1 GM; Start 01/14/19 at 18:00 Diagnostic Test (Pha) (Accu-Chek) 1 ea 02 XX Last administered on 01/15/19 02:38; Admin Dose 1 EA; Start 01/15/19 at 02:00 Insulin Aspart (Novolog Insulin Pen) NOVOLOG *MILD* ALGORITHM WITH MEALS BEDTIME SC Last administered on 01/15/19 17:13; Admin Dose 2 UNIT; Start 01/14/19 at 18:00 Heparin Sodium (Porcine) (Heparin (5000 Units/1ml)) 5,000 unit BID SC Last administered on 01/15/19 08:36; Admin Dose 5,000 UNIT; Start 01/14/19 at 21:00 Miscellaneous Information 1 ea NOTE XX ; Start 01/14/19 at 13:00 Glucose (Glutose) 15 gm Q15M PRN PO DECREASED GLUCOSE; Start 01/14/19 at 13:00 Glucose (Glutose) 22.5 gm Q15M PRN PO DECREASED GLUCOSE; Start 01/14/19 at 13:00 Dextrose (D50w Syringe) 25 ml Q15M PRN IV DECREASED GLUCOSE; Start 01/14/19 at 13:00 Dextrose (D50w Syringe) 50 ml Q15M PRN IV DECREASED GLUCOSE; Start 01/14/19 at 13:00 Glucagon (Glucagen) 1 mg Q15M PRN IM DECREASED GLUCOSE; Start 01/14/19 at 13:00 Glucose (Glutose) 15 gm Q15M PRN BUCCAL DECREASED GLUCOSE; Start 01/14/19 at 13:00 Insulin Glargine (Lantus) 60 units DAILY@0800 SC Last administered on 01/15/19at 08:36; Admin Dose 60 UNITS; Start 01/15/19 at 08:00 Atorvastatin Calcium (Lipitor) 40 mg DAILY@21 PO ; Start 01/15/19 at 21:00 Linagliptin (Tradjenta) 5 mg DAILY PO ; Start 01/16/19 at 09:00 Diagnostic Test (Pha) (Accu-Chek) 1 ea AC MEALS AND BEDTIME XX Last administered on 01/15/19at 16:57; Admin Dose 1 EA; Start 01/15/19 at 11:30 Nifedipine (Procardia Xl) 30 mg BID PO ; Start 01/15/19 at 21:00 Allergies: Coded Allergies: No Known Drug Allergy (Unverified Allergy, Mild, 11/14/18) Fish Containing Products (Verified Allergy, Unknown, 11/16/18) Past Surgical History Past Surgical Hx: cholecystectomy, other Social History Alcohol Use: rarely Smoking Status: Never smoker Drug Use: none Exam/Review of Systems Vital Signs Vitals Vital Signs Date Temp Pulse Resp B/P (MAP) Pulse Ox O2 O2 Flow FiO2 Time Delivery Rate 01/15/19 80 16:01 01/15/19 97.6 20 156/73 96 Room Air 11:53 (100) Intake and Output 01/14/19 01/14/19 01/15/19 1515:00 23:00 07:00 IntakeIntake Total 120 ml 560 ml 1460 ml OutputOutput Total 800 ml 500 ml BalanceBalance 120 ml -240 ml 960 ml Exam Exam General: He is female in no acute distress HEENT: NC/AT. pupils are equal. round. NECK: NO JVD. no stridor. CV: RRR. systolic murmur; no gallop or rubs. PULM: no wheezing or rhonchi. GI: SOFT, NT, ND, no rebound or guarding Extremity: Left BKA. neuro: awake and alert, OX3. Psych: calm and pleasant rectal: deferred EKG was personally reviewed which showed no smart sinus rhythm with nonspecific ST abnormality Echocardiogram has shown: Normal left ventricular systolic function. Normal left ventricular cavity size. Mild concentric left ventricular hypertrophy. Ejection fraction is visually estimated at 65 %. Tissue Doppler/Mitral Doppler indices are consistent with impaired relaxation (Stage I diastolic dysfunction). Labs Result Diagram: 01/14/19 0455 01/14/19 0455 Results 24hrs Laboratory Tests Test 01/14/19 21:08 01/15/19 00:25 01/15/19 02:37 01/15/19 05:31 Bedside Glucose 225 H 314 H 321 H Troponin I < 0.012 Test 01/15/19 08:19 01/15/19 11:37 01/15/19 16:55 Bedside Glucose 273 H 193 207 Medications Medications Current Medications Sodium Chloride 1,000 ml @ 50 mls/hr Q20H IV Last administered on 01/15/19at 05:37; Admin Dose 100 MLS/HR; Start 01/14/19 at 06:03 IV Flush (NS 3 ml) 3 ml PER PROTOCOL IV ; Start 01/14/19 at 06:30 Ondansetron HCl (Zofran Inj) 4 mg Q6H PRN IV NAUSEA/VOMITING; Start 01/14/19 at 06:30 Nitroglycerin (Nitroglycerin (Sl Tab) 0.4 Mg) 1 tab Q5M PRN SL .CHEST PAIN; Start 01/14/19 at 06:30 Acetaminophen (Tylenol Tab) 650 mg Q6H PRN PO .PAIN 1-3 OR TEMP Last administered on 01/15/19at 05:41; Admin Dose 650 MG; Start 01/14/19 at 06:30 Morphine Sulfate (morphine) 2 mg Q4H PRN IV .PAIN 7-10 Last administered on 01/14/19at 15:30; Admin Dose 2 MG; Start 01/14/19 at 06:30 Docusate Sodium (Colace) 100 mg Q12H PRN PO .CONSTIPATION; Start 01/14/19 at 06:30 Bisacodyl (Dulcolax) 5 mg DAILY PRN PO .CONSTIPATION; Start 01/14/19 at 06:30 Ferrous Sulfate (Ferrous Sulfate (Ec)) 325 mg DAILY PO Last administered on 01/15/19 08:23; Admin Dose 325 MG; Start 01/15/19 at 09:00 Hydralazine HCl (Apresoline) 25 mg TID PO Last administered on 01/15/19 12:28; Admin Dose 25 MG; Start 01/14/19 at 13:00 Insulin Aspart (Novolog Insulin Pen) 25 unit WITH MEALS SC Last administered on 01/15/19 17:14; Admin Dose 25 UNIT; Start 01/14/19 at 18:00 Levothyroxine Sodium (Synthroid) 112 mcg BEFORE BREAKFAST PO Last administered on 01/15/19 06:37; Admin Dose 112 MCG; Start 01/15/19 at 07:00 Metoclopramide HCl (Reglan) 5 mg AC MEALS PO Last administered on 01/15/19 17:06; Admin Dose 5 MG; Start 01/14/19 at 17:30 Fish Oil (Fish Oil) 2,000 mg BID PO Last administered on 01/15/19 08:22; Admin Dose 2,000 MG; Start 01/14/19 at 21:00 Pantoprazole (Protonix Tab) 40 mg BID@06,18 PO Last administered on 01/15/19 17:06; Admin Dose 40 MG; Start 01/14/19 at 18:00 Sertraline HCl (Zoloft) 50 mg DAILY PO Last administered on 01/15/19 08:23; A dmin Dose 50 MG; Start 01/15/19 at 09:00 Sucralfate (Carafate) 1 gm Q6 PO Last administered on 01/15/19 17:06; Admin Dose 1 GM; Start 01/14/19 at 18:00 Diagnostic Test (Pha) (Accu-Chek) 1 ea 02 XX Last administered on 01/15/19 02:38; Admin Dose 1 EA; Start 01/15/19 at 02:00 Insulin Aspart (Novolog Insulin Pen) NOVOLOG *MILD* ALGORITHM WITH MEALS BEDTIME SC Last administered on 01/15/19 17:13; Admin Dose 2 UNIT; Start 01/14/19 at 18:00 Heparin Sodium (Porcine) (Heparin (5000 Units/1ml)) 5,000 unit BID SC Last administered on 01/15/19 08:36; Admin Dose 5,000 UNIT; Start 01/14/19 at 21:00 Miscellaneous Information 1 ea NOTE XX ; Start 01/14/19 at 13:00 Glucose (Glutose) 15 gm Q15M PRN PO DECREASED GLUCOSE; Start 01/14/19 at 13:00 Glucose (Glutose) 22.5 gm Q15M PRN PO DECREASED GLUCOSE; Start 01/14/19 at 13:00 Dextrose (D50w Syringe) 25 ml Q15M PRN IV DECREASED GLUCOSE; Start 01/14/19 at 13:00 Dextrose (D50w Syringe) 50 ml Q15M PRN IV DECREASED GLUCOSE; Start 01/14/19 at 13:00 Glucagon (Glucagen) 1 mg Q15M PRN IM DECREASED GLUCOSE; Start 01/14/19 at 13:00 Glucose (Glutose) 15 gm Q15M PRN BUCCAL DECREASED GLUCOSE; Start 01/14/19 at 13:00 Insulin Glargine (Lantus) 60 units DAILY@0800 SC Last administered on 01/15/19at 08:36; Admin Dose 60 UNITS; Start 01/15/19 at 08:00 Atorvastatin Calcium (Lipitor) 40 mg DAILY@21 PO ; Start 01/15/19 at 21:00 Linagliptin (Tradjenta) 5 mg DAILY PO ; Start 01/16/19 at 09:00 Diagnostic Test (Pha) (Accu-Chek) 1 ea AC MEALS AND BEDTIME XX Last administered on 01/15/19at 16:57; Admin Dose 1 EA; Start 01/15/19 at 11:30 Nifedipine (Procardia Xl) 30 mg BID PO ; Start 01/15/19 at 21:00 PRINCE HERNANDEZ MD January 15, 2019 19:34
[2019-01-15] MEDS: NIFEdipine (XL) 30 MG TAB PO SCH (20:58)
[2019-01-15] MEDS: ATORVASTATIN 40 MG TAB PO SCH (20:58)
[2019-01-15] MEDS: EZETIMIBE 10 MG TAB PO SCH (20:58)
[2019-01-15] MEDS ORDERED: ATORVASTATIN 40 MG TAB PO SCH (21:00)
[2019-01-16] VITALS (12 sets, daily range): BP systolic 121–135; BP diastolic 57–66; PULSE 63–79; RESP 18–20
[2019-01-16] MEDS: SUCRALFATE 1 GM TAB PO SCH ×4 (00:53→17:20)
[2019-01-16] MEDS: ACCU-CHEK XX SCH ×5 (02:00→21:01)
[2019-01-16] MEDS: PANTOPRAZOLE (EC) 40 MG TAB PO SCH ×2 (05:23→17:20)
[2019-01-16] MEDS: METOCLOPRAMIDE 5 MG TAB PO SCH ×3 (06:19→17:20)
[2019-01-16] MEDS: LEVOTHYROXINE 112 MCG TAB PO SCH (06:19)
[2019-01-16] MEDS: FISH OIL 1,000 MG CAP PO SCH ×2 (08:01→20:40)
[2019-01-16] MEDS: SERTRALINE 50 MG TAB PO SCH (08:02)
[2019-01-16] MEDS: FERROUS SULFATE (EC) 325 MG TAB PO SCH (08:02)
[2019-01-16] MEDS: NIFEdipine (XL) 30 MG TAB PO SCH (08:03)
[2019-01-16] MEDS: ASPIRIN (EC) 81 MG TAB PO SCH (08:15)
[2019-01-16] MEDS: HEPARIN 5,000 UNIT/1 ML VIAL SC SCH ×2 (08:25→21:00)
[2019-01-16] MEDS: INSULIN ASPART [NOVOLOG] 3 ML PEN SC SCH ×7 (08:25→21:00)
[2019-01-16] MEDS: INSULIN GLARGINE [LANTus] (100 UNITS/ML) SYG SC SCH (08:25)
[2019-01-16] MEDS: LINAGLIPTIN 5 MG TABLET PO SCH (08:41)
--- NOTE | 2019-01-16 09:21 | PN ---
DATE: 01/16/2019 SUBJECTIVE: The patient is stable, no events overnight. No fevers, chills, nausea or vomiting. OBJECTIVE: VITAL SIGNS: Blood pressure is 123/59, respirations 20, pulse 79, temperature 98.2. HEENT: Head is normocephalic. NECK: Supple. HEART: Regular rate. LUNGS: Show diminished breath sounds at the base. ABDOMEN: Soft, nontender to palpation without rebound or guarding. EXTREMITIES: Negative for clubbing, cyanosis. Trace edema. DERMATOLOGIC: No rashes. MUSCULOSKELETAL: No joint effusion. NEUROLOGIC: No change in exam. MEDICATIONS: Reviewed. LABORATORY DATA: Has been reviewed. ASSESSMENT AND PLAN: 1. Nonoliguric acute kidney injury on top of chronic kidney disease stage IV with previous baseline creatinine around 3 mg/dL. Etiology of acute kidney injury was initially felt to be secondary to hem odynamics. However, the patient's renal function has declined in the last 48 hours. Etiology may be secondary to acute tubular necrosis. The patient appears to still be in injury phase of acute kidne y injury. At this point, will continue current treatment plans, supportive care, renally dose all me ds. Will discontinue IV fluids. Renal ultrasound was reviewed, no evidence of obstruction. Will re peat a urinalysis. Monitor closely. 2. Hypernatremia, improved. Continue to monitor. 3. Mild hyperkalemia. Etiology is multifactorial secondary to acute kidney injury and hyperglycemia . Will continue to monitor. Continue low-potassium diet. Correct underlying Hyperglycemia, if poss ible. 4. Left arm pain, likely musculoskeletal. No evidence of acute coronary syndrome. Continue to alyssa tor. 5. Diabetes. Continue current insulin regimen. 6. Obesity. Continue dietary modification. 7. Hypertension. Blood pressure improved. Continue current blood pressure regimen. Defer any JANE inhibitor or ARB at this time. Dictated By: HOLLIE ANGLIN DO NR/NTS Conf#: [id number] DID#: [id number] CC: KELLEY ROBLEDO MD;*End*
--- NOTE | 2019-01-16 11:40 | PN ---
Date/Time of Note Date/Time of Note DATE: 01/16/19 TIME: 11:35 Assessment/Plan VTE Prophylaxis Risk score (from Nsg)>0 risk: 1 Pharmacological prophylaxis: NA/contraindicated Pharm contraindication: low risk/ambulating Lines/Catheters IV Catheter Type (from Nrsg): Peripheral IV Urinary Cath still in place: No Assessment/Plan Hospital Course subjective : no more chest pain Objective : Constitutional: alert, oriented, obese; No distress Head: normocephalic Eyes: PERRL Respiratory: clear to auscultation Cardiovascular: regular rate and rhythm; No murmurs/extra sounds Gastrointestinal: soft, non-tender, bowel sounds Extremities: other (charcot foot RLE, L BKA) Neurological: nl mental status; No focal weakness assessment and plan 1. Left-sided chest discomfort with radiation down her left arm: Resolved -ACS has been ruled out with 3- cardiac enzymes. -However patient has chronic uncontrolled diabetes with dyslipidemia and high blood pressure putting her at high risk. -2D echo showed preserved ejection fraction with EF of 65% and stage I diastolic dysfunction with basically normal ventricular function. -Cardio recommends Aggressive medical therapy including better blood pressure and lipid management, will hold off on any aggressive cardiac test at this point given her renal failure, and lack of any anginal chest pain 2. Poorly controlled diabetes mellitus with neuropathy: -Patient on high-dose Lantus and Humalog as outpatient. Patient's doses have been increased even higher on hospitalization and still with suboptimal control. -Hemoglobin A1c came back 11.8, patient's states that she is very compliant with her regimen. -Patient feels she may need alternative therapy. -We will get endocrinology consultation -Diabetic education 3. Chronic dyslipidemia with low HDL, hypertriglyceridemia and hypercholesterolemia -We have gently increased statin dose 4. JOS on CKD stage IV: -Nephrology management, creatinine trending up 5. Chronic hypothyroidism on Synthroid still with elevated TSH -Continue home Synthroid, check free T4, adjust dosing if indicated 6. Hypertension: -Likely related to the chest pain, patient with hypertensive urgency upon arrival -excellent control with dosing adjustment 7. History of left BKA 8. History of erosive esophagitis/gastritis -continued on PPI 9. Possible UTI -send cultures 0. Mild hyperkalemia -will give Kayexalate Prophylaxis: Heparin Dispo: -Not cleared for discharge at this time, await endocrinology recs -remain on tele for hyperkalemia -continue supportive care Result Diagram: 01/16/19 0452 01/16/19 0452 Results 24hrs Laboratory Tests Test 01/15/19 11:37 01/15/19 16:55 01/15/19 20:55 01/16/19 01:57 Bedside Glucose 193 207 219 304 H Test 01/16/19 04:45 01/16/19 04:52 01/16/19 07:43 Urine Color STRAW Urine Clarity SLIGHTLY CLOUDY A Urine pH 6.0 Urine Specific 1.009 [place] Urine Ketones NEGATIVE Urine Nitrite NEGATIVE Urine Bilirubin NEGATIVE Urine NEGATIVE Urobilinogen Urine Leukocyte NEGATIVE Esterase Urine Microscopic 0 RBC Urine Microscopic 30 H WBC Urine Squamous FEW Epithelial Cells Urine Bacteria MANY A Urine Hemoglobin NEGATIVE Urine Random 43.62 Creatinine Urine Random 43 Sodium Urine Glucose 3+ H Urine Total Protein White Blood Count 8.8 Red Blood Count 4.10 L Hemoglobin 10.9 L Hematocrit 33.7 L Mean Corpuscular 82.2 Volume Mean Corpuscular 26.6 L Hemoglobin Mean Corpuscular 32.3 Hemoglobin Concen t Red Cell 14.1 Distribution Width Platelet Count 410 Mean Platelet 9.9 Volume Immature 0.200 Granulocytes % Neutrophils % 58.2 Lymphocytes % 28.3 Monocytes % 8.1 Eosinophils % 4.3 Basophils % 0.9 Nucleated Red 0.0 Blood Cells % Immature 0.020 Granulocytes # Neutrophils # 5.1 Lymphocytes # 2.5 Monocytes # 0.7 Eosinophils # 0.4 Basophils # 0.1 Nucleated Red 0.0 Blood Cells # Sodium Level 135 Potassium Level 5.6 H Chloride Level 107 Carbon Dioxide 21 Level Anion Gap 7 Blood Urea 63 H Nitrogen Creatinine 4.03 H Est Glomerular 11 L Filtrat Rate mL/min Glucose Level 302 H Calcium Level 8.4 Phosphorus Level 4.7 Magnesium Level 3.4 H Bedside Glucose 351 H Exam/Review of Systems Exam Vitals Vital Signs Date Temp Pulse Resp B/P (MAP) Pulse Ox O2 O2 Flow FiO2 Time Delivery Rate 01/16/19 98.2 72 20 128/61 97 Room Air 11:22 (83) Intake and Output 01/15/19 01/15/19 01/16/19 1515:00 23:00 07:00 IntakeIntake Total 1620 ml 950 ml BalanceBalance 1620 ml 950 ml Results Results 24hrs Laboratory Tests Test 01/15/19 11:37 01/15/19 16:55 01/15/19 20:55 01/16/19 01:57 Bedside Glucose 193 207 219 304 H Test 01/16/19 04:45 01/16/19 04:52 01/16/19 07:43 Urine Color STRAW Urine Clarity SLIGHTLY CLOUDY A Urine pH 6.0 Urine Specific 1.009 [place] Urine Ketones NEGATIVE Urine Nitrite NEGATIVE Urine Bilirubin NEGATIVE Urine NEGATIVE Urobilinogen Urine Leukocyte NEGATIVE Esterase Urine Microscopic 0 RBC Urine Microscopic 30 H WBC Urine Squamous FEW Epithelial Cells Urine Bacteria MANY A Urine Hemoglobin NEGATIVE Urine Random 43.62 Creatinine Urine Random 43 Sodium Urine Glucose 3+ H Urine Total Protein White Blood Count 8.8 Red Blood Count 4.10 L Hemoglobin 10.9 L Hematocrit 33.7 L Mean Corpuscular 82.2 Volume Mean Corpuscular 26.6 L Hemoglobin Mean Corpuscular 32.3 Hemoglobin Concen t Red Cell 14.1 Distribution Width Platelet Count 410 Mean Platelet 9.9 Volume Immature 0.200 Granulocytes % Neutrophils % 58.2 Lymphocytes % 28.3 Monocytes % 8.1 Eosinophils % 4.3 Basophils % 0.9 Nucleated Red 0.0 Blood Cells % Immature 0.020 Granulocytes # Neutrophils # 5.1 Lymphocytes # 2.5 Monocytes # 0.7 Eosinophils # 0.4 Basophils # 0.1 Nucleated Red 0.0 Blood Cells # Sodium Level 135 Potassium Level 5.6 H Chloride Level 107 Carbon Dioxide 21 Level Anion Gap 7 Blood Urea 63 H Nitrogen Creatinine 4.03 H Est Glomerular 11 L Filtrat Rate mL/min Glucose Level 302 H Calcium Level 8.4 Phosphorus Level 4.7 Magnesium Level 3.4 H Bedside Glucose 351 H Medications Medication Current Medications IV Flush (NS 3 ml) 3 ml PER PROTOCOL IV ; Start 01/14/19 at 06:30 Ondansetron HCl (Zofran Inj) 4 mg Q6H PRN IV NAUSEA/VOMITING; Start 01/14/19 at 06:30 Nitroglycerin (Nitroglycerin (Sl Tab) 0.4 Mg) 1 tab Q5M PRN SL .CHEST PAIN; Start 01/14/19 at 06:30 Acetaminophen (Tylenol Tab) 650 mg Q6H PRN PO .PAIN 1-3 OR TEMP Last administered on 01/15/19at 05:41; Admin Dose 650 MG; Start 01/14/19 at 06:30 Morphine Sulfate (morphine) 2 mg Q4H PRN IV .PAIN 7-10 Last administered on 01/14/19 15:30; Admin Dose 2 MG; Start 01/14/19 at 06:30 Docusate Sodium (Colace) 100 mg Q12H PRN PO .CONSTIPATION; Start 01/14/19 at 06:30 Bisacodyl (Dulcolax) 5 mg DAILY PRN PO .CONSTIPATION; Start 01/14/19 at 06:30 Ferrous Sulfate (Ferrous Sulfate (Ec)) 325 mg DAILY PO Last administered on 01/16/19 08:02; Admin Dose 325 MG; Start 01/15/19 at 09:00 Hydralazine HCl (Apresoline) 25 mg TID PO Last administered on 01/16/19 08:02; Admin Dose 25 MG; Start 01/14/19 at 13:00 Insulin Aspart (Novolog Insulin Pen) 25 unit WITH MEALS SC Last administered on 01/16/19 08:25; Admin Dose 25 UNIT; Start 01/14/19 at 18:00 Levothyroxine Sodium (Synthroid) 112 mcg BEFORE BREAKFAST PO Last administered on 01/16/19 06:19; Admin Dose 112 MCG; Start 01/15/19 at 07:00 Metoclopramide HCl (Reglan) 5 mg AC MEALS PO Last administered on 01/16/19 06:19; Admin Dose 5 MG; Start 01/14/19 at 17:30 Fish Oil (Fish Oil) 2,000 mg BID PO Last administered on 01/16/19 08:01; Admin Dose 2,000 MG; Start 01/14/19 at 21:00 Pantoprazole (Protonix Tab) 40 mg BID@06,18 PO Last administered on 01/16/19 05:23; Admin Dose 40 MG; Start 01/14/19 at 18:00 Sertraline HCl (Zoloft) 50 mg DAILY PO Last administered on 01/16/19 08:02; Admin Dose 50 MG; Start 01/15/19 at 09:00 Sucralfate (Carafate) 1 gm Q6 PO Last administered on 01/16/19 05:23; Admin Dose 1 GM; Start 01/14/19 at 18:00 Diagnostic Test (Pha) (Accu-Chek) 1 02 XX Last administered on 01/15/19at 02:38; Admin Dose 1 EA; Start 01/15/19 at 02:00 Insulin Aspart (Novolog Insulin Pen) NOVOLOG *MILD* ALGORITHM WITH MEALS BEDTIME SC Last administered on 01/16/19 08:25; Admin Dose 7 UNIT; Start 01/14/19 at 18:00 Heparin Sodium (Porcine) (Heparin (5000 Units/1ml)) 5,000 unit BID SC Last administered on 01/16/19 08:25; Admin Dose 5,000 UNIT; Start 01/14/19 at 21:00 Miscellaneous Information 1 ea NOTE XX ; Start 01/14/19 at 13:00 Glucose (Glutose) 15 gm Q15M PRN PO DECREASED GLUCOSE; Start 01/14/19 at 13:00 Glucose (Glutose) 22.5 gm Q15M PRN PO DECREASED GLUCOSE; Start 01/14/19 at 13:00 Dextrose (D50w Syringe) 25 ml Q15M PRN IV DECREASED GLUCOSE; Start 01/14/19 at 13:00 Dextrose (D50w Syringe) 50 ml Q15M PRN IV DECREASED GLUCOSE; Start 01/14/19 at 13:00 Glucagon (Glucagen) 1 mg Q15M PRN IM DECREASED GLUCOSE; Start 01/14/19 at 13:00 Glucose (Glutose) 15 gm Q15M PRN BUCCAL DECREASED GLUCOSE; Start 01/14/19 at 13:00 Insulin Glargine (Lantus) 60 units DAILY@0800 SC Last administered on 01/16/19 08:25; Admin Dose 60 UNITS; Start 01/15/19 at 08:00 Linagliptin (Tradjenta) 5 mg DAILY PO Last administered on 01/16/19 08:41; Admin Dose 5 MG; Start 01/16/19 at 09:00 Diagnostic Test (Pha) (Accu-Chek) 1 ea AC MEALS AND BEDTIME XX Last administered on 01/16/19 08:29; Admin Dose 1 EA; Start 01/15/19 at 11:30 Nifedipine (Procardia Xl) 30 mg BID PO Last administered on 01/16/19 08:03; Admin Dose 30 MG; Start 01/15/19 at 21:00 Atorvastatin Calcium (Lipitor) 80 mg DAILY@21 PO Last administered on 01/15/19 20:58; Admin Dose 80 MG; Start 01/15/19 at 21:00 EZETIMIBE (Zetia) 10 mg QHS PO Last administered on 01/15/19 20:58; Admin Dose 10 MG; Start 01/15/19 at 21:00 Aspirin (Halfprin) 81 mg DAILY PO Last administered on 01/16/19 08:15; Admin Dose 81 MG; Start 01/16/19 at 09:00 Carvedilol (Coreg) 3.125 mg BID PO Last administered on 01/16/19 08:41; Admin Dose 3.125 MG; Start 01/15/19 at 21:00 GEORGI SOLORIO January 16, 2019 11:40
[2019-01-16] MEDS ORDERED: SODIUM POLYSTYRENE 15 GM KIT (POWDER + SORBITOL) PO ONE (12:00)
--- NOTE | 2019-01-16 12:18 | CONS ---
Consult Date/Type/Reason Admit Date/Time January 14, 2019 at 05:34 Initial Consult Date 01/15/19 Type of Consultation: cv Requesting Provider: GEORGI SOLORIO Date/Time of Note DATE: 01/16/19 TIME: 12:17 Subjective Cardiology follow-up progress note Subjective: Discussed with the staff and telemetry was reviewed patient remains normal sinus rhythm She denies any chest pain or pressure to me denies any arm pain to me. Palpitation. Objective: General: Obese female in no acute distress HEENT: NC/AT. pupils are equal. round. NECK: NO JVD. no stridor. CV: RRR. systolic murmur; no gallop or rubs. PULM: no wheezing or rhonchi. GI: SOFT, NT, ND, no rebound or guarding Extremity: Left BKA. neuro: awake and alert, OX3. Psych: calm and pleasant rectal: deferred EKG was personally reviewed which showed no smart sinus rhythm with nonspecific ST abnormality Echocardiogram has shown: Normal left ventricular systolic function. Normal left ventricular cavity size. Mild concentric left ventricular hypertrophy. Ejection fraction is visually estimated at 65 %. Tissue Doppler/Mitral Doppler indices are consistent with impaired relaxation (Stage I diastolic dysfunction). Objective Vitals Vital Signs Date Temp Pulse Resp B/P (MAP) Pulse Ox O2 O2 Flow FiO2 Time Delivery Rate 01/16/19 98.2 72 20 128/61 97 Room Air 11:22 (83) Intake and Output 01/15/19 01/15/19 01/16/19 1515:00 23:00 07:00 IntakeIntake Total 1620 ml 950 ml BalanceBalance 1620 ml 950 ml Results/Medications Result Diagram: 01/16/19 0452 01/16/19 0452 Results 24 hrs Laboratory Tests Test 01/15/19 16:55 01/15/19 20:55 01/16/19 01:57 01/16/19 04:45 Bedside Glucose 207 219 304 H Urine Color STRAW Urine Clarity SLIGHTLY CLOUDY A Urine pH 6.0 Urine Specific 1.009 [place] Urine Ketones NEGATIVE Urine Nitrite NEGATIVE Urine Bilirubin NEGATIVE Urine NEGATIVE Urobilinogen Urine Leukocyte NEGATIVE Esterase Urine Microscopic 0 RBC Urine Microscopic 30 H WBC Urine Squamous FEW Epithelial Cells Urine Bacteria MANY A Urine Hemoglobin NEGATIVE Urine Random 43.62 Creatinine Urine Random 43 Sodium Urine Glucose 3+ H Urine Total Protein Test 01/16/19 04:52 01/16/19 07:43 White Blood Count 8.8 Red Blood Count 4.10 L Hemoglobin 10.9 L Hematocrit 33.7 L Mean Corpuscular 82.2 Volume Mean Corpuscular 26.6 L Hemoglobin Mean Corpuscular 32.3 Hemoglobin Concen t Red Cell 14.1 Distribution Width Platelet Count 410 Mean Platelet 9.9 Volume Immature 0.200 Granulocytes % Neutrophils % 58.2 Lymphocytes % 28.3 Monocytes % 8.1 Eosinophils % 4.3 Basophils % 0.9 Nucleated Red 0.0 Blood Cells % Immature 0.020 Granulocytes # Neutrophils # 5.1 Lymphocytes # 2.5 Monocytes # 0.7 Eosinophils # 0.4 Basophils # 0.1 Nucleated Red 0.0 Blood Cells # Sodium Level 135 Potassium Level 5.6 H Chloride Level 107 Carbon Dioxide 21 Level Anion Gap 7 Blood Urea 63 H Nitrogen Creatinine 4.03 H Est Glomerular 11 L Filtrat Rate mL/min Glucose Level 302 H Calcium Level 8.4 Phosphorus Level 4.7 Magnesium Level 3.4 H Bedside Glucose 351 H Home Meds Active Scripts Insulin Aspart* (Novolog Insulin Pen*) 100 Unit/Ml Soln, 25 UNIT SC WITH MEALS, #1 UNIT Prov:TOMEKA BATRES [employer]ARM[employer] 11/17/18 [Insulin Glargine] 100 UNITS/ML SOLN No Conflict Check, 60 UNITS SC DAILY@0800, #1 UNIT Prov:TOMEKA BATRES [employer]ARM[employer] 11/17/18 Sitagliptin* (Januvia*) 25 Mg Tablet, 25 MG PO DAILY, #30 TAB Prov:ALVAREZ,KEVIN V. [employer]IRY FARMWORKER 11/17/18 Metoclopramide* (Reglan*) 5 Mg Tablet, 5 MG PO AC MEALS, #30 TAB Prov:ALVAREZ,KEVIN V. [employer] FARMWORK[employer] 11/17/18 Pantoprazole* (Pantoprazole*) 40 Mg Tablet.dr, 40 MG PO BID@06,18, #120 TAB Prov:ALVAREZ,KEVIN V. [employer]Y FARMWORK[employer] 11/17/18 Amlodipine Besylate* (Amlodipine Besylate*) 2.5 Mg Tablet, 2.5 MG PO DAILY, #30 TAB Prov:ALVAREZ,KEVIN V. [employer] FARMWORK[employer] 11/17/18 Sucralfate (Carafate) 1 Gm Tablet, 1 GM PO Q6, #120 TAB Prov:ALVAREZ,KEVIN V. [employer]Y FARMWORKER 11/17/18 [place]-3/Dha/Epa/Fish Oil (Fish Oil 1,000 mg Softgel) 1,000 Mg Capsule, 2000 MG PO BID, #60 CAP Prov:KEVIN ALVAREZ V. [employer] FARMWORKER 11/17/18 Hydralazine Hcl* (Hydralazine Hcl*) 25 Mg Tab, 25 MG PO TID, #90 TAB Prov:KEVIN ALVAREZ V. [employer] FARMWORK[employer] 11/17/18 Ondansetron Hcl* (Zofran*) 4 Mg Tablet, 4 MG PO Q8H PRN for NAUSEA AND/OR VOMITING, #30 TAB Prov:АЛЕКСАНДР SERNA MD 05/22/18 Reported Medications Vitamin B Complex (Vitamin B Complex) 1 Each Capsule, 1 EACH PO DAILY, CAP 11/14/18 Ferrous Sulfate* (Ferrous Sulfate*) 325 Mg Tabec, 325 MG PO DAILY, TAB 11/14/18 Trazodone Hcl* (Trazodone Hcl*) 50 Mg Tablet, 50 MG PO QHS, #30 TAB 05/22/18 Simvastatin* (Zocor*) 40 Mg Tablet, 40 MG PO QHS, #30 TAB 05/22/18 Sertraline Hcl* (Sertraline Hcl*) 50 Mg Tablet, 50 MG PO DAILY, #30 TAB 05/22/18 Linagliptin (TRADJENTA) 5 Mg Tablet, 5 MG PO DAILY, TAB 05/22/18 Levothyroxine Sodium* (Levoxyl*) 112 Mcg Tablet, 112 MCG PO BEFORE BREAKFAST, #30 TAB 05/22/18 Medications Current Medications IV Flush (NS 3 ml) 3 ml PER PROTOCOL IV ; Start 01/14/19 at 06:30 Ondansetron HCl (Zofran Inj) 4 mg Q6H PRN IV NAUSEA/VOMITING; Start 01/14/19 at 06:30 Nitroglycerin (Nitroglycerin (Sl Tab) 0.4 Mg) 1 tab Q5M PRN SL .CHEST PAIN; Start 01/14/19 at 06:30 Acetaminophen (Tylenol Tab) 650 mg Q6H PRN PO .PAIN 1-3 OR TEMP Last administered on 01/15/19at 05:41; Admin Dose 650 MG; Start 01/14/19 at 06:30 Morphine Sulfate (morphine) 2 mg Q4H PRN IV .PAIN 7-10 Last administered on 01/14/19 15:30; Admin Dose 2 MG; Start 01/14/19 at 06:30 Docusate Sodium (Colace) 100 mg Q12H PRN PO .CONSTIPATION; Start 01/14/19 at 06:30 Bisacodyl (Dulcolax) 5 mg DAILY PRN PO .CONSTIPATION; Start 01/14/19 at 06:30 Ferrous Sulfate (Ferrous Sulfate (Ec)) 325 mg DAILY PO Last administered on 01/16/19 08:02; Admin Dose 325 MG; Start 01/15/19 at 09:00 Hydralazine HCl (Apresoline) 25 mg TID PO Last administered on 01/16/19 08:02; Admin Dose 25 MG; Start 01/14/19 at 13:00 Insulin Aspart (Novolog Insulin Pen) 25 unit WITH MEALS SC Last administered on 01/16/19 08:25; Admin Dose 25 UNIT; Start 01/14/19 at 18:00 Levothyroxine Sodium (Synthroid) 112 mcg BEFORE BREAKFAST PO Last administered on 01/16/19 06:19; Admin Dose 112 MCG; Start 01/15/19 at 07:00 Metoclopramide HCl (Reglan) 5 mg AC MEALS PO Last administered on 01/16/19 06:19; Admin Dose 5 MG; Start 01/14/19 at 17:30 Fish Oil (Fish Oil) 2,000 mg BID PO Last administered on 01/16/19 08:01; Admin Dose 2,000 MG; Start 01/14/19 at 21:00 Pantoprazole (Protonix Tab) 40 mg BID@18 PO Last administered on 01/16/19 05:23; Admin Dose 40 MG; Start 01/14/19 at 18:00 Sertraline HCl (Zoloft) 50 mg DAILY PO Last administered on 01/16/19 08:02; Admin Dose 50 MG; Start 01/15/19 at 09:00 Sucralfate (Carafate) 1 gm Q6 PO Last administered on 01/16/19 05:23; Admin Dose 1 GM; Start 01/14/19 at 18:00 Diagnostic Test (Pha) (Accu-Chek) 1 ea 02 XX Last administered on 5/20/19at 02:38; Admin Dose 1 EA; Start 01/15/19 at 02:00 Insulin Aspart (Novolog Insulin Pen) NOVOLOG *MILD* ALGORITHM WITH MEALS BEDTIME SC Last administered on 01/16/19 08:25; Admin Dose 7 UNIT; Start 01/14/19 at 18:00 Heparin Sodium (Porcine) (Heparin (5000 Units/1ml)) 5,000 unit BID SC Last administered on 01/16/19 08:25; Admin Dose 5,000 UNIT; Start 01/14/19 at 21:00 Miscellaneous Information 1 ea NOTE XX ; Start 01/14/19 at 13:00 Glucose (Glutose) 15 gm Q15M PRN PO DECREASED GLUCOSE; Start 01/14/19 at 13:00 Glucose (Glutose) 22.5 gm Q15M PRN PO DECREASED GLUCOSE; Start 01/14/19 at 13:00 Dextrose (D50w Syringe) 25 ml Q15M PRN IV DECREASED GLUCOSE; Start 01/14/19 at 13:00 Dextrose (D50w Syringe) 50 ml Q15M PRN IV DECREASED GLUCOSE; Start 01/14/19 at 13:00 Glucagon (Glucagen) 1 mg Q15M PRN IM DECREASED GLUCOSE; Start 01/14/19 at 13:00 Glucose (Glutose) 15 gm Q15M PRN BUCCAL DECREASED GLUCOSE; Start 01/14/19 at 13:00 Insulin Glargine (Lantus) 60 units DAILY@0800 SC Last administered on 01/16/19 08:25; Admin Dose 60 UNITS; Start 01/15/19 at 08:00 Linagliptin (Tradjenta) 5 mg DAILY PO Last administered on 01/16/19 08:41; Admin Dose 5 MG; Start 01/16/19 at 09:00 Diagnostic Test (Pha) (Accu-Chek) 1 ea AC MEALS AND BEDTIME XX Last administered on 01/16/19 08:29; Admin Dose 1 EA; Start 01/15/19 at 11:30 Nifedipine (Procardia Xl) 30 mg BID PO Last administered on 01/16/19 08:03; Admin Dose 30 MG; Start 01/15/19 at 21:00 Atorvastatin Calcium (Lipitor) 80 mg DAILY@21 PO Last administered on 01/15/19at 20:58; Admin Dose 80 MG; Start 01/15/19 at 21:00 EZETIMIBE (Zetia) 10 mg QHS PO Last administered on 01/15/19at 20:58; Admin Dose 10 MG; Start 01/15/19 at 21:00 Aspirin (Halfprin) 81 mg DAILY PO Last administered on 01/16/19at 08:15; Admin Dose 81 MG; Start 01/16/19 at 09:00 Carvedilol (Coreg) 3.125 mg BID PO Last administered on 01/16/19at 08:41; Admin Dose 3.125 MG; Start 01/15/19 at 21:00 Assessment/Plan Hospital Course (Demo Recall) Back pain appears to be nonanginal musculoskeletal Acute on chronic renal failure hypertension PAD status post left BKA Diabetes Severe Dyslipidemia Obesity Recommendations: Aggressive medical therapy including better blood pressure and lipid management. Diabetic management as per internal medicine Aspirin will be initiated Renal work-up and management as per nephrology team We will hold off on any aggressive cardiac test at this point given her renal failure, and lack of any anginal chest pain Thank you for this referral. We will continue to follow along with you as needed PRINCE HERNANDEZ MD [facility] PRINCE HERNANDEZ MD January 16, 2019 12:18
--- NOTE | 2019-01-16 18:50 | CONS ---
Assessment/Plan Assessment/Plan Problems: (1) Diabetes type 2, uncontrolled Status: Chronic Comment: Her diabetic control is not great although is better than it was last October. Need to go ahead and adding pioglitazone but to do that I have to get rid of the dihydropyridine calcium channel tristian to avoid the lower extremity edema. This will allow us to adjust the insulin regimen and get her under preeti r control. Please note I do believe this patient is doing her best to try and be cooperative. Please note I have again advised her that I be happy see her in the office or if her doctor at [facility] does not want referral over they can call me while she is in their office and I will try and give them verbal guidance to help get her under better control. Qualifiers: Qualified Codes: E11.65 - Type 2 diabetes mellitus with hyperglycemia (2) Chronic kidney disease, stage 4, severely decreased GFR Status: Chronic Comment: Fully progressively worsening. Not using JANE inhibitors or angiotensin II receptor blockers as per nephrology. (3) Status post below knee amputation of left lower extremity Status: Chronic Comment: Noted. (4) Diabetes, polyneuropathy Status: Chronic Comment: Noted. Better controlled diabetes Qualifiers: Qualified Codes: E11.42 - Type 2 diabetes mellitus with diabetic polyneuropathy (5) Peripheral vascular disease Status: Chronic Comment: Noted. Aggressive risk factor modification (6) Hypertension Status: Chronic Comment: Adjust to more cardiac friendly regimen given the diastolic dysfunction grade 1. This will mean getting rid of the dihydropyridine calcium channel tristian, going up on the carvedilol, unifying the hydralazine to make it more convenient and then titrating to effect from there. Please note low-dose nitrate would be a good idea here Qualifiers: Qualified Codes: I10 - Essential (primary) hypertension (7) Hyporeninemic hypoaldosteronism Status: Chronic Comment: Noted. (8) Hypothyroidism Status: Chronic Comment: New thyroid hormone replacement therapy and adjust medications as an outpatient Qualifiers: Qualified Codes: E03.9 - Hypothyroidism, unspecified CC: GEORGI SOLORIO; MERLIN HERMOSILLO MD; HOLLIE ANGLIN DO ; Consultation Date/Type/Reason Admit Date/Time January 14, 2019 at 05:34 Date of Consultation: January 16, 2019 Type of Consult Endocrinology Reason for Consultation Diabetes mellitus type 2 with peripheral vascular disease; status post BKA; mixed hyperlipidemia; essential hypertension; chronic kidney disease stage V; retinopathy; peripheral neuropathy Requesting Provider: GEORGI SOLORIO Date/Time of Note DATE: 01/16/19 TIME: 18:42 Hx of Present Illness 58-year-old female normally treated for primary care at [facility]. She has a history of diabetes mellitus type 2 and her best A1c in the last few years has been 9.6. She has multiple complications. We are asked to consult due to her high dose insulin with a request to see if there is a way of reducing dosing. 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 ROBOTIC MAINTENANCE TECHNICIAN 11/17/18 Metoclopramide* (Reglan*) 5 Mg Tablet, 5 MG PO AC MEALS, #30 TAB Prov:ALVAREZ,KEVIN V. ROBOTIC MAINTENANCE TECHNICIAN 11/17/18 Pantoprazole* (Pantoprazole*) 40 Mg Tablet.dr, 40 MG PO BID@06,18, #120 TAB Prov:ALVAREZ,KEVIN V. ROBOTIC MAINTENANCE TECHNICIAN 11/17/18 Amlodipine Besylate* (Amlodipine Besylate*) 2.5 Mg Tablet, 2.5 MG PO DAILY, #30 TAB Prov:ALVAREZ,KEVIN V. ROBOTIC MAINTENANCE TECHNICIAN 11/17/18 Sucralfate (Carafate) 1 Gm Tablet, 1 GM PO Q6, #120 TAB Prov:ANTONIOKEVIN V. ROBOTIC MAINTENANCE TECHNICIAN 11/17/18 [place]-3/Dha/Epa/Fish Oil (Fish Oil 1,000 mg Softgel) 1,000 Mg Capsule, 2000 MG PO BID, #60 CAP Prov:ALVAREZFIDENCIOKEVIN V. ROBOTIC MAINTENANCE TECHNICIAN 11/17/18 Hydralazine Hcl* (Hydralazine Hcl*) 25 Mg Tab, 25 MG PO TID, #90 TAB Prov:KEVIN ALVAREZ V. ROBOTIC MAINTENANCE TECHNICIAN 11/17/18 Ondansetron Hcl* (Zofran*) 4 Mg Tablet, 4 MG PO Q8H PRN for NAUSEA AND/OR VOMITING, #30 TAB Prov:АЛЕКСАНДР SERNA MD 05/22/18 Reported Medications Vitamin B Complex (Vitamin B Complex) 1 Each Capsule, 1 EACH PO DAILY, CAP 11/14/18 Ferrous Sulfate* (Ferrous Sulfate*) 325 Mg Tabec, 325 MG PO DAILY, TAB 11/14/18 Trazodone Hcl* (Trazodone Hcl*) 50 Mg Tablet, 50 MG PO QHS, #30 TAB 05/22/18 Simvastatin* (Zocor*) 40 Mg Tablet, 40 MG PO QHS, #30 TAB 05/22/18 Sertraline Hcl* (Sertraline Hcl*) 50 Mg Tablet, 50 MG PO DAILY, #30 TAB 05/22/18 Linagliptin (TRADJENTA) 5 Mg Tablet, 5 MG PO DAILY, TAB 05/22/18 Levothyroxine Sodium* (Levoxyl*) 112 Mcg Tablet, 112 MCG PO BEFORE BREAKFAST, #30 TAB 05/22/18 Medications Current Medications IV Flush (NS 3 ml) 3 ml PER PROTOCOL IV ; Start 01/14/19 at 06:30 Ondansetron HCl (Zofran Inj) 4 mg Q6H PRN IV NAUSEA/VOMITING; Start 01/14/19 at 06:30 Nitroglycerin (Nitroglycerin (Sl Tab) 0.4 Mg) 1 tab Q5M PRN SL .CHEST PAIN; Start 01/14/19 at 06:30 Acetaminophen (Tylenol Tab) 650 mg Q6H PRN PO .PAIN 1-3 OR TEMP Last administered on 01/15/19at 05:41; Admin Dose 650 MG; Start 01/14/19 at 06:30 Morphine Sulfate (morphine) 2 mg Q4H PRN IV .PAIN 7-10 Last administered on 01/14/19 15:30; Admin Dose 2 MG; Start 01/14/19 at 06:30 Docusate Sodium (Colace) 100 mg Q12H PRN PO .CONSTIPATION; Start 01/14/19 at 06:30 Bisacodyl (Dulcolax) 5 mg DAILY PRN PO .CONSTIPATION; Start 01/14/19 at 06:30 Ferrous Sulfate (Ferrous Sulfate (Ec)) 325 mg DAILY PO Last administered on 01/16/19 08:02; Admin Dose 325 MG; Start 01/15/19 at 09:00 Insulin Aspart (Novolog Insulin Pen) 25 unit WITH MEALS SC Last administered on 01/16/19 17:27; Admin Dose 25 UNIT; Start 01/14/19 at 18:00 Levothyroxine Sodium (Synthroid) 112 mcg BEFORE BREAKFAST PO Last administered on 01/16/19 06:19; Admin Dose 112 MCG; Start 01/15/19 at 07:00 Metoclopramide HCl (Reglan) 5 mg AC MEALS PO Last administered on 01/16/19 17:20; Admin Dose 5 MG; Start 01/14/19 at 17:30 Fish Oil (Fish Oil) 2,000 mg BID PO Last administered on 01/16/19 08:01; Admin Dose 2,000 MG; Start 01/14/19 at 21:00 Pantoprazole (Protonix Tab) 40 mg BID@06,18 PO Last administered on 01/16/19 17:20; Admin Dose 40 MG; Start 01/14/19 at 18:00 Sertraline HCl (Zoloft) 50 mg DAILY PO Last administered on 01/16/19 08:02; Admin Dose 50 MG; Start 01/15/19 at 09:00 Sucralfate (Carafate) 1 gm Q6 PO Last administered on 01/16/19 17:20; Admin Dose 1 GM; Start 01/14/19 at 18:00; Stop 02/13/19 at 17:59 Diagnostic Test (Pha) (Accu-Chek) 1 ea 02 XX Last administered on 01/15/19at 02:38; Admin Dose 1 EA; Start 01/15/19 at 02:00 Insulin Aspart (Novolog Insulin Pen) NOVOLOG *MILD* ALGORITHM WITH MEALS BEDTIME SC Last administered on 01/16/19at 17:27; Admin Dose 2 UNIT; Start 01/14/19 at 18:00 Heparin Sodium (Porcine) (Heparin (5000 Units/1ml)) 5,000 unit BID SC Last administered on 01/16/19at 08:25; Admin Dose 5,000 UNIT; Start 01/14/19 at 21:00 Miscellaneous Information 1 ea NOTE XX ; Start 01/14/19 at 13:00 Glucose (Glutose) 15 gm Q15M PRN PO DECREASED GLUCOSE; Start 01/14/19 at 13:00 Glucose (Glutose) 22.5 gm Q15M PRN PO DECREASED GLUCOSE; Start 01/14/19 at 13:00 Dextrose (D50w Syringe) 25 ml Q15M PRN IV DECREASED GLUCOSE; Start 01/14/19 at 13:00 Dextrose (D50w Syringe) 50 ml Q15M PRN IV DECREASED GLUCOSE; Start 01/14/19 at 13:00 Glucagon (Glucagen) 1 mg Q15M PRN IM DECREASED GLUCOSE; Start 01/14/19 at 13:00 Glucose (Glutose) 15 gm Q15M PRN BUCCAL DECREASED GLUCOSE; Start 01/14/19 at 13:00 Insulin Glargine (Lantus) 60 units DAILY@0800 SC Last administered on 01/16/19at 08:25; Admin Dose 60 UNITS; Start 01/15/19 at 08:00 Linagliptin (Tradjenta) 5 mg DAILY PO Last administered on 01/16/19at 08:41; Admin Dose 5 MG; Start 01/16/19 at 09:00 Diagnostic Test (Pha) (Accu-Chek) 1 ea AC MEALS AND BEDTIME XX Last administered on 01/16/19at 17:20; Admin Dose 1 EA; Start 01/15/19 at 11:30 Atorvastatin Calcium (Lipitor) 80 mg DAILY@21 PO Last administered on 01/15/19at 20:58; Admin Dose 80 MG; Start 01/15/19 at 21:00 EZETIMIBE (Zetia) 10 mg QHS PO Last administered on 01/15/19at 20:58; Admin Dose 10 MG; Start 01/15/19 at 21:00 Aspirin (Halfprin) 81 mg DAILY PO Last administered on 01/16/19at 08:15; Admin Dose 81 MG; Start 01/16/19 at 09:00 Allergies: Coded Allergies: No Known Drug Allergy (Unverified Allergy, Mild, 11/14/18) Fish Containing Products (Verified Allergy, Unknown, 11/16/18) Past Surgical History Past Surgical Hx: cholecystectomy, other (Status post BKA;) Family History Significant Family History: diabetes, hypertension Social History Alcohol Use: rarely Smoking Status: Never smoker Drug Use: none Exam/Review of Systems Exam Vitals Vital Signs Date Temp Pulse Resp B/P (MAP) Pulse Ox O2 O2 Flow FiO2 Time Delivery Rate 01/16/19 63 16:01 01/16/19 97.4 18 121/57 96 Room Air 15:26 (78) Intake and Output 01/15/19 01/15/19 01/16/19 1515:00 23:00 07:00 IntakeIntake Total 1620 ml 950 ml BalanceBalance 1620 ml 950 ml Constitutional: alert, oriented Neck: supple, non-tender Respiratory: clear to auscultation, normal air movement Cardiovascular: regular rate and rhythm, nl pulses Gastrointestinal: soft, nl liver, spleen, non-tender Results Result Diagram: 01/16/19 0452 01/16/19 0452 Results 24hrs Laboratory Tests Test 01/15/19 20:55 01/16/19 01:57 01/16/19 04:45 01/16/19 04:51 Bedside Glucose 219 304 H Urine Color STRAW Urine Clarity SLIGHTLY CLOUDY A Urine pH 6.0 Urine Specific 1.009 [place] Urine Ketones NEGATIVE Urine Nitrite NEGATIVE Urine Bilirubin NEGATIVE Urine NEGATIVE Urobilinogen Urine Leukocyte NEGATIVE Esterase Urine Microscopic 0 RBC Urine Microscopic 30 H WBC Urine Squamous FEW Epithelial Cells Urine Bacteria MANY A Urine Hemoglobin NEGATIVE Urine Random 43.62 Creatinine Urine Random 43 Sodium Urine Glucose 3+ H Urine Total Protein Free Thyroxine 1.33 Test 01/16/19 04:52 01/16/19 07:43 01/16/19 12:10 01/16/19 17:19 White Blood Count 8.8 Red Blood Count 4.10 L Hemoglobin 10.9 L Hematocrit 33.7 L Mean Corpuscular 82.2 Volume Mean Corpuscular 26.6 L Hemoglobin Mean Corpuscular 32.3 Hemoglobin Concen t Red Cell 14.1 Distribution Width Platelet Count 410 Mean Platelet 9.9 Volume Immature 0.200 Granulocytes % Neutrophils % 58.2 Lymphocytes % 28.3 Monocytes % 8.1 Eosinophils % 4.3 Basophils % 0.9 Nucleated Red 0.0 Blood Cells % Immature 0.020 Granulocytes # Neutrophils # 5.1 Lymphocytes # 2.5 Monocytes # 0.7 Eosinophils # 0.4 Basophils # 0.1 Nucleated Red 0.0 Blood Cells # Sodium Level 135 Potassium Level 5.6 H Chloride Level 107 Carbon Dioxide 21 Level Anion Gap 7 Blood Urea 63 H Nitrogen Creatinine 4.03 H Est Glomerular 11 L Filtrat Rate mL/min Glucose Level 302 H Calcium Level 8.4 Phosphorus Level 4.7 Magnesium Level 3.4 H Bedside Glucose 351 H 297 H 191 Medications Medication Current Medications IV Flush (NS 3 ml) 3 ml PER PROTOCOL IV ; Start 01/14/19 at 06:30 Ondansetron HCl (Zofran Inj) 4 mg Q6H PRN IV NAUSEA/VOMITING; Start 01/14/19 at 06:30 Nitroglycerin (Nitroglycerin (Sl Tab) 0.4 Mg) 1 tab Q5M PRN SL .CHEST PAIN; Start 01/14/19 at 06:30 Acetaminophen (Tylenol Tab) 650 mg Q6H PRN PO .PAIN 1-3 OR TEMP Last administered on 01/15/19at 05:41; Admin Dose 650 MG; Start 01/14/19 at 06:30 Morphine Sulfate (morphine) 2 mg Q4H PRN IV .PAIN 7-10 Last administered on 01/14/19at 15:30; Admin Dose 2 MG; Start 01/14/19 at 06:30 Docusate Sodium (Colace) 100 mg Q12H PRN PO .CONSTIPATION; Start 01/14/19 at 06:30 Bisacodyl (Dulcolax) 5 mg DAILY PRN PO .CONSTIPATION; Start 01/14/19 at 06:30 Ferrous Sulfate (Ferrous Sulfate (Ec)) 325 mg DAILY PO Last administered on 01/16/19at 08:02; Admin Dose 325 MG; Start 01/15/19 at 09:00 Insulin Aspart (Novolog Insulin Pen) 25 unit WITH MEALS SC Last administered on 01/16/19at 17:27; Admin Dose 25 UNIT; Start 01/14/19 at 18:00 Levothyroxine Sodium (Synthroid) 112 mcg BEFORE BREAKFAST PO Last administered on 01/16/19 06:19; Admin Dose 112 MCG; Start 01/15/19 at 07:00 Metoclopramide HCl (Reglan) 5 mg AC MEALS PO Last administered on 01/16/19 17:20; Admin Dose 5 MG; Start 01/14/19 at 17:30 Fish Oil (Fish Oil) 2,000 mg BID PO Last administered on 01/16/19 08:01; Admin Dose 2,000 MG; Start 01/14/19 at 21:00 Pantoprazole (Protonix Tab) 40 mg BID@,18 PO Last administered on 01/16/19 17:20; Admin Dose 40 MG; Start 01/14/19 at 18:00 Sertraline HCl (Zoloft) 50 mg DAILY PO Last administered on 01/16/19 08:02; Admin Dose 50 MG; Start 01/15/19 at 09:00 Sucralfate (Carafate) 1 gm Q6 PO Last administered on 01/16/19 17:20; Admin Dose 1 GM; Start 01/14/19 at 18:00; Stop 02/13/19 at 17:59 Diagnostic Test (Pha) (Accu-Chek) 1 ea 02 XX Last administered on 01/15/19 02:38; Admin Dose 1 EA; Start 01/15/19 at 02:00 Insulin Aspart (Novolog Insulin Pen) NOVOLOG *MILD* ALGORITHM WITH MEALS BEDTIM E SC Last administered on 01/16/19 17:27; Admin Dose 2 UNIT; Start 01/14/19 at 18:00 Heparin Sodium (Porcine) (Heparin (5000 Units/1ml)) 5,000 unit BID SC Last administered on 01/16/19 08:25; Admin Dose 5,000 UNIT; Start 01/14/19 at 21:00 Miscellaneous Information 1 ea NOTE XX ; Start 01/14/19 at 13:00 Glucose (Glutose) 15 gm Q15M PRN PO DECREASED GLUCOSE; Start 01/14/19 at 13:00 Glucose (Glutose) 22.5 gm Q15M PRN PO DECREASED GLUCOSE; Start 01/14/19 at 13:00 Dextrose (D50w Syringe) 25 ml Q15M PRN IV DECREASED GLUCOSE; Start 01/14/19 at 13:00 Dextrose (D50w Syringe) 50 ml Q15M PRN IV DECREASED GLUCOSE; Start 01/14/19 at 13:00 Glucagon (Glucagen) 1 mg Q15M PRN IM DECREASED GLUCOSE; Start 01/14/19 at 13:00 Glucose (Glutose) 15 gm Q15M PRN BUCCAL DECREASED GLUCOSE; Start 01/14/19 at 13:00 Insulin Glargine (Lantus) 60 units DAILY@0800 SC Last administered on 01/16/19 08:25; Admin Dose 60 UNITS; Start 01/15/19 at 08:00 Linagliptin (Tradjenta) 5 mg DAILY PO Last administered on 01/16/19 08:41; Admin Dose 5 MG; Start 01/16/19 at 09:00 Diagnostic Test (Pha) (Accu-Chek) 1 ea AC MEALS AND BEDTIME XX Last administered on 01/16/19 17:20; Admin Dose 1 EA; Start 01/15/19 at 11:30 Atorvastatin Calcium (Lipitor) 80 mg DAILY@21 PO Last administered on 01/15/19at 20:58; Admin Dose 80 MG; Start 01/15/19 at 21:00 EZETIMIBE (Zetia) 10 mg QHS PO Last administered on 01/15/19 20:58; Admin Dose 10 MG; Start 01/15/19 at 21:00 Aspirin (Halfprin) 81 mg DAILY PO Last administered on 01/16/19 08:15; Admin Dose 81 MG; Start 01/16/19 at 09:00 JACE TURNER MD January 16, 2019 18:50
[2019-01-16] MEDS: ATORVASTATIN 40 MG TAB PO SCH (20:40)
[2019-01-16] MEDS: EZETIMIBE 10 MG TAB PO SCH (20:41)
[2019-01-16] MEDS: PIOGLITAZONE 15 MG TAB PO SCH (22:03)
[2019-01-17] VITALS (12 sets, daily range): BP systolic 126–167; BP diastolic 59–75; PULSE 59–74; RESP 18–20
[2019-01-17] MEDS: ACCU-CHEK XX SCH ×5 (02:02→21:12)
[2019-01-17] MEDS: SUCRALFATE 1 GM TAB PO SCH ×5 (02:07→23:42)
[2019-01-17] MEDS: morphine 2 MG INJ IV PRN (05:04)
[2019-01-17] MEDS: PANTOPRAZOLE (EC) 40 MG TAB PO SCH ×2 (05:04→17:41)
[2019-01-17] MEDS: METOCLOPRAMIDE 5 MG TAB PO SCH ×3 (06:02→17:41)
[2019-01-17] MEDS: LEVOTHYROXINE 112 MCG TAB PO SCH (06:02)
[2019-01-17] MEDS: FERROUS SULFATE (EC) 325 MG TAB PO SCH (08:03)
[2019-01-17] MEDS: PIOGLITAZONE 15 MG TAB PO SCH (08:03)
[2019-01-17] MEDS: FISH OIL 1,000 MG CAP PO SCH ×2 (08:03→20:31)
[2019-01-17] MEDS: SERTRALINE 50 MG TAB PO SCH (08:04)
[2019-01-17] MEDS: ASPIRIN (EC) 81 MG TAB PO SCH (08:04)
[2019-01-17] MEDS: LINAGLIPTIN 5 MG TABLET PO SCH (08:04)
--- NOTE | 2019-01-17 08:31 | CONS ---
Consult Date/Type/Reason Admit Date/Time January 16, 2019 at 11:34 Initial Consult Date 01/15/19 Type of Consultation: cv Requesting Provider: GEORGI SOLORIO Date/Time of Note DATE: 01/17/19 TIME: 08:30 Subjective Cardiology follow-up progress note Subjective: Discussed with the staff and telemetry was reviewed patient remains in normal sinus rhythm She denies any chest pain or pressure to me denies any arm pain to me. no Palpitation. She wants to go home Objective: General: Obese female in no acute distress HEENT: NC/AT. pupils are equal. round. NECK: NO JVD. no stridor. CV: RRR. systolic murmur; no gallop or rubs. PULM: no wheezing or rhonchi. GI: SOFT, NT, ND, no rebound or guarding Extremity: Left BKA. neuro: awake and alert, OX3. Psych: calm and pleasant rectal: deferred EKG was personally reviewed which showed no smart sinus rhythm with nonspecific ST abnormality Echocardiogram has shown: Normal left ventricular systolic function. Normal left ventricular cavity size. Mild concentric left ventricular hypertrophy. Ejection fraction is visually estimated at 65 %. Tissue Doppler/Mitral Doppler indices are consistent with impaired relaxation (Stage I diastolic dysfunction). Objective Vitals Vital Signs Date Temp Pulse Resp B/P (MAP) Pulse Ox O2 O2 Flow FiO2 Time Delivery Rate 01/17/19 97.9 74 19 167/72 96 07:30 (103) 01/17/19 Room Air 04:33 Intake and Output 01/16/19 01/16/19 01/17/19 1414:59 22:59 06:59 IntakeIntake Total 1200 ml 600 ml OutputOutput Total 800 ml BalanceBalance 1200 ml -200 ml Results/Medications Result Diagram: 01/17/19 0536 01/17/19 0536 Results 24 hrs Laboratory Tests Test 01/16/19 12:10 01/16/19 17:19 01/16/19 20:39 01/17/19 02:08 Bedside Glucose 297 H 191 204 202 Test 01/17/19 05:36 01/17/19 08:00 White Blood Count 8.0 Red Blood Count 4.24 Hemoglobin 11.0 L Hematocrit 34.5 L Mean Corpuscular 81.4 L Volume Mean Corpuscular 25.9 L Hemoglobin Mean Corpuscular 31.9 L Hemoglobin Concent Red Cell 13.8 Distribution Width Platelet Count 436 H Mean Platelet Volume 9.9 Immature 0.200 Granulocytes % Neutrophils % 58.2 Lymphocytes % 28.4 Monocytes % 7.8 Eosinophils % 4.5 Basophils % 0.9 Nucleated Red Blood 0.0 Cells % Immature 0.020 Granulocytes # Neutrophils # 4.7 Lymphocytes # 2.3 Monocytes # 0.6 Eosinophils # 0.4 Basophils # 0.1 Nucleated Red Blood 0.0 Cells # Sodium Level 135 Potassium Level 4.5 Chloride Level 106 Carbon Dioxide Level 22 Anion Gap 7 Blood Urea Nitrogen 60 H Creatinine 3.60 H Est Glomerular 13 L Filtrat Rate mL/min Glucose Level 212 Calcium Level 8.7 Phosphorus Level 4.8 Magnesium Level 3.1 H Bedside Glucose 247 H Home Meds Active Scripts Insulin Aspart* (Novolog Insulin Pen*) 100 Unit/Ml Soln, 25 UNIT SC WITH MEALS, #1 UNIT Prov:TOMEKA BATRES NP 11/17/18 [Insulin Glargine] 100 UNITS/ML SOLN No Conflict Check, 60 UNITS SC DAILY@0800, #1 UNIT Prov:TOMEKA BATRES NP 11/17/18 Sitagliptin* (Januvia*) 25 Mg Tablet, 25 MG PO DAILY, #30 TAB Prov:KEVIN ALVAREZ NP 11/17/18 Metoclopramide* (Reglan*) 5 Mg Tablet, 5 MG PO AC MEALS, #30 TAB Prov:KEVIN ALVAREZ NP 11/17/18 Pantoprazole* (Pantoprazole*) 40 Mg Tablet.dr, 40 MG PO BID@06,18, #120 TAB Prov:KEVIN ALVAREZ NP 11/17/18 Amlodipine Besylate* (Amlodipine Besylate*) 2.5 Mg Tablet, 2.5 MG PO DAILY, #30 TAB Prov:KEVIN ALVAREZ NP 11/17/18 Sucralfate (Carafate) 1 Gm Tablet, 1 GM PO Q6, #120 TAB Prov:ALVAREZKEVIN NP 11/17/18 [place]-3/Dha/Epa/Fish Oil (Fish Oil 1,000 mg Softgel) 1,000 Mg Capsule, 2000 MG PO BID, #60 CAP Prov:KEVIN ALVAREZ NP 11/17/18 Hydralazine Hcl* (Hydralazine Hcl*) 25 Mg Tab, 25 MG PO TID, #90 TAB Prov:KEVIN ALVAREZ NP 11/17/18 Ondansetron Hcl* (Zofran*) 4 Mg Tablet, 4 MG PO Q8H PRN for NAUSEA AND/OR VOMITING, #30 TAB Prov:АЛЕКСАНДР SERNA MD 05/22/18 Reported Medications Vitamin B Complex (Vitamin B Complex) 1 Each Capsule, 1 EACH PO DAILY, CAP 11/14/18 Ferrous Sulfate* (Ferrous Sulfate*) 325 Mg Tabec, 325 MG PO DAILY, TAB 11/14/18 Trazodone Hcl* (Trazodone Hcl*) 50 Mg Tablet, 50 MG PO QHS, #30 TAB 05/22/18 Simvastatin* (Zocor*) 40 Mg Tablet, 40 MG PO QHS, #30 TAB 05/22/18 Sertraline Hcl* (Sertraline Hcl*) 50 Mg Tablet, 50 MG PO DAILY, #30 TAB 05/22/18 Linagliptin (TRADJENTA) 5 Mg Tablet, 5 MG PO DAILY, TAB 05/22/18 Levothyroxine Sodium* (Levoxyl*) 112 Mcg Tablet, 112 MCG PO BEFORE BREAKFAST, #30 TAB 05/22/18 Medications Current Medications IV Flush (NS 3 ml) 3 ml PER PROTOCOL IV ; Start 01/14/19 at 06:30 Ondansetron HCl (Zofran Inj) 4 mg Q6H PRN IV NAUSEA/VOMITING; Start 01/14/19 at 06:30 Nitroglycerin (Nitroglycerin (Sl Tab) 0.4 Mg) 1 tab Q5M PRN SL .CHEST PAIN; Start 01/14/19 at 06:30 Acetaminophen (Tylenol Tab) 650 mg Q6H PRN PO .PAIN 1-3 OR TEMP Last administered on 01/15/19at 05:41; Admin Dose 650 MG; Start 01/14/19 at 06:30 Morphine Sulfate (morphine) 2 mg Q4H PRN IV .PAIN 7-10 Last administered on 01/17/19at 05:04; Admin Dose 2 MG; Start 01/14/19 at 06:30 Docusate Sodium (Colace) 100 mg Q12H PRN PO .CONSTIPATION; Start 01/14/19 at 06:30 Bisacodyl (Dulcolax) 5 mg DAILY PRN PO .CONSTIPATION; Start 01/14/19 at 06:30 Ferrous Sulfate (Ferrous Sulfate (Ec)) 325 mg DAILY PO Last administered on 08:02; Admin Dose 325 MG; Start 01/15/19 at 09:00 Insulin Aspart (Novolog Insulin Pen) 25 unit WITH MEALS SC Last administered on 01/16/19 17:27; Admin Dose 25 UNIT; Start 01/14/19 at 18:00 Levothyroxine Sodium (Synthroid) 112 mcg BEFORE BREAKFAST PO Last administered on 01/17/19 06:02; Admin Dose 112 MCG; Start 01/15/19 at 07:00 Metoclopramide HCl (Reglan) 5 mg AC MEALS PO Last administered on 01/17/19 06:02; Admin Dose 5 MG; Start 01/14/19 at 17:30 Fish Oil (Fish Oil) 2,000 mg BID PO Last administered on 01/16/19 20:40; Admin Dose 2,000 MG; Start 01/14/19 at 21:00 Pantoprazole (Protonix Tab) 40 mg BID@18 PO Last administered on 01/17/19 05:04; Admin Dose 40 MG; Start 01/14/19 at 18:00 Sertraline HCl (Zoloft) 50 mg DAILY PO Last administered on 01/16/19 08:02; A dmin Dose 50 MG; Start 01/15/19 at 09:00 Sucralfate (Carafate) 1 gm Q6 PO Last administered on 01/17/19 05:03; Admin Dose 1 GM; Start 01/14/19 at 18:00; Stop 02/13/19 at 17:59 Diagnostic Test (Pha) (Accu-Chek) 1 ea 02 XX Last administered on 01/17/19 02:02; Admin Dose 1 EA; Start 01/15/19 at 02:00 Insulin Aspart (Novolog Insulin Pen) NOVOLOG *MILD* ALGORITHM WITH MEALS BEDTIME SC Last administered on 01/16/19 21:00; Admin Dose 1 UNIT; Start 01/14/19 at 18:00 Heparin Sodium (Porcine) (Heparin (5000 Units/1ml)) 5,000 unit BID SC Last administered on 01/16/19at 21:00; Admin Dose 5,000 UNIT; Start 01/14/19 at 21:00 Miscellaneous Information 1 ea NOTE XX ; Start 01/14/19 at 13:00 Glucose (Glutose) 15 gm Q15M PRN PO DECREASED GLUCOSE; Start 01/14/19 at 13:00 Glucose (Glutose) 22.5 gm Q15M PRN PO DECREASED GLUCOSE; Start 01/14/19 at 13:00 Dextrose (D50w Syringe) 25 ml Q15M PRN IV DECREASED GLUCOSE; Start 01/14/19 at 13:00 Dextrose (D50w Syringe) 50 ml Q15M PRN IV DECREASED GLUCOSE; Start 01/14/19 at 13:00 Glucagon (Glucagen) 1 mg Q15M PRN IM DECREASED GLUCOSE; Start 01/14/19 at 13:00 Glucose (Glutose) 15 gm Q15M PRN BUCCAL DECREASED GLUCOSE; Start 01/14/19 at 13:00 Insulin Glargine (Lantus) 60 units DAILY@0800 SC Last administered on 01/16/19at 08:25; Admin Dose 60 UNITS; Start 01/15/19 at 08:00 Linagliptin (Tradjenta) 5 mg DAILY PO Last administered on 01/16/19 08:41; Admin Dose 5 MG; Start 01/16/19 at 09:00 Diagnostic Test (Pha) (Accu-Chek) 1 ea AC MEALS AND BEDTIME XX Last administered on 01/16/19at 21:01; Admin Dose 1 EA; Start 01/15/19 at 11:30 Atorvastatin Calcium (Lipitor) 80 mg DAILY@21 PO Last administered on 01/16/19at 20:40; Admin Dose 80 MG; Start 01/15/19 at 21:00 EZETIMIBE (Zetia) 10 mg QHS PO Last administered on 01/16/19at 20:41; Admin Dose 10 MG; Start 01/15/19 at 21:00 Aspirin (Halfprin) 81 mg DAILY PO Last administered on 01/16/19at 08:15; Admin Dose 81 MG; Start 01/16/19 at 09:00 Carvedilol (Coreg) 6.25 mg BID PO Last administered on 01/16/19at 20:40; Admin Dose 6.25 MG; Start 01/16/19 at 21:00 Hydralazine HCl (Apresoline) 50 mg BID PO Last administered on 01/16/19at 20:40; Admin Dose 50 MG; Start 01/16/19 at 21:00 Pioglitazone HCl (Actos) 15 mg DAILY PO Last administered on 01/16/19at 22:03; Admin Dose 15 MG; Start 01/16/19 at 20:30 Assessment/Plan Hospital Course (Demo Recall) Back/arm pain appears to be nonanginal musculoskeletal: It has resolved now Acute on chronic renal failure hypertension PAD status post left BKA Diabetes Severe Dyslipidemia Obesity Recommendations: Aggressive medical therapy including better blood pressure and lipid management. Diabetic management as per internal medicine Aspirin will be initiated Renal work-up and management as per nephrology team We will hold off on any aggressive cardiac test at this point given her renal failure, and lack of any anginal chest pain Thank you for this referral. We will continue to follow along with you as needed PRINCE HERNANDEZ MD [facility] PRINCE HERNANDEZ MD January 17, 2019 08:31
[2019-01-17] MEDS: INSULIN GLARGINE [LANTus] (100 UNITS/ML) SYG SC SCH (08:35)
[2019-01-17] MEDS: INSULIN ASPART [NOVOLOG] 3 ML PEN SC SCH ×7 (08:35→20:40)
[2019-01-17] MEDS: HEPARIN 5,000 UNIT/1 ML VIAL SC SCH ×2 (08:36→20:40)
--- NOTE | 2019-01-17 09:10 | PN ---
DATE: 01/17/2019 SUBJECTIVE: The patient is stable, no events overnight. OBJECTIVE: VITAL SIGNS: Blood pressure is 167/72, respirations 19, pulse 74, temperature 97.9. HEENT: Head is normocephalic. NECK: Supple. HEART: Regular rate. LUNGS: Show diminished breath sounds at the base. ABDOMEN: Soft, nontender to palpation without rebound or guarding. EXTREMITIES: Negative for clubbing, cyanosis, no edema. DERMATOLOGIC: No rashes. MUSCULOSKELETAL: No joint effusion. NEUROLOGIC: No change in exam. MEDICATIONS: Reviewed. LABORATORY DATA: Reviewed. ASSESSMENT AND PLAN: 1. Nonoliguric acute kidney injury on top of chronic kidney disease stage IV with previous baseline creatinine around 3.0 mg/dL. Etiology of current acute kidney injury is likely secondary to hemodyna mics with progression of underlying chronic kidney disease. The patient's renal function is fluctuat ing, but appears to have stabilized in the last 24 hours. At this point, we would continue current t reatment plans, supportive care, renally dose all medications. Monitor blood pressure levels closely, avoiding significant hemodynamic fluctuations. We would defer any JANE inhibitor or ARB at this time . 2. Chronic kidney disease stage IV, likely secondary to diabetic nephropathy. The patient is curren tly in acute kidney injury as stated above. Continue current treatment plan. Continue disease facto r modification. Defer any JANE inhibitor or ARB at this time. 3. Hyperkalemia, improved. Continue to monitor. 4. Diabetes. Continue current insulin regimen. 5. Hypertension. Blood pressure has been adjusted. Continue to monitor. 6. Obesity. Continue dietary modification. 7. Left arm pain, improving. Dictated By: HOLLIE AGNLIN DO NR/NTS Conf#: [id number] DID#: [id number] CC: KELLEY ROBLEDO MD; HOLLIE ANGLIN DO; GEORGI SOLORIO MD;*EndCC*
--- NOTE | 2019-01-17 10:19 | PN ---
Date/Time of Note Date/Time of Note DATE: 01/17/19 TIME: 10:18 Assessment/Plan VTE Prophylaxis Risk score (from Ns)>0 risk: 2 SCD applied (from Ns): No SCD contraindicated: other Pharmacological prophylaxis: heparin Lines/Catheters IV [facility] [place] Urinary Cath still in place: No Assessment/Plan Hospital Course SUBJECTIVE: Lying in bed comfortably. No acute distress. OBJECTIVE: Vital signs-see below PHYSICAL EXAM: Constitutional: Obese female,not in acute distress. HEENT: Head atraumatic and normocephalic. Eyes: Extraocular muscles intact. Anicteric sclerae. Pupils equal bilaterally, reactive to light. NECK: Supple without lymph node. CHEST: Clear and good breath sounds equally. No wheezing. No rhonchi. HEART: S1, S2. Regular rate and rhythm. ABDOMEN: Soft/non tender with no rebound tenderness. Bowel sounds were present. EXTREMITIES: No cyanosis, clubbing or edema. NEUROLOGIC: Alert and oriented x3. No focal deficit. No sensory deficit. PSYCHOSOCIAL: No signs of depression. INTEGUMENTARY: No open wounds. ASSESSMENT AND PLAN:58 yo obese F w/dm2,htn,ckd here w/leftpper backpain/lower chest pain.. Costochondritis -Resolved -ACS ruled out DM2, Poorly controlled diabetes -Endo manging this -added on pioglitazone -Basal/bouls Dyslipidemia -on statin JOS on CKD stage IV: -Nephrology management -CM consult for outpt nephrology f/u Hypothyroidism -on hormone replacement therapy Hypertension: -stable -on antihypertensives Neuropathy -Start low-dose gabapentin Prophylaxis: Heparin Dispo: Monitor creatinine over 24 hours, if downward trending, DC planning with outpatient nephrology follow-up. Case management to help patient with outpatient nephrology follow-up. Patient was seen in collaboration with Dr. Fishman. Result Diagram: 01/17/19 0536 01/17/19 0536 Results 24hrs Laboratory Tests Test 01/16/19 12:10 01/16/19 17:19 01/16/19 20:39 01/17/19 02:08 Bedside Glucose 297 H 191 204 202 Test 01/17/19 05:36 01/17/19 08:00 White Blood Count 8.0 Red Blood Count 4.24 Hemoglobin 11.0 L Hematocrit 34.5 L Mean Corpuscular 81.4 L Volume Mean Corpuscular 25.9 L Hemoglobin Mean Corpuscular 31.9 L Hemoglobin Concent Red Cell 13.8 Distribution Width Platelet Count 436 H Mean Platelet Volume 9.9 Immature 0.200 Granulocytes % Neutrophils % 58.2 Lymphocytes % 28.4 Monocytes % 7.8 Eosinophils % 4.5 Basophils % 0.9 Nucleated Red Blood 0.0 Cells % Immature 0.020 Granulocytes # Neutrophils # 4.7 Lymphocytes # 2.3 Monocytes # 0.6 Eosinophils # 0.4 Basophils # 0.1 Nucleated Red Blood 0.0 Cells # Sodium Level 135 Potassium Level 4.5 Chloride Level 106 Carbon Dioxide Level 22 Anion Gap 7 Blood Urea Nitrogen 60 H Creatinine 3.60 H Est Glomerular 13 L Filtrat Rate mL/min Glucose Level 212 Calcium Level 8.7 Phosphorus Level 4.8 Magnesium Level 3.1 H Bedside Glucose 247 H Exam/Review of Systems Exam Vitals Vital Signs Date Temp Pulse Resp B/P (MAP) Pulse Ox O2 O2 Flow FiO2 Time Delivery Rate 01/17/19 72 08:00 01/17/19 97.9 19 167/72 96 07:30 (103) 01/17/19 Room Air 04:33 Intake and Output 01/16/19 01/16/19 01/17/19 1515:00 23:00 07:00 IntakeIntake Total 1200 ml 600 ml OutputOutput Total 800 ml BalanceBalance 1200 ml -200 ml Results Results 24hrs Laboratory Tests Test 01/16/19 12:10 01/16/19 17:19 01/16/19 20:39 01/17/19 02:08 Bedside Glucose 297 H 191 204 202 Test 01/17/19 05:36 01/17/19 08:00 White Blood Count 8.0 Red Blood Count 4.24 Hemoglobin 11.0 L Hematocrit 34.5 L Mean Corpuscular 81.4 L Volume Mean Corpuscular 25.9 L Hemoglobin Mean Corpuscular 31.9 L Hemoglobin Concent Red Cell 13.8 Distribution Width Platelet Count 436 H Mean Platelet Volume 9.9 Immature 0.200 Granulocytes % Neutrophils % 58.2 Lymphocytes % 28.4 Monocytes % 7.8 Eosinophils % 4.5 Basophils % 0.9 Nucleated Red Blood 0.0 Cells % Immature 0.020 Granulocytes # Neutrophils # 4.7 Lymphocytes # 2.3 Monocytes # 0.6 Eosinophils # 0.4 Basophils # 0.1 Nucleated Red Blood 0.0 Cells # Sodium Level 135 Potassium Level 4.5 Chloride Level 106 Carbon Dioxide Level 22 Anion Gap 7 Blood Urea Nitrogen 60 H Creatinine 3.60 H Est Glomerular 13 L Filtrat Rate mL/min Glucose Level 212 Calcium Level 8.7 Phosphorus Level 4.8 Magnesium Level 3.1 H Bedside Glucose 247 H Medications Medication Current Medications IV Flush (NS 3 ml) 3 ml PER PROTOCOL IV ; Start 01/14/19 at 06:30 Ondansetron HCl (Zofran Inj) 4 mg Q6H PRN IV NAUSEA/VOMITING; Start 01/14/19 at 06:30 Nitroglycerin (Nitroglycerin (Sl Tab) 0.4 Mg) 1 tab Q5M PRN SL .CHEST PAIN; Start 01/14/19 at 06:30 Acetaminophen (Tylenol Tab) 650 mg Q6H PRN PO .PAIN 1-3 OR TEMP Last administered on 01/15/19at 05:41; Admin Dose 650 MG; Start 01/14/19 at 06:30 Morphine Sulfate (morphine) 2 mg Q4H PRN IV .PAIN 7-10 Last administered on 01/17/19 05:04; Admin Dose 2 MG; Start 01/14/19 at 06:30 Docusate Sodium (Colace) 100 mg Q12H PRN PO .CONSTIPATION; Start 01/14/19 at 06:30 Bisacodyl (Dulcolax) 5 mg DAILY PRN PO .CONSTIPATION; Start 01/14/19 at 06:30 Ferrous Sulfate (Ferrous Sulfate (Ec)) 325 mg DAILY PO Last administered on 01/17/19at 08:03; Admin Dose 325 MG; Start 01/15/19 at 09:00 Insulin Aspart (Novolog Insulin Pen) 25 unit WITH MEALS SC Last administered on 01/17/19at 08:37; Admin Dose 25 UNIT; Start 01/14/19 at 18:00 Levothyroxine Sodium (Synthroid) 112 mcg BEFORE BREAKFAST PO Last administered on 01/17/19 06:02; Admin Dose 112 MCG; Start 01/15/19 at 07:00 Metoclopramide HCl (Reglan) 5 mg AC MEALS PO Last administered on 01/17/19 06:02; Admin Dose 5 MG; Start 01/14/19 at 17:30 Fish Oil (Fish Oil) 2,000 mg BID PO Last administered on 01/17/19 08:03; Admin Dose 2,000 MG; Start 01/14/19 at 21:00 Pantoprazole (Protonix Tab) 40 mg BID@06,18 PO Last administered on 01/17/19 05:04; Admin Dose 40 MG; Start 01/14/19 at 18:00 Sertraline HCl (Zoloft) 50 mg DAILY PO Last administered on 01/17/19 08:04; Admin Dose 50 MG; Start 01/15/19 at 09:00 Sucralfate (Carafate) 1 gm Q6 PO Last administered on 01/17/19 05:03; Admin Dose 1 GM; Start 01/14/19 at 18:00; Stop 02/13/19 at 17:59 Diagnostic Test (Pha) (Accu-Chek) 1 ea 02 XX Last administered on 01/17/19 02:02; Admin Dose 1 EA; Start 01/15/19 at 02:00 Insulin Aspart (Novolog Insulin Pen) NOVOLOG *MILD* ALGORITHM WITH MEALS BEDTIME SC Last administered on 01/17/19 08:35; Admin Dose 3 UNIT; Start 01/14/19 at 18:00 Heparin Sodium (Porcine) (Heparin (5000 Units/1ml)) 5,000 unit BID SC Last administered on 01/17/19 08:36; Admin Dose 5,000 UNIT; Start 01/14/19 at 21:00 Miscellaneous Information 1 ea NOTE XX ; Start 01/14/19 at 13:00 Glucose (Glutose) 15 gm Q15M PRN PO DECREASED GLUCOSE; Start 01/14/19 at 13:00 Glucose (Glutose) 22.5 gm Q15M PRN PO DECREASED GLUCOSE; Start 01/14/19 at 13:00 Dextrose (D50w Syringe) 25 ml Q15M PRN IV DECREASED GLUCOSE; Start 01/14/19 at 13:00 Dextrose (D50w Syringe) 50 ml Q15M PRN IV DECREASED GLUCOSE; Start 01/14/19 at 13:00 Glucagon (Glucagen) 1 mg Q15M PRN IM DECREASED GLUCOSE; Start 01/14/19 at 13:00 Glucose (Glutose) 15 gm Q15M PRN BUCCAL DECREASED GLUCOSE; Start 01/14/19 at 13:00 Insulin Glargine (Lantus) 60 units DAILY@0800 SC Last administered on 01/17/19 08:35; Admin Dose 60 UNITS; Start 01/15/19 at 08:00 Linagliptin (Tradjenta) 5 mg DAILY PO Last administered on 01/17/19 08:04; Admin Dose 5 MG; Start 01/16/19 at 09:00 Diagnostic Test (Pha) (Accu-Chek) 1 ea AC MEALS AND BEDTIME XX Last administered on 01/17/19 08:01; Admin Dose 1 EA; Start 01/15/19 at 11:30 Atorvastatin Calcium (Lipitor) 80 mg DAILY@21 PO Last administered on 01/16/19 20:40; Admin Dose 80 MG; Start 01/15/19 at 21:00 EZETIMIBE (Zetia) 10 mg QHS PO Last administered on 01/16/19 20:41; Admin Dose 10 MG; Start 01/15/19 at 21:00 Aspirin (Halfprin) 81 mg DAILY PO Last administered on 01/17/19 08:04; Admin Dose 81 MG; Start 01/16/19 at 09:00 Carvedilol (Coreg) 6.25 mg BID PO Last administered on 01/17/19 08:04; Admin Dose 6.25 MG; Start 01/16/19 at 21:00 Hydralazine HCl (Apresoline) 50 mg BID PO Last administered on 01/17/19 08:05; Admin Dose 50 MG; Start 01/16/19 at 21:00 Pioglitazone HCl (Actos) 15 mg DAILY PO Last administered on 01/17/19 08:03; Admin Dose 15 MG; Start 01/16/19 at 20:30 KEVIN ALVAREZ NP January 17, 2019 10:19
[2019-01-17] MEDS: GABAPENTIN 100 MG CAP PO SCH ×2 (12:08→20:30)
[2019-01-17] MEDS ORDERED: PIOGLITAZONE 15 MG TAB PO ONE (18:30)
--- NOTE | 2019-01-17 18:32 | CONS ---
Assessment/Plan Assessment/Plan Problems: (1) Diabetes type 2, uncontrolled Status: Chronic Comment: Patient's blood sugar control using the same insulin regimen but adding in a bariatric nurse agent has drifted down nicely. And then adjust the medication slightly. The rest this can be done as an outpatient. Qualifiers: Glycemic state: with hyperglycemia Qualified Codes: E11.65 - Type 2 diabetes mellitus with hyperglycemia (2) Onychomycosis Status: Chronic Comment: Pulse therapy with terbinafine. (3) Hyporeninemic hypoaldosteronism Status: Chronic Comment: Noted. (4) Hypertension Status: Chronic Comment: Blood pressure control is better and she is off the dihydropyridine calcium channel tristian and is not having bradycardia dysrhythmias. Qualifiers: Hypertension type: essential hypertension Qualified Codes: I10 - Essential (primary) hypertension (5) Morbid obesity Status: Chronic Comment: Calorie restriction diet (6) Chronic kidney disease, stage 4, severely decreased GFR Status: Chronic Comment: As per nephrology. (7) Hypothyroidism Status: Chronic Comment: Continue with replacement therapy. Qualifiers: Hypothyroidism type: acquired Qualified Codes: E03.9 - Hypothyroidism, u nspecified CC: GEORGI SOLORIO; HOLLIE ANGLIN DO; PRINCE HERNANDEZ MD ; Consultation Date/Type/Reason Admit Date/Time January 16, 2019 at 11:34 Initial Consult Date 01/16/19 Type of Consult Endocrinology Reason for Consultation Beatties mellitus type II; morbid obesity; insulin resistance syndrome; chronic kidney disease stage V; hypertension; hyperlipidemia Requesting Provider: GEORGI SOLORIO Date/Time of Note DATE: 01/17/19 TIME: 18:29 24 HR Interval Summary Free Text/Dictation Patient reports that she feels her blood sugar control has improved Constitutional: no complaints Detailed Summary Cardiovascular: no complaints Gastrointestinal: no complaints Genitourinary: no complaints Exam/Review of Systems Exam Vitals Vital Signs Date Temp Pulse Resp B/P (MAP) Pulse Ox O2 O2 Flow FiO2 Time Delivery Rate 01/17/19 68 16:00 01/17/19 97.9 19 126/60 96 15:17 (82) 01/17/19 Room Air 04:33 Intake and Output 01/16/19 01/16/19 01/17/19 1515:00 23:00 07:00 IntakeIntake Total 1200 ml 600 ml OutputOutput Total 800 ml BalanceBalance 1200 ml -200 ml Constitutional: alert, oriented Respiratory: clear to auscultation, normal air movement Cardiovascular: regular rate and rhythm, nl pulses Results Result Diagram: 01/17/19 0536 01/17/19 0536 Results 24hrs Laboratory Tests Test 01/16/19 20:39 01/17/19 02:08 01/17/19 05:36 01/17/19 08:00 Bedside Glucose 204 202 247 H White Blood Count 8.0 Red Blood Count 4.24 Hemoglobin 11.0 L Hematocrit 34.5 L Mean Corpuscular 81.4 L Volume Mean Corpuscular 25.9 L Hemoglobin Mean Corpuscular 31.9 L Hemoglobin Concent Red Cell 13.8 Distribution Width Platelet Count 436 H Mean Platelet Volume 9.9 Immature 0.200 Granulocytes % Neutrophils % 58.2 Lymphocytes % 28.4 Monocytes % 7.8 Eosinophils % 4.5 Basophils % 0.9 Nucleated Red Blood 0.0 Cells % Immature 0.020 Granulocytes # Neutrophils # 4.7 Lymphocytes # 2.3 Monocytes # 0.6 Eosinophils # 0.4 Basophils # 0.1 Nucleated Red Blood 0.0 Cells # Sodium Level 135 Potassium Level 4.5 Chloride Level 106 Carbon Dioxide Level 22 Anion Gap 7 Blood Urea Nitrogen 60 H Creatinine 3.60 H Est Glomerular 13 L Filtrat Rate mL/min Glucose Level 212 Calcium Level 8.7 Phosphorus Level 4.8 Magnesium Level 3.1 H Test 01/17/19 12:07 01/17/19 17:39 Bedside Glucose 168 194 Medications Medication Current Medications IV Flush (NS 3 ml) 3 ml PER PROTOCOL IV ; Start 01/14/19 at 06:30 Ondansetron HCl (Zofran Inj) 4 mg Q6H PRN IV NAUSEA/VOMITING; Start 01/14/19 at 06:30 Nitroglycerin (Nitroglycerin (Sl Tab) 0.4 Mg) 1 tab Q5M PRN SL .CHEST PAIN; Start 01/14/19 at 06:30 Acetaminophen (Tylenol Tab) 650 mg Q6H PRN PO .PAIN 1-3 OR TEMP Last administered on 01/15/19at 05:41; Admin Dose 650 MG; Start 01/14/19 at 06:30 Morphine Sulfate (morphine) 2 mg Q4H PRN IV .PAIN 7-10 Last administered on 01/17/19 05:04; Admin Dose 2 MG; Start 01/14/19 at 06:30 Docusate Sodium (Colace) 100 mg Q12H PRN PO .CONSTIPATION; Start 01/14/19 at 06:30 Bisacodyl (Dulcolax) 5 mg DAILY PRN PO .CONSTIPATION; Start 01/14/19 at 06:30 Ferrous Sulfate (Ferrous Sulfate (Ec)) 325 mg DAILY PO Last administered on 01/17/19 08:03; Admin Dose 325 MG; Start 01/15/19 at 09:00 Insulin Aspart (Novolog Insulin Pen) 25 unit WITH MEALS SC Last administered on 01/17/19 17:58; Admin Dose 25 UNIT; Start 01/14/19 at 18:00 Levothyroxine Sodium (Synthroid) 112 mcg BEFORE BREAKFAST PO Last administered on 01/17/19 06:02; Admin Dose 112 MCG; Start 01/15/19 at 07:00 Metoclopramide HCl (Reglan) 5 mg AC MEALS PO Last administered on 01/17/19 17:41; Admin Dose 5 MG; Start 01/14/19 at 17:30 Fish Oil (Fish Oil) 2,000 mg BID PO Last administered on 01/17/19 08:03; Admin Dose 2,000 MG; Start 01/14/19 at 21:00 Pantoprazole (Protonix Tab) 40 mg BID@06,18 PO Last administered on 01/17/19 17:41; Admin Dose 40 MG; Start 01/14/19 at 18:00 Sertraline HCl (Zoloft) 50 mg DAILY PO Last administered on 01/17/19 08:04; Admin Dose 50 MG; Start 01/15/19 at 09:00 Sucralfate (Carafate) 1 gm Q6 PO Last administered on 01/17/19 17:41; Admin Dose 1 GM; Start 01/14/19 at 18:00; Stop 02/13/19 at 17:59 Diagnostic Test (Pha) (Accu-Chek) 1 ea 02 XX Last administered on 01/17/19 02:02; Admin Dose 1 EA; Start 01/15/19 at 02:00 Insulin Aspart (Novolog Insulin Pen) NOVOLOG *MILD* ALGORITHM WITH MEALS B EDTIME SC Last administered on 5/22/19at 17:57; Admin Dose 2 UNIT; Start 01/14/19 at 18:00 Heparin Sodium (Porcine) (Heparin (5000 Units/1ml)) 5,000 unit BID SC Last administered on 01/17/19 08:36; Admin Dose 5,000 UNIT; Start 01/14/19 at 21:00 Miscellaneous Information 1 ea NOTE XX ; Start 01/14/19 at 13:00 Glucose (Glutose) 15 gm Q15M PRN PO DECREASED GLUCOSE; Start 01/14/19 at 13:00 Glucose (Glutose) 22.5 gm Q15M PRN PO DECREASED GLUCOSE; Start 01/14/19 at 13:00 Dextrose (D50w Syringe) 25 ml Q15M PRN IV DECREASED GLUCOSE; Start 01/14/19 at 13:00 Dextrose (D50w Syringe) 50 ml Q15M PRN IV DECREASED GLUCOSE; Start 01/14/19 at 13:00 Glucagon (Glucagen) 1 mg Q15M PRN IM DECREASED GLUCOSE; Start 01/14/19 at 13:00 Glucose (Glutose) 15 gm Q15M PRN BUCCAL DECREASED GLUCOSE; Start 01/14/19 at 13:00 Insulin Glargine (Lantus) 60 units DAILY@0800 SC Last administered on 01/17/19 08:35; Admin Dose 60 UNITS; Start 01/15/19 at 08:00 Linagliptin (Tradjenta) 5 mg DAILY PO Last administered on 01/17/19 08:04; Admin Dose 5 MG; Start 01/16/19 at 09:00 Diagnostic Test (Pha) (Accu-Chek) 1 ea AC MEALS AND BEDTIME XX Last administered on 01/17/19at 17:40; Admin Dose 1 EA; Start 01/15/19 at 11:30 Atorvastatin Calcium (Lipitor) 80 mg DAILY@21 PO Last administered on 01/16/19 20:40; Admin Dose 80 MG; Start 01/15/19 at 21:00 EZETIMIBE (Zetia) 10 mg QHS PO Last administered on 01/16/19 20:41; Admin Dose 10 MG; Start 01/15/19 at 21:00 Aspirin (Halfprin) 81 mg DAILY PO Last administered on 01/17/19 08:04; Admin Dose 81 MG; Start 01/16/19 at 09:00 Carvedilol (Coreg) 6.25 mg BID PO Last administered on 01/17/19 08:04; Admin Dose 6.25 MG; Start 01/16/19 at 21:00 Hydralazine HCl (Apresoline) 50 mg BID PO Last administered on 01/17/19 08:05; Admin Dose 50 MG; Start 01/16/19 at 21:00 Pioglitazone HCl (Actos) 15 mg DAILY PO Last administered on 01/17/19 08:03; Admin Dose 15 MG; Start 01/16/19 at 20:30 Gabapentin (Neurontin) 100 mg TID PO Last administered on 01/17/19at 12:08; Admin Dose 100 MG; Start 01/17/19 at 13:00 JACE TURNER MD January 17, 2019 18:32
[2019-01-17] MEDS: EZETIMIBE 10 MG TAB PO SCH (20:30)
[2019-01-17] MEDS: ATORVASTATIN 40 MG TAB PO SCH (20:31)
[2019-01-17] MEDS: TERBINAFINE 250 MG TAB PO SCH (21:33)
[2019-01-18] VITALS: PULSE 68
[2019-01-18] MEDS: ACCU-CHEK XX SCH ×3 (02:44→11:54)
[2019-01-18 04:00] VITALS: BP 149/68; PULSE 64; PULSE 70; RESP 20
[2019-01-18] MEDS: SUCRALFATE 1 GM TAB PO SCH ×2 (05:04→12:05)
[2019-01-18] MEDS: PANTOPRAZOLE (EC) 40 MG TAB PO SCH (05:04)
[2019-01-18] MEDS: METOCLOPRAMIDE 5 MG TAB PO SCH ×2 (05:13→12:05)
[2019-01-18] MEDS: LEVOTHYROXINE 112 MCG TAB PO SCH (05:13)
[2019-01-18 07:08] VITALS: BP 160/77; PULSE 76; RESP 20
[2019-01-18] MEDS: INSULIN ASPART [NOVOLOG] 3 ML PEN SC SCH ×4 (07:38→11:58)
[2019-01-18 08:00] VITALS: PULSE 71
[2019-01-18] MEDS: INSULIN GLARGINE [LANTus] (100 UNITS/ML) SYG SC SCH (08:16)
--- NOTE | 2019-01-18 08:32 | CONS ---
Consult Date/Type/Reason Admit Date/Time January 16, 2019 at 11:34 Initial Consult Date 01/15/19 Type of Consultation: cv Requesting Provider: GEORGI SOLORIO Date/Time of Note DATE: 01/18/19 TIME: 08:32 Subjective Cardiology follow-up progress note Subjective: Discussed with the staff and telemetry was reviewed patient remains in normal sinus rhythm She denies any chest pain or pressure to me denies any arm pain to me. no Palpitation. She wants to go home Objective: General: Obese female in no acute distress HEENT: NC/AT. pupils are equal. round. NECK: NO JVD. no stridor. CV: RRR. systolic murmur; no gallop or rubs. PULM: no wheezing or rhonchi. GI: SOFT, NT, ND, no rebound or guarding Extremity: Left BKA. neuro: awake and alert, OX3. Psych: calm and pleasant rectal: deferred EKG was personally reviewed which showed no smart sinus rhythm with nonspecific ST abnormality Echocardiogram has shown: Normal left ventricular systolic function. Normal left ventricular cavity size. Mild concentric left ventricular hypertrophy. Ejection fraction is visually estimated at 65 %. Tissue Doppler/Mitral Doppler indices are consistent with impaired relaxation (Stage I diastolic dysfunction). Objective Vitals Vital Signs Date Temp Pulse Resp B/P (MAP) Pulse Ox O2 O2 Flow FiO2 Time Delivery Rate 01/18/19 97.9 76 20 160/77 97 Room Air 07:08 (104) Intake and Output 01/17/19 01/17/19 01/18/19 1515:00 23:00 07:00 IntakeIntake Total 850 ml 1000 ml BalanceBalance 850 ml 1000 ml Results/Medications Result Diagram: 01/17/19 0536 01/18/19 0515 Results 24 hrs Laboratory Tests Test 01/17/19 12:07 01/17/19 17:39 01/17/19 20:35 01/18/19 05:12 Bedside Glucose 168 194 185 282 H Test 01/18/19 05:15 01/18/19 07:28 Sodium Level 135 Potassium Level 4.9 Chloride Level 106 Carbon Dioxide Level 24 Anion Gap 5 Blood Urea Nitrogen 61 H Creatinine 3.46 H Est Glomerular 14 L Filtrat Rate mL/min Glucose Level 296 H Calcium Level 8.3 L Phosphorus Level 5.5 H Magnesium Level 2.9 H Bedside Glucose 319 H Home Meds Active Scripts Insulin Aspart* (Novolog Insulin Pen*) 100 Unit/Ml Soln, 25 UNIT SC WITH MEALS, #1 UNIT Prov:GISELTOMEKA SILVER WRAPPER 11/17/18 [Insulin Glargine] 100 UNITS/ML SOLN No Conflict Check, 60 UNITS SC DAILY@0800, #1 UNIT Prov:GISELTOMEKA SILVER WRAPPER 11/17/18 Sitagliptin* (Januvia*) 25 Mg Tablet, 25 MG PO DAILY, #30 TAB Prov:ALVAREZ,KEVIN V. SILVER WRAPPER 11/17/18 Metoclopramide* (Reglan*) 5 Mg Tablet, 5 MG PO AC MEALS, #30 TAB Prov:ALVAREZ,KEVIN V. SILVER WRAPPER 11/17/18 Pantoprazole* (Pantoprazole*) 40 Mg Tablet.dr, 40 MG PO BID@06,18, #120 TAB Prov:ALVAREZ,KEVIN V. SILVER WRAPPER 11/17/18 Amlodipine Besylate* (Amlodipine Besylate*) 2.5 Mg Tablet, 2.5 MG PO DAILY, #30 TAB Prov:ALVAREZ,KEVIN V. SILVER WRAPPER 11/17/18 Sucralfate (Carafate) 1 Gm Tablet, 1 GM PO Q6, #120 TAB Prov:ALVAREZ,KEVIN V. SILVER WRAPPER 11/17/18 [place]-3/Dha/Epa/Fish Oil (Fish Oil 1,000 mg Softgel) 1,000 Mg Capsule, 2000 MG PO BID, #60 CAP Prov:ALVAREZ,KEVIN V. SILVER WRAPPER 11/17/18 Hydralazine Hcl* (Hydralazine Hcl*) 25 Mg Tab, 25 MG PO TID, #90 TAB Prov:ALVAREZ,KEVIN V. SILVER WRAPPER 11/17/18 Ondansetron Hcl* (Zofran*) 4 Mg Tablet, 4 MG PO Q8H PRN for NAUSEA AND/OR VOMITING, #30 TAB Prov:АЛЕКСАНДР SERNA MD 05/22/18 Reported Medications Vitamin B Complex (Vitamin B Complex) 1 Each Capsule, 1 EACH PO DAILY, CAP 11/14/18 Ferrous Sulfate* (Ferrous Sulfate*) 325 Mg Tabec, 325 MG PO DAILY, TAB 11/14/18 Trazodone Hcl* (Trazodone Hcl*) 50 Mg Tablet, 50 MG PO QHS, #30 TAB 05/22/18 Simvastatin* (Zocor*) 40 Mg Tablet, 40 MG PO QHS, #30 TAB 05/22/18 Sertraline Hcl* (Sertraline Hcl*) 50 Mg Tablet, 50 MG PO DAILY, #30 TAB 05/22/18 Linagliptin (TRADJENTA) 5 Mg Tablet, 5 MG PO DAILY, TAB 05/22/18 Levothyroxine Sodium* (Levoxyl*) 112 Mcg Tablet, 112 MCG PO BEFORE BREAKFAST, #30 TAB 05/22/18 Medications Current Medications IV Flush (NS 3 ml) 3 ml PER PROTOCOL IV ; Start 01/14/19 at 06:30 Ondansetron HCl (Zofran Inj) 4 mg Q6H PRN IV NAUSEA/VOMITING; Start 01/14/19 at 06:30 Nitroglycerin (Nitroglycerin (Sl Tab) 0.4 Mg) 1 tab Q5M PRN SL .CHEST PAIN; Start 01/14/19 at 06:30 Acetaminophen (Tylenol Tab) 650 mg Q6H PRN PO .PAIN 1-3 OR TEMP Last administered on 01/15/19at 05:41; Admin Dose 650 MG; Start 01/14/19 at 06:30 Morphine Sulfate (morphine) 2 mg Q4H PRN IV .PAIN 7-10 Last administered on 01/17/19at 05:04; Admin Dose 2 MG; Start 01/14/19 at 06:30 Docusate Sodium (Colace) 100 mg Q12H PRN PO .CONSTIPATION; Start 01/14/19 at 06:30 Bisacodyl (Dulcolax) 5 mg DAILY PRN PO .CONSTIPATION; Start 01/14/19 at 06:30 Ferrous Sulfate (Ferrous Sulfate (Ec)) 325 mg DAILY PO Last administered on 01/17/19at 08:03; Admin Dose 325 MG; Start 01/15/19 at 09:00 Insulin Aspart (Novolog Insulin Pen) 25 unit WITH MEALS SC Last administered on 01/18/19at 07:38; Admin Dose 25 UNIT; Start 01/14/19 at 18:00 Levothyroxine Sodium (Synthroid) 112 mcg BEFORE BREAKFAST PO Last administered on 01/18/19at 05:13; Admin Dose 112 MCG; Start 01/15/19 at 07:00 Metoclopramide HCl (Reglan) 5 mg AC MEALS PO Last administered on 01/18/19 05:13; Admin Dose 5 MG; Start 01/14/19 at 17:30 Fish Oil (Fish Oil) 2,000 mg BID PO Last administered on 01/17/19 20:31; Admin Dose 2,000 MG; Start 01/14/19 at 21:00 Pantoprazole (Protonix Tab) 40 mg BID@,18 PO Last administered on 01/18/19 05:04; Admin Dose 40 MG; Start 01/14/19 at 18:00 Sertraline HCl (Zoloft) 50 mg DAILY PO Last administered on 01/17/19 08:04; Admin Dose 50 MG; Start 01/15/19 at 09:00 Sucralfate (Carafate) 1 gm Q6 PO Last administered on 01/18/19 05:04; Admin Dose 1 GM; Start 01/14/19 at 18:00; Stop 02/13/19 at 17:59 Diagnostic Test (Pha) (Accu-Chek) 1 ea 02 XX Last administered on 01/18/19 02:44; Admin Dose 1 EA; Start 01/15/19 at 02:00 Insulin Aspart (Novolog Insulin Pen) NOVOLOG *MILD* ALGORITHM WITH MEALS BEDTIME SC Last administered on 01/18/19 07:38; Admin Dose 5 UNIT; Start 01/14/19 at 18:00 Heparin Sodium (Porcine) (Heparin (5000 Units/1ml)) 5,000 unit BID SC Last administered on 01/17/19 20:40; Admin Dose 5,000 UNIT; Start 01/14/19 at 21:00 Miscellaneous Information 1 ea NOTE XX ; Start 01/14/19 at 13:00 Glucose (Glutose) 15 gm Q15M PRN PO DECREASED GLUCOSE; Start 01/14/19 at 13:00 Glucose (Glutose) 22.5 gm Q15M PRN PO DECREASED GLUCOSE; Start 01/14/19 at 13:00 Dextrose (D50w Syringe) 25 ml Q15M PRN IV DECREASED GLUCOSE; Start 01/14/19 at 13:00 Dextrose (D50w Syringe) 50 ml Q15M PRN IV DECREASED GLUCOSE; Start 01/14/19 at 13:00 Glucagon (Glucagen) 1 mg Q15M PRN IM DECREASED GLUCOSE; Start 01/14/19 at 13:00 Glucose (Glutose) 15 gm Q15M PRN BUCCAL DECREASED GLUCOSE; Start 01/14/19 at 13:00 Insulin Glargine (Lantus) 60 units DAILY@0800 SC Last administered on 01/18/19 08:16; Admin Dose 60 UNITS; Start 01/15/19 at 08:00 Linagliptin (Tradjenta) 5 mg DAILY PO Last administered on 01/17/19 08:04; Admin Dose 5 MG; Start 01/16/19 at 09:00 Diagnostic Test (Pha) (Accu-Chek) 1 ea AC MEALS AND BEDTIME XX Last administered on 01/18/19 07:29; Admin Dose 1 EA; Start 01/15/19 at 11:30 Atorvastatin Calcium (Lipitor) 80 mg DAILY@21 PO Last administered on 01/17/19 20:31; Admin Dose 80 MG; Start 01/15/19 at 21:00 EZETIMIBE (Zetia) 10 mg QHS PO Last administered on 01/17/19 20:30; Admin Dose 10 MG; Start 01/15/19 at 21:00 Aspirin (Halfprin) 81 mg DAILY PO Last administered on 01/17/19 08:04; Admin Dose 81 MG; Start 01/16/19 at 09:00 Carvedilol (Coreg) 6.25 mg BID PO Last administered on 01/17/19 20:31; Admin Dose 6.25 MG; Start 01/16/19 at 21:00 Hydralazine HCl (Apresoline) 50 mg BID PO Last administered on 01/17/19 20:31; Admin Dose 50 MG; Start 01/16/19 at 21:00 Gabapentin (Neurontin) 100 mg TID PO Last administered on 01/17/19 20:30; Admin Dose 100 MG; Start 01/17/19 at 13:00 Pioglitazone HCl (Actos) 30 mg DAILY PO ; Start 01/18/19 at 09:00 Terbinafine HCl (Lamisil) 250 mg BID PO Last administered on 01/17/19 21:33; Admin Dose 250 MG; Start 01/17/19 at 21:00; Stop 01/24/19 at 20:59 Sevelamer Carbonate (Renvela) 800 mg WITH MEALS PO ; Start 01/18/19 at 12:00; Status UNV Assessment/Plan Hospital Course (Demo Recall) Back/arm pain appears to be nonanginal musculoskeletal: It has resolved now Acute on chronic renal failure hypertension PAD status post left BKA Diabetes Severe Dyslipidemia Obesity Recommendations: Aggressive medical therapy including better blood pressure and lipid management. Diabetic management as per internal medicine Aspirin will be initiated Renal work-up and management as per nephrology team We will hold off on any aggressive cardiac test at this point given her renal failure, and lack of any anginal chest pain Thank you for this referral. We will continue to follow along with you as needed PRINCE HERNANDEZ MD [facility] PRINCE HERNANDEZ MD January 18, 2019 08:32
[2019-01-18] MEDS: FISH OIL 1,000 MG CAP PO SCH (08:50)
[2019-01-18] MEDS: GABAPENTIN 100 MG CAP PO SCH ×2 (08:51→12:05)
[2019-01-18] MEDS: SERTRALINE 50 MG TAB PO SCH (08:51)
[2019-01-18] MEDS: ASPIRIN (EC) 81 MG TAB PO SCH (08:51)
[2019-01-18] MEDS: TERBINAFINE 250 MG TAB PO SCH (08:51)
[2019-01-18] MEDS: FERROUS SULFATE (EC) 325 MG TAB PO SCH (08:52)
[2019-01-18] MEDS: LINAGLIPTIN 5 MG TABLET PO SCH (08:52)
--- NOTE | 2019-01-18 08:56 | PN ---
DATE: 01/18/2019 SUBJECTIVE: The patient is stable, no events overnight. OBJECTIVE: VITAL SIGNS: Blood pressure is 160/77, respiratory rate 20, pulse 76, temperature 97.9. HEENT: Head is normocephalic. NECK: Supple. HEART: Regular rate. LUNGS: Show diminished breath sounds at the base. ABDOMEN: Soft, nontender to palpation without rebound or guarding. EXTREMITIES: Negative for clubbing, cyanosis, no edema. DERMATOLOGIC: No rashes. MUSCULOSKELETAL: No joint effusions. NEUROLOGIC: No change in exam. MEDICATIONS: The patient's medications have been reviewed. LABORATORY DATA: Has been reviewed. ASSESSMENT AND PLAN: 1. Nonoliguric acute kidney injury on top of chronic kidney disease stage IV with previous baseline creatinine around 3 mg/dL. Etiology of current acute kidney injury is possibly due to hemodynamics. Renal function has been fluctuating. Appears to be stabilizing back around a creatinine of around 3 .4 to 3.6 mg/dL. The patient may also have underlying progression of chronic kidney disease. At thi s point, the patient has no overt uremic symptoms. No immediate need for renal replacement therapy. The patient was informed that she will need followup with an outpatient post form remover at time of disc harge, if patient is close to potentially being placed on hemodialysis. At this point, continue curr ent treatment plan, supportive care, renally dose all meds. Would defer any JANE inhibitor or ARB at this time until renal function stabilizes. 2. Chronic kidney disease stage IV, likely due to diabetic nephropathy. The patient is currently in acute injury as stated above. Continue current treatment plan. Continue disease factor modificatio n. Defer any JANE inhibitor or ARB at this time. 3. Hyperkalemia, improved. 4. Diabetes. Continue current insulin regimen. 5. Hypertension. Blood pressure regimen has been adjusted. Will continue to monitor. 6. Obesity. Continue dietary modification. Dictated By: HOLLIE ANGLIN DO NR/NTS Conf#: [id number] DID#: [id number] CC: KELLEY ROBLEDO MD;*EndCC*
[2019-01-18] MEDS ORDERED: PIOGLITAZONE 30 MG TAB PO SCH (09:00)
[2019-01-18] MEDS: HEPARIN 5,000 UNIT/1 ML VIAL SC SCH (09:43)
--- NOTE | 2019-01-18 11:00 | PDOCDIS ---
Discharge Instructions CONDITION [id number] Patient Condition: [id number] Stable HOME CARE INSTRUCTIONS: [id number] Your diet recommendation is: Aspok6s carbohydrtae controlled/renal diet FOLLOW UP/APPOINTMENTS Follow-up Plan You have kidney disease. You will need a kidney specialist to see you after d ischarge. We have sent authorization request to your insurance career who will review the case and will contact you by phone or mail regarding which drosophere operator you can follow up with. You also have diabetes which needs control of diet and compliance with medication. You are given prescription which is the best affordable medications. you can follow up with your primary care doctor for diabetic management and if needs specialist,your primary doctor can call who is also a general partner over the phone for recommendations. Name, Degree Chong Galvan MD Specialty Endocrinology Comments Office Address [address] [place] [address], [place] [address] Office Office KEVIN ALVAREZ NP January 18, 2019 11:00
[2019-01-18] MEDS ORDERED: GABA100C14 PO (11:05)
[2019-01-18] MEDS ORDERED: ATOR40TA68 PO (11:05)
[2019-01-18] MEDS ORDERED: CARV6.2579 PO (11:05)
[2019-01-18] MEDS ORDERED: EZET10TA32 PO (11:05)
[2019-01-18] MEDS ORDERED: PIOG30TA12 PO (11:05)
[2019-01-18] MEDS ORDERED: ASPI-1044 PO (11:05)
[2019-01-18 11:09] VITALS: BP 165/77; PULSE 69; RESP 20
--- NOTE | 2019-01-18 11:10 | DS ---
Date/Time of Note Date/Time of Note DATE: 01/18/19 TIME: 11:08 Discharge Summary Admission/Discharge Info Admit Date/Time January 16, 2019 at 11:34 Discharge Date/Time Discharge Diagnosis SUBJECTIVE: Lying in bed comfortably. No acute distress. OBJECTIVE: Vital signs-see below Costochondritis-Resolved DM2, Poorly controlled diabetes Dyslipidemia JOS on CKD stage IV:Stable at baseline Hypothyroidism Hypertension: Neuropathy Consults DR.Vahdat DR.Rokaw Stratton Procedures 01/16/2019: 2D echocardiogram Conclusions: Normal left ventricular systolic function. Normal left ventricular cavity size. Mild concentric left ventricular hypertrophy. Ejection fraction is visually estimated at 65 %. Tissue Doppler/Mitral Doppler indices are consistent with impaired relaxation (Stage I diastolic dysfunction). Electronically Signed By: Gerard Jacobo 2019-01-14 13:01:16 PDT Hospital Course 58 yo obese F w/dm2,htn,ckd here w/left upper backpain/lower chest pain.. ACS ruled out. Patient most likely had costochondritis/neuropathic pain and responded to PRN analgesics and low-dose gabapentin. Patient was also noted with poorly controlled diabetes requiring endocrinology management of blood sugar. She was also added on pioglitazone. Continued on basal and bolus insulin as well. She was continued on home medication for underlying comorbidities. Hospitalization was also noted for acute kidney injury on chronic kidney disease stage IV for which patient was being managed by workers' compensation magistrate. Unfortunately, this patient does not have a workers' compensation magistrate to follow-up as outpatient for which we have also requested an authorization for outpatient nephrology follow-up after discharge. Patient was continued on Synth roid for underlying hypothyroidism. Her blood pressure medications were titrated for optimal control of blood pressure. At this time, patient is feeling back to baseline. Her creatinine with not much fluctuation and remains at baseline. Patient is medically stable for outpatient follow-up. Approximately 60-minute was spent on coordinating the discharge on this patient. Patient was seen in collaboration with [facility] Active Scripts Pioglitazone Hcl* (Actos*) 30 Mg Tablet, 30 MG PO DAILY, #30 TAB Prov:ALVAREZ,KEVIN V. QUALITY TECHNICIAN 01/18/19 Gabapentin* (Gabapentin*) 100 Mg Capsule, 100 MG PO TID, #90 CAP Prov:ALVAREZ,KEVIN V. QUALITY TECHNICIAN 01/18/19 Aspirin Delayed Release (Aspirin Delayed Release) 81 Mg Tablet.dr, 81 MG PO DAILY, #30 TAB Prov:ALVAREZ,KEVIN V. QUALITY TECHNICIAN 01/18/19 Ezetimibe (Ezetimibe) 10 Mg Tablet, 10 MG PO QHS, #30 TAB Prov:ALVAREZ,KEVIN V. QUALITY TECHNICIAN 01/18/19 Carvedilol* (Carvedilol*) 6.25 Mg Tablet, 6.25 MG PO BID, #60 TAB Prov:ALVAREZMAMIA V. QUALITY TECHNICIAN 01/18/19 Atorvastatin* (Atorvastatin*) 40 Mg Tablet, 80 MG PO DAILY@21, #30 TAB Prov:ALVAREZKEVIN V. QUALITY TECHNICIAN 01/18/19 Insulin Aspart* (Novolog Insulin Pen*) 100 Unit/Ml Soln, 25 UNIT SC WITH MEALS, #1 UNIT Prov:TOMEKA BATRES NP 11/17/18 [Insulin Glargine] 100 UNITS/ML SOLN No Conflict Check, 60 UNITS SC DAILY@0800, #1 UNIT Prov:TOMEKA BATRES NP 11/17/18 Sitagliptin* (Januvia*) 25 Mg Tablet, 25 MG PO DAILY, #30 TAB Prov:ALVAREZKEVIN V. QUALITY TECHNICIAN 11/17/18 Metoclopramide* (Reglan*) 5 Mg Tablet, 5 MG PO AC MEALS, #30 TAB Prov:ALVAREZKEVIN V. QUALITY TECHNICIAN 11/17/18 Pantoprazole* (Pantoprazole*) 40 Mg Tablet.dr, 40 MG PO BID@06,18, #120 TAB Prov:KEVIN ALVAREZ V. QUALITY TECHNICIAN 11/17/18 Sucralfate (Carafate) 1 Gm Tablet, 1 GM PO Q6, #120 TAB Prov:ALVAREZMAMIA V. QUALITY TECHNICIAN 11/17/18 [place]-3/Dha/Epa/Fish Oil (Fish Oil 1,000 mg Softgel) 1,000 Mg Capsule, 2000 MG PO BID, #60 CAP Prov:ALVAREZKEVIN V. QUALITY TECHNICIAN 11/17/18 Hydralazine Hcl* (Hydralazine Hcl*) 25 Mg Tab, 25 MG PO TID, #90 TAB Prov:ALVAREZ,KEVIN V. QUALITY TECHNICIAN 11/17/18 Ondansetron Hcl* (Zofran*) 4 Mg Tablet, 4 MG PO Q8H PRN for NAUSEA AND/OR VOMITING, #30 TAB Prov:АЛЕКСАНДР SERNA MD 05/22/18 Reported Medications Vitamin B Complex (Vitamin B Complex) 1 Each Capsule, 1 EACH PO DAILY, CAP 11/14/18 Ferrous Sulfate* (Ferrous Sulfate*) 325 Mg Tabec, 325 MG PO DAILY, TAB 11/14/18 Trazodone Hcl* (Trazodone Hcl*) 50 Mg Tablet, 50 MG PO QHS, #30 TAB 05/22/18 Simvastatin* (Zocor*) 40 Mg Tablet, 40 MG PO QHS, #30 TAB 05/22/18 Sertraline Hcl* (Sertraline Hcl*) 50 Mg Tablet, 50 MG PO DAILY, #30 TAB 05/22/18 Linagliptin (TRADJENTA) 5 Mg Tablet, 5 MG PO DAILY, TAB 05/22/18 Levothyroxine Sodium* (Levoxyl*) 112 Mcg Tablet, 112 MCG PO BEFORE BREAKFAST, #30 TAB 05/22/18 Discontinued Scripts Amlodipine Besylate* (Amlodipine Besylate*) 2.5 Mg Tablet, 2.5 MG PO DAILY, #30 TAB Prov:KEVIN ALVAREZ NP 11/17/18 Follow-up Plan You have kidney disease. You will need a kidney specialist to see you after discharge. We have sent authorization request to your insurance career who will review the case and will contact you by phone or mail regarding which workers' compensation magistrate you can follow up with. You also have diabetes which needs control of diet and compliance with medication. You are given prescription which is the best affordable medications. you can follow up with your primary care doctor for diabetic management and if needs specialist,your primary doctor can call who is also a assistant professor of biochemistry over the phone for recommendations. Name, Degree Chong Galvan MD Specialty Endocrinology Comments Office Address [id number] [place] [address], [address] [place] [id number] Office Office Primary Care Provider Not On Staff Doctor Pending Labs Laboratory Tests Test 01/17/19 12:07 01/17/19 17:39 01/17/19 20:35 01/18/19 05:12 Bedside 168 194 185 282 Glucose mg/dL (70-220) mg/dL (70-220) mg/dL (70-220) mg/dL (70-220) Test 01/18/19 05:15 01/18/19 07:28 Sodium Level 135 mmol/L (135-144 ) Potassium 4.9 Level mmol/L (3.5-5.1 ) Chloride Level 106 mmol/L (97-110) Carbon Dioxide 24 Level mmol/L (21-31) Anion Gap 5 (5-13) Blood Urea 61 mg/dl (7-20) Nitrogen Creatinine 3.46 mg/dl (0.44-1.0 0) Est Glomerular 14 mL/min (>60) Filtrat Rate mL/min Glucose Level 296 mg/dl (70-220) Calcium Level 8.3 mg/dl (8.4-10.2 ) Phosphorus 5.5 Level mg/dl (2.5-4.9) Magnesium 2.9 Level mg/dl (1.7-2.5) Bedside 319 Glucose mg/dL (70-220) KEVIN ALVAREZ NP January 18, 2019 11:10
[2019-01-18 12:00] VITALS: PULSE 74
[2019-01-18] MEDS ORDERED: SEVELAMER CARBONATE 800 MG TABLET PO SCH (12:00)
== END 2019-01-18 12:30 | disposition home or self-care (01) | DRG 206 ==
LOC: E/R 04:28 → 6WM 05:34 → CANRESERV 07:04 → OBSVTOIN 01-16 11:34
PROVIDERS: ADMIT Family Medicine; ATTEND Family Medicine
DX: M94.0 Chondrocostal junction syndrome [Tietze] (principal); N17.9 Acute kidney failure, unspecified; Z68.41 Body mass index [BMI] 40.0-44.9, adult; E87.0 Hyperosmolality and hypernatremia; N18.4 Chronic kidney disease, stage 4 (severe); E27.40 Unspecified adrenocortical insufficiency; E11.22 Type 2 diabetes mellitus with diabetic chronic kidney disease; E11.65 Type 2 diabetes mellitus with hyperglycemia; I10 Essential (primary) hypertension; E66.01 Morbid (severe) obesity due to excess calories; E87.6 Hypokalemia; E03.9 Hypothyroidism, unspecified; B35.1 Tinea unguium; Z89.512 Acquired absence of left leg below knee
CPT/HCPCS: 36415; 71045; 76775; 80048; 80053; 80061; 81001; 81003; 82043; 82962; 83036; 83735; 84100; 84155; 84300; 84439; 84443; 84484; 85025; 87086; 93005; 93306; 96374; 96375; G0378; J1644; J1815; J2270; J2405; J2765; J7030